=== PATIENT | male | born 1950 | race American Indian/Alaskan Native ===

== ENCOUNTER 2018-03-06 10:03 | Inpatient (IN) | payer MEDICARE, OTHER ==
[2018-03-06 10:05] VITALS: BMI 30.8
[2018-03-06] MEDS ORDERED: Morphine 4 mg/ml ISec IVP STA (11:11)
[2018-03-06] MEDS ORDERED: Sodium Chloride 0.9% 100 ML IV SCH (11:15)
--- NOTE | 2018-03-06 11:37 | ED PDOC ---
Arrival/HPI - General Historian: Patient, Spouse - History of Present Illness Narrative History of Present Illness (Text): 03/06/18 11:26 68 yo M with PMHx of HTN, HLD, cardiac arrest s/p attempted spinal surgery (10/23/14), COPD, and chronic back pain presenting to ED with epigastric abdominal pain. Per patient, the pain began acutely about 3 hours ago when he was at home sitting down. He described it as sharp, rates 10/10 severity, localized primarily to the epigastric region with radiation to the back. He also endorses lower abdominal pain, milder in nature. The pain is worse in nature when sitting upright or lying flat, improves with leaning forward or lying on his side. No associated nausea or vomiting, no headaches, dizziness, changes in vision, syncope, chest pain, palpitations, sob, or cough. ROS otherwise negative. PMHx: HTN, HLD, COPD, cardiac arrest s/p attempted spinal surgery (10/23/14) PSHx: nerve block 11/26/14 Allergies: NKDA Home Medications: as per chart Social Hx: cigar smoker, denies alcohol or drug use FHx: unknown PMD: Dr. Jean Rivas Time/Duration: 1-3 hours Symptom Onset: Sudden Symptom Course: Unchanged Quality: Stabbing Severity Level: 10 Activities at Onset: Light Context: Sitting <Nam Schmitz - Last Filed: 03/06/18 18:11> <Manny Vigil - Last Filed: 03/07/18 07:27> - General Chief Complaint: Abdominal Pain Time Seen by Provider: 03/06/18 10:32 Past Medical History - Provider Review Nursing Documentation Reviewed: Yes - Infectious Disease Hx of Infectious Diseases: None - Tetanus Immunization Tetanus Immunization: Unknown - Past Medical History Past Medical History: No Previous - Cardiac Hx Cardiac Disorders: Yes Hx Cardiac Arrhythmia: Yes Hx Congestive Heart Failure: No Hx Hypertension: Yes Hx Pacemaker: No Hx Peripheral Edema: Yes (+1 ble) Other/Comment: Dyslipidemia - Pulmonary Hx Chronic Obstructive Pulmonary Disease (COPD): Yes - Neurological HX 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) Hx Paralysis: No Hx Seizures: Yes (as a teenager) Other/Comment: pt c/o shakes post intubation on 10/27/2014 - HEENT Hx HEENT Disorder: Yes (reading glasses) - Renal Hx Renal Failure: No - Endocrine/Metabolic Hx Diabetes Mellitus Type 1: No Hx Diabetes Mellitus Type 2: No Hx Hypothyroidism: No - Hematological/Oncological Hx AIDS: No Hx Blood Transfusions: No Hx Blood Transfusion Reaction: No - Musculoskeletal/Rheumatological Hx Musculoskeletal Disorders: Yes (difficulty ambulating) Hx Arthritis: No Hx Back Pain: Yes Hx Falls: No Hx Herniated Disk: Yes (L4, L5, S1) Hx Rheumatoid Arthritis: No Hx Unsteady Gait: Yes (walker) - Gastrointestinal Hx Gastrointestinal Disorders: (obese) - Psychiatric Hx Emotional Abuse: No Hx Physical Abuse: No Hx Substance Use: No Other/Comment: quit smoking cigars 4/5 a day last week - Past Surgical History Past Surgical History: No Previous - Surgical History Other/Comment: lumbardiscectomy x 2, cyst removal - Anesthesia Hx Anesthesia: Yes Hx Anesthesia Reactions: No Hx Malignant Hyperthermia: No - Suicidal Assessment Feels Threatened In Home Enviroment: No <Nam Schmitz - Last Filed: 03/06/18 18:11> Family/Social History - Physician Review Nursing Documentation Reviewed: Yes Family/Social History: Unknown Family HX Smoking Status: Current Some Days Smoker Hx Alcohol Use: No Hx Substance Use: No <Nam Schmitz - Last Filed: 03/06/18 18:11> Allergies/Home Meds <Nam Schmitz - Last Filed: 03/06/18 18:11> <Manny Vigil - Last Filed: 03/07/18 07:27> Allergies/Adverse Reactions: Allergies No Known Allergies Allergy (Verified 10/30/14 23:56) Home Medications: Home Meds Medication Instructions Recorded Confirmed Acetaminophen/Oxycodone Hydr 1 tab PO QID PRN 01/12/15 03/06/18 [Percocet 10/325 mg Tab] Famotidine [Pepcid] 40 mg PO BID 07/15/15 03/06/18 Gabapentin [Neurontin] 600 mg PO BID 07/15/15 03/06/18 Lisinopril [Zestril] 5 mg PO QAM 07/15/15 03/06/18 Ezetimibe [Zetia] 10 mg PO DAILY 03/06/18 03/06/18 Hydrocodone Bitartrate [Hysingla 40 mg PO DAILY 03/06/18 03/06/18 ER] Linaclotide [Linzess] 290 mcg PO ACB 03/06/18 03/06/18 Methylnaltrexone [place] [Relistor] 450 mg PO AC 03/06/18 03/06/18 Metoprolol Tartrate [Lopressor] 50 mg PO HS 03/06/18 03/06/18 Primidone [Mysoline] 250 mg PO TID 03/06/18 03/06/18 Rosuvastatin Calcium [Crestor] 10 mg PO DAILY 03/06/18 03/06/18 Review of Systems - Review of Systems Constitutional: Normal Eyes: Normal ENT: Normal Respiratory: SOB. absent: Cough, Sputum, Wheezing Cardiovascular: absent: Chest Pain, Palpitations, Edema, Calf Pain, Syncope Gastrointestinal: Abdominal Pain (sharp epigastric pain radiating to back, milder lower abdominal pain). absent: Stool Changes, Constipation, Diarrhea, Nausea, Vomiting, Hematochezia, Hematemesis Genitourinary Male: Normal Musculoskeletal: Back Pain (chronic) Skin: Normal Neurological: Normal. absent: Headache, Dizziness Endocrine: Normal Hemo/Lymphatic: Normal Psychiatric: Normal <Nam Schmitz - Last Filed: 03/06/18 18:11> Physical Exam Vital Signs Reviewed: Yes Vital Signs Temp Pulse Resp BP Pulse Ox 03/06/18 10:16 97.1 F L 90 22 181/107 H 87 L Temperature: Afebrile Blood Pressure: Hypertensive Pulse: Regular Respiratory Rate: Normal Appearance: Positive for: Uncomfortable Pain Distress: Severe Mental Status: Positive for: Alert and Oriented X 3 - Systems Exam Head: Present: Atraumatic, Normocephalic Pupils: Present: PERRL Extroacular Muscles: Present: EOMI Conjunctiva: Present: Normal Mouth: Present: Moist Mucous Membranes Neck: Present: Normal Range of Motion Respiratory/Chest: Present: Clear to Auscultation, Good Air Exchange. No: Wheezes, Rales, Rhonchi Cardiovascular: Present: Regular Rate and Rhythm, Normal S1, S2 Abdomen: Present: Tenderness (TTP epigastric region, lower abdomen), Normal Bowel Sounds, Peritoneal Signs. No: Guarding, Mass/Organomegaly Back: Present: Normal Inspection. No: CVA Tenderness, Paraspinal Tenderness Upper Extremity: Present: Normal Inspection, Normal ROM, NORMAL PULSES, Capillar y Refill < 2s. No: Cyanosis, Edema, Tenderness, Swelling Lower Extremity: Present: Normal Inspection, NORMAL PULSES, Normal ROM, Capillary Refill < 2 s. No: Edema, CALF TENDERNESS, Cyanosis, Tenderness Neurological: Present: CN II-XII Intact, Speech Normal Skin: Present: Warm, Dry, Normal Color Psychiatric: Present: Alert, Oriented x 3, Normal Insight, Normal Concentration <Nam Schmitz - Last Filed: 03/06/18 18:11> Vital Signs Temp Pulse Resp BP Pulse Ox 03/06/18 17:42 101.7 F H 94 H 20 162/104 H 98 03/06/18 17:26 101.7 F H 94 H 20 162/104 H 98 03/06/18 16:48 99.3 F 95 H 17 144/98 H 97 03/06/18 14:26 98.0 F 87 17 155/92 H 95 03/06/18 13:54 92 H 186/113 H 03/06/18 13:02 97.8 F 90 18 174/106 H 98 03/06/18 10:16 97.1 F L 90 22 181/107 H 87 L <Manny Vgiil - Last Filed: 03/07/18 07:27> Medical Decision Making ED Course and Treatment: 03/06/18 11:47 68 yo M with PMHx of HTN, HLD, previous cardiac arrest, COPD presenting with acute onset epigastric abdominal pain radiating to the back, r/o AAA. Plan: --CBC, CMP --BNP --Trop --lipase --EKG --CXR --CT angiogram --IVF --Morphine 4 mg IVP x1 --UA --monitor and disposition - RAD Interpretation Narrative RAD Interpretations (Text): 03/06/18 16:43 CT angio: small amount of free air beneath the liver and R hemidiaphragm. Source of the free air appears to be the stomach. Stomach is abnormally thickened and edematous with inflammation of the surrounding fat planes. CXR: no acute findings Radiology Orders: 03/06/18 11:12 ANGIOGRAPHY DISECTION PROTOCOL [CT] Stat Coffee Supervisor: Radiologist - EKG Interpretation EKG Interpretation (Text): 03/06/18 11:44 NSR 90 bpm Possible LA enlargement Left axis deviation Nonspecific ST abnormality Interpreted by ED Physician: Yes Type: 12 lead EKG - Medication Orders Current Medication Orders: Sodium Chloride (Sodium Chloride 0.9%) 100 mls @ 100 mls/hr IV .Q1H KALEN Last Admin: 03/06/18 11:21 Dose: 100 mls/hr eMAR Start Stop Document 03/06/18 11:21 OCS (Rec: 03/06/18 11:21 OCS [id number]) Intravenous Solution Start Date 03/06/18 Start Time 11:21 End Date 03/06/18 End time 12:21 Total Infusion Time 60 Discontinued Medications Morphine Sulfate (Morphine) 4 mg IVP STAT STA Stop: 03/06/18 11:12 Last Admin: 03/06/18 11:21 Dose: 4 mg MAR Pain Assessment Document 03/06/18 11:21 OCS (Rec: 03/06/18 11:22 OCS [id number]) Pain Reassessment Is this a pain reassessment? Yes Sleep Is patient sleeping during reassessment? No Presence of Pain Presence of Pain Yes Pain Scale Used Protocol: PSCALES Pain Scale Used Numeric Location Upper or Lower Lower Pain Location Body Site Abdomen Description Description Constant Intensity of Pain at present 10 Aggravating Factors ADL's IVP Administration Document 03/06/18 11:21 OCS (Rec: 03/06/18 11:22 OCS [id number]) Charges for Administration # of IVP Administrations 1 <Nam Schmitz - Last Filed: 03/06/18 18:11> ED Course and Treatment: 03/06/18 Patient Seen with Resident: Although aortic dissection was initially thought as the most concerning diagnosis, the presence of free air in the abdomen constituted emergent surgical intervention. Surgery was consulted with patient consented by Dr. Torres([facility] surgery) for laparotomy. In agreement with resident note which contains more details about the patient. Patient seen and evaluated with resident. Came up with plan and treatment together. - Lab Interpretations Lab Results: 03/06/18 11:32 03/06/18 11:55 Lab Results 03/06/18 12:30: Urine Color Yellow, Urine Appearance Clear, Urine pH 7.5, Ur Spe cific [place] 1.020, Urine Protein Negative, Urine Glucose (UA) Negative, Urine Ketones Negative, Urine Blood Negative, Urine Nitrate Negative, Urine Bilirubin Negative, Urine Urobilinogen 0.2, Ur Leukocyte Esterase Negative 03/06/18 11:55: Sodium 140, Potassium 3.6, Chloride 111 H, Carbon Dioxide 24, Anion Gap 9 L, BUN 9, Creatinine 0.5 L, Est GFR ( Amer) > 60, Est GFR (Non-Af Amer) > 60, Random Glucose 106, Calcium 8.6, Phosphorus 2.9, Magnesium 1.8, Total Bilirubin 0.5, AST 16 L, ALT 20, Alkaline Phosphatase 118, Troponin I 0.01 D, NT-Pro-B Natriuret Pep 603 H, Total Protein 7.7, Albumin 3.7, Globulin 4.1, Albumin/Globulin Ratio 0.9 L, Lipase 145 03/06/18 11:32: WBC 8.4, RBC 6.28 H, Hgb 14.4, Hct 43.4, MCV 69.1 L, MCH 22.9 L, MCHC 33.2, RDW 21.5 H, Plt Count 311, Gran % 82.7 H, Lymph % (Auto) 12.0 L, [place] % (Auto) 5.1, Eos % (Auto) 0.1 L, Baso % (Auto) 0.1, Gran # 6.97 H, Lymph # (Auto) 1.0 L, [place] # (Auto) 0.4, Eos # (Auto) 0.0, Baso # (Auto) 0.01 - RAD Interpretation Radiology Orders: 03/06/18 11:12 ANGIOGRAPHY DISECTION PROTOCOL [CT] Stat 03/06/18 11:45 CXR [CHEST PORTABLE] [RAD] Stat - Medication Orders Current Medication Orders: Albuterol/Ipratropium (Duoneb 3 Mg/0.5 Mg (3 Ml) Ud) 3 ml IH [id number] PRN PRN Reason: Wheezing Hydromorphone HCl (Dilaudid) 0.5 mg IVP Q4H PRN PRN Reason: Pain, moderate (4-7) Hydromorphone HCl (Dilaudid) 1 mg IVP Q4H PRN PRN Reason: Pain, severe (8-10) Lactated Ringer's (Lactated Ringer's) 1,000 mls @ 125 mls/hr IV .Q8H KALEN Last Admin: 03/06/18 16:41 Dose: 125 mls/hr eMAR Start Stop Document 03/06/18 16:41 OCS (Rec: 03/06/18 16:41 OCS [id number]) Intravenous Solution Start Date 03/06/18 Start Time 16:41 Pantoprazole Sodium (Protonix Inj) 40 mg IVP DAILY KALEN Last Admin: 03/06/18 16:39 Dose: 40 mg IVP Administration Document 03/06/18 16:39 OCS (Rec: 03/06/18 16:39 OCS [id number]) Charges for Administration # of IVP Administrations 1 Discontinued Medications Sodium Chloride (Sodium Chloride 0.9%) 100 mls @ 100 mls/hr IV .Q1H KALEN Last Admin: 03/06/18 11:21 Dose: 100 mls/hr eMAR Start Stop Document 03/06/18 11:21 OCS (Rec: 03/06/18 11:21 OCS [id number]) Intravenous Solution Start Date 03/06/18 Start Time 11:21 End Date 03/06/18 End time 12:21 Total Infusion Time 60 Metronidazole (Flagyl) 500 mg in 100 mls @ 100 mls/hr IVPB STAT STA; Protocol Stop: 03/06/18 16:58 Ceftriaxone Sodium (Rocephin 1 Gram Ivpb) 1 gm in 100 mls @ 100 mls/hr IVPB DAILY STA; Protocol Stop: 03/06/18 16:58 Last Admin: 03/06/18 16:39 Dose: 100 mls/hr eMAR Start Stop Document 03/06/18 16:39 OCS (Rec: 03/06/18 16:39 OCS [id number]) Intravenous Solution Start Date 03/06/18 Start Time 16:39 End Date 03/06/18 End time 17:39 Total Infusion Time 60 Labetalol HCl (Trandate) 20 mg IV STAT STA Stop: 03/06/18 13:27 Last Admin: 03/06/18 13:54 Dose: 20 mg eMAR Start Stop Document 03/06/18 13:54 OCS (Rec: 03/06/18 13:56 OCS [id number]) Intravenous Solution Start Date 03/06/18 Start Time 13:56 End Date 03/06/18 End time 13:58 Total Infusion Time 2 MAR Pulse and Blood Pressure Document 03/06/18 13:54 OCS (Rec: 03/06/18 13:56 OCS [id number]) Pulse Pulse Rate (60-90) 92 Blood Pressure Blood Pressure (100/60-150/90) 186/113 Morphine Sulfate (Morphine) 4 mg IVP STAT STA Stop: 03/06/18 11:12 Last Admin: 03/06/18 11:21 Dose: 4 mg MAR Pain Assessment Document 03/06/18 11:21 OCS (Rec: 03/06/18 11:22 OCS [id number]) Pain Reassessment Is this a pain reassessment? Yes Sleep Is patient sleeping during reassessment? No Presence of Pain Presence of Pain Yes Pain Scale Used Protocol: PSCALES Pain Scale Used Numeric Location Upper or Lower Lower Pain Location Body Site Abdomen Description Description Constant Intensity of Pain at present 10 Aggravating Factors ADL's IVP Administration Document 03/06/18 11:21 OCS (Rec: 03/06/18 11:22 OCS [id number]) Charges for Administration # of IVP Administrations 1 <Manny Vigil - Last Filed: 03/07/18 07:27> - PA / BLOOD BANK ASSISTANT / Resident Statement MD/ has reviewed & agrees with the documentation as recorded. MD/DO has examined the patient and agrees with the treatment plan. - Scribe Statement The provider has reviewed the documentation as recorded by the Manoloibsol Calhoun Provider Scribe Attestation: All medical record entries made by the Scribe were at my direction and personally dictated by me. I have reviewed the chart and agree that the record accurately reflects my personal performance of the history, physical exam, medical decision making, and the department course for this patient. I have also personally directed, reviewed, and agree with the discharge instructions and disposition. <Manny Vigil - Last Filed: 03/07/18 07:27> Disposition/Present on Arrival - Present on Arrival Any Indicators Present on Arrival: No History of DVT/PE: No History of Uncontrolled Diabetes: No Urinary Catheter: No History of Decub. Ulcer: No History Surgical Site Infection Following: None - Disposition Have Diagnosis and Disposition been Completed?: Yes Disposition Time: 16:41 <Nam Schmitz - Last Filed: 03/06/18 18:11> <Manny Vigil - Last Filed: 03/07/18 07:27> - Disposition Diagnosis: Pneumoperitoneum, Hypertension Disposition: HOSPITALIZED Patient Problems: Current Active Problems Problem Status Onset Hypertension Acute Pneumoperitoneum Acute Condition: UNKNOWN
[2018-03-06 11:45] LABS: BASO # 0.01 K/mm3 (0.0-2.0); BASO % 0.1 % (0.0-3.0); EOS % 0.1 % (1.5-5.0); GRAN # 6.97 (1.4-6.5); GRAN % 82.7 % (50.0-68.0); HEMOGLOBIN 14.4 g/dL (14.0-18.0); MEAN CELL VOLUME 69.1 fl (80.0-105.0); MEAN CORPUSCULAR HEMOGLOBIN 22.9 pg (25.0-35.0); MEAN CORPUSCULAR HGB CONC 33.2 g/dl (31.0-37.0); MONO # 0.4 (0.1-0.6); MONO % 5.1 % (1.0-6.0); PLATELET COUNT 311 10^3/uL (120.0-450.0); RBC 6.28 10^6/uL (3.5-6.1); RED CELL DISTRIBUTION WIDTH 21.5 % (11.5-14.5); WHITE BLOOD COUNT 8.4 10^3/ul (4.5-11.0)
[2018-03-06 12:48] LABS: PH,URINE 7.5 (4.7-8.0); URINE BILIRUBIN NEGATIVE (NEGATIVE); URINE BLOOD NEGATIVE (NEGATIVE); URINE GLUCOSE (UA) NEGATIVE (NEGATIVE); URINE LEUKOCYTE ESTERASE NEGATIVE Leu/uL (NEGATIVE); URINE PROTEIN NEGATIVE mg/dL (<30 mg/dL); URINE UROBILINOGEN 0.2 E.U./dL (<1 E.U./dL)
[2018-03-06 12:50] LABS: URINE APPEARANCE CLEAR (CLEAR); URINE COLOR YELLOW (YELLOW)
[2018-03-06 13:15] LABS: ALB/GLOB RATIO 0.9 (1.1-1.8); ALBUMIN 3.7 g/dL (3.0-4.8); ALT/SGPT 20 U/L (7-56); AST/SGOT 16 U/L (17-59); BLOOD UREA NITROGEN 9 mg/dL (7-21); CALCIUM 8.6 mg/dL (8.4-10.5); GFR NON-AFRICAN AMERICAN > 60; LIPASE 145 U/L (23-300)
[2018-03-06] MEDS ORDERED: Labetalol 5 mg/ml Inj 20ML IV STA ×2 (13:26→19:24)
--- NOTE | 2018-03-06 14:07 | RAD ---
Date of service: 03/06/2018 HISTORY: chest pain COMPARISON: 01/12/2015. FINDINGS: LUNGS: No active pulmonary disease. PLEURA: No significant pleural effusion identified, no pneumothorax apparent. CARDIOVASCULAR: Cardiomegaly. No evidence of acute, significant cardiovascular disease. OSSEOUS STRUCTURES: No significant abnormalities. VISUALIZED UPPER ABDOMEN: Normal. OTHER FINDINGS: None. IMPRESSION: No active disease. No significant interval change compared to the prior examination(s).
--- NOTE | 2018-03-06 14:41 | CT ---
PROCEDURE: CT Angiography Chest, Abdomen and Pelvis with and without intravenous contrast HISTORY: hx chest, abdominal pain COMPARISON: None. TECHNIQUE: Contiguous axial images of the chest, abdomen and pelvis were obtained in the phase of aortic enhancement. A noncontrast enhanced CT of the chest was also obtained to evaluate for possible intramural thrombus. Coronal and sagittal reformats were generated. IV dose administered: 150 cc of Omni 350 Radiation dose: Total exam DLP = 1526 mGy-cm. This CT exam was performed using one or more of the following dose reduction techniques: Automated exposure control, adjustment of the mA and/or kV according to patient size, and/or use of iterative reconstruction technique. FINDINGS: CT ANGIOGRAPHY OF THE CHEST WITH & WITHOUT CONTRAST: AORTA (CHEST AND ABDOMEN): The thoracic and abdominal aorta are unremarkable, without aneurysm, dissection or rupture. No intramural thrombus identified in the thoracic aorta on the non-contrast ct of the chest. The celiac axis, superior mesenteric artery, inferior mesenteric artery and the renal arteries are widely patent. The pelvic arteries are unremarkable. LUNGS: There is elevation of the right hemidiaphragm. There is an infiltrate at the right lung base. Part of this may be due to compressive atelectasis. MEDIASTINUM: Unremarkable. Normal caliber aorta and pulmonary arterial trunk. No aortic dissection. Normal size heart. LYMPH NODES: Unremarkable. PLEURA: Unremarkable. No pneumothorax. No pleural fluid. BONES: Unremarkable. OTHER FINDINGS: None. CT ANGIOGRAPHY OF THE ABDOMEN AND PELVIS WITH CONTRAST: LIVER: Unremarkable. No gross lesion or ductal dilatation. GALLBLADDER AND BILE DUCTS: Unremarkable. PANCREAS: Unremarkable. No gross lesion or ductal dilatation. SPLEEN: Unremarkable. ADRENALS: Unremarkable. No mass. KIDNEYS AND URETERS: Unremarkable. No hydronephrosis. No solid mass. VASCULATURE: Unremarkable. No aortic aneurysm. STOMACH AND BOWEL: There is a small amount of free air beneath the liver and right hemidiaphragm. The source of the free air appears to be in the stomach. The stomach is abnormally thickened and edematous and there is inflammation of the surrounding fat planes. Findings were discussed with Dr. Schmitz at 2:30 p.m. APPENDIX: Normal appendix. PERITONEUM: There is a small amount of ascites. LYMPH NODES: Unremarkable. No enlarged lymph nodes. BLADDER: Unremarkable. REPRODUCTIVE: Unremarkable. BONES: No acute fracture. OTHER FINDINGS: None. IMPRESSION: There is a small amount of free air beneath the liver and right hemidiaphragm. The source of the free air appears to be in the stomach. The stomach is abnormally thickened and edematous and there is inflammation of the surrounding fat planes.
[2018-03-06 14:45] LABS: B-TYPE NATRIURETIC PEPTIDE 603 pg/mL (0-450)
[2018-03-06 14:46] LABS: TROPONIN I 0.01 ng/mL
[2018-03-06] MEDS ORDERED: metroNIDAZOLE IV 500 mg/100 ml 500 MG/100 ML BAG IVPB STA (15:59)
[2018-03-06] MEDS ORDERED: cefTRIAXone 1 gm 1 GM/100 ML BAG IVPB STA (15:59)
--- NOTE | 2018-03-06 16:11 | CP.PCM.CON ---
History of Present Illness - History of Present Illness History of Present Illness: General Surgery consult note for Dr. Torres Patient is a 68 year old male with PMHx of HTN, HLD, cardiac arrest s/p attempted spinal surgery (10/23/14), COPD, and chronic back pain presenting to ED with epigastric abdominal pain. Patient states that the pain started about 3 hours ago when he was at home sitting down. He described it as sharp, rates 10/10 severity, localized primarily to the epigastric region, The pain is worse when sitting upright or lying flat on his back, improves with leaning forward or lying on his side. No associated nausea or vomiting, no headaches, dizziness, changes in vision, syncope, chest pain, palpitations, sob, or cough. ROS otherwise negative. PMHx: HTN, HLD, COPD, cardiac arrest s/p attempted spinal surgery (10/23/14) PSHx: nerve block 11/26/14 Allergies: NKDA Home Medications: as per chart Social Hx: cigar smoker, denies alcohol or drug use FHx: unknown PMD: Dr. 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) Hx Paralysis: No Hx Seizures: Yes (as a teenager) Other/Comment: pt c/o shakes post intubation on 10/27/2014 - HEENT Hx HEENT Problems: Yes (reading glasses) - RENAL Hx Renal Failure: No - ENDOCRINE/METABOLIC Hx Diabetes Mellitus Type 1: No Hx Diabetes Mellitus Type 2: No Hx Hypothyroidism: No - HEMATOLOGICAL/ONCOLOGICAL Hx AIDS: No Hx Blood Transfusions: No Hx Blood Transfusion Reaction: No - MUSCULOSKELETAL/RHEUMATOLOGICAL Hx Musculoskeletal Disorders: Yes (difficulty ambulating) Hx Arthritis: No Hx Back Pain: Yes Hx Falls: No Hx Herniated Disk: Yes (L4, L5, S1) Hx Rheumatoid Arthritis: No Hx Unsteady Gait: Yes (walker) - GASTROINTESTINAL Hx Gastrointestinal Disorders: (obese) - PSYCHIATRIC Hx Emotional Abuse: No Hx Physical Abuse: No Hx Substance Use: No Other/Comment: quit smoking cigars 4/5 a day last week - SURGICAL HISTORY Other/Comment: lumbardiscectomy x 2, cyst removal - ANESTHESIA Hx Anesthesia: Yes Hx Anesthesia Reactions: No Hx Malignant Hyperthermia: No Meds Allergies/Adverse Reactions: Allergies Allergy/AdvReac Type Severity Reaction Status Date / Time No Known Allergies Allergy Verified 10/30/14 23:56 - Medications Medications: Current Medications Sodium Chloride (Sodium Chloride 0.9%) 100 mls @ 100 mls/hr IV .Q1H KALEN Last Admin: 03/06/18 11:21 Dose: 100 mls/hr Metronidazole (Flagyl) 500 mg in 100 mls @ 100 mls/hr IVPB STAT STA; Protocol Stop: 03/06/18 16:58 Ceftriaxone Sodium (Rocephin 1 Gram Ivpb) 1 gm in 100 mls @ 100 mls/hr IVPB DAILY STA; Protocol Stop: 03/06/18 16:58 Physical Exam - GI/Abdominal Exam GI & Abdominal Exam: Distended, Firm, Tenderness. absent: Soft Additional comments: Peritoneal signs present, tender to palpation in the epigastric region. Results - Vital Signs Recent Vital Signs: Last Vital Signs Temp 98.0 F 03/06/18 14:26 Pulse 87 03/06/18 14:26 Resp 17 03/06/18 14:26 BP 155/92 H 03/06/18 14:26 Pulse Ox 95 03/06/18 14:26 - Labs Result Diagrams: 03/06/18 11:32 03/06/18 11:55 Labs: Laboratory Results - last 24 hr 03/06/18 03/06/18 03/06/18 11:32 11:55 12:30 WBC 8.4 RBC 6.28 H Hgb 14.4 Hct 43.4 MCV 69.1 L MCH 22.9 L MCHC 33.2 RDW 21.5 H Plt Count 311 Gran % 82.7 H Lymph % (Auto) 12.0 L [place] % (Auto) 5.1 Eos % (Auto) 0.1 L Baso % (Auto) 0.1 Gran # 6.97 H Lymph # (Auto) 1.0 L [place] # (Auto) 0.4 Eos # (Auto) 0.0 Baso # (Auto) 0.01 Sodium 140 Potassium 3.6 Chloride 111 H Carbon Dioxide 24 Anion Gap 9 L BUN 9 Creatinine 0.5 L Est GFR ( Amer) > 60 Est GFR (Non-Af Amer) > 60 Random Glucose 106 Calcium 8.6 Phosphorus 2.9 Magnesium 1.8 Total Bilirubin 0.5 AST 16 L ALT 20 Alkaline Phosphatase 118 Troponin I 0.01 D NT-Pro-B Natriuret Pep 603 H Total Protein 7.7 Albumin 3.7 Globulin 4.1 Albumin/Globulin Ratio 0.9 L Lipase 145 Urine Color Yellow Urine Appearance Clear Urine pH 7.5 Ur Specific [place] 1.020 Urine Protein Negative Urine Glucose (UA) Negative Urine Ketones Negative Urine Blood Negative Urine Nitrate Negative Urine Bilirubin Negative Urine Urobilinogen 0.2 Ur Leukocyte Esterase Negative Assessment & Plan - Assessment and Plan (Free Text) Assessment: Patient is a 68 year old male with PMHx of HTN, HLD, cardiac arrest s/p attempted spinal surgery (10/23/14), COPD, and chronic back pain presenting with epigastric abdominal pain. CT scan showed free air below the liver and right hemidiaphragm. Plan: - Plan for emergent surgery today - Start IVF: LR @ 125mL/hr - Start antibiotics - Pain management Discussed case with Dr. Brian Nath DO PGY-1
[2018-03-06] MEDS ORDERED: HYDROmorphone 0.5 mg/0.5 ml ISec IVP PRN (16:12)
[2018-03-06] MEDS ORDERED: Lactated Ringer's 1,000 ML IV SCH ×3 (16:15→23:46)
--- NOTE | 2018-03-06 16:36 | CARD ---
APPROVED REPORT Date of service: 03/06/2018 EKG Measurement Heart [id number] <Conclusion> Normal sinus rhythm Possible Left atrial enlargement Left axis deviation Nonspecific ST abnormality Abnormal ECG
[2018-03-06] MEDS ORDERED: Propofol 10 mg/ml Inj (20 ML) ONE (17:32)
[2018-03-06] MEDS ORDERED: Rocuronium 10 mg/ml (5 ml) ONE (17:32)
[2018-03-06] MEDS ORDERED: Succinylcholine 200 mg/10 ml Inj IV ONE (17:32)
[2018-03-06] MEDS ORDERED: Midazolam 2 MG/2 ML VIAL ONE (17:32)
[2018-03-06] MEDS ORDERED: Albuterol-Ipratrop 3 mg / 0.5 (3 ml) UD IH PRN (17:33)
[2018-03-06] MEDS ORDERED: Etomidate 20 mg/10ml Inj IV ONE (17:33)
[2018-03-06] MEDS ORDERED: metroNIDAZOLE IV 500 mg/100 ml 500 MG/100 ML BAG ONE (17:40)
[2018-03-06] MEDS ORDERED: Bupivacaine 0.5% 50 ML IJ ONE (17:40)
[2018-03-06] MEDS ORDERED: Lidocaine 1% 5ml Abboject ONE (17:41)
--- NOTE | 2018-03-06 17:51 | CP.PCM.HP ---
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 Pain is sharp, 10/10 with radiation to the back. Pain worsens by sitting upright or being supine, improves with leaning forward or lying on the right side. Patient denied chest pain, palpitations, SOB, nausea, vomiting, visual changes, headaches, dizziness, syncope. As per prev[facility]ius records 01/2015: abnormal stress test which was followed by a c ardiac cath which showed normal coronaries ROS limited due to patient emergent surgery PMHx: HTN, HLD, CVA with left residual weakness, COPD, cardiac arrest s/p attempted spinal surgery (10/23/14), herniated disk (L4- S1) PSHx: lumbardiscectomy x 2, cyst removal All: NKDA Meds: crestor, primidone, lisinopril, ezetimibe, pepcid, gabapentin, lopressor, percocet, linzess, SocHx: active smoker, denies alcohol or drug use FHx: unknown PMD: Dr. Jean Rivas Present on Admission - Present on Admission Any Indicators Present on Admission: No Past Patient History - Infectious Disease Hx of Infectious Diseases: None - Tetanus Immunizations Tetanus Immunization: Unknown - Past Medical History & Family History Past Medical History?: No - Past Social History Smoking Status: Current Some Days Smoker - CARDIAC Hx Cardiac Disorders: Yes Hx Cardia Arrhythmia: Yes Hx Congestive Heart Failure: No Hx Hypertension: Yes Hx Pacemaker: No Hx Peripheral Edema: Yes (+1 ble) Other/Comment: Dyslipidemia - PULMONARY Hx Chronic Obstructive Pulmonary Disease (COPD): Yes - NEUROLOGICAL HX 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) Hx Paralysis: No Hx Seizures: Yes (as a teenager) Other/Comment: pt c/o shakes post intubation on 10/27/2014 - HEENT Hx HEENT Problems: Yes (reading glasses) - RENAL Hx Renal Failure: No - ENDOCRINE/METABOLIC Hx Diabetes Mellitus Type 1: No Hx Diabetes Mellitus Type 2: No Hx Hypothyroidism: No - HEMATOLOGICAL/ONCOLOGICAL Hx AIDS: No Hx Blood Transfusions: No Hx Blood Transfusion Reaction: No - MUSCULOSKELETAL/RHEUMATOLOGICAL Hx Musculoskeletal Disorders: Yes (difficulty ambulating) Hx Arthritis: No Hx Back Pain: Yes Hx Falls: No Hx Herniated Disk: Yes (L4, L5, S1) Hx Rheumatoid Arthritis: No Hx Unsteady Gait: Yes (walker) - GASTROINTESTINAL Hx Gastrointestinal Disorders: (obese) - PSYCHIATRIC Hx Emotional Abuse: No Hx Physical Abuse: No Hx Substance Use: No Other/Comment: quit smoking cigars 4/5 a day last week - SURGICAL HISTORY Hx Surgeries: Yes - ANESTHESIA Hx Anesthesia Reactions: Yes (CARDIAC ARREST) Hx Malignant Hyperthermia: No Meds Allergies/Adverse Reactions: Allergies Allergy/AdvReac Type Severity Reaction Status Date / Time No Known Allergies Allergy Verified 10/30/14 23:56 Physical Exam - Constitutional Appears: Well, No Acute Distress - Head Exam Head Exam: ATRAUMATIC, NORMOCEPHALIC - Eye Exam Eye Exam: Normal appearance, PERRL Pupil Exam: NORMAL ACCOMODATION - ENT Exam ENT Exam: Mucous Membranes Moist, Normal Oropharynx - Neck Exam Neck exam: Positive for: Full Rom, Normal Inspection - Respiratory Exam Respiratory Exam: Clear to Auscultation Bilateral, NORMAL BREATHING PATTERN - Cardiovascular Exam Cardiovascular Exam: REGULAR RHYTHM, +S1, +S2 - GI/Abdominal Exam GI & Abdominal Exam: Distended, Firm, Tenderness (epigastric region) Additional comments: Peritoneal signs - Extremities Exam Extremities exam: Positive for: pedal edema Additional comments: skin changes b/l LL b/l LL edema - Back Exam Back exam: NORMAL INSPECTION - Neurological Exam Neurological exam: Alert, Oriented x3 - Psychiatric Exam Psychiatric exam: Normal Affect, Normal Mood - Skin Skin Exam: Dry, Intact, Warm Additional comments: b/l LL skin changes Results - Vital Signs Recent Vital Signs: Last Vital Signs Temp 101.7 F H 03/06/18 17:26 Pulse 94 H 03/06/18 17:26 Resp 20 03/06/18 17:26 BP 162/104 H 03/06/18 17:26 Pulse Ox 98 03/06/18 17:26 - Labs Result Diagrams: 03/06/18 11:32 03/06/18 11:55 Labs: Laboratory Results - last 24 hr 03/06/18 03/06/18 03/06/18 11:32 11:55 12:30 WBC 8.4 RBC 6.28 H Hgb 14.4 Hct 43.4 MCV 69.1 L MCH 22.9 L MCHC 33.2 RDW 21.5 H Plt Count 311 Gran % 82.7 H Lymph % (Auto) 12.0 L [place] % (Auto) 5.1 Eos % (Auto) 0.1 L Baso % (Auto) 0.1 Gran # 6.97 H Lymph # (Auto) 1.0 L [place] # (Auto) 0.4 Eos # (Auto) 0.0 Baso # (Auto) 0.01 Sodium 140 Potassium 3.6 Chloride 111 H Carbon Dioxide 24 Anion Gap 9 L BUN 9 Creatinine 0.5 L Est GFR ( Amer) > 60 Est GFR (Non-Af Amer) > 60 Random Glucose 106 Calcium 8.6 Phosphorus 2.9 Magnesium 1.8 Total Bilirubin 0.5 AST 16 L ALT 20 Alkaline Phosphatase 118 Troponin I 0.01 D NT-Pro-B Natriuret Pep 603 H Total Protein 7.7 Albumin 3.7 Globulin 4.1 Albumin/Globulin Ratio 0.9 L Lipase 145 Urine Color Yellow Urine Appearance Clear Urine pH 7.5 Ur Specific [place] 1.020 Urine Protein Negative Urine Glucose (UA) Negative Urine Ketones Negative Urine Blood Negative Urine Nitrate Negative Urine Bilirubin Negative Urine Urobilinogen 0.2 Ur Leukocyte Esterase Negative Assessment & Plan - Assessment and Plan (Free Text) Assessment: 68 year old male with PMHx of HTN, HLD, COPD, cardiac arrest s/p attempted spinal surgery (10/23/14), CVA, chronic back pain presented to ED with 3 hours of epigastric abdominal pain with no radiation. CT A/P showed free air below the liver and right hemidiaphragm. Patient is hemodynamically stable Plan: Abdominal pain Patient has peritoneal signs. perforated viscus is suspected CT ANGIO C/A/P: free air below the liver and right hemidiaphragm. abnormally thickened and edemateous stomach IVF: LR @ 125mL/hr abx started Flagyl, Rocephin emergent laparotomy. patient signed consent NPO dilaudid q4h prn for pain UA: negative BNP 603 blood cultures ordered CXR: no active disease EKG: nsr COPD records reviewed: admitted in 01/16 for hypercapneic respiratory failure duoneb q6h prn supplement O2 prn HTN hold home meds for now As per [facility] records 01/2015: abnormal stress test which was followed by a cardiac cath which showed normal coronaries HLD lipitor lipid panel Prophylaxis GI ppx: pantoprazole DVT ppx: SCD Case reviewed and plan discussed with Dr Hayes <Joselito Hayes - Last Filed: 03/08/18 18:25> Results - Vital Signs Recent Vital Signs: Last Vital Signs Temp 100.2 F H 03/07/18 20:00 Pulse 107 H 03/08/18 16:12 Resp 35 H 03/07/18 18:22 BP 176/112 H 03/08/18 16:12 Pulse Ox 99 03/07/18 18:00 - Labs Result Diagrams: 03/08/18 05:30 03/08/18 05:30 Labs: Laboratory Results - last 24 hr 03/07/18 03/08/18 03/08/18 21:50 05:30 05:30 WBC 12.2 H RBC 5.48 Hgb 12.1 L Hct 36.7 L MCV 67.0 L MCH 22.1 L MCHC 33.0 RDW 20.9 H Plt Count 239 Gran % 83.4 H Lymph % (Auto) 8.6 L [place] % (Auto) 7.9 H Eos % (Auto) 0.1 L Baso % (Auto) 0.0 Gran # 10.19 H Lymph # (Auto) 1.1 L [place] # (Auto) 1.0 H Eos # (Auto) 0.0 Baso # (Auto) 0.00 Sodium 136 Potassium 3.0 L Chloride 106 Carbon Dioxide 22 Anion Gap 11 BUN 10 Creatinine 0.5 L Est GFR ( Amer) > 60 Est GFR (Non-Af Amer) > 60 POC Glucose (mg/dL) 139 H Random Glucose 128 H Calcium 8.2 L Phosphorus 2.1 L Magnesium 1.9 Total Bilirubin 0.7 AST 26 ALT 27 Alkaline Phosphatase 82 Total Protein 7.0 Albumin 3.2 Globulin 3.7 Albumin/Globulin Ratio 0.9 L Attending/Attestation - Attestation I have personally seen and examined this patient.: Yes I have fully participated in the care of the patient.: Yes I have reviewed all pertinent clinical information: Yes Notes (Text): 03/08/18 18:22 attending note; Patient seen and examined with resident. patient is alert and awake. Patient's by the bedside. Complaining of abdominal pain. In mild distress. Patient is a 68 year old male with PMHx of HTN, HLD, COPD, cardiac arrest s/p attempted spinal surgery (10/23/14), CVA, chronic back pain,opiate use presented to ED with 3 hours history of epigastric abdominal pain while sitting at home. found to have free air under the diaphragm. Surgical residents by bed side. Patient is going for emergency laparotomy for perforated viscus. patient will admitted to medical service after the surgery. We will monitor patient closely in ICU. The diagnosis and treatment options explained to the patient and patient's in detail.
[2018-03-06] MEDS ORDERED: MetroNIDAZOLE 500 mg/100 ml IVPB ONE (18:16)
[2018-03-06] MEDS ORDERED: Neostigmine Methylsulfate 3mg/3ml Syringe IV ONE (18:36)
[2018-03-06] MEDS ORDERED: Labetalol 5 mg/ml Inj 20ML ONE (18:56)
[2018-03-06] MEDS ORDERED: HYDROmorphone 1 mg/ml ISec IVP PRN (19:08)
--- NOTE | 2018-03-06 19:13 | PCM.SURG1 ---
Surgeon's Initial Post Op Note - Surgeon's Notes Surgeon: Dr. Torres Clamshell Operator: Dr. Corona PGY4, Dr. Trejo PGY3 Type of Anesthesia: General Endo, Local Pre-Operative Diagnosis: acute abdomen, perforated viscus Operative Findings: perforated duodenal ulcer, inflammed omentum Post-Operative Diagnosis: perforated duodenal ulcer Operation Performed: exploratory laparotomy w/ Issa patch Specimen/Specimens Removed: none Estimated Blood Loss: EBL {In ML}: 15 Blood Products Given: N/A Drains Used: Shad Post-Op Condition: Good Date of Surgery/Procedure: 03/06/18 Time of Surgery/Procedure: 19:13
[2018-03-06] MEDS ORDERED: HYDROmorphone 1 mg/ml ISec IVP ONE ×2 (19:14→19:24)
[2018-03-06] MEDS ORDERED: HYDROmorphone 1 mg/ml ISec ONE (19:14)
[2018-03-06] MEDS ORDERED: HYDROmorphone 0.5 mg/0.5 ml ISec ONE (19:24)
[2018-03-06] MEDS ORDERED: Labetalol 5 mg/ml Inj 20ML IV ONE (19:25)
[2018-03-06 22:04] LABS: INR 1.26; PARTIAL THROMBOPLASTIN TIME 29.2 Seconds (25.1-36.5); PROTHROMBIN TIME 14.4 SECONDS (9.4-12.5)
[2018-03-06] MEDS: HYDROmorphone 1 mg/ml ISec IVP PRN (22:33)
[2018-03-07] MEDS ORDERED: AMPicillin/Sulbactam 1.5gm 1 GM/100 ML BAG IVPB ONE (00:35)
[2018-03-07] MEDS ORDERED: Lactated Ringer's 500 ML IV SCH (00:45)
[2018-03-07] MEDS: HYDROmorphone 1 mg/ml ISec IVP PRN ×5 (03:10→21:40)
--- NOTE | 2018-03-07 03:14 | CP.PCM.CON ---
<Jonh Shea - Last Filed: 03/07/18 08:57> History of Present Illness - History of Present Illness History of Present Illness: ICU CONSULT NOTE Jonh Shea D.O. PGY-1 68 year old male with PMHx of HTN, HLD, COPD, cardiac arrest s/p attempted spinal surgery (10/23/14), CVA, chronic back pain presented to ED with 3 hours history of epigastric abdominal pain while sitting at home. Pain is sharp, 10/10 with radiation to the back. Pain worsens by sitting upright or being supine, improves with leaning forward or lying on the right side. Pt found to have perforated duodenal ulcer and is s/p exploratory laparatomy with jeanette patch. Pt is resting in bed, with restraints in place as pt was trying to remove abdominal packing and eagle tube. Patient denied chest pain, palpitations, SOB, nausea, vomiting, visual changes, headaches, dizziness, syncope. As per prevoius records 01/2015: abnormal stress test which was followed by a cardiac cath which showed normal coronaries ROS limited due to patient emergent surgery PMHx: HTN, HLD, CVA with left residual weakness, COPD, cardiac arrest s/p attempted spinal surgery (10/23/14), herniated disk (L4- S1) PSHx: lumbardiscectomy x 2, cyst removal All: NKDA Meds: crestor, primidone, lisinopril, ezetimibe, pepcid, gabapentin, lopressor, percocet, linzess, SocHx: active smoker, denies alcohol or drug use FHx: unknown PMD: Dr. Jean Rivas Review of Systems - Review of Systems Review of Systems: as per HPI, limited Past Patient History - Infectious Disease Hx of Infectious Diseases: None - Tetanus Immunizations Tetanus Immunization: Unknown - Past Medical History & Family History Past Medical History?: No - Past Social History Smoking Status: Heavy Smoker > 10 Cigarettes Daily - CARDIAC Hx Cardiac Disorders: Yes Hx Peripheral Edema: Yes - PULMONARY Hx Respiratory Disorders: Yes Hx Chronic Obstructive Pulmonary Disease (COPD): Yes - NEUROLOGICAL HX Cerebrovascular Accident: Yes - HEENT Hx HEENT Problems: Yes (reading glasses) - RENAL Hx Renal Failure: No - ENDOCRINE/METABOLIC Hx Diabetes Mellitus Type 1: No Hx Diabetes Mellitus Type 2: No Hx Hypothyroidism: No - HEMATOLOGICAL/ONCOLOGICAL Hx AIDS: No Hx Blood Transfusions: No Hx Blood Transfusion Reaction: No - MUSCULOSKELETAL/RHEUMATOLOGICAL Hx Back Pain: Yes Hx Falls: No - GASTROINTESTINAL Hx Gastrointestinal Disorders: (obese) - PSYCHIATRIC Hx Substance Use: No - SURGICAL HISTORY Hx Surgeries: Yes (Attempted spinal surgery) - ANESTHESIA Hx Anesthesia Reactions: Yes (CARDIAC ARREST) Hx Malignant Hyperthermia: No Meds Allergies/Adverse Reactions: Allergies Allergy/AdvReac Type Severity Reaction Status Date / Time No Known Allergies Allergy Verified 10/30/14 23:56 - Medications Medications: Current Medications Albuterol/Ipratropium (Duoneb 3 Mg/0.5 Mg (3 Ml) Ud) 3 ml IH [id number] PRN PRN Reason: Wheezing Hydromorphone HCl (Dilaudid) 0.5 mg IVP Q4H PRN PRN Reason: Pain, moderate (4-7) Hydromorphone HCl (Dilaudid) 1 mg IVP Q4H PRN PRN Reason: Pain, severe (8-10) Last Admin: 03/07/18 03:10 Dose: 1 mg Hydromorphone HCl (Dilaudid) 0.5 mg IVP Q5MIN PRN PRN Reason: Pain, moderate (4-7) Lactated Ringer's (Lactated Ringer's) 1,000 mls @ 150 mls/hr IV .Q6H40M [facility] Last Admin: 03/07/18 01:13 Dose: 150 mls/hr Fluconazole 100 mg/ (Miscellaneous) 50 mls @ 100 mls/hr IVPB DAILY [facility]; Protocol Lactated Ringer's (Lactated Ringer's) 500 mls @ 999 mls/hr IV .Q31M [facility] Last Admin: 03/07/18 01:11 Dose: 999 mls/hr Ondansetron HCl (Zofran Inj) 4 mg IVP Q6 PRN PRN Reason: Nausea/Vomiting Pantoprazole Sodium (Protonix Inj) 40 mg IVP DAILY [facility] Last Admin: 03/06/18 16:39 Dose: 40 mg Results - Vital Signs Recent Vital Signs: Last Vital Signs Temp 98.2 F 03/07/18 00:00 Pulse 74 03/06/18 22:00 Resp 16 03/06/18 20:43 BP 166/101 H 03/06/18 19:33 Pulse Ox 94 L 10/03/18 19:33 - Labs Result Diagrams: 03/07/18 06:00 03/07/18 06:00 Labs: Laboratory Results - last 24 hr 03/06/18 03/06/18 03/06/18 11:32 11:55 12:30 WBC 8.4 RBC 6.28 H Hgb 14.4 Hct 43.4 MCV 69.1 L MCH 22.9 L MCHC 33.2 RDW 21.5 H Plt Count 311 Gran % 82.7 H Lymph % (Auto) 12.0 L [place] % (Auto) 5.1 Eos % (Auto) 0.1 L Baso % (Auto) 0.1 Gran # 6.97 H Lymph # (Auto) 1.0 L [place] # (Auto) 0.4 Eos # (Auto) 0.0 Baso # (Auto) 0.01 PT INR APTT Sodium 140 Potassium 3.6 Chloride 111 H Carbon Dioxide 24 Anion Gap 9 L BUN 9 Creatinine 0.5 L Est GFR ( Amer) > 60 Est GFR (Non-Af Amer) > 60 Random Glucose 106 Calcium 8.6 Phosphorus 2.9 Magnesium 1.8 Total Bilirubin 0.5 AST 16 L ALT 20 Alkaline Phosphatase 118 Troponin I 0.01 D NT-Pro-B Natriuret Pep 603 H Total Protein 7.7 Albumin 3.7 Globulin 4.1 Albumin/Globulin Ratio 0.9 L Lipase 145 Urine Color Yellow Urine Appearance Clear Urine pH 7.5 Ur Specific [place] 1.020 Urine Protein Negative Urine Glucose (UA) Negative Urine Ketones Negative Urine Blood Negative Urine Nitrate Negative Urine Bilirubin Negative Urine Urobilinogen 0.2 Ur Leukocyte Esterase Negative 03/06/18 21:51 WBC RBC Hgb Hct MCV MCH MCHC RDW Plt Count Gran % Lymph % (Auto) [place] % (Auto) Eos % (Auto) Baso % (Auto) Gran # Lymph # (Auto) [place] # (Auto) Eos # (Auto) Baso # (Auto) PT 14.4 H INR 1.26 APTT 29.2 Sodium Potassium Chloride Carbon Dioxide Anion Gap BUN Creatinine Est GFR ( Amer) Est GFR (Non-Af Amer) Random Glucose Calcium Phosphorus Magnesium Total Bilirubin AST ALT Alkaline Phosphatase Troponin I NT-Pro-B Natriuret Pep Total Protein Albumin Globulin Albumin/Globulin Ratio Lipase Urine Color Urine Appearance Urine pH Ur Specific [place] Urine Protein Urine Glucose (UA) Urine Ketones Urine Blood Urine Nitrate Urine Bilirubin Urine Urobilinogen Ur Leukocyte Esterase Assessment & Plan - Assessment and Plan (Free Text) Assessment: 68 year old male with PMHx of HTN, HLD, COPD, cardiac arrest s/p attempted spinal surgery (10/23/14), CVA, chronic back pain presented to ED with 3 hours of epigastric abdominal pain with no radiation. CT A/P showed free air below the liver and right hemidiaphragm. Patient is hemodynamically stable Plan: Patient has peritoneal signs. perforated viscus is suspected CT ANGIO C/A/P: free air below the liver and right hemidiaphragm. abnormally thickened and edemateous stomach IVF: LR @ 125mL/hr abx started Flagyl, Rocephin emergent laparotomy. patient signed consent NPO dilaudid q4h prn for pain UA: negative BNP 603 blood cultures ordered CXR: no active disease EKG: nsr COPD records reviewed: admitted in 01/16 for hypercapneic respiratory failure duoneb q6h prn supplement O2 prn HTN hold home meds for now As per [facility] records 01/2015: abnormal stress test which was followed by a cardiac cath which showed normal coronaries HLD lipitor lipid panel Prophylaxis GI ppx: pantoprazole DVT ppx: SCD <Hilton Martinez - Last Filed: 03/07/18 19:15> Meds - Medications Medications: Current Medications Albuterol/Ipratropium (Duoneb 3 Mg/0.5 Mg (3 Ml) Ud) 3 ml IH [id number] PRN PRN Reason: Wheezing Hydralazine HCl (Apresoline) 5 mg IVP Q6 PRN PRN Reason: Systolic Blood Pressure Last Admin: 03/07/18 04:41 Dose: 5 mg Hydromorphone HCl (Dilaudid) 0.5 mg IVP Q4H PRN PRN Reason: Pain, moderate (4-7) Hydromorphone HCl (Dilaudid) 1 mg IVP Q4H PRN PRN Reason: Pain, severe (8-10) Last Admin: 03/07/18 18:19 Dose: 1 mg Lactated Ringer's (Lactated Ringer's) 1,000 mls @ 125 mls/hr IV .Q8H [facility] Last Admin: 03/07/18 14:57 Dose: 125 mls/hr Metronidazole (Flagyl) 500 mg in 100 mls @ 100 mls/hr IVPB Q8 [facility]; Protocol Last Admin: 03/07/18 13:16 Dose: 100 mls/hr Ceftriaxone Sodium (Rocephin 2 Gm Ivpb) 2 gm in 100 mls @ 100 mls/hr IVPB DAILY [facility]; Protocol Last Admin: 03/07/18 09:07 Dose: 100 mls/hr Dexmedetomidine HCl (Precedex 400mcg/100ml) 400 mcg in 100 mls @ 4.257 mls/hr IV .[id number] PRN; Protocol PRN Reason: Agitation Last Admin: 03/07/18 18:50 Dose: 1.5 mcg/kg/hr, 31.927 mls/hr Lorazepam (Ativan) 1 mg IVP Q4 PRN; Protocol PRN Reason: Anxiety Last Admin: 03/07/18 13:03 Dose: 1 mg Nicotine (Nicoderm Cq) 1 patch TD DAILY [facility] Last Admin: 03/07/18 10:25 Dose: 1 patch Ondansetron HCl (Zofran Inj) 4 mg IVP Q6 PRN PRN Reason: Nausea/Vomiting Pantoprazole Sodium (Protonix Inj) 40 mg IVP DAILY [facility] Last Admin: 03/07/18 09:04 Dose: 40 mg Results - Vital Signs Recent Vital Signs: Last Vital Signs Temp 98 F 03/07/18 16:00 Pulse 102 H 03/07/18 18:22 Resp 35 H 03/07/18 18:22 BP 188/119 H 03/07/18 18:23 Pulse Ox 99 03/07/18 18:00 - Labs Result Diagrams: 03/07/18 06:00 03/07/18 06:00 Labs: Laboratory Results - last 24 hr 03/06/18 03/07/18 03/07/18 21:51 00:26 06:00 WBC 12.4 H D RBC 5.83 Hgb 13.0 L Hct 40.0 L MCV 68.6 L MCH 22.3 L MCHC 32.5 RDW 21.5 H Plt Count 281 Gran % 83.9 H Lymph % (Auto) 9.6 L [place] % (Auto) 6.4 H Eos % (Auto) 0.1 L Baso % (Auto) 0.0 Gran # 10.43 H Lymph # (Auto) 1.2 [place] # (Auto) 0.8 H Eos # (Auto) 0.0 Baso # (Auto) 0.00 PT 14.4 H INR 1.26 APTT 29.2 Sodium Potassium Chloride Carbon Dioxide Anion Gap BUN Creatinine Est GFR ( Amer) Est GFR (Non-Af Amer) POC Glucose (mg/dL) 134 H Random Glucose Calcium Phosphorus Magnesium Total Bilirubin AST ALT Alkaline Phosphatase Total Protein Albumin Globulin Albumin/Globulin Ratio Procalcitonin Urine Opiates Screen Urine Methadone Screen Ur Barbiturates Screen Ur Phencyclidine Scrn Ur Amphetamines Screen U Benzodiazepines Scrn U Oth Cocaine Metabols U Cannabinoids Screen 03/07/18 03/07/18 03/07/18 06:00 07:20 10:46 WBC RBC Hgb Hct MCV MCH MCHC RDW Plt Count Gran % Lymph % (Auto) [place] % (Auto) Eos % (Auto) Baso % (Auto) Gran # Lymph # (Auto) [place] # (Auto) Eos # (Auto) Baso # (Auto) PT INR APTT Sodium 137 Potassium 3.6 Chloride 108 H Carbon Dioxide 24 Anion Gap 9 L BUN 9 Creatinine 0.5 L Est GFR ( Amer) > 60 Est GFR (Non-Af Amer) > 60 POC Glucose (mg/dL) 133 H 172 H Random Glucose 129 H Calcium 8.1 L Phosphorus 2.5 Magnesium 1.5 L Total Bilirubin 0.7 AST 33 ALT 25 Alkaline Phosphatase 90 Total Protein 7.0 Albumin 3.3 Globulin 3.7 Albumin/Globulin Ratio 0.9 L Procalcitonin Urine Opiates Screen Urine Methadone Screen Ur Barbiturates Screen Ur Phencyclidine Scrn Ur Amphetamines Screen U Benzodiazepines Scrn U Oth Cocaine Metabols U Cannabinoids Screen 03/07/18 03/07/18 03/07/18 11:00 12:50 15:47 WBC RBC Hgb Hct MCV MCH MCHC RDW Plt Count Gran % Lymph % (Auto) [place] % (Auto) Eos % (Auto) Baso % (Auto) Gran # Lymph # (Auto) [place] # (Auto) Eos # (Auto) Baso # (Auto) PT INR APTT Sodium Potassium Chloride Carbon Dioxide Anion Gap BUN Creatinine Est GFR ( Amer) Est GFR (Non-Af Amer) POC Glucose (mg/dL) 154 H Random Glucose Calcium Phosphorus Magnesium Total Bilirubin AST ALT Alkaline Phosphatase Total Protein Albumin Globulin Albumin/Globulin Ratio Procalcitonin 3.79 H Urine Opiates Screen Positive H Urine Methadone Screen Negative Ur Barbiturates Screen Positive H Ur Phencyclidine Scrn Negative Ur Amphetamines Screen Negative U Benzodiazepines Scrn Negative U Oth Cocaine Metabols Negative U Cannabinoids Screen Positive H Attending/Attestation - Attestation I have personally seen and examined this patient.: Yes I have fully participated in the care of the patient.: Yes I have reviewed all pertinent clinical information: Yes
[2018-03-07] MEDS: Lactated Ringer's 1,000 ML IV SCH ×3 (06:25→23:21)
[2018-03-07] MEDS ORDERED: diltiaZEM IVPB 100mg in NS 100 ML IV PRN (07:08)
[2018-03-07 07:13] LABS: EOS % 0.1 % (1.5-5.0); GRAN # 10.43 (1.4-6.5); GRAN % 83.9 % (50.0-68.0); LYMPH # 1.2 (1.2-3.4); LYMPH % 9.6 % (22.0-35.0); MEAN CELL VOLUME 68.6 fl (80.0-105.0); MEAN CORPUSCULAR HEMOGLOBIN 22.3 pg (25.0-35.0); MEAN CORPUSCULAR HGB CONC 32.5 g/dl (31.0-37.0); MONO # 0.8 (0.1-0.6); MONO % 6.4 % (1.0-6.0); PLATELET COUNT 281 10^3/uL (120.0-450.0); RBC 5.83 10^6/uL (3.5-6.1); RED CELL DISTRIBUTION WIDTH 21.5 % (11.5-14.5); WHITE BLOOD COUNT 12.4 10^3/ul (4.5-11.0)
[2018-03-07] MEDS ORDERED: Nicardipine 20 MG/200 ML 20 MG/200 ML BAG IV PRN (07:14)
[2018-03-07 07:39] LABS: ALB/GLOB RATIO 0.9 (1.1-1.8); ALBUMIN 3.3 g/dL (3.0-4.8); ALT/SGPT 25 U/L (7-56); AST/SGOT 33 U/L (17-59); BLOOD UREA NITROGEN 9 mg/dL (7-21); CALCIUM 8.1 mg/dL (8.4-10.5); GFR NON-AFRICAN AMERICAN > 60
--- NOTE | 2018-03-07 08:42 | RAD ---
Date of service: 03/06/2018 HISTORY: post op, NGT placement COMPARISON: 03/06/2018 at 12:15 FINDINGS: LUNGS: The visualized lungs are clear. There is linear atelectasis in the right lower lobe. PLEURA: No significant pleural effusion identified, no pneumothorax apparent. CARDIOVASCULAR: Normal. OSSEOUS STRUCTURES: No significant abnormalities. VISUALIZED UPPER ABDOMEN: Normal. OTHER FINDINGS: Nasogastric tube terminates in the stomach IMPRESSION: Nasogastric tube terminates in the stomach. No acute findings.
--- NOTE | 2018-03-07 08:44 | CP.PCM.PN ---
Subjective - Date & Time of Evaluation Date of Evaluation: 03/07/18 Time of Evaluation: 08:39 - Subjective Subjective: General Surgery Progress note for Dr. Torres This 68M was seen and examined this Am at bedside no acute events reported overnight, however patient was delierious and was pulling at his NGT. This Am he reports improved pain, and cognition. Denies Flatus, BM chest pain or SOB. Objective - Vital Signs/Intake and Output Vital Signs (last 24 hours): Temp Pulse Resp BP Pulse Ox 98.2 F 79 22 161/89 H 100 03/07/18 06:00 03/07/18 05:10 03/07/18 05:10 03/07/18 05:00 03/07/18 05:10 Intake and Output: 03/07/18 03/07/18 06:59 18:59 Intake Total 1850 60 Output Total 2050 Balance -200 60 - Medications Medications: Current Medications Albuterol/Ipratropium (Duoneb 3 Mg/0.5 Mg (3 Ml) Ud) 3 ml IH [id number] PRN PRN Reason: Wheezing Hydralazine HCl (Apresoline) 5 mg IVP Q6 PRN PRN Reason: Systolic Blood Pressure Last Admin: 03/07/18 04:41 Dose: 5 mg Hydromorphone HCl (Dilaudid) 0.5 mg IVP Q4H PRN PRN Reason: Pain, moderate (4-7) Hydromorphone HCl (Dilaudid) 1 mg IVP Q4H PRN PRN Reason: Pain, severe (8-10) Last Admin: 03/07/18 07:15 Dose: 1 mg Hydromorphone HCl (Dilaudid) 0.5 mg IVP Q5MIN PRN PRN Reason: Pain, moderate (4-7) Lactated Ringer's (Lactated Ringer's) 1,000 mls @ 125 mls/hr IV .Q8H KALEN Last Admin: 03/07/18 06:25 Dose: 125 mls/hr Nicardipine HCl (Cardene Iv Premix) 20 mg in 200 mls @ 50 mls/hr IV .Q4H PRN; Protocol PRN Reason: TITRATE PER MD ORDER Last Titration: 03/07/18 08:33 Dose: 15 mg/hr, 150 mls/hr Metronidazole (Flagyl) 500 mg in 100 mls @ 100 mls/hr IVPB Q8 KALEN; Protocol Ceftriaxone Sodium (Rocephin 2 Gm Ivpb) 2 gm in 100 mls @ 100 mls/hr IVPB DAILY KALEN; Protocol Ondansetron HCl (Zofran Inj) 4 mg IVP Q6 PRN PRN Reason: Nausea/Vomiting Pantoprazole Sodium (Protonix Inj) 40 mg IVP DAILY [facility] Last Admin: 03/06/18 16:39 Dose: 40 mg - Labs Labs: 03/07/18 06:00 03/07/18 06:00 PT 14.4 SECONDS (9.4-12.5) H 03/06/18 21:51 INR 1.26 03/06/18 21:51 APTT 29.2 Seconds (25.1-36.5) 03/06/18 21:51 - Constitutional Appears: Non-toxic, No Acute Distress - Head Exam Head Exam: ATRAUMATIC, NORMOCEPHALIC - Eye Exam Eye Exam: EOMI - ENT Exam ENT Exam: Mucous Membranes Moist Additional comments: NGT in right nare - Respiratory Exam Respiratory Exam: NORMAL BREATHING PATTERN - Cardiovascular Exam Cardiovascular Exam: REGULAR RHYTHM, +S1, +S2 - GI/Abdominal Exam GI & Abdominal Exam: Soft. absent: Guarding, Rigid, Tenderness Additional comments: Drsssing wth sanguinous strike through, rafael drain with 280cc output since OR, Sanginopurulent - Neurological Exam Neurological Exam: Alert, Awake - Psychiatric Exam Psychiatric exam: Normal Affect, Normal Mood - Skin Skin Exam: Dry, Intact Assessment and Plan - Assessment and Plan (Free Text) Assessment: 68M with perforated duodenal ulcer POD#1 s/p exlap with gram patch and washout NPO NGT to suction IVF Pain control Monitor output Serial abdominal exams IV abx DVT prophylaxis D/W Dr. Brian Trejo [id number]
[2018-03-07] MEDS ORDERED: Magnesium Sulfate 2 gm/50 ml 2 GM/50 ML BAG IVPB ONE (08:56)
[2018-03-07] MEDS: cefTRIAXone 2 GM IN NS 2 GM/100 ML BAG IVPB SCH (09:07)
--- NOTE | 2018-03-07 09:46 | CP.CCUPN ---
<Carlos Silva - Last Filed: 03/07/18 12:27> CCU Subjective - Physician Review Subjective (Free Text): Carlos Silva, PGY-1, CCU Progress Note for Dr. Jolley Patient seen and evaluated at bedside. Patient is currently AAOx2. Patient is oriented to person and place but not to time. Patient denies headache, dizziness, chest pain, shortness of breath, fever, nausea, vomiting, constipation, diarrhea, dysuria, hematuria, diaphoresis. Though patient denied diaphoresis, patient was actively sweating and tachypneic. Critical Care Time Spent (in minutes): 60 CCU Objective - Vital Signs / Intake & Output Vital Signs (Last 4 hours): Vital Signs Temp 03/07/18 06:00 98.2 F Intake and Output (Last 8hrs): Intake & Output 03/06/18 03/07/18 03/07/18 22:59 06:59 14:59 Intake Total 0 1850 60 Output Total 2050 Balance 0 -200 60 Weight 187 lb 11.2 oz Intake: IV 0 1850 60 Left Hand 1850 Oral 0 Output: Drainage 400 Bilateral Abdomen 400 Urine 1650 2-way Urethral 1650 Stool 0 Emesis 0 Other: Voiding Method Indwelling Catheter - Physical Exam Head: Positive for: Atraumatic, Normocephalic Pupils: Positive for: PERRL Extroacular Muscles: Positive for: EOMI Conjunctiva: Positive for: Normal Mouth: Positive for: Moist Mucous Membranes Neck: Positive for: Normal Range of Motion Respiratory/Chest: Positive for: Clear to Auscultation, Good Air Exchange. Negative for: Wheezes, Rales, Rhonchi Cardiovascular: Positive for: Regular Rate and Rhythm, Normal S1, S2 Abdomen: Positive for: Other (Patient has incision on the right lower abdomen. ). Negative for: Tenderness, Distention, Normal Bowel Sounds, Guarding, Mass/Organomegaly Back: Positive for: Normal Inspection. Negative for: CVA Tenderness, Paraspinal Tenderness Upper Extremity: Positive for: Normal Inspection, NORMAL PULSES, Capillary Refill < 2s. Negative for: Cyanosis, Edema, Tenderness, Swelling Lower Extremity: Positive for: Normal Inspection, NORMAL PULSES, Capillary Refill < 2 s. Negative for: Edema, CALF TENDERNESS, Cyanosis, Tenderness Neurological: Positive for: GCS=15, CN II-XII Intact, Motor Func Grossly Intact, Other (confused) Skin: Positive for: Warm, Dry, Normal Color, Diaphoretic Psychiatric: Positive for: Alert, Normal Insight, Normal Concentration - Medications Active Medications: Active Medications Generic Name Dose Route Start Last Admin Trade Name Freq PRN Reason Stop Dose Admin Albuterol/Ipratropium 3 ml 03/06/18 17:33 Duoneb 3 Mg/0.5 Mg (3 Ml) Ud IH [id number] PRN Wheezing Hydralazine HCl 5 mg 03/07/18 04:19 03/07/18 04:41 Apresoline IVP 5 mg Q6 PRN Administration Systolic Blood Pressure Hydromorphone HCl 0.5 mg 03/06/18 16:12 Dilaudid IVP Q4H PRN Pain, moderate (4-7) Hydromorphone HCl 1 mg 03/06/18 16:12 03/07/18 07:15 Dilaudid IVP 1 mg Q4H PRN Administration Pain, severe (8-10) Lactated Ringer's 1,000 mls @ 125 mls/hr 03/07/18 06:04 03/07/18 06:25 Lactated Ringer's IV 125 mls/hr .Q8H KALEN Administration Metronidazole 500 mg in 100 mls @ 100 mls/hr 03/07/18 14:00 Flagyl IVPB Q8 KALEN Protocol Ceftriaxone Sodium 2 gm in 100 mls @ 100 mls/hr 03/07/18 10:00 03/07/18 09:07 Rocephin 2 Gm Ivpb IVPB 100 mls/hr DAILY KALEN Administration Protocol Dexmedetomidine HCl 400 mcg in 100 mls @ 4.257 mls/hr 03/07/18 09:36 Precedex 400mcg/100ml IV .[id number] PRN Agitation Protocol 0.2 MCG/KG/HR Lorazepam 1 mg 03/07/18 09:31 Ativan IVP Q4 PRN Anxiety Protocol Nicotine 1 patch 03/07/18 10:00 Nicoderm Cq TD DAILY KALEN Ondansetron HCl 4 mg 03/06/18 19:02 Zofran Inj IVP Q6 PRN Nausea/Vomiting Pantoprazole Sodium 40 mg 03/06/18 16:15 03/07/18 09:04 Protonix Inj IVP 40 mg DAILY KALEN Administration - Patient Studies Lab Studies: Lab Studies 03/07/18 03/07/18 03/06/18 Range/Units 06:00 06:00 21:51 WBC 12.4 H D (4.5-11.0) 10^3/ul RBC 5.83 (3.5-6.1) 10^6/uL Hgb 13.0 L (14.0-18.0) g/dL Hct 40.0 L (42.0-52.0) % MCV 68.6 L (80.0-105.0) fl MCH 22.3 L (25.0-35.0) pg MCHC 32.5 (31.0-37.0) g/dl RDW 21.5 H (11.5-14.5) % Plt Count 281 (120.0-450.0) 10^3/uL Gran % 83.9 H (50.0-68.0) % Lymph % (Auto) 9.6 L (22.0-35.0) % [place] % (Auto) 6.4 H (1.0-6.0) % Eos % (Auto) 0.1 L (1.5-5.0) % Baso % (Auto) 0.0 (0.0-3.0) % Gran # 10.43 H (1.4-6.5) Lymph # (Auto) 1.2 (1.2-3.4) [place] # (Auto) 0.8 H (0.1-0.6) Eos # (Auto) 0.0 (0.0-0.7) Baso # (Auto) 0.00 (0.0-2.0) K/mm3 PT 14.4 H (9.4-12.5) SECONDS INR 1.26 APTT 29.2 (25.1-36.5) Seconds Sodium 137 (132-148) mmol/L Potassium 3.6 (3.6-5.0) mmol/L Chloride 108 H (98-107) mmol/L Carbon Dioxide 24 (21-33) mmol/L Anion Gap 9 L (10-20) BUN 9 (7-21) mg/dL Creatinine 0.5 L (0.8-1.5) mg/dl Est GFR ( Amer) > 60 Est GFR (Non-Af Amer) > 60 Random Glucose 129 H (70-110) mg/dL Calcium 8.1 L (8.4-10.5) mg/dL Phosphorus 2.5 (2.5-4.5) mg/dL Magnesium 1.5 L (1.7-2.2) mg/dL Total Bilirubin 0.7 (0.2-1.3) mg/dL AST 33 (17-59) U/L ALT 25 (7-56) U/L Alkaline Phosphatase 90 (38-126) U/L Troponin I ng/mL NT-Pro-B Natriuret Pep (0-450) pg/mL Total Protein 7.0 (5.8-8.3) g/dL Albumin 3.3 (3.0-4.8) g/dL Globulin 3.7 gm/dL Albumin/Globulin Ratio 0.9 L (1.1-1.8) Lipase (23-300) U/L Urine Color (YELLOW) Urine Appearance (CLEAR) Urine pH (4.7-8.0) Ur Specific [place] (1.005-1.035) Urine Protein (<30 mg/dL) mg/dL Urine Glucose (UA) (NEGATIVE) mg/dL Urine Ketones (NEGATIVE) mg/dL Urine Blood (NEGATIVE) Urine Nitrate (NEGATIVE) Urine Bilirubin (NEGATIVE) Urine Urobilinogen (<1 E.U./dL) E.U./dL Ur Leukocyte Esterase (NEGATIVE) Gertrude/uL 03/06/18 03/06/18 03/06/18 Range/Units 12:30 11:55 11:32 WBC 8.4 (4.5-11.0) 10^3/ul RBC 6.28 H (3.5-6.1) 10^6/uL Hgb 14.4 (14.0-18.0) g/dL Hct 43.4 (42.0-52.0) % MCV 69.1 L (80.0-105.0) fl MCH 22.9 L (25.0-35.0) pg MCHC 33.2 (31.0-37.0) g/dl RDW 21.5 H (11.5-14.5) % Plt Count 311 (120.0-450.0) 10^3/uL Gran % 82.7 H (50.0-68.0) % Lymph % (Auto) 12.0 L (22.0-35.0) % [place] % (Auto) 5.1 (1.0-6.0) % Eos % (Auto) 0.1 L (1.5-5.0) % Baso % (Auto) 0.1 (0.0-3.0) % Gran # 6.97 H (1.4-6.5) Lymph # (Auto) 1.0 L (1.2-3.4) [place] # (Auto) 0.4 (0.1-0.6) Eos # (Auto) 0.0 (0.0-0.7) Baso # (Auto) 0.01 (0.0-2.0) K/mm3 PT (9.4-12.5) SECONDS INR APTT (25.1-36.5) Seconds Sodium 140 (132-148) mmol/L Potassium 3.6 (3.6-5.0) mmol/L Chloride 111 H (98-107) mmol/L Carbon Dioxide 24 (21-33) mmol/L Anion Gap 9 L (10-20) BUN 9 (7-21) mg/dL Creatinine 0.5 L (0.8-1.5) mg/dl Est GFR ( Amer) > 60 Est GFR (Non-Af Amer) > 60 Random Glucose 106 (70-110) mg/dL Calcium 8.6 (8.4-10.5) mg/dL Phosphorus 2.9 (2.5-4.5) mg/dL Magnesium 1.8 (1.7-2.2) mg/dL Total Bilirubin 0.5 (0.2-1.3) mg/dL AST 16 L (17-59) U/L ALT 20 (7-56) U/L Alkaline Phosphatase 118 (38-126) U/L Troponin I 0.01 D ng/mL NT-Pro-B Natriuret Pep 603 H (0-450) pg/mL Total Protein 7.7 (5.8-8.3) g/dL Albumin 3.7 (3.0-4.8) g/dL Globulin 4.1 gm/dL Albumin/Globulin Ratio 0.9 L (1.1-1.8) Lipase 145 (23-300) U/L Urine Color Yellow (YELLOW) Urine Appearance Clear (CLEAR) Urine pH 7.5 (4.7-8.0) Ur Specific [place] 1.020 (1.005-1.035) Urine Protein Negative (<30 mg/dL) mg/dL Urine Glucose (UA) Negative (NEGATIVE) mg/dL Urine Ketones Negative (NEGATIVE) mg/dL Urine Blood Negative (NEGATIVE) Urine Nitrate Negative (NEGATIVE) Urine Bilirubin Negative (NEGATIVE) Urine Urobilinogen 0.2 (<1 E.U./dL) E.U./dL Ur Leukocyte Esterase Negative (NEGATIVE) Gertrude/uL Laboratory Results - last 24 hr 03/06/18 03/06/18 03/06/18 11:32 11:55 12:30 WBC 8.4 RBC 6.28 H Hgb 14.4 Hct 43.4 MCV 69.1 L MCH 22.9 L MCHC 33.2 RDW 21.5 H Plt Count 311 Gran % 82.7 H Lymph % (Auto) 12.0 L [place] % (Auto) 5.1 Eos % (Auto) 0.1 L Baso % (Auto) 0.1 Gran # 6.97 H Lymph # (Auto) 1.0 L [place] # (Auto) 0.4 Eos # (Auto) 0.0 Baso # (Auto) 0.01 PT INR APTT Sodium 140 Potassium 3.6 Chloride 111 H Carbon Dioxide 24 Anion Gap 9 L BUN 9 Creatinine 0.5 L Est GFR ( Amer) > 60 Est GFR (Non-Af Amer) > 60 Random Glucose 106 Calcium 8.6 Phosphorus 2.9 Magnesium 1.8 Total Bilirubin 0.5 AST 16 L ALT 20 Alkaline Phosphatase 118 Troponin I 0.01 D NT-Pro-B Natriuret Pep 603 H Total Protein 7.7 Albumin 3.7 Globulin 4.1 Albumin/Globulin Ratio 0.9 L Lipase 145 Urine Color Yellow Urine Appearance Clear Urine pH 7.5 Ur Specific [place] 1.020 Urine Protein Negative Urine Glucose (UA) Negative Urine Ketones Negative Urine Blood Negative Urine Nitrate Negative Urine Bilirubin Negative Urine Urobilinogen 0.2 Ur Leukocyte Esterase Negative 03/06/18 03/07/18 03/07/18 21:51 06:00 06:00 WBC 12.4 H D RBC 5.83 Hgb 13.0 L Hct 40.0 L MCV 68.6 L MCH 22.3 L MCHC 32.5 RDW 21.5 H Plt Count 281 Gran % 83.9 H Lymph % (Auto) 9.6 L [place] % (Auto) 6.4 H Eos % (Auto) 0.1 L Baso % (Auto) 0.0 Gran # 10.43 H Lymph # (Auto) 1.2 [place] # (Auto) 0.8 H Eos # (Auto) 0.0 Baso # (Auto) 0.00 PT 14.4 H INR 1.26 APTT 29.2 Sodium 137 Potassium 3.6 Chloride 108 H Carbon Dioxide 24 Anion Gap 9 L BUN 9 Creatinine 0.5 L Est GFR ( Amer) > 60 Est GFR (Non-Af Amer) > 60 Random Glucose 129 H Calcium 8.1 L Phosphorus 2.5 Magnesium 1.5 L Total Bilirubin 0.7 AST 33 ALT 25 Alkaline Phosphatase 90 Troponin I NT-Pro-B Natriuret Pep Total Protein 7.0 Albumin 3.3 Globulin 3.7 Albumin/Globulin Ratio 0.9 L Lipase Urine Color Urine Appearance Urine pH Ur Specific [place] Urine Protein Urine Glucose (UA) Urine Ketones Urine Blood Urine Nitrate Urine Bilirubin Urine Urobilinogen Ur Leukocyte Esterase EKG/Cardiology Studies: Cardiology / EKG Studies 03/06/18 10:15 EKG [ELECTROCARDIOGRAM] Stat Comment: Reason For Exam: abd pain Review of Systems - Review of Systems Systems not reviewed;Unavailable: Acuity of Condition Critical Care Progress Note - Ventilator Checklist Head of Bed 30 Degrees: Yes PUD Prophalyxis: Yes DVT Prophylaxis: Yes - Extremities/Vascular Does the Patient have a Central Venous Catheter?: No Does the Patient need a Central Venous Catheter?: No Does the Patient have a Tomlinson Catheter?: No - Nutrition Nutrition: Nutrition Category Date Time Status NPO Diet [DIET] Diets 03/06/18 Dinner Ordered Assessment/Plan - Assessment and Plan (Free Text) Assessment: 68 year old with past medical history of hypertension, hyperlipidemia, COPD, cardiac arrest 2/p spinal surgery in 2014, CVA presents with 3 hours of epigastric pabdominal pain while sitting at home. Patient was found to have perforated duodenal ulcer on imaging and was taken to the OR who performed an exploratory lapartomy with jeanette patch placement. Plan: Neuro: -AAOx2, not oriented to time, no FND, moving extremities past midline. -Patient agitated and given precedex. -Monitor neuro status. -Reorient patient as necessary. Cardio: -RRR, hypertensive, no signs of HD compromise -Patient's systolic blood pressure has ranged from 180-200 overnight. Patient was diaphoretic this morning and started on prasudex for agitation. Apresoline also ordered Q6PRN. -Patient receiving pain medication dilaudid PRN. -Maintain MAP>65. -Monitor for S/S, HD compromise. Pulm: -No signs of respiratory distress. CTA B/L -Patient is stating well on 3L NC -Maintain O2 saturation>95%. -Elevate bed to 30 degrees GI: -NG tube present. 400 cc of drainage present. -NPO -Protonix 40 mg daily /Nephro: -BUN/Cr stable -UA was unremarkable with negative blood, negative leukocyte esterase, and negative nitrates -Good urine output: 1650 today -Continue monitoring. -Replete electrolytes as needed. -Maintain euvolemia. Endocrinology: -Random glucose: 129 -Maintain euglycemia. Heme/Onc: -H/H stable. -Mild leukocytosis at 12.4. -No signs of HD compromise. -Continue monitoring H/H ID: -Afebrile, mild leukocytosis -Follow up BCx, UCx, Procalcitonin -CXR ordered. UA was unremarkable with negative blood, negative leukocyte esterase, and negative nitrates -Monitor for signs and symptoms of infection. DVT prophylaxis: SCD GI prophylaxis: protonix 40 mg daily Disposition: Patient likely to be transferred tomorrow pending clinical and hemodynamic stability. Patient seen and examined with Dr. Jolley. - Date & Time Date: 03/07/18 Time: 09:55 <Gilmar Jolley - Last Filed: 03/07/18 15:09> CCU Objective - Vital Signs / Intake & Output Vital Signs (Last 4 hours): Vital Signs Pulse BP 03/07/18 13:17 103 H 177/138 H Intake and Output (Last 8hrs): Intake & Output 03/07/18 03/07/18 03/07/18 06:59 14:59 22:59 Intake Total 1850 108 Output Total 0 Balance -200 108 Weight 85.139 kg Intake: IV 1850 108 Left Hand 1850 Oral 0 Output: Drainage 400 Bilateral Abdomen 400 Urine 1650 2-way Urethral 1650 Stool 0 Emesis 0 - Medications Active Medications: Active Medications Generic Name Dose Route Start Last Admin Trade Name Freq PRN Reason Stop Dose Admin Albuterol/Ipratropium 3 ml 03/06/18 17:33 Duoneb 3 Mg/0.5 Mg (3 Ml) Ud IH [id number] PRN Wheezing Hydralazine HCl 5 mg 03/07/18 04:19 03/07/18 13:17 Apresoline IVP 5 mg Q6 PRN Administration Systolic Blood Pressure Hydromorphone HCl 0.5 mg 03/06/18 16:12 Dilaudid IVP Q4H PRN Pain, moderate (4-7) Hydromorphone HCl 1 mg 03/06/18 16:12 03/07/18 12:26 Dilaudid IVP 1 mg Q4H PRN Administration Pain, severe (8-10) Lactated Ringer's 1,000 mls @ 125 mls/hr 03/07/18 06:04 03/07/18 14:57 Lactated Ringer's IV 125 mls/hr .Q8H KALEN Administration Metronidazole 500 mg in 100 mls @ 100 mls/hr 03/07/18 14:00 03/07/18 13:16 Flagyl IVPB 100 mls/hr Q8 KALEN Administration Protocol Ceftriaxone Sodium 2 gm in 100 mls @ 100 mls/hr 03/07/18 10:00 03/07/18 09:07 Rocephin 2 Gm Ivpb IVPB 100 mls/hr DAILY KALEN Administration Protocol Dexmedetomidine HCl 400 mcg in 100 mls @ 4.257 mls/hr 03/07/18 09:36 03/07/18 13:32 Precedex 400mcg/100ml IV 1.5 mcg/kg/hr .[id number] PRN 31.927 mls/hr Agitation Titration Protocol 0.2 MCG/KG/HR Lorazepam 1 mg 03/07/18 09:31 03/07/18 13:03 Ativan IVP 1 mg Q4 PRN Administration Anxiety Protocol Nicotine 1 patch 03/07/18 10:00 03/07/18 10:25 Nicoderm Cq TD 1 patch DAILY KALEN Administration Ondansetron HCl 4 mg 03/06/18 19:02 Zofran Inj IVP Q6 PRN Nausea/Vomiting Pantoprazole Sodium 40 mg 03/06/18 16:15 03/07/18 09:04 Protonix Inj IVP 40 mg DAILY KALEN Administration - Patient Studies Lab Studies: Lab Studies 03/07/18 03/07/18 03/07/18 Range/Units 11:00 10:46 07:20 WBC (4.5-11.0) 10^3/ul RBC (3.5-6.1) 10^6/uL Hgb (14.0-18.0) g/dL Hct (42.0-52.0) % MCV (80.0-105.0) fl MCH (25.0-35.0) pg MCHC (31.0-37.0) g/dl RDW (11.5-14.5) % Plt Count (120.0-450.0) 10^3/uL Gran % (50.0-68.0) % Lymph % (Auto) (22.0-35.0) % [place] % (Auto) (1.0-6.0) % Eos % (Auto) (1.5-5.0) % Baso % (Auto) (0.0-3.0) % Gran # (1.4-6.5) Lymph # (Auto) (1.2-3.4) [place] # (Auto) (0.1-0.6) Eos # (Auto) (0.0-0.7) Baso # (Auto) (0.0-2.0) K/mm3 PT (9.4-12.5) SECONDS INR APTT (25.1-36.5) Seconds Sodium (132-148) mmol/L Potassium (3.6-5.0) mmol/L Chloride (98-107) mmol/L Carbon Dioxide (21-33) mmol/L Anion Gap (10-20) BUN (7-21) mg/dL Creatinine (0.8-1.5) mg/dl Est GFR ( Amer) Est GFR (Non-Af Amer) POC Glucose (mg/dL) 172 H 133 H (65-110) mg/dL Random Glucose (70-110) mg/dL Calcium (8.4-10.5) mg/dL Phosphorus (2.5-4.5) mg/dL Magnesium (1.7-2.2) mg/dL Total Bilirubin (0.2-1.3) mg/dL AST (17-59) U/L ALT (7-56) U/L Alkaline Phosphatase (38-126) U/L Total Protein (5.8-8.3) g/dL Albumin (3.0-4.8) g/dL Globulin gm/dL Albumin/Globulin Ratio (1.1-1.8) Urine Opiates Screen Positive H (NEGATIVE) Urine Methadone Screen Negative (NEGATIVE) Ur Barbiturates Screen Positive H (NEGATIVE) Ur Phencyclidine Scrn Negative (NEGATIVE) Ur Amphetamines Screen Negative (NEGATIVE) U Benzodiazepines Scrn Negative (NEGATIVE) U Oth Cocaine Metabols Negative (NEGATIVE) U Cannabinoids Screen Positive H (NEGATIVE) 03/07/18 03/07/18 03/07/18 Range/Units 06:00 06:00 00:26 WBC 12.4 H D (4.5-11.0) 10^3/ul RBC 5.83 (3.5-6.1) 10^6/uL Hgb 13.0 L (14.0-18.0) g/dL Hct 40.0 L (42.0-52.0) % MCV 68.6 L (80.0-105.0) fl MCH 22.3 L (25.0-35.0) pg MCHC 32.5 (31.0-37.0) g/dl RDW 21.5 H (11.5-14.5) % Plt Count 281 (120.0-450.0) 10^3/uL Gran % 83.9 H (50.0-68.0) % Lymph % (Auto) 9.6 L (22.0-35.0) % [place] % (Auto) 6.4 H (1.0-6.0) % Eos % (Auto) 0.1 L (1.5-5.0) % Baso % (Auto) 0.0 (0.0-3.0) % Gran # 10.43 H (1.4-6.5) Lymph # (Auto) 1.2 (1.2-3.4) [place] # (Auto) 0.8 H (0.1-0.6) Eos # (Auto) 0.0 (0.0-0.7) Baso # (Auto) 0.00 (0.0-2.0) K/mm3 PT (9.4-12.5) SECONDS INR APTT (25.1-36.5) Seconds Sodium 137 (132-148) mmol/L Potassium 3.6 (3.6-5.0) mmol/L Chloride 108 H (98-107) mmol/L Carbon Dioxide 24 (21-33) mmol/L Anion Gap 9 L (10-20) BUN 9 (7-21) mg/dL Creatinine 0.5 L (0.8-1.5) mg/dl Est GFR ( Amer) > 60 Est GFR (Non-Af Amer) > 60 POC Glucose (mg/dL) 134 H (65-110) mg/dL Random Glucose 129 H (70-110) mg/dL Calcium 8.1 L (8.4-10.5) mg/dL Phosphorus 2.5 (2.5-4.5) mg/dL Magnesium 1.5 L (1.7-2.2) mg/dL Total Bilirubin 0.7 (0.2-1.3) mg/dL AST 33 (17-59) U/L ALT 25 (7-56) U/L Alkaline Phosphatase 90 (38-126) U/L Total Protein 7.0 (5.8-8.3) g/dL Albumin 3.3 (3.0-4.8) g/dL Globulin 3.7 gm/dL Albumin/Globulin Ratio 0.9 L (1.1-1.8) Urine Opiates Screen (NEGATIVE) Urine Methadone Screen (NEGATIVE) Ur Barbiturates Screen (NEGATIVE) Ur Phencyclidine Scrn (NEGATIVE) Ur Amphetamines Screen (NEGATIVE) U Benzodiazepines Scrn (NEGATIVE) U Oth Cocaine Metabols (NEGATIVE) U Cannabinoids Screen (NEGATIVE) 03/06/18 Range/Units 21:51 WBC (4.5-11.0) 10^3/ul RBC (3.5-6.1) 10^6/uL Hgb (14.0-18.0) g/dL Hct (42.0-52.0) % MCV (80.0-105.0) fl MCH (25.0-35.0) pg MCHC (31.0-37.0) g/dl RDW (11.5-14.5) % Plt Count (120.0-450.0) 10^3/uL Gran % (50.0-68.0) % Lymph % (Auto) (22.0-35.0) % [place] % (Auto) (1.0-6.0) % Eos % (Auto) (1.5-5.0) % Baso % (Auto) (0.0-3.0) % Gran # (1.4-6.5) Lymph # (Auto) (1.2-3.4) [place] # (Auto) (0.1-0.6) Eos # (Auto) (0.0-0.7) Baso # (Auto) (0.0-2.0) K/mm3 PT 14.4 H (9.4-12.5) SECONDS INR 1.26 APTT 29.2 (25.1-36.5) Seconds Sodium (132-148) mmol/L Potassium (3.6-5.0) mmol/L Chloride (98-107) mmol/L Carbon Dioxide (21-33) mmol/L Anion Gap (10-20) BUN (7-21) mg/dL Creatinine (0.8-1.5) mg/dl Est GFR ( Amer) Est GFR (Non-Af Amer) POC Glucose (mg/dL) (65-110) mg/dL Random Glucose (70-110) mg/dL Calcium (8.4-10.5) mg/dL Phosphorus (2.5-4.5) mg/dL Magnesium (1.7-2.2) mg/dL Total Bilirubin (0.2-1.3) mg/dL AST (17-59) U/L ALT (7-56) U/L Alkaline Phosphatase (38-126) U/L Total Protein (5.8-8.3) g/dL Albumin (3.0-4.8) g/dL Globulin gm/dL Albumin/Globulin Ratio (1.1-1.8) Urine Opiates Screen (NEGATIVE) Urine Methadone Screen (NEGATIVE) Ur Barbiturates Screen (NEGATIVE) Ur Phencyclidine Scrn (NEGATIVE) Ur Amphetamines Screen (NEGATIVE) U Benzodiazepines Scrn (NEGATIVE) U Oth Cocaine Metabols (NEGATIVE) U Cannabinoids Screen (NEGATIVE) Laboratory Results - last 24 hr 10/03/18 10/04/18 10/04/18 21:51 00:26 06:00 WBC 12.4 H D RBC 5.83 Hgb 13.0 L Hct 40.0 L MCV 68.6 L MCH 22.3 L MCHC 32.5 RDW 21.5 H Plt Count 281 Gran % 83.9 H Lymph % (Auto) 9.6 L [place] % (Auto) 6.4 H Eos % (Auto) 0.1 L Baso % (Auto) 0.0 Gran # 10.43 H Lymph # (Auto) 1.2 [place] # (Auto) 0.8 H Eos # (Auto) 0.0 Baso # (Auto) 0.00 PT 14.4 H INR 1.26 APTT 29.2 Sodium Potassium Chloride Carbon Dioxide Anion Gap BUN Creatinine Est GFR ( Amer) Est GFR (Non-Af Amer) POC Glucose (mg/dL) 134 H Random Glucose Calcium Phosphorus Magnesium Total Bilirubin AST ALT Alkaline Phosphatase Total Protein Albumin Globulin Albumin/Globulin Ratio Urine Opiates Screen Urine Methadone Screen Ur Barbiturates Screen Ur Phencyclidine Scrn Ur Amphetamines Screen U Benzodiazepines Scrn U Oth Cocaine Metabols U Cannabinoids Screen 03/07/18 03/07/18 03/07/18 06:00 07:20 10:46 WBC RBC Hgb Hct MCV MCH MCHC RDW Plt Count Gran % Lymph % (Auto) [place] % (Auto) Eos % (Auto) Baso % (Auto) Gran # Lymph # (Auto) [place] # (Auto) Eos # (Auto) Baso # (Auto) PT INR APTT Sodium 137 Potassium 3.6 Chloride 108 H Carbon Dioxide 24 Anion Gap 9 L BUN 9 Creatinine 0.5 L Est GFR ( Amer) > 60 Est GFR (Non-Af Amer) > 60 POC Glucose (mg/dL) 133 H 172 H Random Glucose 129 H Calcium 8.1 L Phosphorus 2.5 Magnesium 1.5 L Total Bilirubin 0.7 AST 33 ALT 25 Alkaline Phosphatase 90 Total Protein 7.0 Albumin 3.3 Globulin 3.7 Albumin/Globulin Ratio 0.9 L Urine Opiates Screen Urine Methadone Screen Ur Barbiturates Screen Ur Phencyclidine Scrn Ur Amphetamines Screen U Benzodiazepines Scrn U Oth Cocaine Metabols U Cannabinoids Screen 03/07/18 11:00 WBC RBC Hgb Hct MCV MCH MCHC RDW Plt Count Gran % Lymph % (Auto) [place] % (Auto) Eos % (Auto) Baso % (Auto) Gran # Lymph # (Auto) [place] # (Auto) Eos # (Auto) Baso # (Auto) PT INR APTT Sodium Potassium Chloride Carbon Dioxide Anion Gap BUN Creatinine Est GFR ( Amer) Est GFR (Non-Af Amer) POC Glucose (mg/dL) Random Glucose Calcium Phosphorus Magnesium Total Bilirubin AST ALT Alkaline Phosphatase Total Protein Albumin Globulin Albumin/Globulin Ratio Urine Opiates Screen Positive H Urine Methadone Screen Negative Ur Barbiturates Screen Positive H Ur Phencyclidine Scrn Negative Ur Amphetamines Screen Negative U Benzodiazepines Scrn Negative U Oth Cocaine Metabols Negative U Cannabinoids Screen Positive H Critical Care Progress Note - Nutrition Nutrition: Nutrition Category Date Time Status NPO Diet [DIET] Diets 03/06/18 Dinner Ordered Addendum Addendum: 03/07/18 15:08 ICU Attending Addendum: Patient seen and examined. Case reviewed on round with housestaff. Agree with resident note above with the following additions/exceptions: 68 Mhx of hypertension, COPD, cardiac arrest hx, spinal surgery in 2014, CVA admitted with abd pain. Free air seen on CXR. Found to have perforated duodenal ulcer s/p exlap jeanette patch placement (03/06). Post-surgical / wound care as per surg He is very agitated, hx of chronic opiod use, unclear etoh hx start precedex geodon if needed ativan if needed Bp elevated - component of agitation as well follow bp PRN hydral IV since he is NPO empiric abx ceftx/flagyl keeping in ICU due to level of agitation requiring high dose sedatives at risk for resp failure from sedatives will try to avoid intubation unless necessary rest of care above Gilmar Jolley MD [employer] Critical Care Time 35 mins
[2018-03-07] MEDS ORDERED: Fluconazole IV 200mg/100 ml NS 100 MG in Premixed IV 1 EA IVPB SCH (10:00)
[2018-03-07] MEDS: Dexmedetomidine 400mcg/100mL 400 MCG/100 ML BOTTLE IV PRN ×4 (10:26→23:25)
[2018-03-07 12:13] LABS: BARBITURATES, UR POSITIVE (NEGATIVE); BENZODIAZEPINES, UR NEGATIVE (NEGATIVE); OPIATES, UR POSITIVE (NEGATIVE); PHENCYCLIDINE, UR NEGATIVE (NEGATIVE)
--- NOTE | 2018-03-07 12:47 | CP.PCM.PN ---
<Steven Villalobos - Last Filed: 03/07/18 23:22> Subjective - Date & Time of Evaluation Date of Evaluation: 03/07/18 Time of Evaluation: 07:45 - Subjective Subjective: Steven Villalobos DO PGY-1, Internal Medicine Resident. Hospitalist Progress Note Patient seen and examined at bedside in ICU. Patient is agitated in bed, awake and altered. He is restrained as he was trying to pull out his lines. [place] re moved and able to make urine. No fever overnight. Abdominal pain has improved. Patient denied palpitations, CP, N/V/D Objective - Vital Signs/Intake and Output Vital Signs (last 24 hours): Temp Pulse Resp BP Pulse Ox 98.2 F 79 22 161/89 H 100 03/07/18 06:00 03/07/18 05:10 03/07/18 05:10 03/07/18 05:00 03/07/18 05:10 Intake and Output: 03/07/18 03/07/18 06:59 18:59 Intake Total 1850 84 Output Total 2050 Balance -200 84 - Medications Medications: Current Medications Albuterol/Ipratropium (Duoneb 3 Mg/0.5 Mg (3 Ml) Ud) 3 ml IH [id number] PRN PRN Reason: Wheezing Hydralazine HCl (Apresoline) 5 mg IVP Q6 PRN PRN Reason: Systolic Blood Pressure Last Admin: 03/07/18 04:41 Dose: 5 mg Hydromorphone HCl (Dilaudid) 0.5 mg IVP Q4H PRN PRN Reason: Pain, moderate (4-7) Hydromorphone HCl (Dilaudid) 1 mg IVP Q4H PRN PRN Reason: Pain, severe (8-10) Last Admin: 03/07/18 12:26 Dose: 1 mg Lactated Ringer's (Lactated Ringer's) 1,000 mls @ 125 mls/hr IV .Q8H [facility] Last Admin: 03/07/18 06:25 Dose: 125 mls/hr Metronidazole (Flagyl) 500 mg in 100 mls @ 100 mls/hr IVPB Q8 [facility]; Protocol Ceftriaxone Sodium (Rocephin 2 Gm Ivpb) 2 gm in 100 mls @ 100 mls/hr IVPB DAILY [facility]; Protocol Last Admin: 03/07/18 09:07 Dose: 100 mls/hr Dexmedetomidine HCl (Precedex 400mcg/100ml) 400 mcg in 100 mls @ 4.257 mls/hr IV .[id number] PRN; Protocol PRN Reason: Agitation Last Titration: 03/07/18 12:28 Dose: 1 mcg/kg/hr, 21.285 mls/hr Lorazepam (Ativan) 1 mg IVP Q4 PRN; Protocol PRN Reason: Anxiety Nicotine (Nicoderm Cq) 1 patch TD DAILY [facility] Last Admin: 03/07/18 10:25 Dose: 1 patch Ondansetron HCl (Zofran Inj) 4 mg IVP Q6 PRN PRN Reason: Nausea/Vomiting Pantoprazole Sodium (Protonix Inj) 40 mg IVP DAILY [facility] Last Admin: 03/07/18 09:04 Dose: 40 mg - Labs Labs: 03/07/18 06:00 03/07/18 06:00 PT 14.4 SECONDS (9.4-12.5) H 03/06/18 21:51 INR 1.26 03/06/18 21:51 APTT 29.2 Seconds (25.1-36.5) 03/06/18 21:51 - Constitutional Appears: No Acute Distress, Agitated - Head Exam Head Exam: ATRAUMATIC, NORMOCEPHALIC - Eye Exam Eye Exam: EOMI, Normal appearance, PERRL Pupil Exam: NORMAL ACCOMODATION, PERRL - ENT Exam ENT Exam: Mucous Membranes Moist, Normal Exam - Neck Exam Neck Exam: Full ROM, Normal Inspection. absent: Lymphadenopathy - Respiratory Exam Respiratory Exam: Clear to Ausculation Bilateral, NORMAL BREATHING PATTERN - Cardiovascular Exam Cardiovascular Exam: Tachycardia, REGULAR RHYTHM, +S1, +S2 - GI/Abdominal Exam GI & Abdominal Exam: Hypoactive Bowel Sounds Additional comments: laparotomy scar. dressing applied. no hemorrhage - Extremities Exam Extremities Exam: Full ROM, Normal Capillary Refill, Normal Inspection. absent: Joint Swelling, Pedal Edema - Back Exam Back Exam: NORMAL INSPECTION - Neurological Exam Neurological Exam: Altered Additional comments: moving all extremities. - Psychiatric Exam Psychiatric exam: Anxious Additional comments: agitated. trying to get out of bed - Skin Skin Exam: Dry, Intact, Normal Color, Warm Assessment and Plan - Assessment and Plan (Free Text) Assessment: 68 year old male with PMHx of HTN, HLD, COPD, cardiac arrest s/p attempted spinal surgery (10/23/14), CVA, chronic back pain presented to ED with 3 hours of epigastric abdominal pain with no radiation. CT A/P showed free air below the liver and right hemidiaphragm. Patient s/p surgical laparotomy for duodenal ulcer perforation. Managed in ICU Plan: S/P surgical emergent laparotomy Patient very agitated, tachycardic, diaphoretic. chronic opiod use, smoker, unknown ETOH history patient restrained. 1:1 sitter geodon prn ativan prn called and notified about current situation. we asked about alcohol, drug use. Patient may be experiencing withdrawal symptoms. admitted only to smoking. continue ICU management. high risk of respiratory failure continue IV abx ceftriaxone/flagyl Abdominal pain-resolved Patient has peritoneal signs. perforated viscus is suspected CT ANGIO C/A/P: free air below the liver and right hemidiaphragm. abnormally thickened and edemateous stomach S/P emergent laparotomy. Duodenal perforated ulcer found IVF: LR @ 125mL/hr abx started Flagyl, Rocephin NPO dilaudid q4h prn for pain UA: negative BNP 603 blood cultures ordered CXR: no active disease EKG: NSR COPD records reviewed: admitted in 01/16 for hypercapneic respiratory failure duoneb q6h prn supplement O2 prn HTN hold home meds for now As per previous records 01/2015: abnormal stress test which was followed by a cardiac cath which showed normal coronaries HLD lipitor lipid panel Prophylaxis GI ppx: pantoprazole DVT ppx: SCD Case reviewed and plan discussed with Dr Hayes <Joselito Hayes - Last Filed: 03/08/18 18:33> Objective - Vital Signs/Intake and Output Vital Signs (last 24 hours): Temp Pulse Resp BP Pulse Ox 100.2 F H 107 H 35 H 176/112 H 99 03/07/18 20:00 03/08/18 16:12 03/07/18 18:22 03/08/18 16:12 03/07/18 18:00 Intake and Output: 03/08/18 03/08/18 06:59 18:59 Intake Total 2272 Output Total 190 Balance 2 - Medications Medications: Current Medications Albuterol/Ipratropium (Duoneb 3 Mg/0.5 Mg (3 Ml) Ud) 3 ml IH [id number] PRN PRN Reason: Wheezing Clonidine HCl (Catapres Tts1 0.1 Mg/24 Hr) 1 patch TD Q7D [facility] Enoxaparin Sodium (Lovenox) 40 mg SC DAILY [facility]; Protocol Last Admin: 03/08/18 14:30 Dose: 40 mg Hydralazine HCl (Apresoline) 10 mg IVP Q4H PRN PRN Reason: Systolic Blood Pressure Last Admin: 03/08/18 16:12 Dose: 10 mg Hydromorphone HCl (Dilaudid) 1 mg IVP Q4H PRN PRN Reason: Pain, severe (8-10) Last Admin: 03/08/18 17:20 Dose: 1 mg Hydromorphone HCl (Dilaudid) 0.5 mg IVP Q4H PRN PRN Reason: Pain, moderate (4-7) Stop: 03/09/18 16:13 Last Admin: 03/08/18 02:03 Dose: 0.5 mg Lactated Ringer's (Lactated Ringer's) 1,000 mls @ 125 mls/hr IV .Q8H [facility] Last Admin: 03/08/18 12:43 Dose: 125 mls/hr Metronidazole (Flagyl) 500 mg in 100 mls @ 100 mls/hr IVPB Q8 [facility]; Protocol Last Admin: 03/08/18 13:13 Dose: 100 mls/hr Ceftriaxone Sodium (Rocephin 2 Gm Ivpb) 2 gm in 100 mls @ 100 mls/hr IVPB DAILY [facility]; Protocol Last Admin: 03/08/18 10:55 Dose: 100 mls/hr Lisinopril (Zestril) 5 mg NG QAM [facility] Metoprolol Tartrate (Lopressor) 50 mg NG HS [facility] Nicotine (Nicoderm Cq) 1 patch TD DAILY [facility] Last Admin: 03/08/18 10:57 Dose: 1 patch Ondansetron HCl (Zofran Inj) 4 mg IVP Q6 PRN PRN Reason: Nausea/Vomiting Pantoprazole Sodium (Protonix Inj) 40 mg IVP DAILY [facility] Last Admin: 03/08/18 10:57 Dose: 40 mg Ziprasidone (Geodon Inj) 20 mg IM Q4 PRN; Protocol PRN Reason: Agitation - Labs Labs: 03/08/18 05:30 03/08/18 05:30 PT 14.4 SECONDS (9.4-12.5) H 03/06/18 21:51 INR 1.26 03/06/18 21:51 APTT 29.2 Seconds (25.1-36.5) 03/06/18 21:51 Attending/Attestation - Attestation I have personally seen and examined this patient.: Yes I have fully participated in the care of the patient.: Yes I have reviewed all pertinent clinical information, including history, physical exam and plan: Yes Notes (Text): 03/08/18 18:26 attending note; Patient seen and examined with resident in ICU. Post laparotomy. Patient has NG tube draining dark green secretions. laparotomy scar is clean. No bleeding noted. RADHA drain in place. Patient is confused. Agitated and restless. Blood pressure is elevated. Patient pulled out NG tube last night. placed on restraints. informed. Patient is a 68 year old male with PMHx of HTN, HLD, COPD, cardiac arrest s/p attempted spinal surgery (10/23/14), CVA, chronic back pain,opiate use presented to ED with 3 hours history of epigastric abdominal pain. found to have perforated viscous. status post ex-laparotomy and Issa patchfor perforated duodenal ulcer. stopped a #1. Continue NG tube. Monitor RADHA drain. Follow-up with surgery closely. Continue IV Rocephin and Flagyl. Agitation and restlessness; continue IV Ativan. started on Precedex drip. patient's denies history of alcohol abuse. History of smoking; started on NicoDerm patch. Monitor closely. The diagnosis and treatment options explained to patient's in detail. 03/08/18 18:32
--- NOTE | 2018-03-07 12:49 | RAD ---
Date of service: 03/07/2018 HISTORY: tachypnea COMPARISON: 03/06/2018 FINDINGS: LUNGS: No active pulmonary disease. PLEURA: No significant pleural effusion identified, no pneumothorax apparent. CARDIOVASCULAR: Mild cardiomegaly OSSEOUS STRUCTURES: No significant abnormalities. VISUALIZED UPPER ABDOMEN: Nasogastric tube in satisfactory position just beyond the GE junction. OTHER FINDINGS: None. IMPRESSION: No active disease.
[2018-03-07] MEDS: metroNIDAZOLE IV 500 mg/100 ml 500 MG/100 ML BAG IVPB SCH ×2 (13:16→23:21)
[2018-03-08] MEDS: HYDROmorphone 1 mg/ml ISec IVP PRN ×7 (00:05→23:24)
[2018-03-08] MEDS: Dexmedetomidine 400mcg/100mL 400 MCG/100 ML BOTTLE IV PRN (01:25)
--- NOTE | 2018-03-08 05:29 | CP.PCM.PN ---
<Steven Villaolbos - Last Filed: 03/08/18 18:20> Subjective - Date & Time of Evaluation Date of Evaluation: 03/08/18 Time of Evaluation: 06:11 - Subjective Subjective: Steven Villalobos DO PGY-1, Internal Medicine Resident. Hospitalist Progress Note Patient seen and examined at bedside in ICU. Patient is still agitated in bed, awake and altered. He is restrained as he was trying to pull out his lines. Fo theresa removed and able to make urine. NGT in place. Patient was given ativan overnight to control his agitation. No fever overnight. Abdominal pain has improved. Patient denied palpitations, CP, N/V/D Objective - Vital Signs/Intake and Output Vital Signs (last 24 hours): Temp Pulse Resp BP Pulse Ox 98 F 102 H 35 H 188/119 H 99 03/07/18 16:00 03/07/18 18:22 03/07/18 18:22 03/07/18 18:23 03/07/18 18:00 Intake and Output: 03/07/18 03/08/18 18:59 06:59 Intake Total 253 200 Output Total 1165 Balance -912 200 - Medications Medications: Current Medications Albuterol/Ipratropium (Duoneb 3 Mg/0.5 Mg (3 Ml) Ud) 3 ml IH [id number] PRN PRN Reason: Wheezing Hydralazine HCl (Apresoline) 5 mg IVP Q6 PRN PRN Reason: Systolic Blood Pressure Last Admin: 03/07/18 09:10 Dose: 5 mg Hydromorphone HCl (Dilaudid) 1 mg IVP Q4H PRN PRN Reason: Pain, severe (8-10) Last Admin: 03/08/18 00:05 Dose: 1 mg Hydromorphone HCl (Dilaudid) 0.5 mg IVP Q4H PRN PRN Reason: Pain, moderate (4-7) Stop: 03/09/18 16:13 Last Admin: 03/08/18 02:03 Dose: 0.5 mg Lactated Ringer's (Lactated Ringer's) 1,000 mls @ 125 mls/hr IV .Q8H [facility] Last Admin: 03/07/18 23:21 Dose: 125 mls/hr Metronidazole (Flagyl) 500 mg in 100 mls @ 100 mls/hr IVPB Q8 [facility]; Protocol Last Admin: 03/07/18 23:21 Dose: 100 mls/hr Ceftriaxone Sodium (Rocephin 2 Gm Ivpb) 2 gm in 100 mls @ 100 mls/hr IVPB DAILY [facility]; Protocol Last Admin: 03/07/18 09:07 Dose: 100 mls/hr Dexmedetomidine HCl (Precedex 400mcg/100ml) 400 mcg in 100 mls @ 4.257 mls/hr IV .[id number] PRN; Protocol PRN Reason: Agitation Last Admin: 03/08/18 01:25 Dose: 1.5 mcg/kg/hr, 31.927 mls/hr Lorazepam (Ativan) 1 mg IVP Q4 PRN; Protocol PRN Reason: Anxiety Last Admin: 03/08/18 01:16 Dose: 1 mg Nicotine (Nicoderm Cq) 1 patch TD DAILY [facility] Last Admin: 03/07/18 10:25 Dose: 1 patch Ondansetron HCl (Zofran Inj) 4 mg IVP Q6 PRN PRN Reason: Nausea/Vomiting Pantoprazole Sodium (Protonix Inj) 40 mg IVP DAILY [facility] Last Admin: 03/07/18 09:04 Dose: 40 mg - Labs Labs: 03/07/18 06:00 03/07/18 06:00 PT 14.4 SECONDS (9.4-12.5) H 03/06/18 21:51 INR 1.26 03/06/18 21:51 APTT 29.2 Seconds (25.1-36.5) 03/06/18 21:51 - Constitutional Appears: Agitated, Confused - Head Exam Head Exam: ATRAUMATIC, NORMOCEPHALIC - Eye Exam Eye Exam: EOMI, Normal appearance, PERRL Pupil Exam: NORMAL ACCOMODATION, PERRL - ENT Exam ENT Exam: Mucous Membranes Moist, Normal Exam - Neck Exam Neck Exam: Full ROM, Normal Inspection. absent: Lymphadenopathy - Respiratory Exam Respiratory Exam: Clear to Ausculation Bilateral, NORMAL BREATHING PATTERN - Cardiovascular Exam Cardiovascular Exam: REGULAR RHYTHM, +S1, +S2. absent: Murmur - GI/Abdominal Exam GI & Abdominal Exam: Soft, Normal Bowel Sounds. absent: Tenderness Additional comments: abdominal dressing applied on a midline wound. no erythema, no drainage, no signs of infection - Extremities Exam Extremities Exam: Full ROM, Normal Capillary Refill, Normal Inspection. absent: Joint Swelling, Pedal Edema - Back Exam Back Exam: NORMAL INSPECTION - Neurological Exam Neurological Exam: Altered, Awake - Psychiatric Exam Psychiatric exam: Agitated, Anxious - Skin Skin Exam: Dry, Intact, Normal Color, Warm Assessment and Plan - Assessment and Plan (Free Text) Assessment: 68 year old male with PMHx of HTN, HLD, COPD, cardiac arrest s/p attempted spinal surgery (10/23/14), CVA, chronic back pain presented to ED with 3 hours of epigastric abdominal pain with no radiation. CT A/P showed free air below the liver and right hemidiaphragm. Patient s/p surgical laparotomy for duodenal ulcer perforation. Managed in ICU Plan: S/P surgical emergent laparotomy Patient very agitated, tachycardic, diaphoretic. chronic opiod use, smoker, unknown ETOH history patient restrained. 1:1 sitter NGT 220cc bilious output over 24 hours Shad drain with serosanguinous output 260cc over 24 hours geodon prn ativan prn called and notified about current situation. we asked about alcohol, drug use. Patient may be experiencing withdrawal symptoms. admitted only to smoking. continue ICU management. high risk of respiratory failure continue IV abx ceftriaxone/flagyl NPO Serial abdominal exams urine output not measured, patient had some incontinence eagle removed Abdominal pain-resolved Patient has peritoneal signs. perforated viscus is suspected CT ANGIO C/A/P: free air below the liver and right hemidiaphragm. abnormally thickened and edemateous stomach S/P emergent laparotomy. Duodenal perforated ulcer found IVF: LR @ 125mL/hr abx started Flagyl, Rocephin NPO dilaudid q4h prn for pain UA: negative BNP 603 blood cultures ordered CXR: no active disease EKG: NSR COPD records reviewed: admitted in 01/16 for hypercapneic respiratory failure duoneb q6h prn supplement O2 prn HTN hold home meds for now As per previous records 01/2015: abnormal stress test which was followed by a cardiac cath which showed normal coronaries HLD lipitor lipid panel Prophylaxis GI ppx: pantoprazole DVT ppx: SCD Case reviewed and plan discussed with Dr Hayes <Joselito Hayes - Last Filed: 03/08/18 18:37> Objective - Vital Signs/Intake and Output Vital Signs (last 24 hours): Temp Pulse Resp BP Pulse Ox 100.2 F H 107 H 35 H 176/112 H 99 03/07/18 20:00 03/08/18 16:12 03/07/18 18:22 03/08/18 16:12 03/07/18 18:00 Intake and Output: 03/08/18 03/08/18 06:59 18:59 Intake Total 2272 Output Total 190 Balance 2082 - Medications Medications: Current Medications Albuterol/Ipratropium (Duoneb 3 Mg/0.5 Mg (3 Ml) Ud) 3 ml IH [id number] PRN PRN Reason: Wheezing Clonidine HCl (Catapres Tts1 0.1 Mg/24 Hr) 1 patch TD Q7D [facility] Enoxaparin Sodium (Lovenox) 40 mg SC DAILY [facility]; Protocol Last Admin: 03/08/18 14:30 Dose: 40 mg Hydralazine HCl (Apresoline) 10 mg IVP Q4H PRN PRN Reason: Systolic Blood Pressure Last Admin: 03/08/18 16:12 Dose: 10 mg Hydromorphone HCl (Dilaudid) 1 mg IVP Q4H PRN PRN Reason: Pain, severe (8-10) Last Admin: 03/08/18 17:20 Dose: 1 mg Hydromorphone HCl (Dilaudid) 0.5 mg IVP Q4H PRN PRN Reason: Pain, moderate (4-7) Stop: 03/09/18 16:13 Last Admin: 03/08/18 02:03 Dose: 0.5 mg Lactated Ringer's (Lactated Ringer's) 1,000 mls @ 125 mls/hr IV .Q8H [facility] Last Admin: 03/08/18 12:43 Dose: 125 mls/hr Metronidazole (Flagyl) 500 mg in 100 mls @ 100 mls/hr IVPB Q8 [facility]; Protocol Last Admin: 03/08/18 13:13 Dose: 100 mls/hr Ceftriaxone Sodium (Rocephin 2 Gm Ivpb) 2 gm in 100 mls @ 100 mls/hr IVPB DAILY [facility]; Protocol Last Admin: 03/08/18 10:55 Dose: 100 mls/hr Lisinopril (Zestril) 5 mg NG QAM [facility] Metoprolol Tartrate (Lopressor) 50 mg NG HS [facility] Nicotine (Nicoderm Cq) 1 patch TD DAILY [facility] Last Admin: 03/08/18 10:57 Dose: 1 patch Ondansetron HCl (Zofran Inj) 4 mg IVP Q6 PRN PRN Reason: Nausea/Vomiting Pantoprazole Sodium (Protonix Inj) 40 mg IVP DAILY [facility] Last Admin: 03/08/18 10:57 Dose: 40 mg Ziprasidone (Geodon Inj) 20 mg IM Q4 PRN; Protocol PRN Reason: Agitation - Labs Labs: 03/08/18 05:30 03/08/18 05:30 PT 14.4 SECONDS (9.4-12.5) H 03/06/18 21:51 INR 1.26 03/06/18 21:51 APTT 29.2 Seconds (25.1-36.5) 03/06/18 21:51 Attending/Attestation - Attestation I have personally seen and examined this patient.: Yes I have fully participated in the care of the patient.: Yes I have reviewed all pertinent clinical information, including history, physical exam and plan: Yes Notes (Text): 03/08/18 18:34 attending note; Patient seen and examined with resident in ICU. Post laparotomy. Patient has NG tube draining dark green secretions. laparotomy scar is clean. No bleeding noted. RADHA drain in place. Patient is confused. Agitated and restless. Blood pressure is elevated. Patient pulled out NG tube last night. placed on restraints. informed. Patient is a 68 year old male with PMHx of HTN, HLD, COPD, cardiac arrest s/p attempted spinal surgery (10/23/14), CVA, chronic back pain,opiate use presented to ED with 3 hours history of epigastric abdominal pain. found to have perforated viscous. status post ex-laparotomy and Issa patch with wash out for perforated duodenal ulcer. stopped a #2. Continue NG tube. Monitor RADHA drain. Follow-up with surgery closely. Continue IV Rocephin and Flagyl. hypertension; continue clonidine patch and IV hydralazine. Agitation and restlessness; continue IV Ativan. on Precedex drip. continue one-to-one observation. History of smoking; started on NicoDerm patch. Monitor closely in ICU.
[2018-03-08] MEDS: metroNIDAZOLE IV 500 mg/100 ml 500 MG/100 ML BAG IVPB SCH ×3 (05:38→21:39)
--- NOTE | 2018-03-08 05:59 | CON ---
DATE: 03/07/2018 LOCATION: The patient is seen earlier today in the ICU. CHIEF COMPLAINT: Abdominal sepsis and surgery x1 day duration. HISTORY OF PRESENT ILLNESS: A 68-year-old male who was admitted with abdominal pain, history of hypertension, hyperlipidemia. The patient had a cardiac arrest in 2014 prior to a spinal surgery. The patient also with chronic obstructive lung disease and chronic back pain and history of cerebrovascular accident who was admitted with abdominal pain, found to have perforated abdomen and was taken to the OR and had a fever and Infection Disease consultation requested for antibiotic choice. REVIEW OF SYSTEMS: A 12-point review systems is performed. The patient at this point is confused. Information is obtained from the patient's and there has been low grade fevers. Initially on admission, he did have fevers, abdominal pain. No diarrhea, no chest pain. No headaches, no blurred vision. No cough. There is mild shortness of breath. No dysuria or frequency. PAST MEDICAL HISTORY: Significant for hypertension, hyperlipidemia, cardiac arrest on 10/23/2014 prior to attempted spinal surgery, chronic obstructive lung disease, cerebrovascular accident, chronic back pain, history of seizures also. PAST SURGICAL HISTORY: Noncontributory. ALLERGIES: THE PATIENT HAS NO KNOWN ALLERGIES. MEDICATIONS AT HOME: Include the patient to be on gabapentin, Zetia, Crestor, Lopressor. PHYSICAL EXAMINATION: GENERAL: The patient is in bed, confused. VITAL SIGNS: With temperature 98, T-max 101.7, heart rate of 114, respiratory rate 22, blood pressure is 160/80. HEENT: Unremarkable. NECK: Supple. LUNGS: Have decreased breath sounds. HEART: Normal S1, S2. ABDOMEN: Primary dressing. No rebound or guarding. LABORATORY EXAMINATION: Reveals a white count of 12,000 and chemistries reveals a BUN of 9, creatinine of 0.5, procalcitonin is 3.79. Urinalysis is negative. Toxicology is noted to have positive opiates and positive cannabinoids. Microbiology is pending. The patient also had a CT angio, results are reviewed and chest x-ray this morning. ASSESSMENT AND PLAN: A 68-year-old male with sepsis and intra-abdominal source, is status post exploratory laparotomy for a perforated duodenal ulcer, laparotomy with a Issa patch. We will treat the patient with ceftriaxone and Flagyl. The patient is currently on ceftriaxone and Flagyl and the last admission in the hospital was in 2014 with pending panculture results, blood and urine. We will follow closely with you. Harinder Arceo MD
[2018-03-08 06:34] LABS: EOS % 0.1 % (1.5-5.0); GRAN # 10.19 (1.4-6.5); GRAN % 83.4 % (50.0-68.0); HEMOGLOBIN 12.1 g/dL (14.0-18.0); LYMPH # 1.1 (1.2-3.4); LYMPH % 8.6 % (22.0-35.0); MEAN CORPUSCULAR HEMOGLOBIN 22.1 pg (25.0-35.0); MONO % 7.9 % (1.0-6.0); PLATELET COUNT 239 10^3/uL (120.0-450.0); RBC 5.48 10^6/uL (3.5-6.1); RED CELL DISTRIBUTION WIDTH 20.9 % (11.5-14.5); WHITE BLOOD COUNT 12.2 10^3/ul (4.5-11.0)
[2018-03-08] MEDS ORDERED: Dexmedetomidine 400mcg/100mL 400 MCG/100 ML BOTTLE IV PRN (07:25)
--- NOTE | 2018-03-08 07:47 | CP.PCM.PN ---
Subjective - Date & Time of Evaluation Date of Evaluation: 03/08/18 Time of Evaluation: 07:40 - Subjective Subjective: General Surgery Progress Note for Dr. Ricardo This 68M was seen and examined this AM at bedside. No acute events reported overnight. Patient currently on a precedex drip, unable to provide useful subjective insight. Shad drain with serosanguinous output 260cc over 24 hours, NGT 220cc bilious output over 24 hours. Dressing changed this AM during rounds. Objective - Vital Signs/Intake and Output Vital Signs (last 24 hours): Temp Pulse Resp BP Pulse Ox 100.2 F H 102 H 35 H 188/119 H 99 03/07/18 20:00 03/08/18 06:00 03/07/18 18:22 03/07/18 18:23 03/07/18 18:00 Intake and Output: 03/08/18 03/08/18 06:59 18:59 Intake Total 2272 Output Total 190 Balance 2082 - Medications Medications: Current Medications Albuterol/Ipratropium (Duoneb 3 Mg/0.5 Mg (3 Ml) Ud) 3 ml IH [id number] PRN PRN Reason: Wheezing Hydralazine HCl (Apresoline) 5 mg IVP Q6 PRN PRN Reason: Systolic Blood Pressure Last Admin: 03/07/18 09:10 Dose: 5 mg Hydromorphone HCl (Dilaudid) 1 mg IVP Q4H PRN PRN Reason: Pain, severe (8-10) Last Admin: 03/08/18 05:19 Dose: 1 mg Hydromorphone HCl (Dilaudid) 0.5 mg IVP Q4H PRN PRN Reason: Pain, moderate (4-7) Stop: 03/09/18 16:13 Last Admin: 03/08/18 02:03 Dose: 0.5 mg Lactated Ringer's (Lactated Ringer's) 1,000 mls @ 125 mls/hr IV .Q8H [facility] Last Admin: 03/07/18 23:21 Dose: 125 mls/hr Metronidazole (Flagyl) 500 mg in 100 mls @ 100 mls/hr IVPB Q8 [facility]; Protocol Last Admin: 03/08/18 05:38 Dose: 100 mls/hr Ceftriaxone Sodium (Rocephin 2 Gm Ivpb) 2 gm in 100 mls @ 100 mls/hr IVPB DAILY [facility]; Protocol Last Admin: 03/07/18 09:07 Dose: 100 mls/hr Dexmedetomidine HCl (Precedex 400mcg/100ml) 400 mcg in 100 mls @ 2.128 mls/hr IV .Q24H PRN; Protocol PRN Reason: Agitation Lorazepam (Ativan) 1 mg IVP Q4 PRN; Protocol PRN Reason: Anxiety Last Admin: 03/08/18 01:16 Dose: 1 mg Nicotine (Nicoderm Cq) 1 patch TD DAILY [facility] Last Admin: 03/07/18 10:25 Dose: 1 patch Ondansetron HCl (Zofran Inj) 4 mg IVP Q6 PRN PRN Reason: Nausea/Vomiting Pantoprazole Sodium (Protonix Inj) 40 mg IVP DAILY [facility] Last Admin: 03/07/18 09:04 Dose: 40 mg - Labs Labs: 03/08/18 05:30 03/07/18 06:00 PT 14.4 SECONDS (9.4-12.5) H 03/06/18 21:51 INR 1.26 03/06/18 21:51 APTT 29.2 Seconds (25.1-36.5) 03/06/18 21:51 - Constitutional Appears: Confused - Head Exam Head Exam: ATRAUMATIC, NORMOCEPHALIC - Eye Exam Eye Exam: EOMI - ENT Exam Additional comments: NGT in place - Respiratory Exam Respiratory Exam: NORMAL BREATHING PATTERN - Cardiovascular Exam Cardiovascular Exam: +S1, +S2 - GI/Abdominal Exam GI & Abdominal Exam: Soft. absent: Distended, Firm, Guarding, Rigid, Tenderness - Neurological Exam Neurological Exam: Alert, Awake - Psychiatric Exam Psychiatric exam: Normal Affect, Normal Mood - Skin Skin Exam: Dry, Intact Assessment and Plan - Assessment and Plan (Free Text) Assessment: 68M with perforated duodenal ulcer POD#2 s/p exlap with gram patch and washout NPO NGT to suction IVF Pain control Monitor output Serial abdominal exams IV abx DVT prophylaxis D/W Dr. Brian Trejo PGY3
[2018-03-08 08:02] LABS: ALB/GLOB RATIO 0.9 (1.1-1.8); ALBUMIN 3.2 g/dL (3.0-4.8); ALT/SGPT 27 U/L (7-56); AST/SGOT 26 U/L (17-59); BLOOD UREA NITROGEN 10 mg/dL (7-21); CALCIUM 8.2 mg/dL (8.4-10.5); GFR NON-AFRICAN AMERICAN > 60
[2018-03-08] MEDS ORDERED: Potassium Chloride 40 mEq/30 ml LIQ UD PO ONE (09:40)
[2018-03-08] MEDS: cefTRIAXone 2 GM IN NS 2 GM/100 ML BAG IVPB SCH (10:55)
--- NOTE | 2018-03-08 10:58 | CP.CCUPN ---
<Carlos Silva - Last Filed: 03/08/18 11:59> CCU Subjective - Physician Review Subjective (Free Text): Carlos Silva, PGY-1, CCU Progress Note for Dr. Manzano Patient seen and evaluated at bedside. Patient is currently AAOx1. Patient is not oriented to place and time but is oriented to person. Patient is drowsy. Overnight, patient was awake and disruptive. 12-point ROS was unattainable due to patient's mental status. 03/08/18 11:11 CCU Objective - Vital Signs / Intake & Output Intake and Output (Last 8hrs): Intake & Output 03/07/18 03/08/18 03/08/18 22:59 06:59 14:59 Intake Total 245 2172 Output Total 1165 190 Balance -920 1982 Intake: IV 245 2172 right wrist 2072 Oral 0 0 Output: Gastric Amount 100 120 Left Nares 100 120 Drainage 190 70 Bilateral Abdomen 190 70 Urine 875 Condom 550 Urine, Voided 325 Stool 0 0 Emesis 0 0 - Physical Exam Head: Positive for: Atraumatic, Normocephalic Pupils: Positive for: PERRL Extroacular Muscles: Positive for: EOMI Conjunctiva: Positive for: Normal Mouth: Positive for: Moist Mucous Membranes Neck: Positive for: Normal Range of Motion Respiratory/Chest: Positive for: Clear to Auscultation, Good Air Exchange. Negative for: Wheezes, Rales, Rhonchi Cardiovascular: Positive for: Regular Rate and Rhythm, Normal S1, S2 Abdomen: Positive for: Other (Patient has incision on the right lower abdomen and drain placed as well.). Negative for: Tenderness, Distention, Normal Bowel Sounds, Guarding, Mass/Organomegaly Back: Positive for: Normal Inspection. Negative for: CVA Tenderness, Paraspinal Tenderness Upper Extremity: Positive for: Normal Inspection, NORMAL PULSES, Capillary Refill < 2s. Negative for: Cyanosis, Edema, Tenderness, Swelling Lower Extremity: Positive for: Normal Inspection, NORMAL PULSES, Capillary Refill < 2 s. Negative for: Edema, CALF TENDERNESS, Cyanosis, Tenderness Neurological: Positive for: CN II-XII Intact, Motor Func Grossly Intact, Other (confused). Negative for: GCS=15 (13) Skin: Positive for: Warm, Dry, Normal Color, Diaphoretic Psychiatric: Negative for: Alert, Oriented x 3 - Medications Active Medications: Active Medications Generic Name Dose Route Start Last Admin Trade Name Freq PRN Reason Stop Dose Admin Albuterol/Ipratropium 3 ml 03/06/18 17:33 Duoneb 3 Mg/0.5 Mg (3 Ml) Ud IH [id number] PRN Wheezing Hydralazine HCl 5 mg 03/07/18 04:19 03/07/18 09:10 Apresoline IVP 5 mg Q6 PRN Administration Systolic Blood Pressure Hydromorphone HCl 1 mg 03/06/18 16:12 03/08/18 05:19 Dilaudid IVP 1 mg Q4H PRN Administration Pain, severe (8-10) Hydromorphone HCl 0.5 mg 03/08/18 01:14 03/08/18 02:03 Dilaudid IVP 03/09/18 16:13 0.5 mg Q4H PRN Administration Pain, moderate (4-7) Lactated Ringer's 1,000 mls @ 125 mls/hr 03/07/18 06:04 03/07/18 23:21 Lactated Ringer's IV 125 mls/hr .Q8H KALEN Administration Metronidazole 500 mg in 100 mls @ 100 mls/hr 03/07/18 14:00 03/08/18 05:38 Flagyl IVPB 100 mls/hr Q8 KALEN Administration Protocol Ceftriaxone Sodium 2 gm in 100 mls @ 100 mls/hr 03/07/18 10:00 03/07/18 09:07 Rocephin 2 Gm Ivpb IVPB 100 mls/hr DAILY KALEN Administration Protocol Dexmedetomidine HCl 400 mcg in 100 mls @ 2.128 mls/hr 03/08/18 07:25 Precedex 400mcg/100ml IV .Q24H PRN Agitation Protocol 0.1 MCG/KG/HR Potassium Chloride 10 meq in 100 mls @ 50 mls/hr 03/08/18 09:45 Potassium Chloride 10 Meq/100 Ml IVPB 03/08/18 17:44 Q2H KALEN Lisinopril 5 mg 03/09/18 10:00 Zestril PO QAM KALEN Metoprolol Tartrate 50 mg 03/08/18 22:00 Lopressor NG HS KALEN Nicotine 1 patch 03/07/18 10:00 03/07/18 10:25 Nicoderm Cq TD 1 patch DAILY KALEN Administration Ondansetron HCl 4 mg 03/06/18 19:02 Zofran Inj IVP Q6 PRN Nausea/Vomiting Pantoprazole Sodium 40 mg 03/06/18 16:15 03/07/18 09:04 Protonix Inj IVP 40 mg DAILY KALEN Administration Ziprasidone 20 mg 03/08/18 07:57 Geodon Inj IM Q4 PRN Agitation Protocol - Patient Studies Lab Studies: Lab Studies 03/08/18 03/08/18 03/07/18 Range/Units 05:30 05:30 21:50 WBC 12.2 H (4.5-11.0) 10^3/ul RBC 5.48 (3.5-6.1) 10^6/uL Hgb 12.1 L (14.0-18.0) g/dL Hct 36.7 L (42.0-52.0) % MCV 67.0 L (80.0-105.0) fl MCH 22.1 L (25.0-35.0) pg MCHC 33.0 (31.0-37.0) g/dl RDW 20.9 H (11.5-14.5) % Plt Count 239 (120.0-450.0) 10^3/uL Gran % 83.4 H (50.0-68.0) % Lymph % (Auto) 8.6 L (22.0-35.0) % [place] % (Auto) 7.9 H (1.0-6.0) % Eos % (Auto) 0.1 L (1.5-5.0) % Baso % (Auto) 0.0 (0.0-3.0) % Gran # 10.19 H (1.4-6.5) Lymph # (Auto) 1.1 L (1.2-3.4) [place] # (Auto) 1.0 H (0.1-0.6) Eos # (Auto) 0.0 (0.0-0.7) Baso # (Auto) 0.00 (0.0-2.0) K/mm3 Sodium 136 (132-148) mmol/L Potassium 3.0 L (3.6-5.0) mmol/L Chloride 106 (98-107) mmol/L Carbon Dioxide 22 (21-33) mmol/L Anion Gap 11 (10-20) BUN 10 (7-21) mg/dL Creatinine 0.5 L (0.8-1.5) mg/dl Est GFR ( Amer) > 60 Est GFR (Non-Af Amer) > 60 POC Glucose (mg/dL) 139 H (65-110) mg/dL Random Glucose 128 H (70-110) mg/dL Calcium 8.2 L (8.4-10.5) mg/dL Phosphorus 2.1 L (2.5-4.5) mg/dL Magnesium 1.9 (1.7-2.2) mg/dL Total Bilirubin 0.7 (0.2-1.3) mg/dL AST 26 (17-59) U/L ALT 27 (7-56) U/L Alkaline Phosphatase 82 (38-126) U/L Total Protein 7.0 (5.8-8.3) g/dL Albumin 3.2 (3.0-4.8) g/dL Globulin 3.7 gm/dL Albumin/Globulin Ratio 0.9 L (1.1-1.8) Procalcitonin (0.19-0.49) NG/ML Urine Opiates Screen (NEGATIVE) Urine Methadone Screen (NEGATIVE) Ur Barbiturates Screen (NEGATIVE) Ur Phencyclidine Scrn (NEGATIVE) Ur Amphetamines Screen (NEGATIVE) U Benzodiazepines Scrn (NEGATIVE) U Oth Cocaine Metabols (NEGATIVE) U Cannabinoids Screen (NEGATIVE) 03/07/18 03/07/18 03/07/18 Range/Units 15:47 12:50 11:00 WBC (4.5-11.0) 10^3/ul RBC (3.5-6.1) 10^6/uL Hgb (14.0-18.0) g/dL Hct (42.0-52.0) % MCV (80.0-105.0) fl MCH (25.0-35.0) pg MCHC (31.0-37.0) g/dl RDW (11.5-14.5) % Plt Count (120.0-450.0) 10^3/uL Gran % (50.0-68.0) % Lymph % (Auto) (22.0-35.0) % [place] % (Auto) (1.0-6.0) % Eos % (Auto) (1.5-5.0) % Baso % (Auto) (0.0-3.0) % Gran # (1.4-6.5) Lymph # (Auto) (1.2-3.4) [place] # (Auto) (0.1-0.6) Eos # (Auto) (0.0-0.7) Baso # (Auto) (0.0-2.0) K/mm3 Sodium (132-148) mmol/L Potassium (3.6-5.0) mmol/L Chloride (98-107) mmol/L Carbon Dioxide (21-33) mmol/L Anion Gap (10-20) BUN (7-21) mg/dL Creatinine (0.8-1.5) mg/dl Est GFR ( Amer) Est GFR (Non-Af Amer) POC Glucose (mg/dL) 154 H (65-110) mg/dL Random Glucose (70-110) mg/dL Calcium (8.4-10.5) mg/dL Phosphorus (2.5-4.5) mg/dL Magnesium (1.7-2.2) mg/dL Total Bilirubin (0.2-1.3) mg/dL AST (17-59) U/L ALT (7-56) U/L Alkaline Phosphatase (38-126) U/L Total Protein (5.8-8.3) g/dL Albumin (3.0-4.8) g/dL Globulin gm/dL Albumin/Globulin Ratio (1.1-1.8) Procalcitonin 3.79 H (0.19-0.49) NG/ML Urine Opiates Screen Positive H (NEGATIVE) Urine Methadone Screen Negative (NEGATIVE) Ur Barbiturates Screen Positive H (NEGATIVE) Ur Phencyclidine Scrn Negative (NEGATIVE) Ur Amphetamines Screen Negative (NEGATIVE) U Benzodiazepines Scrn Negative (NEGATIVE) U Oth Cocaine Metabols Negative (NEGATIVE) U Cannabinoids Screen Positive H (NEGATIVE) 03/07/18 03/07/18 03/07/18 Range/Units 10:46 07:20 00:26 WBC (4.5-11.0) 10^3/ul RBC (3.5-6.1) 10^6/uL Hgb (14.0-18.0) g/dL Hct (42.0-52.0) % MCV (80.0-105.0) fl MCH (25.0-35.0) pg MCHC (31.0-37.0) g/dl RDW (11.5-14.5) % Plt Count (120.0-450.0) 10^3/uL Gran % (50.0-68.0) % Lymph % (Auto) (22.0-35.0) % [place] % (Auto) (1.0-6.0) % Eos % (Auto) (1.5-5.0) % Baso % (Auto) (0.0-3.0) % Gran # (1.4-6.5) Lymph # (Auto) (1.2-3.4) [place] # (Auto) (0.1-0.6) Eos # (Auto) (0.0-0.7) Baso # (Auto) (0.0-2.0) K/mm3 Sodium (132-148) mmol/L Potassium (3.6-5.0) mmol/L Chloride (98-107) mmol/L Carbon Dioxide (21-33) mmol/L Anion Gap (10-20) BUN (7-21) mg/dL Creatinine (0.8-1.5) mg/dl Est GFR ( Amer) Est GFR (Non-Af Amer) POC Glucose (mg/dL) 172 H 133 H 134 H (65-110) mg/dL Random Glucose (70-110) mg/dL Calcium (8.4-10.5) mg/dL Phosphorus (2.5-4.5) mg/dL Magnesium (1.7-2.2) mg/dL Total Bilirubin (0.2-1.3) mg/dL AST (17-59) U/L ALT (7-56) U/L Alkaline Phosphatase (38-126) U/L Total Protein (5.8-8.3) g/dL Albumin (3.0-4.8) g/dL Globulin gm/dL Albumin/Globulin Ratio (1.1-1.8) Procalcitonin (0.19-0.49) NG/ML Urine Opiates Screen (NEGATIVE) Urine Methadone Screen (NEGATIVE) Ur Barbiturates Screen (NEGATIVE) Ur Phencyclidine Scrn (NEGATIVE) Ur Amphetamines Screen (NEGATIVE) U Benzodiazepines Scrn (NEGATIVE) U Oth Cocaine Metabols (NEGATIVE) U Cannabinoids Screen (NEGATIVE) Laboratory Results - last 24 hr 03/07/18 03/07/18 03/07/18 00:26 07:20 10:46 WBC RBC Hgb Hct MCV MCH MCHC RDW Plt Count Gran % Lymph % (Auto) [place] % (Auto) Eos % (Auto) Baso % (Auto) Gran # Lymph # (Auto) [place] # (Auto) Eos # (Auto) Baso # (Auto) Sodium Potassium Chloride Carbon Dioxide Anion Gap BUN Creatinine Est GFR ( Amer) Est GFR (Non-Af Amer) POC Glucose (mg/dL) 134 H 133 H 172 H Random Glucose Calcium Phosphorus Magnesium Total Bilirubin AST ALT Alkaline Phosphatase Total Protein Albumin Globulin Albumin/Globulin Ratio Procalcitonin Urine Opiates Screen Urine Methadone Screen Ur Barbiturates Screen Ur Phencyclidine Scrn Ur Amphetamines Screen U Benzodiazepines Scrn U Oth Cocaine Metabols U Cannabinoids Screen 03/07/18 03/07/18 03/07/18 11:00 12:50 15:47 WBC RBC Hgb Hct MCV MCH MCHC RDW Plt Count Gran % Lymph % (Auto) [place] % (Auto) Eos % (Auto) Baso % (Auto) Gran # Lymph # (Auto) [place] # (Auto) Eos # (Auto) Baso # (Auto) Sodium Potassium Chloride Carbon Dioxide Anion Gap BUN Creatinine Est GFR ( Amer) Est GFR (Non-Af Amer) POC Glucose (mg/dL) 154 H Random Glucose Calcium Phosphorus Magnesium Total Bilirubin AST ALT Alkaline Phosphatase Total Protein Albumin Globulin Albumin/Globulin Ratio Procalcitonin 3.79 H Urine Opiates Screen Positive H Urine Methadone Screen Negative Ur Barbiturates Screen Positive H Ur Phencyclidine Scrn Negative Ur Amphetamines Screen Negative U Benzodiazepines Scrn Negative U Oth Cocaine Metabols Negative U Cannabinoids Screen Positive H 03/07/18 03/08/18 03/08/18 21:50 05:30 05:30 WBC 12.2 H RBC 5.48 Hgb 12.1 L Hct 36.7 L MCV 67.0 L MCH 22.1 L MCHC 33.0 RDW 20.9 H Plt Count 239 Gran % 83.4 H Lymph % (Auto) 8.6 L [place] % (Auto) 7.9 H Eos % (Auto) 0.1 L Baso % (Auto) 0.0 Gran # 10.19 H Lymph # (Auto) 1.1 L [place] # (Auto) 1.0 H Eos # (Auto) 0.0 Baso # (Auto) 0.00 Sodium 136 Potassium 3.0 L Chloride 106 Carbon Dioxide 22 Anion Gap 11 BUN 10 Creatinine 0.5 L Est GFR ( Amer) > 60 Est GFR (Non-Af Amer) > 60 POC Glucose (mg/dL) 139 H Random Glucose 128 H Calcium 8.2 L Phosphorus 2.1 L Magnesium 1.9 Total Bilirubin 0.7 AST 26 ALT 27 Alkaline Phosphatase 82 Total Protein 7.0 Albumin 3.2 Globulin 3.7 Albumin/Globulin Ratio 0.9 L Procalcitonin Urine Opiates Screen Urine Methadone Screen Ur Barbiturates Screen Ur Phencyclidine Scrn Ur Amphetamines Screen U Benzodiazepines Scrn U Oth Cocaine Metabols U Cannabinoids Screen Fingerstick Blood Sugar Results: 154 Review of Systems - Review of Systems Systems not reviewed;Unavailable: Altered Mental Status Critical Care Progress Note - Ventilator Checklist Head of Bed 30 Degrees: Yes PUD Prophalyxis: Yes DVT Prophylaxis: Yes - Extremities/Vascular Does the Patient have a Central Venous Catheter?: No Does the Patient need a Central Venous Catheter?: No Does the Patient have a Tomlinson Catheter?: No - Nutrition Nutrition: Nutrition Category Date Time Status NPO Diet [DIET] Diets 03/06/18 Dinner Ordered Assessment/Plan - Assessment and Plan (Free Text) Assessment: 68 year old with past medical history of hypertension, hyperlipidemia, COPD, cardiac arrest 2/p spinal surgery in 2014, CVA presents with 3 hours of epigastric pabdominal pain while sitting at home. Patient was found to have perforated duodenal ulcer on imaging and was taken to the OR who performed an exploratory lapartomy with jeanette patch placement. Plan: Neuro: -AAOx1, not oriented to time, no FND, moving extremities past midline. -Patient agitated and given precedex. Precedex is being titrated down presently and will be titrated off. Patient will be started on geodon as needed for agitation. -Patient is opiod dependent on both percocet and hydrocodone at home. -Monitor neuro status. -Reorient patient as necessary. Cardio: -RRR, hypertensive, no signs of HD compromise -Patient's systolic blood pressure has ranged from 180-200 overnight. Patient was diaphoretic this morning and started on precedex for agitation. Precedex is being titrated down presently and will be titrated off. Patient will be started on geodon as needed for agitation. Apresoline also ordered Q6PRN. Patient currently NPO. As per surgery, medications are not to be given through NG tube. -Patient receiving pain medication dilaudid PRN. -Maintain MAP>65. -Monitor for S/S, HD compromise. Pulm: -No signs of respiratory distress. CTA B/L -Patient is stating well on 3L NC -Maintain O2 saturation>95%. -Elevate bed to 30 degrees GI: -NG tube present. 500 cc of drainage present. -NPO -Protonix 40 mg daily /Nephro: -BUN/Cr stable -UA was unremarkable with negative blood, negative leukocyte esterase, and negative nitrates -Potassium decreased at 3. Will replete with 4 10 mEq KCl riders -Patient had episode of incontinence. Good urine output: 875 today -Continue monitoring. -Replete electrolytes as needed. -Maintain euvolemia. Endocrinology: -Random glucose: 139 -Maintain euglycemia. Heme/Onc: -H/H stable. -Mild leukocytosis at 12.2. -No signs of HD compromise. -Continue monitoring H/H ID: -Afebrile, mild leukocytosis -Follow up BCx, UCx -Procalcitonin: 3.79 -CXR shows NG tube in right position and no free air. No consolidations seen. UA was unremarkable with negative blood, negative leukocyte esterase, and negative nitrates -Continue with emperic antibiotic therapy of ceftriaxone and metronidazole. -Monitor for signs and symptoms of infection. DVT prophylaxis: SCD GI prophylaxis: protonix 40 mg daily Disposition: Patient is being weaned off of precedex and will be monitored for clinical and hemodynamic stability. Surgery has deemed the patient stable and ready for transfer to telemetry later today Patient seen and examined with Dr. Manzano. - Date & Time Date: 03/08/18 Time: 11:01 <Carson Manzano - Last Filed: 03/08/18 12:49> CCU Objective - Vital Signs / Intake & Output Vital Signs (Last 4 hours): Vital Signs Pulse BP 03/08/18 10:54 84 163/107 H Intake and Output (Last 8hrs): Intake & Output 03/07/18 03/08/18 03/08/18 22:59 06:59 14:59 Intake Total 245 2172 Output Total 1165 190 Balance -920 1982 Intake: IV 245 2172 right wrist 2072 Oral 0 0 Output: Gastric Amount 100 120 Left Nares 100 120 Drainage 190 70 Bilateral Abdomen 190 70 Urine 875 Condom 550 Urine, Voided 325 Stool 0 0 Emesis 0 0 - Medications Active Medications: Active Medications Generic Name Dose Route Start Last Admin Trade Name Freq PRN Reason Stop Dose Admin Albuterol/Ipratropium 3 ml 03/06/18 17:33 Duoneb 3 Mg/0.5 Mg (3 Ml) Ud IH [id number] PRN Wheezing Hydralazine HCl 5 mg 03/07/18 04:19 03/08/18 10:54 Apresoline IVP 5 mg Q6 PRN Administration Systolic Blood Pressure Hydromorphone HCl 1 mg 03/06/18 16:12 03/08/18 05:19 Dilaudid IVP 1 mg Q4H PRN Administration Pain, severe (8-10) Hydromorphone HCl 0.5 mg 03/08/18 01:14 03/08/18 02:03 Dilaudid IVP 03/09/18 16:13 0.5 mg Q4H PRN Administration Pain, moderate (4-7) Lactated Ringer's 1,000 mls @ 125 mls/hr 03/07/18 06:04 03/07/18 23:21 Lactated Ringer's IV 125 mls/hr .Q8H KALEN Administration Metronidazole 500 mg in 100 mls @ 100 mls/hr 03/07/18 14:00 03/08/18 05:38 Flagyl IVPB 100 mls/hr Q8 KALEN Administration Protocol Ceftriaxone Sodium 2 gm in 100 mls @ 100 mls/hr 03/07/18 10:00 03/08/18 10:55 Rocephin 2 Gm Ivpb IVPB 100 mls/hr DAILY KALEN Administration Protocol Dexmedetomidine HCl 400 mcg in 100 mls @ 2.128 mls/hr 03/08/18 07:25 Precedex 400mcg/100ml IV .Q24H PRN Agitation Protocol 0.1 MCG/KG/HR Potassium Chloride 10 meq in 100 mls @ 50 mls/hr 03/08/18 09:45 03/08/18 10:00 Potassium Chloride 10 Meq/100 Ml IVPB 03/08/18 17:44 50 mls/hr Q2H KALEN Administration Lisinopril 5 mg 03/09/18 10:00 Zestril PO QAM KALEN Metoprolol Tartrate 50 mg 03/08/18 22:00 Lopressor NG HS KALEN Nicotine 1 patch 03/07/18 10:00 03/08/18 10:57 Nicoderm Cq TD 1 patch DAILY KALEN Administration Ondansetron HCl 4 mg 03/06/18 19:02 Zofran Inj IVP Q6 PRN Nausea/Vomiting Pantoprazole Sodium 40 mg 03/06/18 16:15 03/08/18 10:57 Protonix Inj IVP 40 mg DAILY KALEN Administration Ziprasidone 20 mg 03/08/18 07:57 Geodon Inj IM Q4 PRN Agitation Protocol - Patient Studies Lab Studies: Lab Studies 03/08/18 03/08/18 03/07/18 Range/Units 05:30 05:30 21:50 WBC 12.2 H (4.5-11.0) 10^3/ul RBC 5.48 (3.5-6.1) 10^6/uL Hgb 12.1 L (14.0-18.0) g/dL Hct 36.7 L (42.0-52.0) % MCV 67.0 L (80.0-105.0) fl MCH 22.1 L (25.0-35.0) pg MCHC 33.0 (31.0-37.0) g/dl RDW 20.9 H (11.5-14.5) % Plt Count 239 (120.0-450.0) 10^3/uL Gran % 83.4 H (50.0-68.0) % Lymph % (Auto) 8.6 L (22.0-35.0) % [place] % (Auto) 7.9 H (1.0-6.0) % Eos % (Auto) 0.1 L (1.5-5.0) % Baso % (Auto) 0.0 (0.0-3.0) % Gran # 10.19 H (1.4-6.5) Lymph # (Auto) 1.1 L (1.2-3.4) [place] # (Auto) 1.0 H (0.1-0.6) Eos # (Auto) 0.0 (0.0-0.7) Baso # (Auto) 0.00 (0.0-2.0) K/mm3 Sodium 136 (132-148) mmol/L Potassium 3.0 L (3.6-5.0) mmol/L Chloride 106 (98-107) mmol/L Carbon Dioxide 22 (21-33) mmol/L Anion Gap 11 (10-20) BUN 10 (7-21) mg/dL Creatinine 0.5 L (0.8-1.5) mg/dl Est GFR ( Amer) > 60 Est GFR (Non-Af Amer) > 60 POC Glucose (mg/dL) 139 H (65-110) mg/dL Random Glucose 128 H (70-110) mg/dL Calcium 8.2 L (8.4-10.5) mg/dL Phosphorus 2.1 L (2.5-4.5) mg/dL Magnesium 1.9 (1.7-2.2) mg/dL Total Bilirubin 0.7 (0.2-1.3) mg/dL AST 26 (17-59) U/L ALT 27 (7-56) U/L Alkaline Phosphatase 82 (38-126) U/L Total Protein 7.0 (5.8-8.3) g/dL Albumin 3.2 (3.0-4.8) g/dL Globulin 3.7 gm/dL Albumin/Globulin Ratio 0.9 L (1.1-1.8) Procalcitonin (0.19-0.49) NG/ML 03/07/18 03/07/18 Range/Units 15:47 12:50 WBC (4.5-11.0) 10^3/ul RBC (3.5-6.1) 10^6/uL Hgb (14.0-18.0) g/dL Hct (42.0-52.0) % MCV (80.0-105.0) fl MCH (25.0-35.0) pg MCHC (31.0-37.0) g/dl RDW (11.5-14.5) % Plt Count (120.0-450.0) 10^3/uL Gran % (50.0-68.0) % Lymph % (Auto) (22.0-35.0) % [place] % (Auto) (1.0-6.0) % Eos % (Auto) (1.5-5.0) % Baso % (Auto) (0.0-3.0) % Gran # (1.4-6.5) Lymph # (Auto) (1.2-3.4) [place] # (Auto) (0.1-0.6) Eos # (Auto) (0.0-0.7) Baso # (Auto) (0.0-2.0) K/mm3 Sodium (132-148) mmol/L Potassium (3.6-5.0) mmol/L Chloride (98-107) mmol/L Carbon Dioxide (21-33) mmol/L Anion Gap (10-20) BUN (7-21) mg/dL Creatinine (0.8-1.5) mg/dl Est GFR ( Amer) Est GFR (Non-Af Amer) POC Glucose (mg/dL) 154 H (65-110) mg/dL Random Glucose (70-110) mg/dL Calcium (8.4-10.5) mg/dL Phosphorus (2.5-4.5) mg/dL Magnesium (1.7-2.2) mg/dL Total Bilirubin (0.2-1.3) mg/dL AST (17-59) U/L ALT (7-56) U/L Alkaline Phosphatase (38-126) U/L Total Protein (5.8-8.3) g/dL Albumin (3.0-4.8) g/dL Globulin gm/dL Albumin/Globulin Ratio (1.1-1.8) Procalcitonin 3.79 H (0.19-0.49) NG/ML Laboratory Results - last 24 hr 03/07/18 03/07/18 03/07/18 12:50 15:47 21:50 WBC RBC Hgb Hct MCV MCH MCHC RDW Plt Count Gran % Lymph % (Auto) [place] % (Auto) Eos % (Auto) Baso % (Auto) Gran # Lymph # (Auto) [place] # (Auto) Eos # (Auto) Baso # (Auto) Sodium Potassium Chloride Carbon Dioxide Anion Gap BUN Creatinine Est GFR ( Amer) Est GFR (Non-Af Amer) POC Glucose (mg/dL) 154 H 139 H Random Glucose Calcium Phosphorus Magnesium Total Bilirubin AST ALT Alkaline Phosphatase Total Protein Albumin Globulin Albumin/Globulin Ratio Procalcitonin 3.79 H 03/08/18 03/08/18 05:30 05:30 WBC 12.2 H RBC 5.48 Hgb 12.1 L Hct 36.7 L MCV 67.0 L MCH 22.1 L MCHC 33.0 RDW 20.9 H Plt Count 239 Gran % 83.4 H Lymph % (Auto) 8.6 L [place] % (Auto) 7.9 H Eos % (Auto) 0.1 L Baso % (Auto) 0.0 Gran # 10.19 H Lymph # (Auto) 1.1 L [place] # (Auto) 1.0 H Eos # (Auto) 0.0 Baso # (Auto) 0.00 Sodium 136 Potassium 3.0 L Chloride 106 Carbon Dioxide 22 Anion Gap 11 BUN 10 Creatinine 0.5 L Est GFR ( Amer) > 60 Est GFR (Non-Af Amer) > 60 POC Glucose (mg/dL) Random Glucose 128 H Calcium 8.2 L Phosphorus 2.1 L Magnesium 1.9 Total Bilirubin 0.7 AST 26 ALT 27 Alkaline Phosphatase 82 Total Protein 7.0 Albumin 3.2 Globulin 3.7 Albumin/Globulin Ratio 0.9 L Procalcitonin Critical Care Progress Note - Nutrition Nutrition: Nutrition Category Date Time Status NPO Diet [DIET] Diets 03/06/18 Dinner Ordered Assessment/Plan - Assessment and Plan (Free Text) Plan: Patient seen and examined on rounds with resident, agree with note with following additions/exceptions; Patient is 68yo male wPMHx HTN, hyperlipidemia, COPD, cardiac arrest 2/p spinal surgery in 2014, CVA presents with 3 hours of epigastric pabdominal pain ,found to have perforated duodenal ulcer on imaging and was taken to the OR who performed an exploratory lapartomy with jeanette patch placement. Patient was monitored in MICU afterwards, became delirious, agitated, started on Geodon, and Precedex drip; likely result of opiod withdrawal Currently OFF Precedex drip, awake, alert, calm , following commands, in NAD BP elevated will place on clonidine patch; as per surgery no meds via NGT for now Labs, imaging, chart reviewed HTN Agitation, resolved Duodenal ulcer perforation s/p OR, POD #3 Leukocytosis Recommend: - supp o2 as needed, duonebs PRN, IS - follow up cultures, UCx, BCx, check Procal - Abx as per ID - BP control, Clonidine patch 0.1mg; nothing via NGT as per surgery - Labetolol PRN IV - IVF - Titrate off PRecedex drip - Pain control - GI ppx - DVT ppx - Transfer to telemetry if BP better control, and continues to show no signs of agitation
[2018-03-08] MEDS: Lactated Ringer's 1,000 ML IV SCH ×3 (12:00→21:27)
[2018-03-08] MEDS ORDERED: Enoxaparin 40 mg Syringe SC SCH (13:30)
[2018-03-08] MEDS ORDERED: Labetalol 5 mg/ml Inj 20ML IV ONE (17:45)
--- NOTE | 2018-03-08 20:29 | CP.PCM.PN ---
Subjective - Date & Time of Evaluation Date of Evaluation: 03/08/18 Time of Evaluation: 07:55 - Subjective Subjective: Comfortable, abdominal pain is improving, no nausea, no fevers. Objective - Vital Signs/Intake and Output Vital Signs (last 24 hours): Temp Pulse Resp BP Pulse Ox 98.4 F 95 H 25 H 181/100 H 100 03/08/18 16:00 03/08/18 19:57 03/08/18 18:30 03/08/18 19:57 03/08/18 16:59 Intake and Output: 03/08/18 03/09/18 18:59 06:59 Intake Total 1900 Output Total 530 Balance 1370 - Medications Medications: Current Medications Albuterol/Ipratropium (Duoneb 3 Mg/0.5 Mg (3 Ml) Ud) 3 ml IH [id number] PRN PRN Reason: Wheezing Clonidine HCl (Catapres Tts1 0.1 Mg/24 Hr) 1 patch TD Q7D [facility] Last Admin: 03/08/18 18:51 Dose: 1 patch Enoxaparin Sodium (Lovenox) 40 mg SC DAILY [facility]; Protocol Last Admin: 03/08/18 14:30 Dose: 40 mg Hydralazine HCl (Apresoline) 10 mg IVP Q4H PRN PRN Reason: Systolic Blood Pressure Last Admin: 03/08/18 19:57 Dose: 10 mg Hydromorphone HCl (Dilaudid) 1 mg IVP Q4H PRN PRN Reason: Pain, severe (8-10) Last Admin: 03/08/18 17:20 Dose: 1 mg Hydromorphone HCl (Dilaudid) 0.5 mg IVP Q4H PRN PRN Reason: Pain, moderate (4-7) Stop: 03/09/18 16:13 Last Admin: 03/08/18 02:03 Dose: 0.5 mg Lactated Ringer's (Lactated Ringer's) 1,000 mls @ 125 mls/hr IV .Q8H [facility] Last Admin: 03/08/18 12:43 Dose: 125 mls/hr Metronidazole (Flagyl) 500 mg in 100 mls @ 100 mls/hr IVPB Q8 [facility]; Protocol Last Admin: 03/08/18 13:13 Dose: 100 mls/hr Ceftriaxone Sodium (Rocephin 2 Gm Ivpb) 2 gm in 100 mls @ 100 mls/hr IVPB DAILY [facility]; Protocol Last Admin: 03/08/18 10:55 Dose: 100 mls/hr Lisinopril (Zestril) 5 mg NG QAM [facility] Metoprolol Tartrate (Lopressor) 50 mg NG HS [facility] Nicotine (Nicoderm Cq) 1 patch TD DAILY [facility] Last Admin: 03/08/18 10:57 Dose: 1 patch Ondansetron HCl (Zofran Inj) 4 mg IVP Q6 PRN PRN Reason: Nausea/Vomiting Pantoprazole Sodium (Protonix Inj) 40 mg IVP DAILY [facility] Last Admin: 03/08/18 10:57 Dose: 40 mg Ziprasidone (Geodon Inj) 20 mg IM Q4 PRN; Protocol PRN Reason: Agitation Last Admin: 03/08/18 18:30 Dose: 20 mg - Labs Labs: 03/08/18 05:30 03/08/18 05:30 PT 14.4 SECONDS (9.4-12.5) H 03/06/18 21:51 INR 1.26 03/06/18 21:51 APTT 29.2 Seconds (25.1-36.5) 03/06/18 21:51 - Constitutional Appears: Chronically Ill - Head Exam Head Exam: NORMAL INSPECTION - Neck Exam Neck Exam: absent: Meningismus - Respiratory Exam Respiratory Exam: Decreased Breath Sounds - Cardiovascular Exam Cardiovascular Exam: +S1, +S2 - GI/Abdominal Exam GI & Abdominal Exam: Soft. absent: Tenderness Additional comments: dry dressings in place Assessment and Plan - Assessment and Plan (Free Text) Plan: Assessment perforated duodenal ulcer S/P ex-lap and repair history of SIRS after cardiac arrest after aborted discectomy HTN Chronic back pain dyslipidemia COPD history of seizures history of CVA Plan continue Rocephin and Flagyl day 2 and will continue to monitor clinically
[2018-03-08] MEDS ORDERED: Metoprolol 1 mg/ml Inj IVP SCH (23:00)
[2018-03-09] MEDS ORDERED: Labetalol 5 mg/ml Inj 20ML IV ONE ×2 (01:20→05:01)
[2018-03-09] MEDS: HYDROmorphone 1 mg/ml ISec IVP PRN ×7 (01:29→22:55)
[2018-03-09] MEDS: metroNIDAZOLE IV 500 mg/100 ml 500 MG/100 ML BAG IVPB SCH ×2 (05:09→13:24)
[2018-03-09 05:58] LABS: EOS # 0.1 (0.0-0.7); EOS % 0.5 % (1.5-5.0); GRAN # 12.64 (1.4-6.5); GRAN % 86.4 % (50.0-68.0); HEMOGLOBIN 12.7 g/dL (14.0-18.0); LYMPH # 0.8 (1.2-3.4); LYMPH % 5.7 % (22.0-35.0); MEAN CELL VOLUME 67.8 fl (80.0-105.0); MEAN CORPUSCULAR HEMOGLOBIN 22.1 pg (25.0-35.0); MEAN CORPUSCULAR HGB CONC 32.6 g/dl (31.0-37.0); MONO # 1.1 (0.1-0.6); MONO % 7.4 % (1.0-6.0); PLATELET COUNT 209 10^3/uL (120.0-450.0); RBC 5.74 10^6/uL (3.5-6.1); RED CELL DISTRIBUTION WIDTH 20.7 % (11.5-14.5); WHITE BLOOD COUNT 14.6 10^3/ul (4.5-11.0)
[2018-03-09] MEDS ORDERED: Metoprolol 1 mg/ml Inj ONE (06:29)
[2018-03-09] MEDS: Metoprolol 1 mg/ml Inj IVP SCH ×4 (06:38→22:03)
[2018-03-09] MEDS: Lactated Ringer's 1,000 ML IV SCH ×3 (06:39→22:04)
[2018-03-09 06:47] LABS: ALB/GLOB RATIO 0.8 (1.1-1.8); ALBUMIN 3.5 g/dL (3.0-4.8); ALT/SGPT 33 U/L (7-56); AST/SGOT 29 U/L (17-59); BLOOD UREA NITROGEN 14 mg/dL (7-21); CALCIUM 8.6 mg/dL (8.4-10.5); GFR NON-AFRICAN AMERICAN > 60
--- NOTE | 2018-03-09 07:01 | CP.PCM.PN ---
<Francisca Sepulveda - Last Filed: 03/09/18 14:47> Subjective - Date & Time of Evaluation Date of Evaluation: 03/09/18 Time of Evaluation: 07:01 - Subjective Subjective: Pgy3 Progress note for Dr. Hayes Patient seen and examined at bedside. Overnight patient was agitated. This AM patient confused and ao x 0. No fevers overnight as per nursing. Shad drain with serosanguinous output 20cc over 24 hours, NGT 500cc gastrosanguinous output over 24 hours. Complete ROS unobtainable secondary to patient condition. Objective - Vital Signs/Intake and Output Vital Signs (last 24 hours): Temp Pulse Resp BP Pulse Ox 98.5 F 92 H 22 183/112 H 95 03/09/18 04:00 03/09/18 06:38 03/09/18 06:35 03/09/18 06:38 03/09/18 06:35 Intake and Output: 03/09/18 03/09/18 06:59 18:59 Output Total 370 Balance -370 - Medications Medications: Current Medications Albuterol/Ipratropium (Duoneb 3 Mg/0.5 Mg (3 Ml) Ud) 3 ml IH [id number] PRN PRN Reason: Wheezing Clonidine HCl (Catapres Tts1 0.1 Mg/24 Hr) 1 patch TD Q7D [facility] Last Admin: 03/08/18 18:51 Dose: 1 patch Enoxaparin Sodium (Lovenox) 40 mg SC DAILY [facility]; Protocol Last Admin: 03/08/18 14:30 Dose: 40 mg Hydralazine HCl (Apresoline) 10 mg IVP Q4H PRN PRN Reason: Systolic Blood Pressure Last Admin: 03/09/18 04:07 Dose: 10 mg Hydromorphone HCl (Dilaudid) 1 mg IVP Q4H PRN PRN Reason: Pain, severe (8-10) Last Admin: 03/09/18 05:45 Dose: 1 mg Hydromorphone HCl (Dilaudid) 0.5 mg IVP Q4H PRN PRN Reason: Pain, moderate (4-7) Stop: 03/09/18 16:13 Last Admin: 03/09/18 04:08 Dose: 0.5 mg Lactated Ringer's (Lactated Ringer's) 1,000 mls @ 125 mls/hr IV .Q8H [facility] Last Admin: 03/09/18 06:39 Dose: 125 mls/hr Metronidazole (Flagyl) 500 mg in 100 mls @ 100 mls/hr IVPB Q8 [facility]; Protocol Last Admin: 03/09/18 05:09 Dose: 100 mls/hr Ceftriaxone Sodium (Rocephin 2 Gm Ivpb) 2 gm in 100 mls @ 100 mls/hr IVPB DAILY [facility]; Protocol Last Admin: 03/08/18 10:55 Dose: 100 mls/hr Metoprolol Tartrate (Lopressor) 5 mg IVP BID [facility] Last Admin: 03/09/18 06:38 Dose: 5 mg Nicotine (Nicoderm Cq) 1 patch TD DAILY [facility] Last Admin: 03/08/18 10:57 Dose: 1 patch Ondansetron HCl (Zofran Inj) 4 mg IVP Q6 PRN PRN Reason: Nausea/Vomiting Pantoprazole Sodium (Protonix Inj) 40 mg IVP DAILY [facility] Last Admin: 03/08/18 10:57 Dose: 40 mg Ziprasidone (Geodon Inj) 20 mg IM Q4 PRN; Protocol PRN Reason: Agitation Last Admin: 03/09/18 06:46 Dose: 20 mg - Labs Labs: 03/09/18 05:00 03/09/18 05:00 PT 14.4 SECONDS (9.4-12.5) H 03/06/18 21:51 INR 1.26 03/06/18 21:51 APTT 29.2 Seconds (25.1-36.5) 03/06/18 21:51 - Constitutional Appears: Agitated, Confused - Head Exam Head Exam: ATRAUMATIC, NORMAL INSPECTION, NORMOCEPHALIC - Eye Exam Eye Exam: EOMI, Normal appearance, PERRL. absent: Conjunctival injection, Scleral icterus Pupil Exam: NORMAL ACCOMODATION - ENT Exam ENT Exam: Mucous Membranes Dry Additional comments: NGT in place to suction - Respiratory Exam Respiratory Exam: NORMAL BREATHING PATTERN. absent: Accessory Muscle Use, Rales, Rhonchi, Wheezes, Respiratory Distress - Cardiovascular Exam Cardiovascular Exam: Tachycardia, +S1, +S2 - GI/Abdominal Exam GI & Abdominal Exam: Soft. absent: Distended, Firm, Guarding, Rigid Additional comments: Holland in place - Rectal Exam Rectal Exam: Deferred - Extremities Exam Extremities Exam: Normal Inspection. absent: Pedal Edema - Neurological Exam Neurological Exam: Altered, Awake - Psychiatric Exam Psychiatric exam: Anxious - Skin Skin Exam: Dry, Intact Assessment and Plan - Assessment and Plan (Free Text) Assessment: 68yo male HTN, hyperlipidemia, COPD, cardiac arrest 2/p spinal surgery in 2014, CVA presented with 3 hours of epigastric pabdominal pain found to have perfora leyda duodenal ulcer. Patient is POD#3 s/p exlap with gram patch and washout. Patient was being monitored in MICU and was delirious likely secondary to opioid withdrawal and started on Geodon and Precedex gtt. Patient currently off precedex gtt and transferred to TELE. Patient remains confused and agitated. NGT has significant output and BP uncontrolled. Plan: This AM patient continues to be confused, agitated, and altered. AO x 0. Patient had stat head CT which was unremarkable for acute findings. Psych consulted for postop delirium. Patient off precedex gtt and has geodon and ativan prn for agitation with 1:1 sitter at bedside and medical restrains due to disruption. Patient is POD#3 exlap with gram patch and washout for perforated duodenal ulcer. NGT in place on low intermittent suction and patient NPO as per surgical team. Continue serial abdominal exams and IV Zosyn as per ID and IVF LR @ 125cc. Will follow up cultures, UCx, BCx. Elevated Procal 3.79. Pain regimen and anti- emetics in place. Surgery and ID reccs appreciated. Patient continues to have elevated BP systolic 170-180s. Catapres 0.2 and Lopressor 5q6h and Hydralazine 10q4 prn. As per surgery no meds via NGT at this time. Monitor BP on current regimen and adjust as needed. Hypokalemia this AM repleted - 2.6 --> 3.3. Continue to monitor and replete as needed. Supp o2 as needed and maintain O2 saturation>95%. Monitor UO and maintain euvolemia. Random glucose 133. Maintain euglycemia. HoB elevation 30 degrees. GI ppx Protonix 40mg and DVT ppx SCDs. Duonebs PRN. Discussed with Dr. Freddy Sepulveda PGY3 <Joselito Hayes - Last Filed: 03/10/18 17:32> Objective - Vital Signs/Intake and Output Vital Signs (last 24 hours): Temp Pulse Resp BP Pulse Ox 98.8 F 66 21 159/106 H 97 03/10/18 12:00 03/10/18 16:54 03/10/18 16:00 03/10/18 16:54 03/10/18 16:00 Intake and Output: 03/10/18 03/10/18 06:59 18:59 Intake Total 4700 Output Total 600 Balance 4100 - Medications Medications: Current Medications Albuterol/Ipratropium (Duoneb 3 Mg/0.5 Mg (3 Ml) Ud) 3 ml IH [id number] PRN PRN Reason: Wheezing Clonidine HCl (Catapres-Tts3 0.3 Mg/24 Hr) 1 patch TD Q7D@1000 [facility] Last Admin: 03/10/18 09:08 Dose: 1 patch Hydralazine HCl (Apresoline) 10 mg IVP Q4H PRN PRN Reason: Systolic Blood Pressure Last Admin: 03/10/18 05:43 Dose: 10 mg Hydromorphone HCl (Dilaudid) 1 mg IVP Q3H PRN PRN Reason: Pain, severe (8-10) Last Admin: 03/10/18 16:54 Dose: 1 mg Piperacillin Sod/Tazobactam Sod (Zosyn 3.375 In Ns 100ml) 100 mls @ 200 mls/hr IVPB Q6 [facility]; Protocol Stop: 03/16/18 14:31 Last Admin: 03/10/18 17:00 Dose: 200 mls/hr Potassium Chloride/Dextrose/Sod Cl (Potassium Chl 40 Meq In D5-1/2ns) 1,000 mls @ 110 mls/hr IV .Q9H6M [facility] Last Admin: 03/10/18 17:01 Dose: 110 mls/hr Potassium Chloride (Potassium Chloride 10 Meq/100 Ml) 10 meq in 100 mls @ 10 mls/hr IVPB Q2H [facility] Stop: 03/10/18 18:29 Last Admin: 03/10/18 16:55 Dose: 10 mls/hr Labetalol HCl 500 mg/ Sodium (Chloride) 500 mls @ 30 mls/hr IV .[id number] PRN; Protocol PRN Reason: TITRATE PER MD ORDER Last Admin: 03/10/18 13:00 Dose: 0.5 mg/min, 30 mls/hr Lisinopril (Zestril) 10 mg PO DAILY [facility] Last Admin: 03/10/18 14:37 Dose: 10 mg Metoprolol Tartrate (Lopressor) 5 mg IVP Q6H [facility] Last Admin: 03/10/18 16:54 Dose: 5 mg Metoprolol Tartrate (Lopressor) 50 mg PO Q12 [facility] Nicotine (Nicoderm Cq) 1 patch TD DAILY [facility] Last Admin: 03/10/18 09:07 Dose: 1 patch Nitroglycerin (Nitro-Bid 2% Oint) 1 ea TOP Q8 PRN PRN Reason: Other Last Admin: 03/10/18 14:02 Dose: 1 ea Olanzapine (Zyprexa Zydis) 5 mg PO HS [facility]; Protocol Ondansetron HCl (Zofran Inj) 4 mg IVP Q6 PRN PRN Reason: Nausea/Vomiting Pantoprazole Sodium (Protonix Inj) 40 mg IVP DAILY [facility] Last Admin: 03/10/18 09:09 Dose: 40 mg Ziprasidone (Geodon Inj) 20 mg IM Q6H PRN; Protocol PRN Reason: Agitation - Labs Labs: 03/10/18 05:00 03/10/18 05:00 PT 14.4 SECONDS (9.4-12.5) H 03/06/18 21:51 INR 1.26 03/06/18 21:51 APTT 29.2 Seconds (25.1-36.5) 03/06/18 21:51 Attending/Attestation - Attestation I have personally seen and examined this patient.: Yes I have fully participated in the care of the patient.: Yes I have reviewed all pertinent clinical information, including history, physical exam and plan: Yes Notes (Text): 03/10/18 17:30 attending note; Patient seen and examined with resident in ICU. Post laparotomy. Patient has NG tube draining dark green secretions. laparotomy scar is clean. No bleeding noted. RADHA drain in place. Patient is confused. Agitated and restless. Blood pressure is elevated. placed on restraints. Adjust in blood pressure medication. Continue clonidine patch and IV metoprolol. Not oriented to place and time. Patient is a 68 year old male with PMHx of HTN, HLD, COPD, cardiac arrest s/p attempted spinal surgery (10/23/14), CVA, chronic back pain,opiate use presented to ED with 3 hours history of epigastric abdominal pain. found to have perforated viscous. status post ex-laparotomy and Issa patch with wash out for perforated duodenal ulcer. POD #3. Continue NG tube. Monitor RADHA drain. Follow-up with surgery closely. Continue IV zosyn. hypertension; continue clonidine patch and IV hydralazine. Monitor closely. Agitation and restlessness; continue IV Ativan. Geodon ordered. Psychiatric evaluation requested. continue one-to-one observation. History of smoking; started on NicoDerm patch. Monitor closely in ICU. 03/10/18 17:32
[2018-03-09] MEDS ORDERED: Metoprolol 1 mg/ml Inj IVP ONE (08:16)
--- NOTE | 2018-03-09 09:09 | CP.PCM.PN ---
Subjective - Date & Time of Evaluation Date of Evaluation: 03/09/18 Time of Evaluation: 09:07 - Subjective Subjective: General Surgery Progress Note for Dr. Torres This 68M was seen and examined this AM at bedside. No acute events reported overnight. Patient no longer on precedex drip, however now on geodon and unable to provide useful subjective insight. Shad drain with serosanguinous output 20cc over 24 hours, NGT 500cc gastrosanguinous output over 24 hours. Dressing and packing changed this AM during rounds. Objective - Vital Signs/Intake and Output Vital Signs (last 24 hours): Temp Pulse Resp BP Pulse Ox 98.5 F 84 18 173/105 H 60 L 03/09/18 04:00 03/09/18 08:27 03/09/18 07:01 03/09/18 08:27 03/09/18 07:01 Intake and Output: 03/09/18 03/09/18 06:59 18:59 Output Total 370 Balance -370 - Medications Medications: Current Medications Albuterol/Ipratropium (Duoneb 3 Mg/0.5 Mg (3 Ml) Ud) 3 ml IH [id number] PRN PRN Reason: Wheezing Clonidine HCl (Catapres-Tts2 0.2 Mg/24 Hr) 1 patch TD Q7D [facility] Last Admin: 03/09/18 07:13 Dose: 1 patch Hydralazine HCl (Apresoline) 10 mg IVP Q4H PRN PRN Reason: Systolic Blood Pressure Last Admin: 03/09/18 04:07 Dose: 10 mg Hydromorphone HCl (Dilaudid) 1 mg IVP Q4H PRN PRN Reason: Pain, severe (8-10) Last Admin: 03/09/18 05:45 Dose: 1 mg Hydromorphone HCl (Dilaudid) 0.5 mg IVP Q4H PRN PRN Reason: Pain, moderate (4-7) Stop: 03/09/18 16:13 Last Admin: 03/09/18 04:08 Dose: 0.5 mg Lactated Ringer's (Lactated Ringer's) 1,000 mls @ 125 mls/hr IV .Q8H [facility] Last Admin: 03/09/18 06:39 Dose: 125 mls/hr Metronidazole (Flagyl) 500 mg in 100 mls @ 100 mls/hr IVPB Q8 [facility]; Protocol Last Admin: 03/09/18 05:09 Dose: 100 mls/hr Ceftriaxone Sodium (Rocephin 2 Gm Ivpb) 2 gm in 100 mls @ 100 mls/hr IVPB DAILY [facility]; Protocol Last Admin: 03/08/18 10:55 Dose: 100 mls/hr Potassium Chloride (Potassium Chloride 20 Meq/100 Ml) 20 meq in 100 mls @ 50 mls/hr IVPB Q2H [facility] Stop: 03/09/18 11:14 Last Admin: 03/09/18 07:14 Dose: 50 mls/hr Metoprolol Tartrate (Lopressor) 5 mg IVP BID [facility] Last Admin: 03/09/18 06:38 Dose: 5 mg Nicotine (Nicoderm Cq) 1 patch TD DAILY [facility] Last Admin: 03/08/18 10:57 Dose: 1 patch Ondansetron HCl (Zofran Inj) 4 mg IVP Q6 PRN PRN Reason: Nausea/Vomiting Pantoprazole Sodium (Protonix Inj) 40 mg IVP DAILY [facility] Last Admin: 03/08/18 10:57 Dose: 40 mg Ziprasidone (Geodon Inj) 20 mg IM Q4 PRN; Protocol PRN Reason: Agitation Last Admin: 03/09/18 06:46 Dose: 20 mg - Labs Labs: 03/09/18 05:00 03/09/18 05:00 PT 14.4 SECONDS (9.4-12.5) H 03/06/18 21:51 INR 1.26 03/06/18 21:51 APTT 29.2 Seconds (25.1-36.5) 03/06/18 21:51 - Constitutional Appears: Confused - Head Exam Head Exam: ATRAUMATIC, NORMOCEPHALIC - Eye Exam Eye Exam: EOMI - ENT Exam Additional comments: NGT in place - Respiratory Exam Respiratory Exam: NORMAL BREATHING PATTERN - Cardiovascular Exam Cardiovascular Exam: +S1, +S2 - GI/Abdominal Exam GI & Abdominal Exam: Soft. absent: Distended, Firm, Guarding, Rigid, Tenderness [place] in place , wound packed with iodoform, no purulent drainage - Neurological Exam Neurological Exam: Alert, Awake - Psychiatric Exam Psychiatric exam: Normal Affect, Normal Mood - Skin Skin Exam: Dry, Intact Assessment and Plan - Assessment and Plan (Free Text) Assessment: 68M with perforated duodenal ulcer POD#3 s/p exlap with gram patch and washout NPO NGT to low intermittent suction IVF Pain control Monitor output Serial abdominal exams IV abx DVT prophylaxis D/W Dr. Brian Trejo PGY3
[2018-03-09] MEDS ORDERED: Potassium Phosphate 15 MMOLE in Dextrose 5% In Water 250 ML IVPB ONE (09:18)
[2018-03-09] MEDS: cefTRIAXone 2 GM IN NS 2 GM/100 ML BAG IVPB SCH (09:41)
--- NOTE | 2018-03-09 10:54 | CT ---
Date of service: 03/09/2018 PROCEDURE: CT HEAD WITHOUT CONTRAST. HISTORY: delerium, AMS COMPARISON: None available. TECHNIQUE: Axial computed tomography images were obtained through the head/brain without intravenous contrast. Radiation dose: Total exam DLP = 1026 mGy-cm. This CT exam was performed using one or more of the following dose reduction techniques: Automated exposure control, adjustment of the mA and/or kV according to patient size, and/or use of iterative reconstruction technique. FINDINGS: HEMORRHAGE: No intracranial hemorrhage. BRAIN: No mass effect or edema. No atrophy or chronic microvascular ischemic changes. VENTRICLES: Unremarkable. No hydrocephalus. CALVARIUM: Unremarkable. PARANASAL SINUSES: Unremarkable as visualized. No significant inflammatory changes. MASTOID AIR CELLS: There is opacification of mastoid air cells and middle ear cavities bilaterally consistent with otomastoiditis OTHER FINDINGS: None. IMPRESSION: No acute intracranial findings. Bilateral otomastoiditis
--- NOTE | 2018-03-09 14:29 | CP.PCM.PN ---
Subjective - Date & Time of Evaluation Date of Evaluation: 03/09/18 Time of Evaluation: 10:20 - Subjective Subjective: Comfortable in bed, no fevers, still with NGT and still has significant drainage from the NGT. Objective - Vital Signs/Intake and Output Vital Signs (last 24 hours): Temp Pulse Resp BP Pulse Ox 98.5 F 84 18 173/105 H 60 L 03/09/18 04:00 03/09/18 08:27 03/09/18 07:01 03/09/18 08:27 03/09/18 07:01 Intake and Output: 03/09/18 03/09/18 06:59 18:59 Output Total 370 Balance -370 - Medications Medications: Current Medications Albuterol/Ipratropium (Duoneb 3 Mg/0.5 Mg (3 Ml) Ud) 3 ml IH [id number] PRN PRN Reason: Wheezing Clonidine HCl (Catapres-Tts2 0.2 Mg/24 Hr) 1 patch TD Q7D [facility] Last Admin: 03/09/18 07:13 Dose: 1 patch Hydralazine HCl (Apresoline) 10 mg IVP Q4H PRN PRN Reason: Systolic Blood Pressure Last Admin: 03/09/18 04:07 Dose: 10 mg Hydromorphone HCl (Dilaudid) 1 mg IVP Q4H PRN PRN Reason: Pain, severe (8-10) Last Admin: 03/09/18 05:45 Dose: 1 mg Hydromorphone HCl (Dilaudid) 0.5 mg IVP Q4H PRN PRN Reason: Pain, moderate (4-7) Stop: 03/09/18 16:13 Last Admin: 03/09/18 04:08 Dose: 0.5 mg Lactated Ringer's (Lactated Ringer's) 1,000 mls @ 125 mls/hr IV .Q8H [facility] Last Admin: 03/09/18 06:39 Dose: 125 mls/hr Metronidazole (Flagyl) 500 mg in 100 mls @ 100 mls/hr IVPB Q8 [facility]; Protocol Last Admin: 03/09/18 05:09 Dose: 100 mls/hr Ceftriaxone Sodium (Rocephin 2 Gm Ivpb) 2 gm in 100 mls @ 100 mls/hr IVPB DAILY [facility]; Protocol Last Admin: 03/08/18 10:55 Dose: 100 mls/hr Potassium Chloride (Potassium Chloride 20 Meq/100 Ml) 20 meq in 100 mls @ 50 mls/hr IVPB Q2H [facility] Stop: 03/09/18 11:14 Last Admin: 03/09/18 07:14 Dose: 50 mls/hr Metoprolol Tartrate (Lopressor) 5 mg IVP BID [facility] Last Admin: 03/09/18 06:38 Dose: 5 mg Nicotine (Nicoderm Cq) 1 patch TD DAILY [facility] Last Admin: 03/08/18 10:57 Dose: 1 patch Ondansetron HCl (Zofran Inj) 4 mg IVP Q6 PRN PRN Reason: Nausea/Vomiting Pantoprazole Sodium (Protonix Inj) 40 mg IVP DAILY [facility] Last Admin: 03/08/18 10:57 Dose: 40 mg Ziprasidone (Geodon Inj) 20 mg IM Q4 PRN; Protocol PRN Reason: Agitation Last Admin: 03/09/18 06:46 Dose: 20 mg - Labs Labs: 03/09/18 05:00 03/09/18 05:00 PT 14.4 SECONDS (9.4-12.5) H 03/06/18 21:51 INR 1.26 03/06/18 21:51 APTT 29.2 Seconds (25.1-36.5) 03/06/18 21:51 - Constitutional Appears: No Acute Distress, Chronically Ill - Head Exam Head Exam: NORMAL INSPECTION - ENT Exam Additional comments: NGT in place - Neck Exam Neck Exam: absent: Meningismus - Respiratory Exam Respiratory Exam: Decreased Breath Sounds - Cardiovascular Exam Cardiovascular Exam: +S1, +S2 - GI/Abdominal Exam GI & Abdominal Exam: Soft, Tenderness (left side). absent: Guarding, Rigid, Rebound Additional comments: dry dressings in place Assessment and Plan - Assessment and Plan (Free Text) Plan: Assessment perforated duodenal ulcer S/P ex-lap and repair, still NPO and still with some abdominal tenderness history of SIRS after cardiac arrest after aborted discectomy HTN Chronic back pain dyslipidemia COPD history of seizures history of CVA Plan on Rocephin and Flagyl day 3 - still NPO and still with abdominal tenderness - will switch to Zosyn and will continue to monitor clinically follow up further recommendations of surgery
[2018-03-09 14:54] LABS: BLOOD UREA NITROGEN 17 mg/dL (7-21); CALCIUM 8.5 mg/dL (8.4-10.5); GFR NON-AFRICAN AMERICAN > 60
[2018-03-09] MEDS: Piperacillin/Tazobact 3.375 gm 100 ML IVPB SCH ×3 (15:00→23:32)
[2018-03-09] MEDS ORDERED: OLANZapine 5 mg Disintegrating Tab PO PRN (16:31)
[2018-03-09] MEDS: Nitroglycerin 2% Ointment Foilpak UD TOP PRN (22:04)
[2018-03-10] MEDS: HYDROmorphone 1 mg/ml ISec IVP PRN ×5 (02:21→16:54)
[2018-03-10] MEDS: Metoprolol 1 mg/ml Inj IVP SCH ×5 (02:21→16:54)
[2018-03-10] MEDS: Piperacillin/Tazobact 3.375 gm 100 ML IVPB SCH ×3 (05:44→17:00)
[2018-03-10 06:13] LABS: BASO # 0.01 K/mm3 (0.0-2.0); BASO % 0.1 % (0.0-3.0); EOS # 0.1 (0.0-0.7); EOS % 0.4 % (1.5-5.0); GRAN % 80.4 % (50.0-68.0); LYMPH # 0.9 (1.2-3.4); LYMPH % 6.7 % (22.0-35.0); MEAN CELL VOLUME 67.5 fl (80.0-105.0); MEAN CORPUSCULAR HEMOGLOBIN 22.2 pg (25.0-35.0); MEAN CORPUSCULAR HGB CONC 32.9 g/dl (31.0-37.0); MONO # 1.6 (0.1-0.6); MONO % 12.4 % (1.0-6.0); PLATELET COUNT 228 10^3/uL (120.0-450.0); RBC 5.85 10^6/uL (3.5-6.1); RED CELL DISTRIBUTION WIDTH 20.6 % (11.5-14.5); WHITE BLOOD COUNT 12.7 10^3/ul (4.5-11.0)
[2018-03-10] MEDS ORDERED: Dextrose 5%/0.45% NS 1,000 ML IV SCH (06:45)
[2018-03-10] MEDS ORDERED: Labetalol 500 MG in Sodium Chloride 0.9% 400 ML IV PRN (07:58)
--- NOTE | 2018-03-10 08:44 | CP.PCM.PN ---
Subjective - Date & Time of Evaluation Date of Evaluation: 03/10/18 Time of Evaluation: 08:41 - Subjective Subjective: Surgery: Dr. Torres Patient still confused this am. No active complaints. Per nursing no acute issues overnight other than occasional agitation. Patient underwent CTH yesterday for AMS which showed no acute findings. Objective - Vital Signs/Intake and Output Vital Signs (last 24 hours): Temp Pulse Resp BP Pulse Ox 98.6 F 100 H 37 H 185/107 H 66 L 03/10/18 04:00 03/10/18 06:00 03/10/18 05:30 03/10/18 05:00 03/10/18 05:30 Intake and Output: 03/10/18 03/10/18 06:59 18:59 Intake Total 4700 Output Total 600 Balance 4100 - Medications Medications: Current Medications Albuterol/Ipratropium (Duoneb 3 Mg/0.5 Mg (3 Ml) Ud) 3 ml IH [id number] PRN PRN Reason: Wheezing Clonidine HCl (Catapres-Tts3 0.3 Mg/24 Hr) 1 patch TD Q7D@1000 [facility] Hydralazine HCl (Apresoline) 10 mg IVP Q4H PRN PRN Reason: Systolic Blood Pressure Last Admin: 03/10/18 05:43 Dose: 10 mg Hydromorphone HCl (Dilaudid) 1 mg IVP Q3H PRN PRN Reason: Pain, severe (8-10) Last Admin: 03/10/18 05:44 Dose: 1 mg Piperacillin Sod/Tazobactam Sod (Zosyn 3.375 In Ns 100ml) 100 mls @ 200 mls/hr IVPB Q6 [facility]; Protocol Stop: 03/16/18 14:31 Last Admin: 03/10/18 05:44 Dose: 200 mls/hr Labetalol HCl 500 mg/ Sodium (Chloride) 500 mls @ 60 mls/hr IV .Q8H20M PRN; Protocol PRN Reason: TITRATE PER MD ORDER Potassium Chloride/Dextrose/Sod Cl (Potassium Chl 40 Meq In D5-1/2ns) 1,000 mls @ 110 mls/hr IV .Q9H6M [facility] Metoprolol Tartrate (Lopressor) 5 mg IVP Q6H [facility] Last Admin: 03/10/18 02:21 Dose: 5 mg Nicotine (Nicoderm Cq) 1 patch TD DAILY [facility] Last Admin: 03/09/18 09:37 Dose: 1 patch Nitroglycerin (Nitro-Bid 2% Oint) 1 ea TOP Q8 PRN PRN Reason: Other Last Admin: 03/09/18 22:04 Dose: 1 ea Olanzapine (Zyprexa Zydis) 5 mg PO HS PRN; Protocol PRN Reason: Agitation Ondansetron HCl (Zofran Inj) 4 mg IVP Q6 PRN PRN Reason: Nausea/Vomiting Pantoprazole Sodium (Protonix Inj) 40 mg IVP DAILY [facility] Last Admin: 03/09/18 09:42 Dose: 40 mg Ziprasidone (Geodon Inj) 20 mg IM Q4 PRN; Protocol PRN Reason: Agitation Last Admin: 03/10/18 05:41 Dose: 20 mg - Labs Labs: 03/10/18 05:00 03/09/18 14:05 PT 14.4 SECONDS (9.4-12.5) H 03/06/18 21:51 INR 1.26 03/06/18 21:51 APTT 29.2 Seconds (25.1-36.5) 03/06/18 21:51 - Constitutional Appears: Non-toxic, Confused - Head Exam Head Exam: ATRAUMATIC, NORMOCEPHALIC - Eye Exam Eye Exam: EOMI - ENT Exam ENT Exam: Mucous Membranes Dry - Respiratory Exam Respiratory Exam: NORMAL BREATHING PATTERN. absent: Respiratory Distress - Cardiovascular Exam Cardiovascular Exam: Tachycardia, REGULAR RHYTHM - GI/Abdominal Exam GI & Abdominal Exam: Soft, Tenderness (marly-incisional, appropriate. ). absent: Guarding, Rebound Additional comments: incision with packing between christine, minimal purulent exudate on packing, wound base clean. FORTINO: 25cc/SA fluid in 24hrs NGT: 150cc sang-gastric fluid output/24hrs - Extremities Exam Extremities Exam: Normal Inspection. absent: Calf Tenderness - Neurological Exam Neurological Exam: Alert, Awake. absent: Oriented x3 - Skin Skin Exam: Dry, Warm Assessment and Plan - Assessment and Plan (Free Text) Assessment: 68 y/o male w/ perforated duodenal ulcer s/p Issa patch on 03/06 Plan: -d/c NGT -CLD diet -monitor fortino output, if increases significantly after initiation of diet will make NPO again -restart home meds -OOB to chair -pain control, can switch to PO, try to avoid opiods at this point due to AMS -d/w Dr. Brian Dyer PGY4
[2018-03-10 09:06] LABS: FREE T4 0.98 ng/dL (0.78-2.19)
[2018-03-10 09:47] LABS: BLOOD UREA NITROGEN 14 mg/dL (7-21); CALCIUM 8.6 mg/dL (8.4-10.5); GFR NON-AFRICAN AMERICAN > 60
[2018-03-10 09:48] LABS: ALB/GLOB RATIO 0.9 (1.1-1.8); ALBUMIN 3.5 g/dL (3.0-4.8); ALT/SGPT 29 U/L (7-56); AST/SGOT 35 U/L (17-59)
[2018-03-10] MEDS: Potassium Chl 40 mEq in D5-1/2 1,000 ML IV SCH ×2 (10:37→17:01)
--- NOTE | 2018-03-10 10:48 | CP.PCM.PN ---
Subjective - Date & Time of Evaluation Date of Evaluation: 03/10/18 Time of Evaluation: 08:25 - Subjective Subjective: Patient seen and examined, remains confused, CT head done, no acute findings. BP elevated. Objective - Vital Signs/Intake and Output Vital Signs (last 24 hours): Temp Pulse Resp BP Pulse Ox 98.7 F 113 H 37 H 181/112 H 66 L 03/10/18 08:00 03/10/18 09:10 03/10/18 05:30 03/10/18 09:10 03/10/18 05:30 Intake and Output: 03/10/18 03/10/18 06:59 18:59 Intake Total 4700 Output Total 600 Balance 4100 - Medications Medications: Current Medications Albuterol/Ipratropium (Duoneb 3 Mg/0.5 Mg (3 Ml) Ud) 3 ml IH [id number] PRN PRN Reason: Wheezing Clonidine HCl (Catapres-Tts3 0.3 Mg/24 Hr) 1 patch TD Q7D@1000 [facility] Last Admin: 03/10/18 09:08 Dose: 1 patch Hydralazine HCl (Apresoline) 10 mg IVP Q4H PRN PRN Reason: Systolic Blood Pressure Last Admin: 03/10/18 05:43 Dose: 10 mg Hydromorphone HCl (Dilaudid) 1 mg IVP Q3H PRN PRN Reason: Pain, severe (8-10) Last Admin: 03/10/18 09:08 Dose: 1 mg Piperacillin Sod/Tazobactam Sod (Zosyn 3.375 In Ns 100ml) 100 mls @ 200 mls/hr IVPB Q6 [facility]; Protocol Stop: 03/16/18 14:31 Last Admin: 03/10/18 05:44 Dose: 200 mls/hr Labetalol HCl 500 mg/ Sodium (Chloride) 500 mls @ 60 mls/hr IV .Q8H20M PRN; Protocol PRN Reason: TITRATE PER MD ORDER Last Admin: 03/10/18 09:07 Dose: 1 mg/min, 60 mls/hr Potassium Chloride/Dextrose/Sod Cl (Potassium Chl 40 Meq In D5-1/2ns) 1,000 mls @ 110 mls/hr IV .Q9H6M [facility] Last Admin: 10/07/18 10:37 Dose: 110 mls/hr Potassium Chloride (Potassium Chloride 10 Meq/100 Ml) 10 meq in 100 mls @ 10 mls/hr IVPB Q2H [facility] Stop: 03/10/18 14:29 Last Admin: 03/10/18 10:38 Dose: 10 mls/hr Nicotine (Nicoderm Cq) 1 patch TD DAILY [facility] Last Admin: 03/10/18 09:07 Dose: 1 patch Nitroglycerin (Nitro-Bid 2% Oint) 1 ea TOP Q8 PRN PRN Reason: Other Last Admin: 03/09/18 22:04 Dose: 1 ea Olanzapine (Zyprexa Zydis) 5 mg PO HS PRN; Protocol PRN Reason: Agitation Ondansetron HCl (Zofran Inj) 4 mg IVP Q6 PRN PRN Reason: Nausea/Vomiting Pantoprazole Sodium (Protonix Inj) 40 mg IVP DAILY [facility] Last Admin: 03/10/18 09:09 Dose: 40 mg Ziprasidone (Geodon Inj) 20 mg IM Q4 PRN; Protocol PRN Reason: Agitation Last Admin: 03/10/18 05:41 Dose: 20 mg - Labs Labs: 03/10/18 05:00 03/10/18 05:00 PT 14.4 SECONDS (9.4-12.5) H 03/06/18 21:51 INR 1.26 03/06/18 21:51 APTT 29.2 Seconds (25.1-36.5) 03/06/18 21:51 - Constitutional Appears: Non-toxic, No Acute Distress, Confused - Head Exam Head Exam: NORMAL INSPECTION - Eye Exam Eye Exam: Normal appearance - ENT Exam ENT Exam: Mucous Membranes Moist - Neck Exam Neck Exam: Full ROM - Respiratory Exam Respiratory Exam: Clear to Ausculation Bilateral, NORMAL BREATHING PATTERN - Cardiovascular Exam Cardiovascular Exam: REGULAR RHYTHM, +S1, +S2 - GI/Abdominal Exam GI & Abdominal Exam: Soft, Normal Bowel Sounds - Extremities Exam Extremities Exam: Normal Inspection - Neurological Exam Neurological Exam: Altered Assessment and Plan - Assessment and Plan (Free Text) Assessment: Patient is 68yo male wPMHx HTN, hyperlipidemia, COPD, cardiac arrest 2/p spinal surgery in 2014, CVA presents with 3 hours of epigastric pabdominal pain ,found to have perforated duodenal ulcer on imaging and was taken to the OR who performed an exploratory lapartomy with jeanette patch placement. Patient was monitored in MICU afterwards, became delirious, agitated, started on Geodon, and Precedex drip; likely result of opiod withdrawal Currently OFF Precedex drip, awake, calm, but confused BP elevated on clonidine patch; as per surgery no meds via NGT for now; started on Labetolol drip Labs, imaging, chart reviewed HTN Agitation, resolved Duodenal ulcer perforation s/p OR ex lap Leukocytosis Recommend: - supp o2 as needed, duonebs PRN, IS - follow up cultures, UCx, BCx, check Procal - Abx as per ID - BP control, Clonidine patch 0.1mg; nothing via NGT as per surgery, - Labetolol drip - DC IVF - Pain control - GI ppx - DVT ppx - Monitor in MICU
--- NOTE | 2018-03-10 11:16 | CP.PCM.PN ---
<Alisha Freeman - Last Filed: 03/10/18 13:02> Subjective - Date & Time of Evaluation Date of Evaluation: 03/10/18 Time of Evaluation: 07:30 - Subjective Subjective: PGY-1 Alisha Freeman D.O. Medicine progress note for Dr. Hayes's service: Patient was seen and examined this morning. Shad drain with serosanguinous ou tput 50cc over 24 hours, NGT 450cc gastrosanguinous output over 24 hours. He appears agitated and confused. He is oriented to person only. He keeps repeating "ma'am" and "please help me." ROS unable to be obtained. Objective - Vital Signs/Intake and Output Vital Signs (last 24 hours): Temp Pulse Resp BP Pulse Ox 98.7 F 113 H 37 H 181/112 H 66 L 03/10/18 08:00 03/10/18 09:10 03/10/18 05:30 03/10/18 09:10 03/10/18 05:30 Intake and Output: 03/10/18 03/10/18 06:59 18:59 Intake Total 4700 Output Total 600 Balance 4100 - Medications Medications: Current Medications Albuterol/Ipratropium (Duoneb 3 Mg/0.5 Mg (3 Ml) Ud) 3 ml IH [id number] PRN PRN Reason: Wheezing Clonidine HCl (Catapres-Tts3 0.3 Mg/24 Hr) 1 patch TD Q7D@1000 [facility] Last Admin: 03/10/18 09:08 Dose: 1 patch Hydralazine HCl (Apresoline) 10 mg IVP Q4H PRN PRN Reason: Systolic Blood Pressure Last Admin: 03/10/18 05:43 Dose: 10 mg Hydromorphone HCl (Dilaudid) 1 mg IVP Q3H PRN PRN Reason: Pain, severe (8-10) Last Admin: 03/10/18 09:08 Dose: 1 mg Piperacillin Sod/Tazobactam Sod (Zosyn 3.375 In Ns 100ml) 100 mls @ 200 mls/hr IVPB Q6 [facility]; Protocol Stop: 03/16/18 14:31 Last Admin: 03/10/18 05:44 Dose: 200 mls/hr Labetalol HCl 500 mg/ Sodium (Chloride) 500 mls @ 60 mls/hr IV .Q8H20M PRN; Protocol PRN Reason: TITRATE PER MD ORDER Last Admin: 03/10/18 09:07 Dose: 1 mg/min, 60 mls/hr Potassium Chloride/Dextrose/Sod Cl (Potassium Chl 40 Meq In D5-1/2ns) 1,000 mls @ 110 mls/hr IV .Q9H6M [facility] Last Admin: 03/10/18 10:37 Dose: 110 mls/hr Potassium Chloride (Potassium Chloride 10 Meq/100 Ml) 10 meq in 100 mls @ 10 mls/hr IVPB Q2H [facility] Stop: 03/10/18 18:29 Last Admin: 03/10/18 10:38 Dose: 10 mls/hr Metoprolol Tartrate (Lopressor) 5 mg IVP Q6H [facility] Nicotine (Nicoderm Cq) 1 patch TD DAILY [facility] Last Admin: 03/10/18 09:07 Dose: 1 patch Nitroglycerin (Nitro-Bid 2% Oint) 1 ea TOP Q8 PRN PRN Reason: Other Last Admin: 03/09/18 22:04 Dose: 1 ea Olanzapine (Zyprexa Zydis) 5 mg PO HS PRN; Protocol PRN Reason: Agitation Ondansetron HCl (Zofran Inj) 4 mg IVP Q6 PRN PRN Reason: Nausea/Vomiting Pantoprazole Sodium (Protonix Inj) 40 mg IVP DAILY [facility] Last Admin: 03/10/18 09:09 Dose: 40 mg Ziprasidone (Geodon Inj) 20 mg IM Q4 PRN; Protocol PRN Reason: Agitation Last Admin: 03/10/18 05:41 Dose: 20 mg - Labs Labs: 03/10/18 05:00 03/10/18 05:00 PT 14.4 SECONDS (9.4-12.5) H 03/06/18 21:51 INR 1.26 03/06/18 21:51 APTT 29.2 Seconds (25.1-36.5) 03/06/18 21:51 - Constitutional Appears: Agitated, Confused - Head Exam Head Exam: ATRAUMATIC, NORMAL INSPECTION - Eye Exam Eye Exam: EOMI, Normal appearance, PERRL - ENT Exam ENT Exam: Mucous Membranes Dry Additional comments: NGT in place - Respiratory Exam Respiratory Exam: NORMAL BREATHING PATTERN - Cardiovascular Exam Cardiovascular Exam: Tachycardia, REGULAR RHYTHM - GI/Abdominal Exam GI & Abdominal Exam: Soft Additional comments: midline surgical incision with packing strips in place - Rectal Exam Rectal Exam: Deferred - Extremities Exam Extremities Exam: Normal Inspection - Neurological Exam Neurological Exam: Alert, Awake, CN II-XII Intact. absent: Oriented x3 - Psychiatric Exam Psychiatric exam: Anxious - Skin Skin Exam: Dry, Intact, Normal Color, Warm Assessment and Plan - Assessment and Plan (Free Text) Assessment: Patient is a 68 yo male with PMH of HTN, hyperlipidemia, COPD, cardiac arrest s/p spinal surgery in 2014, and CVA who presented with 3 hours of epigastric abdominal pain found to have perforated duodenal ulcer. Patient is POD#4 s/p ex- lap with gram patch and washout. Patient was being monitored in MICU and was delirious suspected secondary to opioid withdrawal and/or alcohol withdrawal. Patient was started on Geodon and Precedex gtt. Patient currently off precedex gtt and transferred to [facility]. Patient remains confused and agitated. NGT has significant output and BP uncontrolled. Will attempted PO intake and remove NGT. Plan: Post-op delirium - 1:1 - Stat head CT: no acute findings - Restraints PRN - Psychiatry consulted Geodon and Ativan prn, will add sublingual Zyprexa at night PRN Uncontrolled HTN - Catapres 0.3 patch - Lopressor 5 mg IV Q6H - Hydralazine 10 mg IV Q4H PRN - Nitroglycerin 2% ointment Q8H PRN - Labetaol drip started - Cardiology consulted (Tong) Ex-lap duodenal ulcer perforation- POD4, gram patch and washout - Serial abdominal exams - WBC 12.7 - Procal 3.79 - Most recent fever on 03/06 101.7 - Blood Cx no gorwth >3 days - Dilaudid 1 mg IV Q3H PRN - Duoneb Q6H PRN - Zofran 4 mg IV Q6H PRN - Zosyn 3.375 mg IV Q6H (started 03/09) - Surgery consulted (Brian)- may remove NGT if patient able to tolerate PO - ID consulted (Adis) Hypokalemia - Repleted - Repeat BMP pending 8PM - f/u in AM IVF: 40 mEq in D5-NS @ 110 Diet: clear liquids- swallow eval pending GI ppx: Protonix 40 mg IV daily VTE ppx: SCDs Code status: full code Case was discussed with attending, Dr. Hayes. <Joselito Hayes - Last Filed: 03/10/18 17:35> Objective - Vital Signs/Intake and Output Vital Signs (last 24 hours): Temp Pulse Resp BP Pulse Ox 98.8 F 66 21 159/106 H 97 03/10/18 12:00 03/10/18 16:54 03/10/18 16:00 03/10/18 16:54 03/10/18 16:00 Intake and Output: 03/10/18 03/10/18 06:59 18:59 Intake Total 4700 Output Total 600 Balance 4100 - Medications Medications: Current Medications Albuterol/Ipratropium (Duoneb 3 Mg/0.5 Mg (3 Ml) Ud) 3 ml IH [id number] PRN PRN Reason: Wheezing Clonidine HCl (Catapres-Tts3 0.3 Mg/24 Hr) 1 patch TD Q7D@1000 [facility] Last Admin: 03/10/18 09:08 Dose: 1 patch Hydralazine HCl (Apresoline) 10 mg IVP Q4H PRN PRN Reason: Systolic Blood Pressure Last Admin: 03/10/18 05:43 Dose: 10 mg Hydromorphone HCl (Dilaudid) 1 mg IVP Q3H PRN PRN Reason: Pain, severe (8-10) Last Admin: 03/10/18 16:54 Dose: 1 mg Piperacillin Sod/Tazobactam Sod (Zosyn 3.375 In Ns 100ml) 100 mls @ 200 mls/hr IVPB Q6 [facility]; Protocol Stop: 03/16/18 14:31 Last Admin: 03/10/18 17:00 Dose: 200 mls/hr Potassium Chloride/Dextrose/Sod Cl (Potassium Chl 40 Meq In D5-1/2ns) 1,000 mls @ 110 mls/hr IV .Q9H6M [facility] Last Admin: 03/10/18 17:01 Dose: 110 mls/hr Potassium Chloride (Potassium Chloride 10 Meq/100 Ml) 10 meq in 100 mls @ 10 mls/hr IVPB Q2H [facility] Stop: 03/10/18 18:29 Last Admin: 03/10/18 16:55 Dose: 10 mls/hr Labetalol HCl 500 mg/ Sodium (Chloride) 500 mls @ 30 mls/hr IV .[id number] PRN; Protocol PRN Reason: TITRATE PER MD ORDER Last Admin: 03/10/18 13:00 Dose: 0.5 mg/min, 30 mls/hr Lisinopril (Zestril) 10 mg PO DAILY [facility] Last Admin: 03/10/18 14:37 Dose: 10 mg Metoprolol Tartrate (Lopressor) 5 mg IVP Q6H [facility] Last Admin: 03/10/18 16:54 Dose: 5 mg Metoprolol Tartrate (Lopressor) 50 mg PO Q12 [facility] Nicotine (Nicoderm Cq) 1 patch TD DAILY [facility] Last Admin: 03/10/18 09:07 Dose: 1 patch Nitroglycerin (Nitro-Bid 2% Oint) 1 ea TOP Q8 PRN PRN Reason: Other Last Admin: 03/10/18 14:02 Dose: 1 ea Olanzapine (Zyprexa Zydis) 5 mg PO HS [facility]; Protocol Ondansetron HCl (Zofran Inj) 4 mg IVP Q6 PRN PRN Reason: Nausea/Vomiting Pantoprazole Sodium (Protonix Inj) 40 mg IVP DAILY [facility] Last Admin: 03/10/18 09:09 Dose: 40 mg Ziprasidone (Geodon Inj) 20 mg IM Q6H PRN; Protocol PRN Reason: Agitation - Labs Labs: 03/10/18 05:00 03/10/18 05:00 PT 14.4 SECONDS (9.4-12.5) H 03/06/18 21:51 INR 1.26 03/06/18 21:51 APTT 29.2 Seconds (25.1-36.5) 03/06/18 21:51 Attending/Attestation - Attestation I have personally seen and examined this patient.: Yes I have fully participated in the care of the patient.: Yes I have reviewed all pertinent clinical information, including history, physical exam and plan: Yes Notes (Text): 03/10/18 17:33 attending note; Patient seen and examined with resident in ICU. Post laparotomy. Patient has NG tube draining dark green secretions. laparotomy scar is clean. No bleeding noted. RADHA drain in place. Dressing change done by surgery today. Patient is confused. Agitated and restless. Blood pressure is elevated. placed on restraints. Patient is a 68 year old male with PMHx of HTN, HLD, COPD, cardiac arrest s/p attempted spinal surgery (10/23/14), CVA, chronic back pain,opiate use presented to ED with 3 hours history of epigastric abdominal pain. found to have perforated viscous. status post ex-laparotomy and Issa patch with wash out for perforated duodenal ulcer. POD #4. Continue NG tube. Monitor RADHA drain. Follow-up with surgery closely. Continue IV zosyn. Postop delirium; CT head is negative. hypertension; continue clonidine patch and IV hydralazine. Monitor closely. Started on IV labetalol drip. Cardiology evaluation requested. Agitation and restlessness; continue IV Ativan. Geodon ordered. Psychiatric evaluation appreciated. Started on Zyprexa. continue one-to-one observation. History of smoking; started on NicoDerm patch. Monitor closely in ICU.
--- NOTE | 2018-03-10 12:27 | CP.PCM.PN ---
Subjective - Date & Time of Evaluation Date of Evaluation: 03/10/18 Time of Evaluation: 09:10 - Subjective Subjective: Still with NGT and still with significant amount of output (dark fluid). No fevers overnight, does not complain of abdominal pain. Objective - Vital Signs/Intake and Output Vital Signs (last 24 hours): Temp Pulse Resp BP Pulse Ox 98.6 F 100 H 37 H 185/107 H 66 L 03/10/18 04:00 03/10/18 06:00 03/10/18 05:30 03/10/18 05:00 03/10/18 05:30 Intake and Output: 03/10/18 03/10/18 06:59 18:59 Intake Total 4700 Output Total 600 Balance 4100 - Medications Medications: Current Medications Albuterol/Ipratropium (Duoneb 3 Mg/0.5 Mg (3 Ml) Ud) 3 ml IH [id number] PRN PRN Reason: Wheezing Clonidine HCl (Catapres-Tts3 0.3 Mg/24 Hr) 1 patch TD Q7D@1000 [facility] Hydralazine HCl (Apresoline) 10 mg IVP Q4H PRN PRN Reason: Systolic Blood Pressure Last Admin: 03/10/18 05:43 Dose: 10 mg Hydromorphone HCl (Dilaudid) 1 mg IVP Q3H PRN PRN Reason: Pain, severe (8-10) Last Admin: 03/10/18 05:44 Dose: 1 mg Piperacillin Sod/Tazobactam Sod (Zosyn 3.375 In Ns 100ml) 100 mls @ 200 mls/hr IVPB Q6 [facility]; Protocol Stop: 03/16/18 14:31 Last Admin: 03/10/18 05:44 Dose: 200 mls/hr Dextrose/Sodium Chloride (Dextrose 5%/0.45% Ns 1000 Ml) 1,000 mls @ 125 mls/hr IV .Q8H [facility] Labetalol HCl 500 mg/ Sodium (Chloride) 500 mls @ 60 mls/hr IV .Q8H20M PRN; Protocol PRN Reason: TITRATE PER MD ORDER Metoprolol Tartrate (Lopressor) 5 mg IVP Q6H [facility] Last Admin: 03/10/18 02:21 Dose: 5 mg Nicotine (Nicoderm Cq) 1 patch TD DAILY [facility] Last Admin: 03/09/18 09:37 Dose: 1 patch Nitroglycerin (Nitro-Bid 2% Oint) 1 ea TOP Q8 PRN PRN Reason: Other Last Admin: 03/09/18 22:04 Dose: 1 ea Olanzapine (Zyprexa Zydis) 5 mg PO HS PRN; Protocol PRN Reason: Agitation Ondansetron HCl (Zofran Inj) 4 mg IVP Q6 PRN PRN Reason: Nausea/Vomiting Pantoprazole Sodium (Protonix Inj) 40 mg IVP DAILY [facility] Last Admin: 03/09/18 09:42 Dose: 40 mg Ziprasidone (Geodon Inj) 20 mg IM Q4 PRN; Protocol PRN Reason: Agitation Last Admin: 03/10/18 05:41 Dose: 20 mg - Labs Labs: 03/10/18 05:00 03/09/18 14:05 PT 14.4 SECONDS (9.4-12.5) H 03/06/18 21:51 INR 1.26 03/06/18 21:51 APTT 29.2 Seconds (25.1-36.5) 03/06/18 21:51 - Constitutional Appears: No Acute Distress, Chronically Ill - Head Exam Head Exam: NORMAL INSPECTION - ENT Exam Additional comments: NGT in place - Respiratory Exam Respiratory Exam: Decreased Breath Sounds - Cardiovascular Exam Cardiovascular Exam: +S1, +S2 - GI/Abdominal Exam GI & Abdominal Exam: Soft. absent: Tenderness Additional comments: dry dressings in place Assessment and Plan - Assessment and Plan (Free Text) Plan: Assessment perforated duodenal ulcer S/P ex-lap and repair, still NPO and still with NGT history of SIRS after cardiac arrest after aborted discectomy HTN Chronic back pain dyslipidemia COPD history of seizures history of CVA Plan still NPO, abdominal tenderness is decreased - will continue Zosyn and will continue to monitor clinically follow up further recommendations of surgery
[2018-03-10] MEDS: Labetalol 500 MG in Sodium Chloride 0.9% 400 ML IV PRN (13:00)
[2018-03-10] MEDS: Nitroglycerin 2% Ointment Foilpak UD TOP PRN (14:02)
[2018-03-10] MEDS: OLANZapine 5 mg Disintegrating Tab PO SCH (21:03)
[2018-03-11] MEDS: Piperacillin/Tazobact 3.375 gm 100 ML IVPB SCH ×4 (00:18→19:15)
--- NOTE | 2018-03-11 00:19 | CON ---
DATE: 03/10/2018 HISTORY OF PRESENT ILLNESS: In short, the patient is a 68-year-old -[place] male. The patient was admitted in the ICU for perforated duodenal ulcer, status post exploratory laparotomy and repair. The patient is on n.p.o. with NG tube. Psych consult was called for evaluation of possible postoperative psychosis and delirium. This property underwriter attempted to speak to the patient. The patient it is not able to participate in interview, distracted. The patient was watching TV, then blinking his eye towards this property underwriter, then smiled and started to watch TV again. There is no agitation. No aggression. Discussed with the medical team as well as resident. The patient does not have history of mental illness, but has chronic history of back pain, possible addiction to opioids. Besides that, the patient had episodes of agitated behavior, which seems to be related to postoperative delirium. Vital signs seems to be stable. Temperature is 98.7; pulse is 17, which is better to compare with yesterday; blood pressure 163/100; respirations 25; oxygen saturation is 99. Medications are reviewed. The patient is on DuoNeb, Catapres, hydralazine, Dilaudid, Lopressor, Nicoderm, Zyprexa Zydis 5 mg at the nighttime will be started because the patient was not able to swallow. The patient is on Protonix, Zosyn, potassium chloride, Geodon 20 mg IM every 6 hours will be changed. Labs reviewed. WBC cells trending down, 12.7 today. Chemistry also reviewed. Potassium level is low, 2.7 today. Urinalysis negative. Toxicology positive for cannabis, barbiturates as well as opioids. Microbiology: No blood growth for past 3 days. MENTAL STATUS EXAMINATION: As this property underwriter described above, the patient was not able to participate in interview, staring at this property underwriter, distracted. The patient has tendency of blinking his eye towards this property underwriter, smiling and watching TV again. The patient was not talking. Insight and judgment seems to be impaired. Impulses are unpredictable. IMPRESSION: The patient obviously in delirium stage, multifactorial. PLAN: Continue current management. Continue current medication. Zyprexa should be continued as scheduled. After stabilization, Zyprexa needs to be switched to p.r.n. Geodon was decreased in frequency. This property underwriter was not able to assess the patient because the patient was not participating in interview. There are no acute psychiatric issues. This property underwriter will sign off. Should you have any questions, give me a call back or reconsult as needed. Thank you very much for letting me participate in the care of your patient. Misti Rodriguez MD
[2018-03-11] MEDS ORDERED: EnalaprilAT 1.25 mg/ml Inj IVP ONE (04:44)
[2018-03-11] MEDS: Nitroglycerin 2% Ointment Foilpak UD TOP PRN (05:14)
[2018-03-11] MEDS: Metoprolol 1 mg/ml Inj IVP SCH ×2 (05:14→11:13)
--- NOTE | 2018-03-11 06:52 | CON ---
DATE: 03/10/2018 SERVICE: CARDIOLOGY REASON FOR DICTATION: Covering Dr. Greg Fortune. REASON FOR CONSULTATION: Uncontrolled hypertension, GI bleed, altered mental status. BRIEF CLINICAL HISTORY: This is a 68-year-old male with past medical history of hypertension; hyperlipidemia; COPD; cardiac arrest in the past, 10/23/2014; history of CVA; history of chronic back pain, presented to ED with epigastric abdominal pain. The patient yesterday underwent endoscopy and after that the patient found to be altered mental status and uncontrolled hypertension. So Cardiology consult was called for how to manage the blood pressure. PAST MEDICAL HISTORY: Significant for CVA, hypertension, hyperlipidemia, history of cardiac arrest when the patient underwent attempted spinal surgery on 10/23/2014 for herniated disc. The patient has a history of cardiopulmonary cervical surgery procedure requiring prolonged intubation. Later on, the patient was offered cardiac catheterization, the patient recovered, but the patient signed out AMA. Later on, the patient was admitted for elective neurosurgical procedure and found to have abnormal stress test, the patient underwent cardiac catheterization that revealed normal coronaries, preserved LV function, ejection fraction of 65%, EDP in the range of 15 dated 11/30/2014. The patient has also echocardiography on 11/13/2014 that shows ejection fraction 55% to 60%, concentric LVH done at [facility]. The most recent echo on 11/02/2014 at [place] was a normal echo, ejection fraction 55% to 60%. Cardiac catheterization done by me on 11/30/2014. SOCIAL HISTORY: Active smoker. Denies any history of alcohol abuse. Though currently the patient has altered mental status, unable to give history, information obtained from the chart. CURRENT MEDICATIONS: Prior to admission, the patient was taking at home lisinopril 5 mg, Zetia, metoprolol, methylprednisolone, acetaminophen. REVIEW OF SYSTEMS: As per HPI. PHYSICAL EXAMINATION: VITAL SIGNS: Height of the patient 5 feet 9 inches, weight of the patient 177 pounds, body mass index 26.1 kg/sq m. Rest of the examination: Temperature afebrile, heart rate 113, blood pressure 181/112. HEENT: PERRLA. Extraocular muscles intact. NECK: Supple. No carotid bruits or thyromegaly. CHEST: Clear to auscultation. HEART: S1 and S2, regular. ABDOMEN: Soft. EXTREMITIES: Clubbing and cyanosis negative. LABORATORY DATA: Blood workup as follows: WBC 12.7, hemoglobin 13, hematocrit 39.5, platelet count 228. Chemistry shows sodium 140, potassium 2.7, chloride 106, carbon dioxide 25, anion gap of 14, BUN 14, creatinine 0.5. Troponin remains 0.01, negative. EKG shows normal sinus rhythm. No acute ST-T changes noted. IMPRESSION: A 68-year-old male with past medical history significant for hypertension, hyperlipidemia, status post neurosurgical intervention on 11/2014, after this, the patient had cardiac arrest. Later on, the patient preop clearance, the patient had a stress test that was abnormal. The patient had a cardiac catheterization on 11/30/2014 that showed normal coronaries, preserved left ventricular function, ejection fraction of 65%, EDP was in the range of 15. Echo also showed essentially normal echo. Admitted with gastrointestinal bleed; after this, the patient had altered mental status and uncontrolled hypertension. So, far, no evidence of acute myocardial infarction. RECOMMENDATIONS: Aggressively control the blood pressure with Lopressor 5 mg p.o. b.i.d., aggressively supplement potassium. The patient currently cannot take p.o. medication; we will put transdermal patch of clonidine and also put p.r.n. hydralazine. Once the patient's mentation improves, switch over to p.o. meds. We will follow with you and transfer care tomorrow to Dr. Greg Fortune. Thank you Dr. Hayes for providing us the opportunity in taking care of the patient, Abhi Chung. Lanny Fallon MD
[2018-03-11 07:34] LABS: BASO # 0.01 K/mm3 (0.0-2.0); BASO % 0.1 % (0.0-3.0); EOS # 0.2 (0.0-0.7); EOS % 2.4 % (1.5-5.0); GRAN # 6.85 (1.4-6.5); GRAN % 71.7 % (50.0-68.0); HEMOGLOBIN 12.4 g/dL (14.0-18.0); LYMPH # 1.1 (1.2-3.4); LYMPH % 11.2 % (22.0-35.0); MEAN CELL VOLUME 67.1 fl (80.0-105.0); MEAN CORPUSCULAR HEMOGLOBIN 22.1 pg (25.0-35.0); MONO # 1.4 (0.1-0.6); MONO % 14.6 % (1.0-6.0); RBC 5.6 10^6/uL (3.5-6.1); RED CELL DISTRIBUTION WIDTH 20.6 % (11.5-14.5); WHITE BLOOD COUNT 9.6 10^3/ul (4.5-11.0)
[2018-03-11 07:54] LABS: ALB/GLOB RATIO 0.9 (1.1-1.8); ALBUMIN 3.1 g/dL (3.0-4.8); ALT/SGPT 26 U/L (7-56); AST/SGOT 29 U/L (17-59); BLOOD UREA NITROGEN 13 mg/dL (7-21); CALCIUM 8.2 mg/dL (8.4-10.5); GFR NON-AFRICAN AMERICAN > 60
[2018-03-11] MEDS ORDERED: Potassium Phosphate 3 mmol/ml Inj IV SCH (08:30)
[2018-03-11] MEDS ORDERED: Potassium Phosphate 15 MMOLE in Sodium Chloride 0.9% 250 ML IVPB ONE (08:45)
[2018-03-11] MEDS ORDERED: EnalaprilAT 1.25 mg/ml Inj IVP SCH (09:00)
[2018-03-11] MEDS ORDERED: Potassium Chloride 20 mEq ER Tab PO STA (09:17)
--- NOTE | 2018-03-11 09:42 | PN ---
DATE: 03/11/2018 CARDIOLOGY FOLLOWUP SUBJECTIVE: The patient remains lethargic. No shortness of breath. PHYSICAL EXAMINATION: VITAL SIGNS: Blood pressure is 185 systolic, heart rate is in the 80s. NECK: Negative JVD. LUNGS: Without rales. HEART: Reveals S1, S2. EXTREMITIES: Without edema. LABORATORY DATA: Laboratories were reviewed and noted. IMPRESSION: 1. Accelerated hypertension. 2. Confusion. 3. Altered mental status. 4. History of abdominal pain. PLAN: Given these findings, we will continue with the IV Vasotec until the patient can take p.o. medications. Echocardiogram is pending. Greg Fortune MD
[2018-03-11] MEDS: Nicardipine 20 MG/200 ML 20 MG/200 ML BAG IV PRN ×2 (11:30→21:38)
[2018-03-11] MEDS: Labetalol 500 MG in Sodium Chloride 0.9% 400 ML IV PRN (11:33)
--- NOTE | 2018-03-11 11:50 | CP.CCUPN ---
<Carlos Silva - Last Filed: 03/11/18 16:00> CCU Subjective - Physician Review Subjective (Free Text): Carlos Silva, PGY-1, CCU Progress Note for Dr. Jara Patient seen and evaluated at bedside. Patient is currently AAOx1. Patient is not oriented to place and time but is oriented to person. Patient is drowsy. Overnight, no significant events. 12-point ROS was unattainable due to patient's mental status. CCU Objective - Vital Signs / Intake & Output Intake and Output (Last 8hrs): Intake & Output 03/10/18 03/11/18 03/11/18 22:59 06:59 14:59 Intake Total 3850 1520 Output Total 50 30 Balance 3800 1490 Weight 177 lb 9.6 oz Intake: IV 3555 1520 Left Forearm 3555 1520 Oral 295 0 Output: Gastric Amount 20 Left Nares 20 Drainage 30 30 Bilateral Abdomen 30 30 Stool 0 Emesis 0 Other: # Voids Urine, Voided 3 # Bowel Movements 0 0 - Physical Exam Head: Positive for: Atraumatic, Normocephalic Pupils: Positive for: PERRL Extroacular Muscles: Positive for: EOMI Conjunctiva: Positive for: Normal Mouth: Positive for: Moist Mucous Membranes Neck: Positive for: Normal Range of Motion Respiratory/Chest: Positive for: Clear to Auscultation, Good Air Exchange. Negative for: Wheezes, Rales, Rhonchi Cardiovascular: Positive for: Regular Rate and Rhythm, Normal S1, S2 Abdomen: Positive for: Other (Patient has incision on the right lower abdomen and drain placed as well.). Negative for: Tenderness, Distention, Normal Bowel Sounds, Guarding, Mass/Organomegaly Back: Positive for: Normal Inspection. Negative for: CVA Tenderness, Paraspinal Tenderness Upper Extremity: Positive for: Normal Inspection, NORMAL PULSES, Capillary Refill < 2s. Negative for: Cyanosis, Edema, Tenderness, Swelling Lower Extremity: Positive for: Normal Inspection, NORMAL PULSES, Capillary Refill < 2 s. Negative for: Edema, CALF TENDERNESS, Cyanosis, Tenderness Neurological: Positive for: CN II-XII Intact, Motor Func Grossly Intact, Other (confused). Negative for: GCS=15 (13) Skin: Positive for: Warm, Dry, Normal Color, Diaphoretic Psychiatric: Negative for: Alert, Oriented x 3 - Medications Active Medications: Active Medications Generic Name Dose Route Start Last Admin Trade Name Freq PRN Reason Stop Dose Admin Albuterol/Ipratropium 3 ml 03/06/18 17:33 Duoneb 3 Mg/0.5 Mg (3 Ml) Ud IH [id number] PRN Wheezing Clonidine HCl 0.2 mg 03/11/18 14:00 Catapres PO TID KALEN Hydromorphone HCl 1 mg 03/09/18 22:14 03/10/18 16:54 Dilaudid IVP 1 mg Q3H PRN Administration Pain, severe (8-10) Piperacillin Sod/Tazobactam Sod 100 mls @ 200 mls/hr 03/09/18 14:30 03/11/18 05:22 Zosyn 3.375 In Ns 100ml IVPB 03/16/18 14:31 200 mls/hr Q6 KALEN Administration Protocol Potassium Chloride/Dextrose/Sod Cl 1,000 mls @ 110 mls/hr 03/10/18 08:45 03/10/18 17:01 Potassium Chl 40 Meq In D5-1/2ns IV 110 mls/hr .Q9H6M KALEN Administration Potassium Phosphate 15 mmole/ 255 mls @ 42.5 mls/hr 03/11/18 08:45 Sodium Chloride IVPB 03/11/18 14:44 ONCE ONE Nicardipine HCl 20 mg in 200 mls @ 50 mls/hr 03/11/18 11:03 Cardene Iv Premix IV .Q4H PRN TITRATE PER MD ORDER Protocol 5 MG/HR Lisinopril 10 mg 03/10/18 13:45 03/10/18 14:37 Zestril PO 10 mg DAILY KALEN Administration Metoprolol Tartrate 5 mg 03/10/18 11:15 03/11/18 05:14 Lopressor IVP 5 mg Q6H KALEN Administration Metoprolol Tartrate 50 mg 03/10/18 22:00 03/10/18 21:02 Lopressor PO 50 mg Q12 KALEN Administration Nicotine 1 patch 03/07/18 10:00 03/10/18 09:07 Nicoderm Cq TD 1 patch DAILY KALEN Administration Nitroglycerin 1 ea 03/09/18 20:35 03/11/18 05:14 Nitro-Bid 2% Oint TOP 1 ea Q8 PRN Administration Other Olanzapine 5 mg 03/10/18 22:00 03/10/18 21:03 Zyprexa Zydis PO 5 mg HS KALEN Administration Protocol Ondansetron HCl 4 mg 03/06/18 19:02 Zofran Inj IVP Q6 PRN Nausea/Vomiting Pantoprazole Sodium 40 mg 03/06/18 16:15 03/10/18 09:09 Protonix Inj IVP 40 mg DAILY KALEN Administration Ziprasidone 20 mg 03/10/18 13:46 03/10/18 18:25 Geodon Inj IM 20 mg Q6H PRN Administration Agitation Protocol - Patient Studies Lab Studies: Microbiology Studies 03/07/18 12:50 Blood Culture - Preliminary Blood NO GROWTH AFTER 3 DAYS Lab Studies 03/11/18 03/11/18 03/11/18 Range/Units 11:26 07:24 07:15 WBC (4.5-11.0) 10^3/ul RBC (3.5-6.1) 10^6/uL Hgb (14.0-18.0) g/dL Hct (42.0-52.0) % MCV (80.0-105.0) fl MCH (25.0-35.0) pg MCHC (31.0-37.0) g/dl RDW (11.5-14.5) % Plt Count (120.0-450.0) 10^3/uL MPV (7.0-11.0) fl Gran % (50.0-68.0) % Lymph % (Auto) (22.0-35.0) % Scurry % (Auto) (1.0-6.0) % Eos % (Auto) (1.5-5.0) % Baso % (Auto) (0.0-3.0) % Gran # (1.4-6.5) Lymph # (Auto) (1.2-3.4) Scurry # (Auto) (0.1-0.6) Eos # (Auto) (0.0-0.7) Baso # (Auto) (0.0-2.0) K/mm3 Sodium 142 (132-148) mmol/L Potassium 3.5 L (3.6-5.0) mmol/L Chloride 115 H (98-107) mmol/L Carbon Dioxide 22 (21-33) mmol/L Anion Gap 9 L (10-20) BUN 13 (7-21) mg/dL Creatinine 0.6 L (0.8-1.5) mg/dl Est GFR ( Amer) > 60 Est GFR (Non-Af Amer) > 60 POC Glucose (mg/dL) 143 H 133 H (65-110) mg/dL Random Glucose 134 H (70-110) mg/dL Calcium 8.2 L (8.4-10.5) mg/dL Phosphorus 1.7 L (2.5-4.5) mg/dL Magnesium 2.0 (1.7-2.2) mg/dL Total Bilirubin 0.8 (0.2-1.3) mg/dL AST 29 (17-59) U/L ALT 26 (7-56) U/L Alkaline Phosphatase 73 (38-126) U/L Total Protein 6.8 (5.8-8.3) g/dL Albumin 3.1 (3.0-4.8) g/dL Globulin 3.7 gm/dL Albumin/Globulin Ratio 0.9 L (1.1-1.8) 03/11/18 03/11/18 03/10/18 Range/Units 07:15 00:05 22:12 WBC 9.6 D (4.5-11.0) 10^3/ul RBC 5.60 (3.5-6.1) 10^6/uL Hgb 12.4 L (14.0-18.0) g/dL Hct 37.6 L (42.0-52.0) % MCV 67.1 L (80.0-105.0) fl MCH 22.1 L (25.0-35.0) pg MCHC 33.0 (31.0-37.0) g/dl RDW 20.6 H (11.5-14.5) % Plt Count 215 (120.0-450.0) 10^3/uL MPV (7.0-11.0) fl Gran % 71.7 H (50.0-68.0) % Lymph % (Auto) 11.2 L (22.0-35.0) % Scurry % (Auto) 14.6 H (1.0-6.0) % Eos % (Auto) 2.4 (1.5-5.0) % Baso % (Auto) 0.1 (0.0-3.0) % Gran # 6.85 H (1.4-6.5) Lymph # (Auto) 1.1 L (1.2-3.4) Scurry # (Auto) 1.4 H (0.1-0.6) Eos # (Auto) 0.2 (0.0-0.7) Baso # (Auto) 0.01 (0.0-2.0) K/mm3 Sodium (132-148) mmol/L Potassium 3.6 (3.6-5.0) mmol/L Chloride (98-107) mmol/L Carbon Dioxide (21-33) mmol/L Anion Gap (10-20) BUN (7-21) mg/dL Creatinine (0.8-1.5) mg/dl Est GFR ( Amer) Est GFR (Non-Af Amer) POC Glucose (mg/dL) 143 H (65-110) mg/dL Random Glucose (70-110) mg/dL Calcium (8.4-10.5) mg/dL Phosphorus (2.5-4.5) mg/dL Magnesium (1.7-2.2) mg/dL Total Bilirubin (0.2-1.3) mg/dL AST (17-59) U/L ALT (7-56) U/L Alkaline Phosphatase (38-126) U/L Total Protein (5.8-8.3) g/dL Albumin (3.0-4.8) g/dL Globulin gm/dL Albumin/Globulin Ratio (1.1-1.8) 03/10/18 03/10/18 Range/Units 17:45 12:21 WBC (4.5-11.0) 10^3/ul RBC (3.5-6.1) 10^6/uL Hgb (14.0-18.0) g/dL Hct (42.0-52.0) % MCV (80.0-105.0) fl MCH (25.0-35.0) pg MCHC (31.0-37.0) g/dl RDW (11.5-14.5) % Plt Count (120.0-450.0) 10^3/uL MPV (7.0-11.0) fl Gran % (50.0-68.0) % Lymph % (Auto) (22.0-35.0) % Scurry % (Auto) (1.0-6.0) % Eos % (Auto) (1.5-5.0) % Baso % (Auto) (0.0-3.0) % Gran # (1.4-6.5) Lymph # (Auto) (1.2-3.4) Scurry # (Auto) (0.1-0.6) Eos # (Auto) (0.0-0.7) Baso # (Auto) (0.0-2.0) K/mm3 Sodium (132-148) mmol/L Potassium (3.6-5.0) mmol/L Chloride (98-107) mmol/L Carbon Dioxide (21-33) mmol/L Anion Gap (10-20) BUN (7-21) mg/dL Creatinine (0.8-1.5) mg/dl Est GFR ( Amer) Est GFR (Non-Af Amer) POC Glucose (mg/dL) 154 H 160 H (65-110) mg/dL Random Glucose (70-110) mg/dL Calcium (8.4-10.5) mg/dL Phosphorus (2.5-4.5) mg/dL Magnesium (1.7-2.2) mg/dL Total Bilirubin (0.2-1.3) mg/dL AST (17-59) U/L ALT (7-56) U/L Alkaline Phosphatase (38-126) U/L Total Protein (5.8-8.3) g/dL Albumin (3.0-4.8) g/dL Globulin gm/dL Albumin/Globulin Ratio (1.1-1.8) Laboratory Results - last 24 hr 03/10/18 03/10/18 03/10/18 12:21 17:45 22:12 WBC RBC Hgb Hct MCV MCH MCHC RDW Plt Count MPV Gran % Lymph % (Auto) Scurry % (Auto) Eos % (Auto) Baso % (Auto) Gran # Lymph # (Auto) Scurry # (Auto) Eos # (Auto) Baso # (Auto) Sodium Potassium Chloride Carbon Dioxide Anion Gap BUN Creatinine Est GFR ( Amer) Est GFR (Non-Af Amer) POC Glucose (mg/dL) 160 H 154 H 143 H Random Glucose Calcium Phosphorus Magnesium Total Bilirubin AST ALT Alkaline Phosphatase Total Protein Albumin Globulin Albumin/Globulin Ratio 03/11/18 03/11/18 03/11/18 00:05 07:15 07:15 WBC 9.6 D RBC 5.60 Hgb 12.4 L Hct 37.6 L MCV 67.1 L MCH 22.1 L MCHC 33.0 RDW 20.6 H Plt Count 215 MPV Gran % 71.7 H Lymph % (Auto) 11.2 L Scurry % (Auto) 14.6 H Eos % (Auto) 2.4 Baso % (Auto) 0.1 Gran # 6.85 H Lymph # (Auto) 1.1 L Scurry # (Auto) 1.4 H Eos # (Auto) 0.2 Baso # (Auto) 0.01 Sodium 142 Potassium 3.6 3.5 L Chloride 115 H Carbon Dioxide 22 Anion Gap 9 L BUN 13 Creatinine 0.6 L Est GFR ( Amer) > 60 Est GFR (Non-Af Amer) > 60 POC Glucose (mg/dL) Random Glucose 134 H Calcium 8.2 L Phosphorus 1.7 L Magnesium 2.0 Total Bilirubin 0.8 AST 29 ALT 26 Alkaline Phosphatase 73 Total Protein 6.8 Albumin 3.1 Globulin 3.7 Albumin/Globulin Ratio 0.9 L 03/11/18 03/11/18 07:24 11:26 WBC RBC Hgb Hct MCV MCH MCHC RDW Plt Count MPV Gran % Lymph % (Auto) Scurry % (Auto) Eos % (Auto) Baso % (Auto) Gran # Lymph # (Auto) Scurry # (Auto) Eos # (Auto) Baso # (Auto) Sodium Potassium Chloride Carbon Dioxide Anion Gap BUN Creatinine Est GFR ( Amer) Est GFR (Non-Af Amer) POC Glucose (mg/dL) 133 H 143 H Random Glucose Calcium Phosphorus Magnesium Total Bilirubin AST ALT Alkaline Phosphatase Total Protein Albumin Globulin Albumin/Globulin Ratio Fingerstick Blood Sugar Results: 143 Review of Systems - Review of Systems Systems not reviewed;Unavailable: Altered Mental Status Critical Care Progress Note - Ventilator Checklist Head of Bed 30 Degrees: Yes PUD Prophalyxis: Yes DVT Prophylaxis: Yes - Extremities/Vascular Does the Patient have a Central Venous Catheter?: No Does the Patient need a Central Venous Catheter?: No Does the Patient have a Tomlinson Catheter?: No - Nutrition Nutrition: Nutrition Category Date Time Status Liquid Diet [DIET] Diets 03/10/18 Lunch Ordered Assessment/Plan - Assessment and Plan (Free Text) Assessment: 68 year old with past medical history of hypertension, hyperlipidemia, COPD, cardiac arrest 2/p spinal surgery in 2015, CVA presents with 3 hours of epigastric pabdominal pain while sitting at home. Patient was found to have perforated duodenal ulcer on imaging and was taken to the OR who performed an exploratory lapartomy with jeanette patch placement. Plan: Neuro: -AAOx1, not oriented to time, no FND, moving extremities past midline. -Head CT: bilateral otomastoiditis -Patient currently on dilaudid PRN. Patient's geodon continued for agitation. -Patient is opiod dependent on both percocet and hydrocodone at home. -Monitor neuro status. -Reorient patient as necessary. Cardio: -RRR, hypertensive, no signs of HD compromise -Patient's systolic blood pressure has ranged from 180-200. Patient's labetalol drip was stopped and cardene drip started. Patient also receiving clonidine patch Q7D because patient currently refusing PO medications. Patient had dose of lopressor 5 mg IVP Q6. Lopressor 50 mg PO Q12 and lisinopril 10 mg PO daily was supposed to be started but patient is refusing PO medications. -Patient receiving pain medication dilaudid PRN. -Maintain MAP>65. -Monitor for S/S, HD compromise. -Dr. Hinson, nephrology, was consulted to evaluate for causes of uncontrolled hypertension. Pulm: -No signs of respiratory distress. CTA B/L -CXR: no active disease -Patient is stating well on 2L NC -Maintain O2 saturation>95%. -Elevate bed to 30 degrees GI: -NG tube removed. -Clear liquid diet -Patient is status post day 5 for duodenal ulcer repair surgery. -Protonix 40 mg daily /Nephro: -BUN/Cr stable -UA was unremarkable with negative blood, negative leukocyte esterase, and negative nitrates -Potassium decreased at 3.5. Will replete with 4 10 mEq KCl riders -Good urine output -Continue monitoring. -Replete electrolytes as needed. -Maintain euvolemia. Endocrinology: -Random glucose: 133 -Maintain euglycemia. Heme/Onc: -H/H stable. -Leukocytosis resolved. -No signs of HD compromise. -Continue monitoring H/H ID: -Afebrile, leukocytosis resolved -BCx: no growth in 72 hours. MRSA negative. -Procalcitonin: 3.79 -Continue with zosyn as per ID, Dr. Gomez. -Monitor for signs and symptoms of infection. DVT prophylaxis: SCD GI prophylaxis: protonix 40 mg daily Disposition: Patient's need better controlled blood pressures before transferred to medicine floors. Patient seen and examined with Dr. Jara. - Date & Time Date: 03/11/18 Time: 11:51 <Boris Jara - Last Filed: 03/11/18 16:45> CCU Objective - Vital Signs / Intake & Output Vital Signs (Last 4 hours): Vital Signs Pulse BP 03/11/18 14:41 74 178/98 H Intake and Output (Last 8hrs): Intake & Output 03/11/18 03/11/18 03/11/18 06:59 14:59 22:59 Intake Total 2020 0 Output Total 30 Balance 1989 0 Weight 177 lb 9.6 oz Intake: IV 2020 0 Left Forearm 1520 Oral 0 Output: Drainage 30 Bilateral Abdomen 30 Stool 0 Emesis 0 Other: # Bowel Movements 0 - Medications Active Medications: Active Medications Generic Name Dose Route Start Last Admin Trade Name Freq PRN Reason Stop Dose Admin Albuterol/Ipratropium 3 ml 03/06/18 17:33 Duoneb 3 Mg/0.5 Mg (3 Ml) Ud IH [id number] PRN Wheezing Clonidine HCl 0.2 mg 03/11/18 14:00 03/11/18 14:41 Catapres PO Not Given TID KALEN Clonidine HCl 1 patch 03/18/18 10:00 Catapres-Tts2 0.2 Mg/24 Hr TD Q7D@1000 KALEN Hydromorphone HCl 1 mg 03/09/18 22:14 03/10/18 16:54 Dilaudid IVP 1 mg Q3H PRN Administration Pain, severe (8-10) Piperacillin Sod/Tazobactam Sod 100 mls @ 200 mls/hr 03/09/18 14:30 03/11/18 11:25 Zosyn 3.375 In Ns 100ml IVPB 03/16/18 14:31 200 mls/hr Q6 KALEN Administration Protocol Potassium Chloride/Dextrose/Sod Cl 1,000 mls @ 110 mls/hr 03/10/18 08:45 03/10/18 17:01 Potassium Chl 40 Meq In D5-1/2ns IV 110 mls/hr .Q9H6M KALEN Administration Nicardipine HCl 20 mg in 200 mls @ 50 mls/hr 03/11/18 11:03 03/11/18 12:00 Cardene Iv Premix IV 15 mg/hr .Q4H PRN 150 mls/hr TITRATE PER MD ORDER Titration Protocol 5 MG/HR Lisinopril 10 mg 03/10/18 13:45 03/11/18 11:21 Zestril PO 10 mg DAILY KALEN Administration Metoprolol Tartrate 5 mg 03/10/18 11:15 03/11/18 11:13 Lopressor IVP 5 mg Q6H KALEN Administration Metoprolol Tartrate 50 mg 03/10/18 22:00 03/11/18 11:14 Lopressor PO 50 mg Q12 KALEN Administration Nicotine 1 patch 03/07/18 10:00 03/11/18 11:15 Nicoderm Cq TD 1 patch DAILY KALEN Administration Nitroglycerin 1 ea 03/09/18 20:35 03/11/18 05:14 Nitro-Bid 2% Oint TOP 1 ea Q8 PRN Administration Other Olanzapine 5 mg 03/10/18 22:00 03/10/18 21:03 Zyprexa Zydis PO 5 mg HS KALEN Administration Protocol Ondansetron HCl 4 mg 03/06/18 19:02 Zofran Inj IVP Q6 PRN Nausea/Vomiting Pantoprazole Sodium 40 mg 03/06/18 16:15 03/11/18 11:17 Protonix Inj IVP 40 mg DAILY KALEN Administration Ziprasidone 20 mg 03/10/18 13:46 03/10/18 18:25 Geodon Inj IM 20 mg Q6H PRN Administration Agitation Protocol - Patient Studies Lab Studies: Microbiology Studies 03/07/18 12:50 Blood Culture - Preliminary Blood NO GROWTH AFTER 4 DAYS Lab Studies 03/11/18 03/11/18 03/11/18 Range/Units 11:26 07:24 07:15 WBC (4.5-11.0) 10^3/ul RBC (3.5-6.1) 10^6/uL Hgb (14.0-18.0) g/dL Hct (42.0-52.0) % MCV (80.0-105.0) fl MCH (25.0-35.0) pg MCHC (31.0-37.0) g/dl RDW (11.5-14.5) % Plt Count (120.0-450.0) 10^3/uL MPV (7.0-11.0) fl Gran % (50.0-68.0) % Lymph % (Auto) (22.0-35.0) % Scurry % (Auto) (1.0-6.0) % Eos % (Auto) (1.5-5.0) % Baso % (Auto) (0.0-3.0) % Gran # (1.4-6.5) Lymph # (Auto) (1.2-3.4) Scurry # (Auto) (0.1-0.6) Eos # (Auto) (0.0-0.7) Baso # (Auto) (0.0-2.0) K/mm3 Sodium 142 (132-148) mmol/L Potassium 3.5 L (3.6-5.0) mmol/L Chloride 115 H (98-107) mmol/L Carbon Dioxide 22 (21-33) mmol/L Anion Gap 9 L (10-20) BUN 13 (7-21) mg/dL Creatinine 0.6 L (0.8-1.5) mg/dl Est GFR ( Amer) > 60 Est GFR (Non-Af Amer) > 60 POC Glucose (mg/dL) 143 H 133 H (65-110) mg/dL Random Glucose 134 H (70-110) mg/dL Calcium 8.2 L (8.4-10.5) mg/dL Phosphorus 1.7 L (2.5-4.5) mg/dL Magnesium 2.0 (1.7-2.2) mg/dL Total Bilirubin 0.8 (0.2-1.3) mg/dL AST 29 (17-59) U/L ALT 26 (7-56) U/L Alkaline Phosphatase 73 (38-126) U/L Total Protein 6.8 (5.8-8.3) g/dL Albumin 3.1 (3.0-4.8) g/dL Globulin 3.7 gm/dL Albumin/Globulin Ratio 0.9 L (1.1-1.8) 03/11/18 03/11/18 03/10/18 Range/Units 07:15 00:05 22:12 WBC 9.6 D (4.5-11.0) 10^3/ul RBC 5.60 (3.5-6.1) 10^6/uL Hgb 12.4 L (14.0-18.0) g/dL Hct 37.6 L (42.0-52.0) % MCV 67.1 L (80.0-105.0) fl MCH 22.1 L (25.0-35.0) pg MCHC 33.0 (31.0-37.0) g/dl RDW 20.6 H (11.5-14.5) % Plt Count 215 (120.0-450.0) 10^3/uL MPV (7.0-11.0) fl Gran % 71.7 H (50.0-68.0) % Lymph % (Auto) 11.2 L (22.0-35.0) % Scurry % (Auto) 14.6 H (1.0-6.0) % Eos % (Auto) 2.4 (1.5-5.0) % Baso % (Auto) 0.1 (0.0-3.0) % Gran # 6.85 H (1.4-6.5) Lymph # (Auto) 1.1 L (1.2-3.4) Scurry # (Auto) 1.4 H (0.1-0.6) Eos # (Auto) 0.2 (0.0-0.7) Baso # (Auto) 0.01 (0.0-2.0) K/mm3 Sodium (132-148) mmol/L Potassium 3.6 (3.6-5.0) mmol/L Chloride (98-107) mmol/L Carbon Dioxide (21-33) mmol/L Anion Gap (10-20) BUN (7-21) mg/dL Creatinine (0.8-1.5) mg/dl Est GFR ( Amer) Est GFR (Non-Af Amer) POC Glucose (mg/dL) 143 H (65-110) mg/dL Random Glucose (70-110) mg/dL Calcium (8.4-10.5) mg/dL Phosphorus (2.5-4.5) mg/dL Magnesium (1.7-2.2) mg/dL Total Bilirubin (0.2-1.3) mg/dL AST (17-59) U/L ALT (7-56) U/L Alkaline Phosphatase (38-126) U/L Total Protein (5.8-8.3) g/dL Albumin (3.0-4.8) g/dL Globulin gm/dL Albumin/Globulin Ratio (1.1-1.8) 03/10/18 Range/Units 17:45 WBC (4.5-11.0) 10^3/ul RBC (3.5-6.1) 10^6/uL Hgb (14.0-18.0) g/dL Hct (42.0-52.0) % MCV (80.0-105.0) fl MCH (25.0-35.0) pg MCHC (31.0-37.0) g/dl RDW (11.5-14.5) % Plt Count (120.0-450.0) 10^3/uL MPV (7.0-11.0) fl Gran % (50.0-68.0) % Lymph % (Auto) (22.0-35.0) % Scurry % (Auto) (1.0-6.0) % Eos % (Auto) (1.5-5.0) % Baso % (Auto) (0.0-3.0) % Gran # (1.4-6.5) Lymph # (Auto) (1.2-3.4) Scurry # (Auto) (0.1-0.6) Eos # (Auto) (0.0-0.7) Baso # (Auto) (0.0-2.0) K/mm3 Sodium (132-148) mmol/L Potassium (3.6-5.0) mmol/L Chloride (98-107) mmol/L Carbon Dioxide (21-33) mmol/L Anion Gap (10-20) BUN (7-21) mg/dL Creatinine (0.8-1.5) mg/dl Est GFR ( Amer) Est GFR (Non-Af Amer) POC Glucose (mg/dL) 154 H (65-110) mg/dL Random Glucose (70-110) mg/dL Calcium (8.4-10.5) mg/dL Phosphorus (2.5-4.5) mg/dL Magnesium (1.7-2.2) mg/dL Total Bilirubin (0.2-1.3) mg/dL AST (17-59) U/L ALT (7-56) U/L Alkaline Phosphatase (38-126) U/L Total Protein (5.8-8.3) g/dL Albumin (3.0-4.8) g/dL Globulin gm/dL Albumin/Globulin Ratio (1.1-1.8) Laboratory Results - last 24 hr 03/10/18 03/10/18 03/11/18 17:45 22:12 00:05 WBC RBC Hgb Hct MCV MCH MCHC RDW Plt Count MPV Gran % Lymph % (Auto) Scurry % (Auto) Eos % (Auto) Baso % (Auto) Gran # Lymph # (Auto) Scurry # (Auto) Eos # (Auto) Baso # (Auto) Sodium Potassium 3.6 Chloride Carbon Dioxide Anion Gap BUN Creatinine Est GFR ( Amer) Est GFR (Non-Af Amer) POC Glucose (mg/dL) 154 H 143 H Random Glucose Calcium Phosphorus Magnesium Total Bilirubin AST ALT Alkaline Phosphatase Total Protein Albumin Globulin Albumin/Globulin Ratio 03/11/18 03/11/18 03/11/18 07:15 07:15 07:24 WBC 9.6 D RBC 5.60 Hgb 12.4 L Hct 37.6 L MCV 67.1 L MCH 22.1 L MCHC 33.0 RDW 20.6 H Plt Count 215 MPV Gran % 71.7 H Lymph % (Auto) 11.2 L Scurry % (Auto) 14.6 H Eos % (Auto) 2.4 Baso % (Auto) 0.1 Gran # 6.85 H Lymph # (Auto) 1.1 L Scurry # (Auto) 1.4 H Eos # (Auto) 0.2 Baso # (Auto) 0.01 Sodium 142 Potassium 3.5 L Chloride 115 H Carbon Dioxide 22 Anion Gap 9 L BUN 13 Creatinine 0.6 L Est GFR ( Amer) > 60 Est GFR (Non-Af Amer) > 60 POC Glucose (mg/dL) 133 H Random Glucose 134 H Calcium 8.2 L Phosphorus 1.7 L Magnesium 2.0 Total Bilirubin 0.8 AST 29 ALT 26 Alkaline Phosphatase 73 Total Protein 6.8 Albumin 3.1 Globulin 3.7 Albumin/Globulin Ratio 0.9 L 03/11/18 11:26 WBC RBC Hgb Hct MCV MCH MCHC RDW Plt Count MPV Gran % Lymph % (Auto) Scurry % (Auto) Eos % (Auto) Baso % (Auto) Gran # Lymph # (Auto) Scurry # (Auto) Eos # (Auto) Baso # (Auto) Sodium Potassium Chloride Carbon Dioxide Anion Gap BUN Creatinine Est GFR ( Amer) Est GFR (Non-Af Amer) POC Glucose (mg/dL) 143 H Random Glucose Calcium Phosphorus Magnesium Total Bilirubin AST ALT Alkaline Phosphatase Total Protein Albumin Globulin Albumin/Globulin Ratio Critical Care Progress Note - Nutrition Nutrition: Nutrition Category Date Time Status Liquid Diet [DIET] Diets 03/10/18 Lunch Ordered Attending/Attestation - Attestation I have personally seen and examined this patient.: Yes I have fully participated in the care of the patient.: Yes I have reviewed all pertinent clinical information: Yes Notes (Text): 03/11/18 16:[address] Jara note
--- NOTE | 2018-03-11 13:05 | CP.PCM.PN ---
Subjective - Date & Time of Evaluation Date of Evaluation: 03/11/18 Time of Evaluation: 08:50 - Subjective Subjective: No fevers, not in distress but still with abdominal discomfort. Objective - Vital Signs/Intake and Output Vital Signs (last 24 hours): Temp Pulse Resp BP Pulse Ox 97.6 F 73 23 205/104 H 92 L 03/11/18 04:00 03/11/18 11:14 03/11/18 05:30 03/11/18 11:18 03/11/18 02:30 Intake and Output: 03/11/18 03/11/18 06:59 18:59 Intake Total 2020 Output Total 60 Balance 1960 - Medications Medications: Current Medications Albuterol/Ipratropium (Duoneb 3 Mg/0.5 Mg (3 Ml) Ud) 3 ml IH S4PROSC PRN PRN Reason: Wheezing Clonidine HCl (Catapres) 0.2 mg PO TID KALEN Hydromorphone HCl (Dilaudid) 1 mg IVP Q3H PRN PRN Reason: Pain, severe (8-10) Last Admin: 03/10/18 16:54 Dose: 1 mg Piperacillin Sod/Tazobactam Sod (Zosyn 3.375 In Ns 100ml) 100 mls @ 200 mls/hr IVPB Q6 KALEN; Protocol Stop: 03/16/18 14:31 Last Admin: 03/11/18 11:25 Dose: 200 mls/hr Potassium Chloride/Dextrose/Sod Cl (Potassium Chl 40 Meq In D5-1/2ns) 1,000 mls @ 110 mls/hr IV .Q9H6M KALEN Last Admin: 03/10/18 17:01 Dose: 110 mls/hr Potassium Phosphate 15 mmole/ (Sodium Chloride) 255 mls @ 42.5 mls/hr IVPB ONCE ONE Stop: 03/11/18 14:44 Last Admin: 03/11/18 10:47 Dose: 42.5 mls/hr Nicardipine HCl (Cardene Iv Premix) 20 mg in 200 mls @ 50 mls/hr IV .Q4H PRN; Protocol PRN Reason: TITRATE PER MD ORDER Lisinopril (Zestril) 10 mg PO DAILY [facility] Last Admin: 03/11/18 11:21 Dose: 10 mg Metoprolol Tartrate (Lopressor) 5 mg IVP Q6H [facility] Last Admin: 03/11/18 11:13 Dose: 5 mg Metoprolol Tartrate (Lopressor) 50 mg PO Q12 [facility] Last Admin: 03/11/18 11:14 Dose: 50 mg Nicotine (Nicoderm Cq) 1 patch TD DAILY [facility] Last Admin: 03/11/18 11:15 Dose: 1 patch Nitroglycerin (Nitro-Bid 2% Oint) 1 ea TOP Q8 PRN PRN Reason: Other Last Admin: 03/11/18 05:14 Dose: 1 ea Olanzapine (Zyprexa Zydis) 5 mg PO HS KALEN; Protocol Last Admin: 03/10/18 21:03 Dose: 5 mg Ondansetron HCl (Zofran Inj) 4 mg IVP Q6 PRN PRN Reason: Nausea/Vomiting Pantoprazole Sodium (Protonix Inj) 40 mg IVP DAILY [facility] Last Admin: 03/11/18 11:17 Dose: 40 mg Ziprasidone (Geodon Inj) 20 mg IM Q6H PRN; Protocol PRN Reason: Agitation Last Admin: 03/10/18 18:25 Dose: 20 mg - Labs Labs: 03/11/18 07:15 03/11/18 07:15 PT 14.4 SECONDS (9.4-12.5) H 03/06/18 21:51 INR 1.26 03/06/18 21:51 APTT 29.2 Seconds (25.1-36.5) 03/06/18 21:51 - Constitutional Appears: No Acute Distress, Chronically Ill - Head Exam Head Exam: NORMAL INSPECTION - Neck Exam Neck Exam: absent: Meningismus - Respiratory Exam Respiratory Exam: Decreased Breath Sounds - Cardiovascular Exam Cardiovascular Exam: +S1, +S2 - GI/Abdominal Exam GI & Abdominal Exam: Soft, Tenderness (mild). absent: Distended, Guarding, Rigid, Rebound Additional comments: dry dressings in place Assessment and Plan - Assessment and Plan (Free Text) Plan: Assessment perforated duodenal ulcer S/P ex-lap and repair, still NPO history of SIRS after cardiac arrest after aborted discectomy HTN Chronic back pain dyslipidemia COPD history of seizures history of CVA Plan still NPO, abdominal tenderness is decreased - will continue Zosyn for now and w ill continue to see how his diet is progressed and how his abdominal pain is follow up further recommendations of surgery discussed this extensively with at bedside
--- NOTE | 2018-03-11 15:57 | PN ---
DATE: 03/11/2018 SUBJECTIVE: Patient seen and examined at bedside. He is following commands; however, poorly responds to questions. Night was uneventful; however, he still remains on labetalol drip. PHYSICAL EXAMINATION: VITAL SIGNS: Heart rate 83, blood pressure 204/105, respiratory rate 20, oxygen saturation is 92% on room air. ENT: Head and neck atraumatic. LUNGS: Clear to auscultation bilaterally. HEART: Regular rate and rhythm. S1, S2 normal. ABDOMEN: Soft, nontender, nondistended. MUSCULOSKELETAL: No C/C/E. NEUROLOGIC: Patient moves all extremities spontaneously. SKIN: Moist. PSYCHIATRY: The patient following commands, but not responding to questions. LABORATORY DATA: WBC 9.6, hemoglobin 12.4, platelet count 215. Sodium 142, potassium 3.5, chloride 115, carbon dioxide 22, BUN 13, creatinine 0.6, glucose 133, AST 29, ALT 26, total bilirubin 0.8. INR 1.26. MEDICATIONS: Clonidine 0.2 mg p.o. t.i.d., Vasotec 1.25 IV every 6 hours, Dilaudid p.r.n., lisinopril 10 mg p.o. daily, metoprolol 5 mg IV every 6 hours and p.o., Cardene drip, nicotine patch, nitroglycerin p.r.n., Protonix 40 mg IV daily, Zyprexa, Zofran p.r.n., potassium supplementation, Geodon p.r.n., Zosyn. ASSESSMENT AND PLAN: This is a 68-year-old gentleman who initially presented with peptic ulcer disease, complicated by gastric perforation requiring exploratory laparotomy and Issa patch. Postoperative course complicated by ICU delirium requiring multiple doses of antipsychotic medications. At present time, patient appears to be calm; however, his blood pressure is still elevated and he is on labetalol drip. We are going to switch from labetalol to Cardene drip. We are going to start clonidine 0.2 mg p.o. t.i.d. (spoke with surgery team and p.o. route was cleared). We will try to wean down all IV meds. I am somewhat concerned about rigidity and patient's impaired ability to answer questions. I want to rule out nonconvulsive seizures and EEG will be done. Will also get CPK and lactate. Once Cardene drip is weaned off, the patient will be considered for transfer to telemetry on [facility]-surg floor. We will continue to target euvolemia, euglycemia, normothermia, and oxygen saturation more than 90%. We will continue PO diet. Deep vein thrombosis and gastrointestinal prophylaxis. ccm time 40 min Boris Jara MD [email or web address]
--- NOTE | 2018-03-11 16:19 | CP.PCM.PN ---
<Amarilis Dean - Last Filed: 03/11/18 15:58> Subjective - Date & Time of Evaluation Date of Evaluation: 03/11/18 Time of Evaluation: 16:00 - Subjective Subjective: Amarilis Dean, PGY2, Neurology Consult Note for Dr Calderon: Reason for consult: AMS post op 68 year old male, referred by Dr Shanta Cordova, with PMHx of HTN, HLD, COPD, cardiac arrest s/p attempted spinal surgery (10/23/14), CVA, chronic back pain, initially presented to ED for 3 hours history of epigastric abdominal pain, found to have perforated duodenal ulcer, s/p exploratory laparotomy with jeanette patch placement. On admission, patient was alert, awake, oriented x4. UDS was positive for opiates, barbiturates, cannabinoids. Post op, patient became agitated, confused, requiring precedex drip, 1:1 sitter. Patient off precedex drip now, on geodon prn. Neurology consulted for altered mental status. At the time of my exam, patient awake, alert, oriented to self only, pulling lines, not following commands, agitated. ROS limited due to patient's mental status. PMHx: HTN, HLD, CVA with left residual weakness, COPD, cardiac arrest s/p attempted spinal surgery (10/23/14), herniated disk (L4- S1) PSHx: lumbardiscectomy x 2, cyst removal All: NKDA Meds: crestor, primidone, lisinopril, ezetimibe, pepcid, gabapentin, lopressor, percocet, linzess, SocHx: active smoker, denies alcohol or drug use FHx: unknown PMD: Dr. Jean Rivas Objective - Vital Signs/Intake and Output Vital Signs (last 24 hours): Temp Pulse Resp BP Pulse Ox 97.6 F 74 23 178/98 H 92 L 03/11/18 04:00 03/11/18 14:41 03/11/18 05:30 03/11/18 14:41 03/11/18 02:30 Intake and Output: 03/11/18 03/11/18 06:59 18:59 Intake Total 2020 0 Output Total 60 Balance 1960 0 - Medications Medications: Current Medications Albuterol/Ipratropium (Duoneb 3 Mg/0.5 Mg (3 Ml) Ud) 3 ml IH [id number] PRN PRN Reason: Wheezing Clonidine HCl (Catapres) 0.2 mg PO TID [facility] Last Admin: 03/11/18 14:41 Dose: Not Given Clonidine HCl (Catapres-Tts2 0.2 Mg/24 Hr) 1 patch TD Q7D@1000 [facility] Hydromorphone HCl (Dilaudid) 1 mg IVP Q3H PRN PRN Reason: Pain, severe (8-10) Last Admin: 03/10/18 16:54 Dose: 1 mg Piperacillin Sod/Tazobactam Sod (Zosyn 3.375 In Ns 100ml) 100 mls @ 200 mls/hr IVPB Q6 [facility]; Protocol Stop: 03/16/18 14:31 Last Admin: 03/11/18 11:25 Dose: 200 mls/hr Potassium Chloride/Dextrose/Sod Cl (Potassium Chl 40 Meq In D5-1/2ns) 1,000 mls @ 110 mls/hr IV .Q9H6M [facility] Last Admin: 03/10/18 17:01 Dose: 110 mls/hr Nicardipine HCl (Cardene Iv Premix) 20 mg in 200 mls @ 50 mls/hr IV .Q4H PRN; Protocol PRN Reason: TITRATE PER MD ORDER Last Titration: 03/11/18 12:00 Dose: 15 mg/hr, 150 mls/hr Lisinopril (Zestril) 10 mg PO DAILY [facility] Last Admin: 03/11/18 11:21 Dose: 10 mg Metoprolol Tartrate (Lopressor) 5 mg IVP Q6H [facility] Last Admin: 03/11/18 11:13 Dose: 5 mg Metoprolol Tartrate (Lopressor) 50 mg PO Q12 [facility] Last Admin: 03/11/18 11:14 Dose: 50 mg Nicotine (Nicoderm Cq) 1 patch TD DAILY [facility] Last Admin: 03/11/18 11:15 Dose: 1 patch Nitroglycerin (Nitro-Bid 2% Oint) 1 ea TOP Q8 PRN PRN Reason: Other Last Admin: 03/11/18 05:14 Dose: 1 ea Olanzapine (Zyprexa Zydis) 5 mg PO HS [facility]; Protocol Last Admin: 03/10/18 21:03 Dose: 5 mg Ondansetron HCl (Zofran Inj) 4 mg IVP Q6 PRN PRN Reason: Nausea/Vomiting Pantoprazole Sodium (Protonix Inj) 40 mg IVP DAILY [facility] Last Admin: 03/11/18 11:17 Dose: 40 mg Ziprasidone (Geodon Inj) 20 mg IM Q6H PRN; Protocol PRN Reason: Agitation Last Admin: 03/10/18 18:25 Dose: 20 mg - Labs Labs: 03/11/18 07:15 03/11/18 07:15 PT 14.4 SECONDS (9.4-12.5) H 03/06/18 21:51 INR 1.26 03/06/18 21:51 APTT 29.2 Seconds (25.1-36.5) 03/06/18 21:51 - Constitutional Appears: Non-toxic, Older Than Stated Age, Combative, Agitated, Chronically Ill - Head Exam Head Exam: ATRAUMATIC, NORMOCEPHALIC - Eye Exam Eye Exam: EOMI, PERRL. absent: Conjunctival injection, Periorbital swelling, Periorbital tenderness, Scleral icterus Pupil Exam: PERRL. absent: Fixed, Irregular, Miosis, Mydriatic - ENT Exam ENT Exam: Mucous Membranes Moist - Neck Exam Neck Exam: Full ROM - Respiratory Exam Respiratory Exam: Clear to Ausculation Bilateral, NORMAL BREATHING PATTERN. absent: Chest Wall Tenderness, Decreased Breath Sounds, Rales, Rhonchi, Respiratory Distress, Stridor - Cardiovascular Exam Cardiovascular Exam: RRR, +S1, +S2. absent: Murmur - GI/Abdominal Exam GI & Abdominal Exam: Soft, Normal Bowel Sounds. absent: Guarding, Rigid, Tenderness, Organomegaly - Extremities Exam Extremities Exam: Normal Inspection. absent: Calf Tenderness, Pedal Edema - Back Exam Back Exam: NORMAL INSPECTION - Neurological Exam Neurological Exam: Alert, Awake Additional comments: alert, awake, oriented to self only. moving all extremities. not following commands. Needs constant re-direction. pulling lines. - Psychiatric Exam Psychiatric exam: Agitated - Skin Skin Exam: Normal Color, Warm Assessment and Plan - Assessment and Plan (Free Text) Assessment: 68M with PMH of HTN, HLD, COPD, cardiac arrest s/p attempted spinal surgery (10/23/14), CVA, chronic back pain, s/p jeanette patch for perforated ulcer, developed AMS post-op: likely toxic metabolic encephalopathy vs ICU delirium, will rule out seizures, cva - head CT 03/09 negative - MRI brain, EEG ordered. f/u results - c/w ICU management of underlying etiology - Monitor Case seen and discussed with Dr Calderon. <Yoni Calderon - Last Filed: 03/13/18 17:46> Objective - Vital Signs/Intake and Output Vital Signs (last 24 hours): Temp Pulse Resp BP Pulse Ox 98.7 F 58 L 16 143/80 95 03/13/18 04:00 03/13/18 14:00 03/13/18 12:00 03/13/18 12:00 03/13/18 12:00 Intake and Output: 03/13/18 03/13/18 06:59 18:59 Intake Total 1560 Output Total 100 Balance 1460 - Medications Medications: Current Medications Albuterol/Ipratropium (Duoneb 3 Mg/0.5 Mg (3 Ml) Ud) 3 ml IH [id number] PRN PRN Reason: Wheezing Clonidine HCl (Catapres) 0.1 mg PO TID [facility] Hydromorphone HCl (Dilaudid) 1 mg IVP Q3 PRN PRN Reason: Pain, severe (8-10) Last Admin: 03/13/18 14:23 Dose: 1 mg Piperacillin Sod/Tazobactam Sod (Zosyn 3.375 In Ns 100ml) 100 mls @ 200 mls/hr IVPB Q6 [facility]; Protocol Stop: 03/16/18 14:31 Last Admin: 03/13/18 17:09 Dose: 200 mls/hr Potassium Chloride/Dextrose/Sod Cl (Potassium Chl 40 Meq In D5-1/2ns) 1,000 mls @ 110 mls/hr IV .Q9H6M [facility] Last Admin: 03/13/18 09:35 Dose: Not Given Lisinopril (Zestril) 20 mg PO DAILY [facility] Last Admin: 03/13/18 10:09 Dose: 20 mg Metoprolol Tartrate (Lopressor) 5 mg IVP Q6H [facility] Last Admin: 03/11/18 11:13 Dose: 5 mg Metoprolol Tartrate (Lopressor) 50 mg PO Q12 [facility] Last Admin: 03/13/18 10:08 Dose: 50 mg Nicotine (Nicoderm Cq) 1 patch TD DAILY [facility] Last Admin: 03/13/18 10:08 Dose: 1 patch Nitroglycerin (Nitro-Bid 2% Oint) 1 ea TOP Q8 PRN PRN Reason: Other Last Admin: 03/11/18 05:14 Dose: 1 ea Olanzapine (Zyprexa Zydis) 5 mg PO HS PRN; Protocol PRN Reason: Agitation Last Admin: 03/12/18 22:20 Dose: 5 mg Ondansetron HCl (Zofran Inj) 4 mg IVP Q6 PRN PRN Reason: Nausea/Vomiting Last Admin: 03/11/18 22:00 Dose: 4 mg Pantoprazole Sodium (Protonix Inj) 40 mg IVP DAILY [facility] Last Admin: 03/13/18 10:09 Dose: 40 mg Primidone (Mysoline) 250 mg PO TID [facility] Last Admin: 03/13/18 17:25 Dose: 250 mg - Labs Labs: 03/13/18 07:40 03/13/18 07:40 PT 14.4 SECONDS (9.4-12.5) H 03/06/18 21:51 INR 1.26 03/06/18 21:51 APTT 29.2 Seconds (25.1-36.5) 03/06/18 21:51 Attending/Attestation - Attestation I have personally seen and examined this patient.: Yes I have fully participated in the care of the patient.: Yes I have reviewed all pertinent clinical information, including history, physical exam and plan: Yes Notes (Text): 03/13/18 17:45 I agree with the assessment and plan. This is likely toxic-metabolic encephalopathy. We will continue to treat the underlying cause.
--- NOTE | 2018-03-11 18:27 | CP.PCM.PN ---
<Tulio Cordova - Last Filed: 03/11/18 18:37> Subjective - Date & Time of Evaluation Date of Evaluation: 03/11/18 Time of Evaluation: 07:00 - Subjective Subjective: Tulio Cordova DO PGY1 - Internal Medicine Interactive Web Developer - Hospital Progress Note Patient seen and examined this morning at bedside Overnight it was reported that patient was not as agitated as he was previously. No other acute events reported overnight. Patient refusing to further answer questions this morning however he did deny chest pain, sob, abd pain. Full 12 system ROS could not be assessed. Objective - Vital Signs/Intake and Output Vital Signs (last 24 hours): Temp Pulse Resp BP Pulse Ox 97.6 F 74 23 178/98 H 92 L 03/11/18 04:00 03/11/18 14:41 03/11/18 05:30 03/11/18 14:41 03/11/18 02:30 Intake and Output: 03/11/18 03/11/18 06:59 18:59 Intake Total 2020 0 Output Total 60 Balance 1960 0 - Medications Medications: Current Medications Albuterol/Ipratropium (Duoneb 3 Mg/0.5 Mg (3 Ml) Ud) 3 ml IH [id number] PRN PRN Reason: Wheezing Clonidine HCl (Catapres) 0.2 mg PO TID [facility] Last Admin: 03/11/18 14:41 Dose: Not Given Clonidine HCl (Catapres-Tts2 0.2 Mg/24 Hr) 1 patch TD Q7D@1000 [facility] Hydromorphone HCl (Dilaudid) 1 mg IVP Q3H PRN PRN Reason: Pain, severe (8-10) Last Admin: 03/10/18 16:54 Dose: 1 mg Piperacillin Sod/Tazobactam Sod (Zosyn 3.375 In Ns 100ml) 100 mls @ 200 mls/hr IVPB Q6 [facility]; Protocol Stop: 03/16/18 14:31 Last Admin: 03/11/18 11:25 Dose: 200 mls/hr Potassium Chloride/Dextrose/Sod Cl (Potassium Chl 40 Meq In D5-1/2ns) 1,000 mls @ 110 mls/hr IV .Q9H6M [facility] Last Admin: 03/10/18 17:01 Dose: 110 mls/hr Nicardipine HCl (Cardene Iv Premix) 20 mg in 200 mls @ 50 mls/hr IV .Q4H PRN; Protocol PRN Reason: TITRATE PER MD ORDER Last Titration: 03/11/18 12:00 Dose: 15 mg/hr, 150 mls/hr Lisinopril (Zestril) 10 mg PO DAILY [facility] Last Admin: 03/11/18 11:21 Dose: 10 mg Metoprolol Tartrate (Lopressor) 5 mg IVP Q6H [facility] Last Admin: 03/11/18 11:13 Dose: 5 mg Metoprolol Tartrate (Lopressor) 50 mg PO Q12 [facility] Last Admin: 03/11/18 11:14 Dose: 50 mg Nicotine (Nicoderm Cq) 1 patch TD DAILY [facility] Last Admin: 03/11/18 11:15 Dose: 1 patch Nitroglycerin (Nitro-Bid 2% Oint) 1 ea TOP Q8 PRN PRN Reason: Other Last Admin: 03/11/18 05:14 Dose: 1 ea Olanzapine (Zyprexa Zydis) 5 mg PO HS [facility]; Protocol Last Admin: 03/10/18 21:03 Dose: 5 mg Ondansetron HCl (Zofran Inj) 4 mg IVP Q6 PRN PRN Reason: Nausea/Vomiting Pantoprazole Sodium (Protonix Inj) 40 mg IVP DAILY [facility] Last Admin: 03/11/18 11:17 Dose: 40 mg - Labs Labs: 03/11/18 07:15 03/11/18 07:15 PT 14.4 SECONDS (9.4-12.5) H 03/06/18 21:51 INR 1.26 03/06/18 21:51 APTT 29.2 Seconds (25.1-36.5) 03/06/18 21:51 - Constitutional Appears: Confused, Other (In position sleeping; selectively answering questions; Physical exam limited due to patient not cooperating) - Head Exam Head Exam: ATRAUMATIC, NORMOCEPHALIC - Respiratory Exam Respiratory Exam: Clear to Ausculation Bilateral - Cardiovascular Exam Cardiovascular Exam: REGULAR RHYTHM, RRR, +S1, +S2 - GI/Abdominal Exam GI & Abdominal Exam: Soft, Tenderness (near surgical site ), Normal Bowel Sounds - Extremities Exam Additional comments: No edema, 1+ pulses BL - Skin Skin Exam: Dry, Intact, Normal Color, Warm Assessment and Plan - Assessment and Plan (Free Text) Assessment: 68M presented to [facility] on 03/06 w/ CC of abdominal pain; found to have perforated duodenal ulcer. POD#5 from Issa Patch repair of ulcer. Patient still presenting with altered mental status, and resistant hypertension Plan: AMS: ICU / Post op Delerium vs. Opiate withdrawal vs. Toxic metabolic encephalopathy Neuro consulted appreciate reccs CT Head wnl Neurology Consulted: R/O Seizure EEG + MRI Pending Psych following, appreciate reccs: Zyprexa, Geodon/ Ativan PRN Dilaudid 1 mg IV Q3H PRN Accelerated Hypertension: Echo pending DC Labetolol drip Started Cardene Drip + Clonidine 0.2mg PO TID Lopressor 50 Q12 Lisinopril 10 QD Cardiology Following, appreciate reccs Perforated Duodenal Ulcer - POD#5 s/p Issa patch repair of ulcer Serial Abodminal exams Pain management as above Surgery onboard following Patient tolerating CLD at this time Diet: Clear Liquid Diet GI ppx: Protonix 40 mg IV daily VTE ppx: SCDs Code status: full code Patient was seen, discussed, and examined w/ attending physician Dr. Shanta Cordova DO PGY1 - Internal Medicine Interactive Web Developer - Pager [phone] <Shanta Cordova R - Last Filed: 03/17/18 16:24> Objective - Vital Signs/Intake and Output Vital Signs (last 24 hours): Temp Pulse Resp BP Pulse Ox 97.8 F 58 L 20 127/85 98 03/17/18 14:00 03/17/18 14:00 03/17/18 14:00 03/17/18 14:00 03/17/18 14:00 Intake and Output: 03/17/18 03/17/18 06:59 18:59 Intake Total 180 720 Output Total 1 200 Balance 179 520 - Medications Medications: Current Medications Albuterol/Ipratropium (Duoneb 3 Mg/0.5 Mg (3 Ml) Ud) 3 ml IH [id number] PRN PRN Reason: Wheezing Carvedilol (Coreg) 12.5 mg PO BID [facility] Last Admin: 03/17/18 10:27 Dose: 12.5 mg Clonidine HCl (Catapres-Tts3 0.3 Mg/24 Hr) 1 patch TD Q7D@1000 [facility] Last Admin: 03/17/18 10:28 Dose: 1 patch Enoxaparin Sodium (Lovenox) 40 mg SC DAILY [facility]; Protocol Last Admin: 03/17/18 10:25 Dose: 40 mg Hydrochlorothiazide (Hydrodiuril) 25 mg PO DAILY [facility] Last Admin: 03/17/18 10:25 Dose: 25 mg Lisinopril (Zestril) 40 mg PO DAILY [facility] Last Admin: 03/17/18 10:28 Dose: 40 mg Metoprolol Tartrate (Lopressor) 5 mg IVP Q6H [facility] Last Admin: 03/11/18 11:13 Dose: 5 mg Nicotine (Nicoderm Cq) 1 patch TD DAILY [facility] Last Admin: 03/17/18 10:26 Dose: 1 patch Nitroglycerin (Nitro-Bid 2% Oint) 1 ea TOP Q8 PRN PRN Reason: Other Last Admin: 03/14/18 14:50 Dose: 1 ea Olanzapine (Zyprexa Zydis) 5 mg PO HS PRN; Protocol PRN Reason: Agitation Last Admin: 03/16/18 21:56 Dose: 5 mg Ondansetron HCl (Zofran Inj) 4 mg IVP Q6 PRN PRN Reason: Nausea/Vomiting Last Admin: 03/11/18 22:00 Dose: 4 mg Oxycodone/Acetaminophen (Percocet 5/325 Mg Tab) 1 tab PO Q4H PRN PRN Reason: Pain, severe (8-10) Stop: 03/19/18 16:33 Last Admin: 03/17/18 06:45 Dose: 1 tab Pantoprazole Sodium (Protonix Ec Tab) 40 mg PO ACB [facility] Last Admin: 03/17/18 08:14 Dose: 40 mg Primidone (Mysoline) 250 mg PO TID [facility] Last Admin: 03/17/18 10:25 Dose: 250 mg - Labs Labs: 03/17/18 09:00 03/17/18 09:00 PT 14.4 SECONDS (9.4-12.5) H 03/06/18 21:51 INR 1.26 03/06/18 21:51 APTT 29.2 Seconds (25.1-36.5) 03/06/18 21:51 Attending/Attestation - Attestation I have personally seen and examined this patient.: Yes I have fully participated in the care of the patient.: Yes I have reviewed all pertinent clinical information, including history, physical exam and plan: Yes Notes (Text): Patient seen and examined by me in dialysis at 9:50AM with resident 03/11/18. Case including HPI, physical exam, and assessment and plan discussed with resident. Agree with above with following additions/corrections. Patient is a 68-year-old male with past medical history significant for hypertension, hyperlipidemia, COPD, cardiac arrest, CVA, and chronic back pain that presented to the emergency room with epigastric abdominal pain. Patient is confused. Only answering questions by nodding his head. Patient is denying chest pain or shortness of breath. He is denying abdominal pain. No nausea or vomiting. Patient is on one to one. Patient less agitated overnight. Unable to obtain any other history from patient secondary to altered mental status. Physical exam: General: Sleepy but arousable, lying in bed in no acute distress HEENT: Normocephalic, atraumatic. Patient is not opening eyes or mouth when asked to, unable to examine. Neck is supple. Cardiovascular: Normal S1, S2. No murmurs, rubs, or gallops appreciated Pulmonary: Normal respiratory effort. No rhonchi, rales, or wheezing appreciated.Patient not taking in deep breaths when asked to. Gastrointestinal: Soft, nondistended. Nontender. Dressing clean, dry, and i ntact. Positive bowel sounds all 4 quadrants, no guarding. Musculoskeletal: Moves all extremities. Trace lower extremity edema. Central nervous system: Sleepy but arousable. Only answering questions by nodding head. Dermatologic: Skin warm and dry. Assessment and plan: Patient is a 68-year-old male with past medical history significant for hypertension, hyperlipidemia, COPD, cardiac arrest, CVA, and chronic back pain that presented to the emergency room with epigastric abdominal pain. 1. Altered mental status. Neurology consulted, follow up recommendations. Head CT per radiologist showed no acute intracranial findings. ?Secondary to opiate withdrawal. On dilaudid here. Patient on hydrocodone and Percocet at home chronically for pain. Psychiatry recommendations appreciated. Continue one to one. 2. Accelerated hypertension. Cardiology following, recommendations appreciated. Nephrology consulted, Follow up recommendations. Started on nicardipine Continue clonidine. 2D echo pending 3. Hypokalemia. Replace potassium. Follow up repeat labs in AM 4. Perforated duodenal ulcer. S/P exploratory laparotomy with repair with issa patch 03/06/18. CTA chest 03/06/18 per radiologist showed a small amount of free air beneath the liver and right hemidiphragm, source of free air appears to be in the stomach, stomach abnormally thickened and edematous and there is inflammation of the surrounding fat planes. Surgery following, recommendations appreciated. Continue with pain management and local wound care. Blood culture with not growth. ID following, recommendations appreciated. Continue with Zosyn. 5. Leukocytosis. Resolved. Continue to monitor. Continue Zosyn 6. Chronic back pain. Patient on dilaudid here. On chronic hydrocodone and Percocet at home. 7. History of COPD. Not in acute exacerbation. Continue nebulizer treatments as needed. 8. DVT prophylaxis. Lovenox
--- NOTE | 2018-03-11 19:25 | CP.PCM.PN ---
Subjective - Date & Time of Evaluation Date of Evaluation: 03/11/18 Time of Evaluation: 19:24 - Subjective Subjective: General Surgery Progress Note for Dr. Torres This 68M was seen and examined this AM at bedside. No acute events reported overnight. Patient continues to be altered. He tolerated clears. His drain output was 60 cc serosang. Dressing and packing changed this AM during rounds. Objective - Vital Signs/Intake and Output Vital Signs (last 24 hours): Temp Pulse Resp BP Pulse Ox 97.6 F 74 23 178/98 H 92 L 03/11/18 04:00 03/11/18 14:41 03/11/18 05:30 03/11/18 14:41 03/11/18 02:30 Intake and Output: 03/11/18 03/12/18 18:59 06:59 Intake Total 0 Balance 0 - Medications Medications: Current Medications Albuterol/Ipratropium (Duoneb 3 Mg/0.5 Mg (3 Ml) Ud) 3 ml IH [id number] PRN PRN Reason: Wheezing Clonidine HCl (Catapres) 0.2 mg PO TID [facility] Last Admin: 03/11/18 14:41 Dose: Not Given Clonidine HCl (Catapres-Tts2 0.2 Mg/24 Hr) 1 patch TD Q7D@1000 [facility] Hydromorphone HCl (Dilaudid) 1 mg IVP Q3H PRN PRN Reason: Pain, severe (8-10) Last Admin: 03/10/18 16:54 Dose: 1 mg Piperacillin Sod/Tazobactam Sod (Zosyn 3.375 In Ns 100ml) 100 mls @ 200 mls/hr IVPB Q6 [facility]; Protocol Stop: 03/16/18 14:31 Last Admin: 03/11/18 11:25 Dose: 200 mls/hr Potassium Chloride/Dextrose/Sod Cl (Potassium Chl 40 Meq In D5-1/2ns) 1,000 mls @ 110 mls/hr IV .Q9H6M [facility] Last Admin: 03/10/18 17:01 Dose: 110 mls/hr Nicardipine HCl (Cardene Iv Premix) 20 mg in 200 mls @ 50 mls/hr IV .Q4H PRN; Protocol PRN Reason: TITRATE PER MD ORDER Last Titration: 03/11/18 12:00 Dose: 15 mg/hr, 150 mls/hr Lisinopril (Zestril) 10 mg PO DAILY [facility] Last Admin: 03/11/18 11:21 Dose: 10 mg Metoprolol Tartrate (Lopressor) 5 mg IVP Q6H [facility] Last Admin: 03/11/18 11:13 Dose: 5 mg Metoprolol Tartrate (Lopressor) 50 mg PO Q12 [facility] Last Admin: 03/11/18 11:14 Dose: 50 mg Nicotine (Nicoderm Cq) 1 patch TD DAILY [facility] Last Admin: 03/11/18 11:15 Dose: 1 patch Nitroglycerin (Nitro-Bid 2% Oint) 1 ea TOP Q8 PRN PRN Reason: Other Last Admin: 03/11/18 05:14 Dose: 1 ea Olanzapine (Zyprexa Zydis) 5 mg PO HS [facility]; Protocol Last Admin: 03/10/18 21:03 Dose: 5 mg Ondansetron HCl (Zofran Inj) 4 mg IVP Q6 PRN PRN Reason: Nausea/Vomiting Pantoprazole Sodium (Protonix Inj) 40 mg IVP DAILY [facility] Last Admin: 03/11/18 11:17 Dose: 40 mg - Labs Labs: 03/11/18 07:15 03/11/18 07:15 PT 14.4 SECONDS (9.4-12.5) H 03/06/18 21:51 INR 1.26 03/06/18 21:51 APTT 29.2 Seconds (25.1-36.5) 03/06/18 21:51 - Constitutional Appears: Confused - Head Exam Head Exam: ATRAUMATIC, NORMOCEPHALIC - Eye Exam Eye Exam: EOMI - ENT Exam Additional comments: NGT in place - Respiratory Exam Respiratory Exam: NORMAL BREATHING PATTERN - Cardiovascular Exam Cardiovascular Exam: +S1, +S2 - GI/Abdominal Exam GI & Abdominal Exam: Soft. absent: Distended, Firm, Guarding, Rigid, Tenderness Daryl in place , wound packed with iodoform, no purulent drainage - Neurological Exam Neurological Exam: Alert, Awake - Psychiatric Exam Psychiatric exam: Normal Affect, Normal Mood - Skin Skin Exam: Dry, Intact Assessment and Plan - Assessment and Plan (Free Text) Assessment: 68M with perforated duodenal ulcer POD#5 s/p exlap with gram patch and washout CLD Pain control Monitor output Serial abdominal exams IV abx DVT prophylaxis D/W Dr. Brian Trejo PGY3
[2018-03-11 20:17] LABS: CK-MB 2.9 ng/mL (0.0-3.6)
[2018-03-11] MEDS: OLANZapine 5 mg Disintegrating Tab PO SCH (21:58)
[2018-03-11] MEDS: HYDROmorphone 1 mg/ml ISec IVP PRN (22:22)
--- NOTE | 2018-03-12 03:25 | CON ---
DATE: 03/11/2018 LOCATION: [facility]. NEPHROLOGY CONSULTATION HISTORY OF PRESENT ILLNESS: The patient is a 68-year-old male with past medical history of hypertension, hyperlipidemia, COPD, cardiac arrest, status post attempted spinal surgery (10/2014), CVA and chronic back pain, initially presented to ED with 3 hours of epigastric abdominal pain, found to have perforated duodenal ulcer. Nephrology now being consulted for uncontrolled hypertension. The patient underwent exploratory laparotomy with Issa patch placement on of 03/06/2018. Since then, the patient has been noted to have altered mental status, not being oriented completely; at times has been found trying to pull out his lines. NG tube was discontinued yesterday and the patient was placed on clear liquid diet. Per nursing staff, the patient has had very little p.o. intake, has been refusing p.o. meds, had to be placed on IV antihypertensive meds including metoprolol 5 mg every 6 hours, hydralazine 10 mg every 4 hours p.r.n. and labetalol drip. The patient also placed on clonidine patch. The patient is also on nicardipine drip. Labetalol drip has been discontinued and p.r.n. hydralazine also discontinued. PAST MEDICAL HISTORY: As above. SOCIAL HISTORY: The patient with UDS positive for benzos, opiates and cannabinoids. FAMILY HISTORY: Unknown. REVIEW OF SYSTEMS: Unable to obtain, as the patient is in altered mental status, not answering questions. PHYSICAL EXAMINATION: VITAL SIGNS: This evening, blood pressure 160/94, heart rate 74, respirations 25, temperature 97.6, O2 sat . GENERAL: The patient is agitated, not cooperative with exam. HEENT: No cervical lymphadenopathy. RESPIRATORY: Lungs clear to auscultation bilaterally. No rales, no rhonchi. No wheezes. CARDIOVASCULAR: Heart sounds: S1 and S2 normal. No murmurs, no gallops, no rubs. GI: Abdomen soft, nontender, nondistended. : Unable to assess. EXTREMITIES: No leg edema. NEURO: Oriented to name only. No obvious tremors. PSYCHIATRIC: Somewhat agitated, not combative. SKIN: Warm. No cyanosis. LABORATORY DATA: This morning; CBC; WBC 9.6, hemoglobin 12.4, hematocrit 37.6, platelets 215. Chemistry panel, sodium 142, potassium 3.5, chloride 115, bicarb 22, BUN 13, creatinine 0.6, glucose 134, calcium 8.2, phosphorus 1.7, albumin 3.1. Urine studies on presentation; negative for protein, negative for blood. ASSESSMENT AND PLAN: Uncontrolled hypertension. The patient with uncontrolled hypertension on presentation, unclear if he was taking any meds regularly at home with records only showing the patient to have been on low dose of lisinopril and metoprolol. Should consider benzodiazepine withdrawal even though it has been 5 days since the patient's presentation. We will obtain plasma aldosterone and renin levels as well as plasma free metanephrines, looking for secondary causes. Should obtain renal artery duplex looking for possible renal artery stenosis despite preserved renal function, and no overt asymmetry on CT. Agree with restarting p.o. meds with lisinopril 10 mg and metoprolol 50 mg; can increase lisinopril dose to 20 mg. Continue clonidine patch 0.2 mg. Agree with brain MRI to look for evidence of PRES syndrome. Aim to keep serum potassium around 4. Avoid nonsteroidal anti-inflammatory drug use for pain. Thank you for this referral. We will be following up closely. Pedro Hinson MD ELIANA
[2018-03-12 07:09] LABS: BASO # 0.01 K/mm3 (0.0-2.0); BASO % 0.1 % (0.0-3.0); EOS # 0.2 (0.0-0.7); EOS % 1.6 % (1.5-5.0); GRAN # 10.53 (1.4-6.5); GRAN % 74.1 % (50.0-68.0); HEMOGLOBIN 12.7 g/dL (14.0-18.0); LYMPH # 1.7 (1.2-3.4); LYMPH % 12.2 % (22.0-35.0); MEAN CELL VOLUME 67.9 fl (80.0-105.0); MEAN CORPUSCULAR HEMOGLOBIN 21.8 pg (25.0-35.0); MEAN CORPUSCULAR HGB CONC 32.2 g/dl (31.0-37.0); MONO # 1.7 (0.1-0.6); PLATELET COUNT 234 10^3/uL (120.0-450.0); RBC 5.82 10^6/uL (3.5-6.1); RED CELL DISTRIBUTION WIDTH 20.8 % (11.5-14.5); WHITE BLOOD COUNT 14.2 10^3/ul (4.5-11.0)
[2018-03-12 07:40] LABS: ALB/GLOB RATIO 0.9 (1.1-1.8); ALBUMIN 3.3 g/dL (3.0-4.8); ALT/SGPT 38 U/L (7-56); AST/SGOT 59 U/L (17-59); BLOOD UREA NITROGEN 12 mg/dL (7-21); CALCIUM 8.2 mg/dL (8.4-10.5); GFR NON-AFRICAN AMERICAN > 60
[2018-03-12] MEDS ORDERED: Potassium Chloride 20 mEq ER Tab PO STA (08:18)
[2018-03-12] MEDS: Piperacillin/Tazobact 3.375 gm 100 ML IVPB SCH ×4 (08:44→17:28)
[2018-03-12] MEDS: Potassium Chl 40 mEq in D5-1/2 1,000 ML IV SCH ×4 (08:44→19:06)
[2018-03-12] MEDS ORDERED: Potassium Phosphate 3 mmol/ml Inj IV ONE (09:32)
[2018-03-12] MEDS ORDERED: Potassium Phosphate 30 MMOLE in Sodium Chloride 0.9% 250 ML IVPB ONE (09:45)
--- NOTE | 2018-03-12 12:40 | CP.PCM.PN ---
Subjective - Date & Time of Evaluation Date of Evaluation: 03/12/18 Time of Evaluation: 12:22 - Subjective Subjective: General Surgery Progress Note for Dr. Torres This 68M was seen and examined this AM at bedside. No acute events reported overnight. Patient continues to be altered. Drain d/paul yesterday, patient currently refusing PO intake. Dressing and packing changed this AM during rounds. Objective - Vital Signs/Intake and Output Vital Signs (last 24 hours): Temp Pulse Resp BP Pulse Ox 98.3 F 92 H 22 135/92 H 80 L 03/12/18 00:00 03/12/18 10:30 03/12/18 10:30 03/12/18 10:01 03/12/18 07:30 Intake and Output: 03/12/18 03/12/18 06:59 18:59 Intake Total 318 Output Total 35 Balance 283 - Medications Medications: Current Medications Albuterol/Ipratropium (Duoneb 3 Mg/0.5 Mg (3 Ml) Ud) 3 ml IH [id number] PRN PRN Reason: Wheezing Clonidine HCl (Catapres) 0.2 mg PO TID [facility] Last Admin: 03/12/18 09:35 Dose: Not Given Clonidine HCl (Catapres-Tts2 0.2 Mg/24 Hr) 1 patch TD Q7D@1000 [facility] Piperacillin Sod/Tazobactam Sod (Zosyn 3.375 In Ns 100ml) 100 mls @ 200 mls/hr IVPB Q6 [facility]; Protocol Stop: 03/16/18 14:31 Last Admin: 03/12/18 08:45 Dose: Not Given Potassium Chloride/Dextrose/Sod Cl (Potassium Chl 40 Meq In D5-1/2ns) 1,000 mls @ 110 mls/hr IV .Q9H6M [facility] Last Admin: 03/12/18 09:42 Dose: 110 mls/hr Nicardipine HCl (Cardene Iv Premix) 20 mg in 200 mls @ 50 mls/hr IV .Q4H PRN; Protocol PRN Reason: TITRATE PER MD ORDER Last Admin: 03/11/18 21:38 Dose: 15 mg/hr, 150 mls/hr Potassium Phosphate 30 mmole/ (Sodium Chloride) 260 mls @ 42.5 mls/hr IVPB ONCE ONE Stop: 03/12/18 15:52 Last Admin: 03/12/18 10:53 Dose: 42.5 mls/hr Lisinopril (Zestril) 20 mg PO DAILY [facility] Last Admin: 03/12/18 09:38 Dose: Not Given Metoprolol Tartrate (Lopressor) 5 mg IVP Q6H [facility] Last Admin: 03/11/18 11:13 Dose: 5 mg Metoprolol Tartrate (Lopressor) 50 mg PO Q12 [facility] Last Admin: 03/12/18 09:36 Dose: Not Given Nicotine (Nicoderm Cq) 1 patch TD DAILY [facility] Last Admin: 03/12/18 09:47 Dose: 1 patch Nitroglycerin (Nitro-Bid 2% Oint) 1 ea TOP Q8 PRN PRN Reason: Other Last Admin: 03/11/18 05:14 Dose: 1 ea Olanzapine (Zyprexa Zydis) 5 mg PO HS [facility]; Protocol Last Admin: 03/11/18 21:58 Dose: 5 mg Ondansetron HCl (Zofran Inj) 4 mg IVP Q6 PRN PRN Reason: Nausea/Vomiting Last Admin: 03/11/18 22:00 Dose: 4 mg Pantoprazole Sodium (Protonix Inj) 40 mg IVP DAILY [facility] Last Admin: 03/12/18 09:45 Dose: 40 mg - Labs Labs: 03/12/18 06:50 03/12/18 06:50 PT 14.4 SECONDS (9.4-12.5) H 03/06/18 21:51 INR 1.26 03/06/18 21:51 APTT 29.2 Seconds (25.1-36.5) 03/06/18 21:51 - Constitutional Appears: No Acute Distress, Confused - Head Exam Head Exam: ATRAUMATIC, NORMOCEPHALIC - Eye Exam Eye Exam: EOMI - Respiratory Exam Respiratory Exam: NORMAL BREATHING PATTERN - Cardiovascular Exam Cardiovascular Exam: +S1, +S2 - GI/Abdominal Exam GI & Abdominal Exam: Soft. absent: Firm, Rigid, Tenderness, Hernia Additional comments: Packinjg changed this AM , no purulence - Neurological Exam Neurological Exam: Alert, Awake - Psychiatric Exam Psychiatric exam: Normal Affect, Normal Mood - Skin Skin Exam: Dry, Intact Assessment and Plan - Assessment and Plan (Free Text) Assessment: 68M with perforated duodenal ulcer POD#6 s/p exlap with gram patch and washout CLD Pain control Monitor output Serial abdominal exams IV abx DVT prophylaxis D/W Dr. Brian Trejo PGY3
--- NOTE | 2018-03-12 12:59 | CP.PCM.PN ---
Subjective - Date & Time of Evaluation Date of Evaluation: 03/12/18 Time of Evaluation: 09:55 - Subjective Subjective: Starting soft diet but appetite is still poor, no increased abdominal pain, no vomiting, no fevers. Objective - Vital Signs/Intake and Output Vital Signs (last 24 hours): Temp Pulse Resp BP Pulse Ox 98.3 F 83 25 H 149/83 85 L 03/12/18 00:00 03/12/18 02:00 03/11/18 20:59 03/11/18 21:00 03/11/18 20:30 - Medications Medications: Current Medications Albuterol/Ipratropium (Duoneb 3 Mg/0.5 Mg (3 Ml) Ud) 3 ml IH [id number] PRN PRN Reason: Wheezing Clonidine HCl (Catapres) 0.2 mg PO TID [facility] Last Admin: 03/11/18 19:01 Dose: Not Given Clonidine HCl (Catapres-Tts2 0.2 Mg/24 Hr) 1 patch TD Q7D@1000 [facility] Hydromorphone HCl (Dilaudid) 1 mg IVP Q3H PRN PRN Reason: Pain, severe (8-10) Last Admin: 03/11/18 22:22 Dose: 1 mg Piperacillin Sod/Tazobactam Sod (Zosyn 3.375 In Ns 100ml) 100 mls @ 200 mls/hr IVPB Q6 [facility]; Protocol Stop: 03/16/18 14:31 Last Admin: 03/11/18 19:15 Dose: 200 mls/hr Potassium Chloride/Dextrose/Sod Cl (Potassium Chl 40 Meq In D5-1/2ns) 1,000 mls @ 110 mls/hr IV .Q9H6M [facility] Last Admin: 03/10/18 17:01 Dose: 110 mls/hr Nicardipine HCl (Cardene Iv Premix) 20 mg in 200 mls @ 50 mls/hr IV .Q4H PRN; Protocol PRN Reason: TITRATE PER MD ORDER Last Admin: 03/11/18 21:38 Dose: 15 mg/hr, 150 mls/hr Lisinopril (Zestril) 20 mg PO DAILY [facility] Metoprolol Tartrate (Lopressor) 5 mg IVP Q6H [facility] Last Admin: 03/11/18 11:13 Dose: 5 mg Metoprolol Tartrate (Lopressor) 50 mg PO Q12 [facility] Last Admin: 03/11/18 21:45 Dose: 50 mg Nicotine (Nicoderm Cq) 1 patch TD DAILY [facility] Last Admin: 03/11/18 11:15 Dose: 1 patch Nitroglycerin (Nitro-Bid 2% Oint) 1 ea TOP Q8 PRN PRN Reason: Other Last Admin: 03/11/18 05:14 Dose: 1 ea Olanzapine (Zyprexa Zydis) 5 mg PO HS [facility]; Protocol Last Admin: 03/11/18 21:58 Dose: 5 mg Ondansetron HCl (Zofran Inj) 4 mg IVP Q6 PRN PRN Reason: Nausea/Vomiting Last Admin: 03/11/18 22:00 Dose: 4 mg Pantoprazole Sodium (Protonix Inj) 40 mg IVP DAILY [facility] Last Admin: 03/11/18 11:17 Dose: 40 mg - Labs Labs: 03/11/18 07:15 03/11/18 07:15 PT 14.4 SECONDS (9.4-12.5) H 03/06/18 21:51 INR 1.26 03/06/18 21:51 APTT 29.2 Seconds (25.1-36.5) 03/06/18 21:51 - Constitutional Appears: Chronically Ill - Head Exam Head Exam: NORMAL INSPECTION - Neck Exam Neck Exam: absent: Meningismus - Respiratory Exam Respiratory Exam: Decreased Breath Sounds - Cardiovascular Exam Cardiovascular Exam: +S1, +S2 - GI/Abdominal Exam GI & Abdominal Exam: Soft. absent: Tenderness Assessment and Plan - Assessment and Plan (Free Text) Plan: Assessment perforated duodenal ulcer S/P ex-lap and repair history of SIRS after cardiac arrest after aborted discectomy HTN Chronic back pain dyslipidemia COPD history of seizures history of CVA Plan abdominal tenderness is decreased but will continue Zosyn for now and will continue to see how his diet is progressed and how his abdominal pain is follow up further recommendations of surgery discussed this extensively with at bedside yesterday
--- NOTE | 2018-03-12 13:22 | PN ---
DATE: 03/12/2018 SUBJECTIVE: The patient is seen and examined at bedside. He appears to understand commands. However, refuses p.o. meds and refuses answering questions. Somewhat cooperative with changing dressings. PHYSICAL EXAMINATION: VITAL SIGNS: Temperature 98.3, heart rate 83, blood pressure 145/80, respiratory rate 25, oxygen saturation 97% on room air. ENT: Head and neck atraumatic. LUNGS: Clear to auscultation bilaterally. HEART: Regular rate and rhythm. S1 and S2 normal. ABDOMEN: Soft, nontender. Wound looks okay. Drain was removed by Surgical Service today. MUSCULOSKELETAL: No C/C/E. NEURO: The patient moves all extremities spontaneously. No muscle rigidity. SKIN: Moist. PSYCHIATRIC: The patient appears to be alert, awake; however, confused and minimally cooperative. LABORATORY DATA: Sodium 142, potassium 3 (supplemented), chloride 111, carbon dioxide 24, BUN 12, creatinine 0.6, glucose 137, lactic acid 1.8 and CPK 587 as of yesterday. WBC 14.2, hemoglobin 12.7, platelet count 234. U-tox screen was positive 5 days ago for opiates, barbiturates and cannabinoids. MEDICATIONS: DuoNeb p.r.n., clonidine 0.2 mg p.o. t.i.d. (the patient refused clonidine 0.2 mg over 24 hours patch), hydromorphone p.r.n., lisinopril 20 mg p.o. daily (refused), metoprolol 50 mg p.o. every 12 (refused), Cardene drip currently at 5 mg/hour, nicotine patch, Zofran p.r.n., Protonix daily, potassium supplementation, Zosyn. ASSESSMENT AND PLAN: This is a 68-year-old gentleman, who is recovering after exploratory laparotomy with Issa patch for gastric perforation. At present time, it appears that the patient is suffering from Intensive Care Unit delirium; however, no agitation. The patient is on Cardene drip for uncontrolled hypertension, which was successfully tapered down to 5 mg/hour from 15 mg/hour. It is unclear why the patient refuses p.o. medications and whether it is part of the delirium presentation. He does not have signs of rhabdomyolysis and his muscle rigidity is substantially improved. His lactic acid is 1.8. CPK slightly more than 500. If able to wean off Cardene drip completely, may consider transfer to Medical-Surgical floor. Surgical wound healing well. We will continue to target euvolemia, euglycemia, normothermia and oxygen saturation more than 90%. We will continue optimize his circadian and sleep patterns. One-to-one observation. Deep venous thrombosis, gastrointestinal prophylaxis. Addendum: Patient mental status much improved, asked to be sitted in the chair and got his PO meds-->cardene drip is weaned off. Ok to downgrade to medsurg ccm time 40 min Boris Jara MD MTDD
--- NOTE | 2018-03-12 13:39 | CP.PCM.PN ---
<Amarilis Dean - Last Filed: 03/12/18 15:42> Subjective - Date & Time of Evaluation Date of Evaluation: 03/12/18 Time of Evaluation: 13:36 - Subjective Subjective: Amarilis Dean, PGY2, Neurology Consult Note for Dr. Calderon: Patient seen and examined at bedside. No acute events overnight. Patient awake, but remains agitated. Patient not following commands. As per staff, patient is answering one word answers like "yesr" or "no." No fevers. Patient's at bedside, states that patient had been on opiates, CBD oil for past 3 years for back pain (given by pain management doctor). ROS limited due to patients mental status. Objective - Vital Signs/Intake and Output Vital Signs (last 24 hours): Temp Pulse Resp BP Pulse Ox 98.3 F 92 H 22 135/92 H 80 L 03/12/18 00:00 03/12/18 10:30 03/12/18 10:30 03/12/18 10:01 03/12/18 07:30 Intake and Output: 03/12/18 03/12/18 06:59 18:59 Intake Total 318 Output Total 35 Balance 283 - Medications Medications: Current Medications Albuterol/Ipratropium (Duoneb 3 Mg/0.5 Mg (3 Ml) Ud) 3 ml IH [id number] PRN PRN Reason: Wheezing Clonidine HCl (Catapres) 0.2 mg PO TID [facility] Last Admin: 03/12/18 13:13 Dose: Not Given Clonidine HCl (Catapres-Tts2 0.2 Mg/24 Hr) 1 patch TD Q7D@1000 [facility] Piperacillin Sod/Tazobactam Sod (Zosyn 3.375 In Ns 100ml) 100 mls @ 200 mls/hr IVPB Q6 [facility]; Protocol Stop: 03/16/18 14:31 Last Admin: 03/12/18 08:45 Dose: Not Given Potassium Chloride/Dextrose/Sod Cl (Potassium Chl 40 Meq In D5-1/2ns) 1,000 mls @ 110 mls/hr IV .Q9H6M [facility] Last Admin: 03/12/18 09:42 Dose: 110 mls/hr Nicardipine HCl (Cardene Iv Premix) 20 mg in 200 mls @ 50 mls/hr IV .Q4H PRN; Protocol PRN Reason: TITRATE PER MD ORDER Last Admin: 03/11/18 21:38 Dose: 15 mg/hr, 150 mls/hr Potassium Phosphate 30 mmole/ (Sodium Chloride) 260 mls @ 42.5 mls/hr IVPB ONCE ONE Stop: 03/12/18 15:52 Last Admin: 03/12/18 10:53 Dose: 42.5 mls/hr Lisinopril (Zestril) 20 mg PO DAILY [facility] Last Admin: 03/12/18 09:38 Dose: Not Given Metoprolol Tartrate (Lopressor) 5 mg IVP Q6H [facility] Last Admin: 03/11/18 11:13 Dose: 5 mg Metoprolol Tartrate (Lopressor) 50 mg PO Q12 [facility] Last Admin: 03/12/18 09:36 Dose: Not Given Nicotine (Nicoderm Cq) 1 patch TD DAILY [facility] Last Admin: 03/12/18 09:47 Dose: 1 patch Nitroglycerin (Nitro-Bid 2% Oint) 1 ea TOP Q8 PRN PRN Reason: Other Last Admin: 03/11/18 05:14 Dose: 1 ea Olanzapine (Zyprexa Zydis) 5 mg PO HS [facility]; Protocol Last Admin: 03/11/18 21:58 Dose: 5 mg Ondansetron HCl (Zofran Inj) 4 mg IVP Q6 PRN PRN Reason: Nausea/Vomiting Last Admin: 03/11/18 22:00 Dose: 4 mg Pantoprazole Sodium (Protonix Inj) 40 mg IVP DAILY [facility] Last Admin: 03/12/18 09:45 Dose: 40 mg - Labs Labs: 03/12/18 06:50 03/12/18 06:50 PT 14.4 SECONDS (9.4-12.5) H 03/06/18 21:51 INR 1.26 03/06/18 21:51 APTT 29.2 Seconds (25.1-36.5) 03/06/18 21:51 - Additional Findings Additional findings: - Constitutional Appears: Non-toxic, Older Than Stated Age, Combative, Agitated, Chronically Ill - Head Exam Head Exam: ATRAUMATIC, NORMOCEPHALIC - Eye Exam Eye Exam: EOMI, PERRL. absent: Conjunctival injection, Periorbital swelling, Periorbital tenderness, Scleral icterus Pupil Exam: PERRL. absent: Fixed, Irregular, Miosis, Mydriatic - ENT Exam ENT Exam: Mucous Membranes Moist - Neck Exam Neck Exam: Full ROM - Respiratory Exam Respiratory Exam: Clear to Ausculation Bilateral, NORMAL BREATHING PATTERN. absent: Chest Wall Tenderness, Decreased Breath Sounds, Rales, Rhonchi, Respiratory Distress, Stridor - Cardiovascular Exam Cardiovascular Exam: RRR, +S1, +S2. absent: Murmur - GI/Abdominal Exam GI & Abdominal Exam: Soft, Normal Bowel Sounds. absent: Guarding, Rigid, Tenderness, Organomegaly - Extremities Exam Extremities Exam: Normal Inspection. absent: Calf Tenderness, Pedal Edema - Back Exam Back Exam: NORMAL INSPECTION - Neurological Exam Neurological Exam: Alert, Awake Additional comments: alert, awake, oriented to self only. moving all extremities. not following commands. Needs constant re-direction. GCS 12 - Psychiatric Exam Psychiatric exam: Agitated - Skin Skin Exam: Normal Color, Warm Assessment and Plan - Assessment and Plan (Free Text) Assessment: 68M with PMH of HTN, HLD, COPD, cardiac arrest s/p attempted spinal surgery (10/23/14), CVA, chronic back pain, s/p jeanette patch for perforated ulcer, developed AMS post-op: likely drug withdrawal vs toxic metabolic encephalopathy vs ICU delirium, will rule out seizures, cva - head CT 03/09 negative - MRI brain ordered. EEG done. f/u results. - c/w ICU management of underlying etiology - Monitor Case seen and discussed with Dr Calderon. <Yoni aClderon - Last Filed: 03/13/18 17:51> Objective - Vital Signs/Intake and Output Vital Signs (last 24 hours): Temp Pulse Resp BP Pulse Ox 98.7 F 58 L 16 143/80 95 03/13/18 04:00 03/13/18 14:00 03/13/18 12:00 03/13/18 12:00 03/13/18 12:00 Intake and Output: 03/13/18 03/13/18 06:59 18:59 Intake Total 1560 Output Total 100 Balance 1460 - Medications Medications: Current Medications Albuterol/Ipratropium (Duoneb 3 Mg/0.5 Mg (3 Ml) Ud) 3 ml IH [id number] PRN PRN Reason: Wheezing Clonidine HCl (Catapres) 0.1 mg PO TID [facility] Hydromorphone HCl (Dilaudid) 1 mg IVP Q3 PRN PRN Reason: Pain, severe (8-10) Last Admin: 03/13/18 14:23 Dose: 1 mg Piperacillin Sod/Tazobactam Sod (Zosyn 3.375 In Ns 100ml) 100 mls @ 200 mls/hr IVPB Q6 [facility]; Protocol Stop: 03/16/18 14:31 Last Admin: 03/13/18 17:09 Dose: 200 mls/hr Potassium Chloride/Dextrose/Sod Cl (Potassium Chl 40 Meq In D5-1/2ns) 1,000 mls @ 110 mls/hr IV .Q9H6M [facility] Last Admin: 03/13/18 09:35 Dose: Not Given Lisinopril (Zestril) 20 mg PO DAILY [facility] Last Admin: 03/13/18 10:09 Dose: 20 mg Metoprolol Tartrate (Lopressor) 5 mg IVP Q6H [facility] Last Admin: 03/11/18 11:13 Dose: 5 mg Metoprolol Tartrate (Lopressor) 50 mg PO Q12 [facility] Last Admin: 03/13/18 10:08 Dose: 50 mg Nicotine (Nicoderm Cq) 1 patch TD DAILY [facility] Last Admin: 03/13/18 10:08 Dose: 1 patch Nitroglycerin (Nitro-Bid 2% Oint) 1 ea TOP Q8 PRN PRN Reason: Other Last Admin: 03/11/18 05:14 Dose: 1 ea Olanzapine (Zyprexa Zydis) 5 mg PO HS PRN; Protocol PRN Reason: Agitation Last Admin: 03/12/18 22:20 Dose: 5 mg Ondansetron HCl (Zofran Inj) 4 mg IVP Q6 PRN PRN Reason: Nausea/Vomiting Last Admin: 03/11/18 22:00 Dose: 4 mg Pantoprazole Sodium (Protonix Inj) 40 mg IVP DAILY [facility] Last Admin: 03/13/18 10:09 Dose: 40 mg Primidone (Mysoline) 250 mg PO TID [facility] Last Admin: 03/13/18 17:25 Dose: 250 mg - Labs Labs: 03/13/18 07:40 03/13/18 07:40 PT 14.4 SECONDS (9.4-12.5) H 03/06/18 21:51 INR 1.26 03/06/18 21:51 APTT 29.2 Seconds (25.1-36.5) 03/06/18 21:51 Attending/Attestation - Attestation I have personally seen and examined this patient.: Yes I have fully participated in the care of the patient.: Yes I have reviewed all pertinent clinical information, including history, physical exam and plan: Yes Notes (Text): 03/13/18 17:51 I agree with the assessment and plan. The patient appears to have toxic- metabolic encephalopathy. EEG does not show seizures, just diffuse dysfunction. Continue treating underlying cause.
--- NOTE | 2018-03-12 14:05 | PN ---
DATE: 03/12/2018 CARDIOLOGY FOLLOWUP SUBJECTIVE: The patient is in bed, in no distress. No dyspnea. PHYSICAL EXAMINATION: VITAL SIGNS: Blood pressure is 135/92, the heart rate is in the 90s, normal sinus rhythm. NECK: Negative JVD. LUNGS: Without rales. HEART: Reveals S1, S2. EXTREMITIES: Without edema. LABORATORY: Potassium is 3 and has been replaced, glucose is 137. Hemoglobin is 12.7. IMPRESSION: 1. Status post arrest. 2. Accelerated hypertension. 3. Altered mental status. 4. History of abdominal pain. PLAN: The blood pressure is much better controlled. However, we will continue his topical clonidine until he can take p.o. Greg Fortune MD
--- NOTE | 2018-03-12 16:35 | CP.CCUPN ---
<Carlos Silva - Last Filed: 03/12/18 17:25> CCU Subjective - Physician Review Subjective (Free Text): Carlos Silva, PGY-1, CCU Progress Note for Dr. Jara Patient seen and evaluated at bedside. Patient is currently AAOx2. Patient is not oriented to place and time but is oriented to person. Patient is drowsy. Overnight, no significant events. 12-point ROS was unattainable due to patient's mental status. CCU Objective - Vital Signs / Intake & Output Vital Signs (Last 4 hours): Vital Signs Pulse Resp BP Pulse Ox 03/12/18 16:03 18 03/12/18 15:54 95 03/12/18 15:30 80 24 03/12/18 15:00 92 H 17 03/12/18 14:30 101 H 20 03/12/18 14:00 164/87 H 03/12/18 13:59 95 H 22 03/12/18 13:30 98 H 28 H 03/12/18 13:00 155/74 H 03/12/18 12:59 89 Intake and Output (Last 8hrs): Intake & Output 03/12/18 03/12/18 03/12/18 06:59 14:59 22:59 Intake Total 318 100 Output Total 35 300 Balance 283 -200 Weight 177 lb Intake: Oral 118 100 Other 200 Output: Gastric Amount 20 Left Nares 20 Drainage 15 Bilateral Abdomen 15 Urine 300 Condom 300 Stool 0 Emesis 0 Other: # Bowel Movements 1 - Physical Exam Head: Positive for: Atraumatic, Normocephalic Pupils: Positive for: PERRL Extroacular Muscles: Positive for: EOMI Conjunctiva: Positive for: Normal Mouth: Positive for: Moist Mucous Membranes Neck: Positive for: Normal Range of Motion Respiratory/Chest: Positive for: Clear to Auscultation, Good Air Exchange. Negative for: Wheezes, Rales, Rhonchi Cardiovascular: Positive for: Regular Rate and Rhythm, Normal S1, S2 Abdomen: Positive for: Other (Patient has incision on the right lower abdomen and drain placed as well.). Negative for: Tenderness, Distention, Normal Bowel Sounds, Guarding, Mass/Organomegaly Back: Positive for: Normal Inspection. Negative for: CVA Tenderness, Paraspinal Tenderness Upper Extremity: Positive for: Normal Inspection, NORMAL PULSES, Capillary Refill < 2s. Negative for: Cyanosis, Edema, Tenderness, Swelling Lower Extremity: Positive for: Normal Inspection, NORMAL PULSES, Capillary Refill < 2 s. Negative for: Edema, CALF TENDERNESS, Cyanosis, Tenderness Neurological: Positive for: CN II-XII Intact, Motor Func Grossly Intact, Other (confused). Negative for: GCS=15 (13) Skin: Positive for: Warm, Dry, Normal Color, Diaphoretic Psychiatric: Negative for: Alert, Oriented x 3 - Medications Active Medications: Active Medications Generic Name Dose Route Start Last Admin Trade Name Freq PRN Reason Stop Dose Admin Albuterol/Ipratropium 3 ml 03/06/18 17:33 Duoneb 3 Mg/0.5 Mg (3 Ml) Ud IH [id number] PRN Wheezing Clonidine HCl 0.2 mg 03/11/18 14:00 03/12/18 14:30 Catapres PO 0.2 mg TID KALEN Administration Clonidine HCl 1 patch 03/18/18 10:00 Catapres-Tts2 0.2 Mg/24 Hr TD Q7D@1000 KALEN Piperacillin Sod/Tazobactam Sod 100 mls @ 200 mls/hr 03/09/18 14:30 03/12/18 14:03 Zosyn 3.375 In Ns 100ml IVPB 03/16/18 14:31 200 mls/hr Q6 KALEN Administration Protocol Potassium Chloride/Dextrose/Sod Cl 1,000 mls @ 110 mls/hr 03/10/18 08:45 03/12/18 15:49 Potassium Chl 40 Meq In D5-1/2ns IV 110 mls/hr .Q9H6M KALEN Administration Lisinopril 20 mg 03/11/18 21:26 03/12/18 14:30 Zestril PO 20 mg DAILY KALEN Administration Metoprolol Tartrate 5 mg 03/10/18 11:15 03/11/18 11:13 Lopressor IVP 5 mg Q6H KALEN Administration Metoprolol Tartrate 50 mg 03/10/18 22:00 03/12/18 14:30 Lopressor PO 50 mg Q12 KALEN Administration Nicotine 1 patch 03/07/18 10:00 03/12/18 09:47 Nicoderm Cq TD 1 patch DAILY KALEN Administration Nitroglycerin 1 ea 03/09/18 20:35 03/11/18 05:14 Nitro-Bid 2% Oint TOP 1 ea Q8 PRN Administration Other Olanzapine 5 mg 03/12/18 14:40 Zyprexa Zydis PO HS PRN Agitation Protocol Ondansetron HCl 4 mg 03/06/18 19:02 03/11/18 22:00 Zofran Inj IVP 4 mg Q6 PRN Administration Nausea/Vomiting Pantoprazole Sodium 40 mg 03/06/18 16:15 03/12/18 09:45 Protonix Inj IVP 40 mg DAILY KALEN Administration - Patient Studies Lab Studies: Microbiology Studies 03/07/18 12:50 Blood Culture - Final Blood NO GROWTH AFTER 5 DAYS Gram Stain - Final TEST NOT PERFORMED Lab Studies 03/12/18 03/12/18 03/12/18 Range/Units 16:22 06:50 06:50 WBC 14.2 H D (4.5-11.0) 10^3/ul RBC 5.82 (3.5-6.1) 10^6/uL Hgb 12.7 L (14.0-18.0) g/dL Hct 39.5 L (42.0-52.0) % MCV 67.9 L (80.0-105.0) fl MCH 21.8 L (25.0-35.0) pg MCHC 32.2 (31.0-37.0) g/dl RDW 20.8 H (11.5-14.5) % Plt Count 234 (120.0-450.0) 10^3/uL Gran % 74.1 H (50.0-68.0) % Lymph % (Auto) 12.2 L (22.0-35.0) % Frio % (Auto) 12.0 H (1.0-6.0) % Eos % (Auto) 1.6 (1.5-5.0) % Baso % (Auto) 0.1 (0.0-3.0) % Gran # 10.53 H (1.4-6.5) Lymph # (Auto) 1.7 (1.2-3.4) Frio # (Auto) 1.7 H (0.1-0.6) Eos # (Auto) 0.2 (0.0-0.7) Baso # (Auto) 0.01 (0.0-2.0) K/mm3 Sodium 142 (132-148) mmol/L Potassium 3.0 L (3.6-5.0) mmol/L Chloride 111 H (98-107) mmol/L Carbon Dioxide 24 (21-33) mmol/L Anion Gap 10 (10-20) BUN 12 (7-21) mg/dL Creatinine 0.6 L (0.8-1.5) mg/dl Est GFR ( Amer) > 60 Est GFR (Non-Af Amer) > 60 POC Glucose (mg/dL) 140 H (65-110) mg/dL Random Glucose 137 H (70-110) mg/dL Lactic Acid (0.7-2.1) mmol/L Calcium 8.2 L (8.4-10.5) mg/dL Phosphorus 2.4 L (2.5-4.5) mg/dL Magnesium 1.8 (1.7-2.2) mg/dL Total Bilirubin 0.6 (0.2-1.3) mg/dL AST 59 D (17-59) U/L ALT 38 (7-56) U/L Alkaline Phosphatase 81 (38-126) U/L Total Creatine Kinase (35-230) U/L CK-MB (CK-2) (0.0-3.6) ng/mL CK-MB (CK-2) % Total Protein 6.8 (5.8-8.3) g/dL Albumin 3.3 (3.0-4.8) g/dL Globulin 3.6 gm/dL Albumin/Globulin Ratio 0.9 L (1.1-1.8) 03/11/18 03/11/18 03/11/18 Range/Units 22:31 19:27 19:27 WBC (4.5-11.0) 10^3/ul RBC (3.5-6.1) 10^6/uL Hgb (14.0-18.0) g/dL Hct (42.0-52.0) % MCV (80.0-105.0) fl MCH (25.0-35.0) pg MCHC (31.0-37.0) g/dl RDW (11.5-14.5) % Plt Count (120.0-450.0) 10^3/uL Gran % (50.0-68.0) % Lymph % (Auto) (22.0-35.0) % Frio % (Auto) (1.0-6.0) % Eos % (Auto) (1.5-5.0) % Baso % (Auto) (0.0-3.0) % Gran # (1.4-6.5) Lymph # (Auto) (1.2-3.4) Frio # (Auto) (0.1-0.6) Eos # (Auto) (0.0-0.7) Baso # (Auto) (0.0-2.0) K/mm3 Sodium (132-148) mmol/L Potassium (3.6-5.0) mmol/L Chloride (98-107) mmol/L Carbon Dioxide (21-33) mmol/L Anion Gap (10-20) BUN (7-21) mg/dL Creatinine (0.8-1.5) mg/dl Est GFR ( Amer) Est GFR (Non-Af Amer) POC Glucose (mg/dL) 130 H (65-110) mg/dL Random Glucose (70-110) mg/dL Lactic Acid 1.8 (0.7-2.1) mmol/L Calcium (8.4-10.5) mg/dL Phosphorus (2.5-4.5) mg/dL Magnesium (1.7-2.2) mg/dL Total Bilirubin (0.2-1.3) mg/dL AST (17-59) U/L ALT (7-56) U/L Alkaline Phosphatase (38-126) U/L Total Creatine Kinase 587 H (35-230) U/L CK-MB (CK-2) 2.9 (0.0-3.6) ng/mL CK-MB (CK-2) % Cancelled Total Protein (5.8-8.3) g/dL Albumin (3.0-4.8) g/dL Globulin gm/dL Albumin/Globulin Ratio (1.1-1.8) Laboratory Results - last 24 hr 03/11/18 03/11/18 03/11/18 19:27 19:27 22:31 WBC RBC Hgb Hct MCV MCH MCHC RDW Plt Count Gran % Lymph % (Auto) Frio % (Auto) Eos % (Auto) Baso % (Auto) Gran # Lymph # (Auto) Frio # (Auto) Eos # (Auto) Baso # (Auto) Sodium Potassium Chloride Carbon Dioxide Anion Gap BUN Creatinine Est GFR ( Amer) Est GFR (Non-Af Amer) POC Glucose (mg/dL) 130 H Random Glucose Lactic Acid 1.8 Calcium Phosphorus Magnesium Total Bilirubin AST ALT Alkaline Phosphatase Total Creatine Kinase 587 H CK-MB (CK-2) 2.9 CK-MB (CK-2) % Cancelled Total Protein Albumin Globulin Albumin/Globulin Ratio 03/12/18 03/12/18 03/12/18 06:50 06:50 16:22 WBC 14.2 H D RBC 5.82 Hgb 12.7 L Hct 39.5 L MCV 67.9 L MCH 21.8 L MCHC 32.2 RDW 20.8 H Plt Count 234 Gran % 74.1 H Lymph % (Auto) 12.2 L Frio % (Auto) 12.0 H Eos % (Auto) 1.6 Baso % (Auto) 0.1 Gran # 10.53 H Lymph # (Auto) 1.7 Frio # (Auto) 1.7 H Eos # (Auto) 0.2 Baso # (Auto) 0.01 Sodium 142 Potassium 3.0 L Chloride 111 H Carbon Dioxide 24 Anion Gap 10 BUN 12 Creatinine 0.6 L Est GFR ( Amer) > 60 Est GFR (Non-Af Amer) > 60 POC Glucose (mg/dL) 140 H Random Glucose 137 H Lactic Acid Calcium 8.2 L Phosphorus 2.4 L Magnesium 1.8 Total Bilirubin 0.6 AST 59 D ALT 38 Alkaline Phosphatase 81 Total Creatine Kinase CK-MB (CK-2) CK-MB (CK-2) % Total Protein 6.8 Albumin 3.3 Globulin 3.6 Albumin/Globulin Ratio 0.9 L Fingerstick Blood Sugar Results: 137 Review of Systems - Review of Systems Systems not reviewed;Unavailable: Altered Mental Status Critical Care Progress Note - Ventilator Checklist Head of Bed 30 Degrees: Yes PUD Prophalyxis: Yes DVT Prophylaxis: Yes - Extremities/Vascular Does the Patient have a Central Venous Catheter?: Yes - Nutrition Nutrition: Nutrition Category Date Time Status Liquid Diet [DIET] Diets 03/12/18 Lunch Ordered Assessment/Plan - Assessment and Plan (Free Text) Assessment: 68 year old with past medical history of hypertension, hyperlipidemia, COPD, cardiac arrest 2/p spinal surgery in 2015, CVA presents with 3 hours of epigastric pabdominal pain while sitting at home. Patient was found to have perforated duodenal ulcer on imaging and was taken to the OR who performed an exploratory lapartomy with jeanette patch placement. Plan: Neuro: -AAOx2, not oriented to time, no FND, moving extremities past midline. -Head CT: bilateral otomastoiditis -Patient currently on dilaudid PRN. Patient's geodon continued for agitation. -Patient is opiod dependent on both percocet and hydrocodone at home. -Patient's mental status is improving. -Monitor neuro status. -Reorient patient as necessary. Cardio: -Normotensive, RRR, no signs of HD compromise -Patient now receiving lisinopril 20 mg daily, clonidine 0.2 TID, lopressor 50 mg BID -Maintain MAP>65. -Monitor for S/S, HD compromise. -Dr. Hinson, nephrology, was consulted to evaluate for causes of uncontrolled hypertension. Pulm: -No signs of respiratory distress. CTA B/L -CXR: no active disease -Patient is stating well on room air -Maintain O2 saturation>95%. -Elevate bed to 30 degrees GI: -NG tube removed. -Clear liquid diet -Patient is status post day 6 for duodenal ulcer repair surgery. -Protonix 40 mg daily /Nephro: -BUN/Cr stable -UA was unremarkable with negative blood, negative leukocyte esterase, and negative nitrates -Potassium 3 -Good urine output -Continue monitoring. -Replete electrolytes as needed. -Maintain euvolemia. Endocrinology: -Random glucose: 133 -Maintain euglycemia. Heme/Onc: -H/H stable. -Leukocytosis resolved. -No signs of HD compromise. -Continue monitoring H/H ID: -Afebrile, leukocytosis resolved -BCx: no growth in 72 hours. MRSA negative. -Procalcitonin: 3.79 -Continue with zosyn as per ID, Dr. Gomez. -Monitor for signs and symptoms of infection. DVT prophylaxis: SCD GI prophylaxis: protonix 40 mg daily Disposition: Patient's mental status has improved. Patient to be transferred to the medicine floors if the patient is stable. Patient seen and examined with Dr. Jara. - Date & Time Date: 03/12/18 Time: 16:40 <Boris Jara - Last Filed: 03/12/18 17:49> CCU Objective - Vital Signs / Intake & Output Vital Signs (Last 4 hours): Vital Signs Pulse Resp BP Pulse Ox 03/12/18 16:03 18 03/12/18 15:54 95 03/12/18 15:30 80 24 03/12/18 15:00 92 H 17 03/12/18 14:30 101 H 20 03/12/18 14:00 164/87 H 03/12/18 13:59 95 H 22 Intake and Output (Last 8hrs): Intake & Output 03/12/18 03/12/18 03/12/18 06:59 14:59 22:59 Intake Total 318 100 Output Total 35 300 Balance 283 -200 Weight 177 lb Intake: Oral 118 100 Other 200 Output: Gastric Amount 20 Left Nares 20 Drainage 15 Bilateral Abdomen 15 Urine 300 Condom 300 Stool 0 Emesis 0 Other: # Bowel Movements 1 - Medications Active Medications: Active Medications Generic Name Dose Route Start Last Admin Trade Name Freq PRN Reason Stop Dose Admin Albuterol/Ipratropium 3 ml 03/06/18 17:33 Duoneb 3 Mg/0.5 Mg (3 Ml) Ud IH [id number] PRN Wheezing Clonidine HCl 0.2 mg 03/11/18 14:00 03/12/18 14:30 Catapres PO 0.2 mg TID KALEN Administration Clonidine HCl 1 patch 03/18/18 10:00 Catapres-Tts2 0.2 Mg/24 Hr TD Q7D@1000 KALEN Piperacillin Sod/Tazobactam Sod 100 mls @ 200 mls/hr 03/09/18 14:30 03/12/18 17:28 Zosyn 3.375 In Ns 100ml IVPB 03/16/18 14:31 200 mls/hr Q6 KALEN Administration Protocol Potassium Chloride/Dextrose/Sod Cl 1,000 mls @ 110 mls/hr 03/10/18 08:45 03/12/18 15:49 Potassium Chl 40 Meq In D5-1/2ns IV 110 mls/hr .Q9H6M KALEN Administration Lisinopril 20 mg 03/11/18 21:26 10/09/18 14:30 Zestril PO 20 mg DAILY KALEN Administration Metoprolol Tartrate 5 mg 03/10/18 11:15 03/11/18 11:13 Lopressor IVP 5 mg Q6H KALEN Administration Metoprolol Tartrate 50 mg 03/10/18 22:00 03/12/18 14:30 Lopressor PO 50 mg Q12 KALEN Administration Nicotine 1 patch 03/07/18 10:00 03/12/18 09:47 Nicoderm Cq TD 1 patch DAILY KALEN Administration Nitroglycerin 1 ea 03/09/18 20:35 03/11/18 05:14 Nitro-Bid 2% Oint TOP 1 ea Q8 PRN Administration Other Olanzapine 5 mg 03/12/18 14:40 Zyprexa Zydis PO HS PRN Agitation Protocol Ondansetron HCl 4 mg 03/06/18 19:02 03/11/18 22:00 Zofran Inj IVP 4 mg Q6 PRN Administration Nausea/Vomiting Pantoprazole Sodium 40 mg 03/06/18 16:15 03/12/18 09:45 Protonix Inj IVP 40 mg DAILY KALEN Administration - Patient Studies Lab Studies: Microbiology Studies 03/07/18 12:50 Blood Culture - Final Blood NO GROWTH AFTER 5 DAYS Gram Stain - Final TEST NOT PERFORMED Lab Studies 03/12/18 03/12/18 03/12/18 Range/Units 16:22 06:50 06:50 WBC 14.2 H D (4.5-11.0) 10^3/ul RBC 5.82 (3.5-6.1) 10^6/uL Hgb 12.7 L (14.0-18.0) g/dL Hct 39.5 L (42.0-52.0) % MCV 67.9 L (80.0-105.0) fl MCH 21.8 L (25.0-35.0) pg MCHC 32.2 (31.0-37.0) g/dl RDW 20.8 H (11.5-14.5) % Plt Count 234 (120.0-450.0) 10^3/uL Gran % 74.1 H (50.0-68.0) % Lymph % (Auto) 12.2 L (22.0-35.0) % Frio % (Auto) 12.0 H (1.0-6.0) % Eos % (Auto) 1.6 (1.5-5.0) % Baso % (Auto) 0.1 (0.0-3.0) % Gran # 10.53 H (1.4-6.5) Lymph # (Auto) 1.7 (1.2-3.4) Frio # (Auto) 1.7 H (0.1-0.6) Eos # (Auto) 0.2 (0.0-0.7) Baso # (Auto) 0.01 (0.0-2.0) K/mm3 Sodium 142 (132-148) mmol/L Potassium 3.0 L (3.6-5.0) mmol/L Chloride 111 H (98-107) mmol/L Carbon Dioxide 24 (21-33) mmol/L Anion Gap 10 (10-20) BUN 12 (7-21) mg/dL Creatinine 0.6 L (0.8-1.5) mg/dl Est GFR ( Amer) > 60 Est GFR (Non-Af Amer) > 60 POC Glucose (mg/dL) 140 H (65-110) mg/dL Random Glucose 137 H (70-110) mg/dL Lactic Acid (0.7-2.1) mmol/L Calcium 8.2 L (8.4-10.5) mg/dL Phosphorus 2.4 L (2.5-4.5) mg/dL Magnesium 1.8 (1.7-2.2) mg/dL Total Bilirubin 0.6 (0.2-1.3) mg/dL AST 59 D (17-59) U/L ALT 38 (7-56) U/L Alkaline Phosphatase 81 (38-126) U/L Total Creatine Kinase (35-230) U/L CK-MB (CK-2) (0.0-3.6) ng/mL CK-MB (CK-2) % Total Protein 6.8 (5.8-8.3) g/dL Albumin 3.3 (3.0-4.8) g/dL Globulin 3.6 gm/dL Albumin/Globulin Ratio 0.9 L (1.1-1.8) 03/11/18 03/11/18 03/11/18 Range/Units 22:31 19:27 19:27 WBC (4.5-11.0) 10^3/ul RBC (3.5-6.1) 10^6/uL Hgb (14.0-18.0) g/dL Hct (42.0-52.0) % MCV (80.0-105.0) fl MCH (25.0-35.0) pg MCHC (31.0-37.0) g/dl RDW (11.5-14.5) % Plt Count (120.0-450.0) 10^3/uL Gran % (50.0-68.0) % Lymph % (Auto) (22.0-35.0) % Frio % (Auto) (1.0-6.0) % Eos % (Auto) (1.5-5.0) % Baso % (Auto) (0.0-3.0) % Gran # (1.4-6.5) Lymph # (Auto) (1.2-3.4) Frio # (Auto) (0.1-0.6) Eos # (Auto) (0.0-0.7) Baso # (Auto) (0.0-2.0) K/mm3 Sodium (132-148) mmol/L Potassium (3.6-5.0) mmol/L Chloride (98-107) mmol/L Carbon Dioxide (21-33) mmol/L Anion Gap (10-20) BUN (7-21) mg/dL Creatinine (0.8-1.5) mg/dl Est GFR ( Amer) Est GFR (Non-Af Amer) POC Glucose (mg/dL) 130 H (65-110) mg/dL Random Glucose (70-110) mg/dL Lactic Acid 1.8 (0.7-2.1) mmol/L Calcium (8.4-10.5) mg/dL Phosphorus (2.5-4.5) mg/dL Magnesium (1.7-2.2) mg/dL Total Bilirubin (0.2-1.3) mg/dL AST (17-59) U/L ALT (7-56) U/L Alkaline Phosphatase (38-126) U/L Total Creatine Kinase 587 H (35-230) U/L CK-MB (CK-2) 2.9 (0.0-3.6) ng/mL CK-MB (CK-2) % Cancelled Total Protein (5.8-8.3) g/dL Albumin (3.0-4.8) g/dL Globulin gm/dL Albumin/Globulin Ratio (1.1-1.8) Laboratory Results - last 24 hr 03/11/18 03/11/18 03/11/18 19:27 19:27 22:31 WBC RBC Hgb Hct MCV MCH MCHC RDW Plt Count Gran % Lymph % (Auto) Frio % (Auto) Eos % (Auto) Baso % (Auto) Gran # Lymph # (Auto) Frio # (Auto) Eos # (Auto) Baso # (Auto) Sodium Potassium Chloride Carbon Dioxide Anion Gap BUN Creatinine Est GFR ( Amer) Est GFR (Non-Af Amer) POC Glucose (mg/dL) 130 H Random Glucose Lactic Acid 1.8 Calcium Phosphorus Magnesium Total Bilirubin AST ALT Alkaline Phosphatase Total Creatine Kinase 587 H CK-MB (CK-2) 2.9 CK-MB (CK-2) % Cancelled Total Protein Albumin Globulin Albumin/Globulin Ratio 03/12/18 03/12/18 03/12/18 06:50 06:50 16:22 WBC 14.2 H D RBC 5.82 Hgb 12.7 L Hct 39.5 L MCV 67.9 L MCH 21.8 L MCHC 32.2 RDW 20.8 H Plt Count 234 Gran % 74.1 H Lymph % (Auto) 12.2 L Frio % (Auto) 12.0 H Eos % (Auto) 1.6 Baso % (Auto) 0.1 Gran # 10.53 H Lymph # (Auto) 1.7 Frio # (Auto) 1.7 H Eos # (Auto) 0.2 Baso # (Auto) 0.01 Sodium 142 Potassium 3.0 L Chloride 111 H Carbon Dioxide 24 Anion Gap 10 BUN 12 Creatinine 0.6 L Est GFR ( Amer) > 60 Est GFR (Non-Af Amer) > 60 POC Glucose (mg/dL) 140 H Random Glucose 137 H Lactic Acid Calcium 8.2 L Phosphorus 2.4 L Magnesium 1.8 Total Bilirubin 0.6 AST 59 D ALT 38 Alkaline Phosphatase 81 Total Creatine Kinase CK-MB (CK-2) CK-MB (CK-2) % Total Protein 6.8 Albumin 3.3 Globulin 3.6 Albumin/Globulin Ratio 0.9 L Critical Care Progress Note - Nutrition Nutrition: Nutrition Category Date Time Status Liquid Diet [DIET] Diets 03/12/18 Lunch Ordered Attending/Attestation - Attestation I have personally seen and examined this patient.: Yes I have fully participated in the care of the patient.: Yes I have reviewed all pertinent clinical information: Yes Notes (Text): 03/12/18 17:[address] Jara note
--- NOTE | 2018-03-12 17:16 | CP.PCM.PN ---
<Tulio Cordova - Last Filed: 03/12/18 17:12> Subjective - Date & Time of Evaluation Date of Evaluation: 03/12/18 Time of Evaluation: 07:00 - Subjective Subjective: Tulio Cordova DO PGY1 Internal Medicine [employer] - Hospital Progress Note Patient was seen and examined by bedside today. He is still altered and nonverbal. Per nursing staff, no acute overnight events. Patient refusing PO intake. Resistant hypertension improving s/p cardene drip and enalaprit 1.25mg IVP given yesterday. Patient answering yes/no questions by shaking his head; He denies abdominal pain, chest pain, shortness of breath. Remainder of 12 system ROS is limited. Objective - Vital Signs/Intake and Output Vital Signs (last 24 hours): Temp Pulse Resp BP Pulse Ox 98.3 F 80 18 164/87 H 95 03/12/18 00:00 03/12/18 15:30 03/12/18 16:03 03/12/18 14:00 03/12/18 15:54 Intake and Output: 03/12/18 03/12/18 06:59 18:59 Intake Total 418 Output Total 335 Balance 83 - Medications Medications: Current Medications Albuterol/Ipratropium (Duoneb 3 Mg/0.5 Mg (3 Ml) Ud) 3 ml IH [id number] PRN PRN Reason: Wheezing Clonidine HCl (Catapres) 0.2 mg PO TID [facility] Last Admin: 03/12/18 14:30 Dose: 0.2 mg Clonidine HCl (Catapres-Tts2 0.2 Mg/24 Hr) 1 patch TD Q7D@1000 [facility] Piperacillin Sod/Tazobactam Sod (Zosyn 3.375 In Ns 100ml) 100 mls @ 200 mls/hr IVPB Q6 [facility]; Protocol Stop: 03/16/18 14:31 Last Admin: 03/12/18 14:03 Dose: 200 mls/hr Potassium Chloride/Dextrose/Sod Cl (Potassium Chl 40 Meq In D5-1/2ns) 1,000 mls @ 110 mls/hr IV .Q9H6M [facility] Last Admin: 03/12/18 15:49 Dose: 110 mls/hr Lisinopril (Zestril) 20 mg PO DAILY [facility] Last Admin: 03/12/18 14:30 Dose: 20 mg Metoprolol Tartrate (Lopressor) 5 mg IVP Q6H [facility] Last Admin: 03/11/18 11:13 Dose: 5 mg Metoprolol Tartrate (Lopressor) 50 mg PO Q12 [facility] Last Admin: 03/12/18 14:30 Dose: 50 mg Nicotine (Nicoderm Cq) 1 patch TD DAILY [facility] Last Admin: 03/12/18 09:47 Dose: 1 patch Nitroglycerin (Nitro-Bid 2% Oint) 1 ea TOP Q8 PRN PRN Reason: Other Last Admin: 03/11/18 05:14 Dose: 1 ea Olanzapine (Zyprexa Zydis) 5 mg PO HS PRN; Protocol PRN Reason: Agitation Ondansetron HCl (Zofran Inj) 4 mg IVP Q6 PRN PRN Reason: Nausea/Vomiting Last Admin: 03/11/18 22:00 Dose: 4 mg Pantoprazole Sodium (Protonix Inj) 40 mg IVP DAILY [facility] Last Admin: 03/12/18 09:45 Dose: 40 mg - Labs Labs: 03/12/18 06:50 03/12/18 06:50 PT 14.4 SECONDS (9.4-12.5) H 03/06/18 21:51 INR 1.26 03/06/18 21:51 APTT 29.2 Seconds (25.1-36.5) 03/06/18 21:51 - Constitutional Appears: Confused, Other (Sleeping on side; Mildly more alert today; partially responding to comands ) - Head Exam Head Exam: ATRAUMATIC, NORMOCEPHALIC - ENT Exam ENT Exam: Mucous Membranes Moist - Respiratory Exam Respiratory Exam: Clear to Ausculation Bilateral, NORMAL BREATHING PATTERN - Cardiovascular Exam Cardiovascular Exam: REGULAR RHYTHM, RRR, +S1, +S2. absent: Murmur - GI/Abdominal Exam GI & Abdominal Exam: Soft, Normal Bowel Sounds. absent: Tenderness - Neurological Exam Additional comments: Patient is arousable to voice however he does not respond verbally. He does respond w/ shaking his head. He does follow limited comands. He is moving extremities past midline; 5/5 gross strength in flexion/extension of upper and lower extremities. Assessment and Plan - Assessment and Plan (Free Text) Assessment: 68 y/o M with PMHx HTN, HLD, CVA with left residual weakness, COPD, cardiac arrest s/p spinal surgery, chronic back pain presented to [facility] [place] 03/06 complaining of abdominal pain. Subsequently found to have perforated duodenal ulcer. POD#6 s/p Issa Patch repair of ulcer. Patient is still altered, he appears to be lethargic and nonverbal however he is slightly more alert/ responsive to commands today. Blood pressure improving. Plan: AMS: ICU / Post op Delerium vs. Opiate withdrawal vs. Toxic metabolic encephalopathy CT Head wnl Neurology following: R/O Seizure EEG + MRI Pending Psych reccs: Zyprexa HS, Can use Geodon/ Ativan PRN however we will try to avoid We will DC Dilaudid 1 mg IV Q3H PRN today and reassess patient completely off of opiates Accelerated Hypertension: Echo pending C/w Cardene Drip + Clonidine 0.2mg PO TID Lopressor 50 Q12 Lisinopril 10 QD Cardiology Following, appreciate reccs Perforated Duodenal Ulcer - s/p Issa patch repair of ulcer Serial Abodminal exams Pain management as above Surgery onboard following Patient tolerating CLD at this time Diet: Clear Liquid Diet GI ppx: Protonix 40 mg IV daily VTE ppx: SCDs Code status: full code Patient was seen, discussed, and examined w/ attending physician Dr. Shanta Cordova DO PGY1 - Internal Medicine [employer] - Pager [phone] <Shanta Cordova R - Last Filed: 03/17/18 16:37> Objective - Vital Signs/Intake and Output Vital Signs (last 24 hours): Temp Pulse Resp BP Pulse Ox 97.8 F 58 L 20 127/85 98 03/17/18 14:00 03/17/18 14:00 03/17/18 14:00 03/17/18 14:00 03/17/18 14:00 Intake and Output: 03/17/18 03/17/18 06:59 18:59 Intake Total 180 720 Output Total 1 200 Balance 179 520 - Medications Medications: Current Medications Albuterol/Ipratropium (Duoneb 3 Mg/0.5 Mg (3 Ml) Ud) 3 ml IH [id number] PRN PRN Reason: Wheezing Carvedilol (Coreg) 12.5 mg PO BID [facility] Last Admin: 03/17/18 10:27 Dose: 12.5 mg Clonidine HCl (Catapres-Tts3 0.3 Mg/24 Hr) 1 patch TD Q7D@1000 [facility] Last Admin: 03/17/18 10:28 Dose: 1 patch Enoxaparin Sodium (Lovenox) 40 mg SC DAILY [facility]; Protocol Last Admin: 03/17/18 10:25 Dose: 40 mg Hydrochlorothiazide (Hydrodiuril) 25 mg PO DAILY [facility] Last Admin: 03/17/18 10:25 Dose: 25 mg Lisinopril (Zestril) 40 mg PO DAILY [facility] Last Admin: 03/17/18 10:28 Dose: 40 mg Metoprolol Tartrate (Lopressor) 5 mg IVP Q6H [facility] Last Admin: 03/11/18 11:13 Dose: 5 mg Nicotine (Nicoderm Cq) 1 patch TD DAILY [facility] Last Admin: 03/17/18 10:26 Dose: 1 patch Nitroglycerin (Nitro-Bid 2% Oint) 1 ea TOP Q8 PRN PRN Reason: Other Last Admin: 03/14/18 14:50 Dose: 1 ea Olanzapine (Zyprexa Zydis) 5 mg PO HS PRN; Protocol PRN Reason: Agitation Last Admin: 03/16/18 21:56 Dose: 5 mg Ondansetron HCl (Zofran Inj) 4 mg IVP Q6 PRN PRN Reason: Nausea/Vomiting Last Admin: 03/11/18 22:00 Dose: 4 mg Oxycodone/Acetaminophen (Percocet 5/325 Mg Tab) 1 tab PO Q4H PRN PRN Reason: Pain, severe (8-10) Stop: 03/19/18 16:33 Last Admin: 03/17/18 06:45 Dose: 1 tab Pantoprazole Sodium (Protonix Ec Tab) 40 mg PO ACB [facility] Last Admin: 03/17/18 08:14 Dose: 40 mg Primidone (Mysoline) 250 mg PO TID [facility] Last Admin: 03/17/18 10:25 Dose: 250 mg - Labs Labs: 03/17/18 09:00 03/17/18 09:00 PT 14.4 SECONDS (9.4-12.5) H 03/06/18 21:51 INR 1.26 03/06/18 21:51 APTT 29.2 Seconds (25.1-36.5) 03/06/18 21:51 Attending/Attestation - Attestation I have personally seen and examined this patient.: Yes I have fully participated in the care of the patient.: Yes I have reviewed all pertinent clinical information, including history, physical exam and plan: Yes Notes (Text): Patient seen and examined by me in dialysis at 9:40AM with resident 03/12/18. C ase including HPI, physical exam, and assessment and plan discussed with resident. Agree with above with following additions/corrections. Patient is a 68-year-old male with past medical history significant for hypertension, hyperlipidemia, COPD, cardiac arrest, CVA, and chronic back pain that presented to the emergency room with epigastric abdominal pain. Patient is still altered. Only answering questions by nodding his head, not verbalizing any answers. Patient denies chest pain and shortness of breath. No abdominal pain. No nausea or vomiting. Patient is on one to one. Patient afebrile. No new issues overnight per nurse. Unable to obtain any other history from patient secondary to altered mental status. Physical exam: General: Sleepy but arousable, lying in bed in no acute distress HEENT: Normocephalic, atraumatic. Patient is not opening eyes or mouth when asked to, unable to examine. Neck is supple. Cardiovascular: Normal S1, S2. No murmurs, rubs, or gallops appreciated Pulmonary: Normal respiratory effort. No rhonchi, rales, or wheezing appreciated. Gastrointestinal: Soft, nondistended. Nontender. Dressing clean, dry, and intact. Positive bowel sounds all 4 quadrants, no guarding. Musculoskeletal: Moves all extremities. Trace lower extremity edema. Central nervous system: Sleepy but arousable. Only answering questions by nodding head. Dermatologic: Skin warm and dry. Assessment and plan: Patient is a 68-year-old male with past medical history significant for hypertension, hyperlipidemia, COPD, cardiac arrest, CVA, and chronic back pain that presented to the emergency room with epigastric abdominal pain. 1. Altered mental status. Neurology following, recommendations appreciated. Pending MRI brain and EEG. Head CT per radiologist showed no acute intracranial findings. ?Secondary to opiate withdrawal. On dilaudid here. Patient on hydrocodone and Percocet at home chronically for pain. Psychiatry recommendations appreciated. Continue one to one. 2. Accelerated hypertension. Cardiology following, recommendations appreciated. Nephrology following, recommendations appreciated. Continue nicardipine drip. Continue clonidine. Continue Lisinopril. 2D echo pending 3. Hypokalemia. Continue to replace potassium. Follow up repeat labs in AM 4. Hypophosphatemia. Improved. Continue to replace phosphorus. Follow up repeat labs in AM. 5. Perforated duodenal ulcer. S/P exploratory laparotomy with repair with issa patch 03/06/18. Continue with pain management and local wound care. Blood culture with not growth. ID following, recommendations appreciated. Continue with antibiotics. CTA chest 03/06/18 per radiologist showed a small amount of free air beneath the liver and right hemidiphragm, source of free air appears to be in the stomach, stomach abnormally thickened and edematous and there is in flammation of the surrounding fat planes. Surgery following, recommendations appreciated. 6. Leukocytosis. Resolved. Continue to monitor. Continue Zosyn 7. Chronic back pain. Patient on dilaudid here. On chronic hydrocodone and Percocet at home. 8. History of COPD. Not in acute exacerbation. Continue nebulizer treatments as needed. 9. DVT prophylaxis. Lovenox Case discussed in detail with patients at bedside regarding current diagnosis and treatment plan. All questions answered.
[2018-03-12] MEDS: HYDROmorphone 1 mg/ml ISec IVP PRN ×2 (19:51→23:57)
[2018-03-12] MEDS: OLANZapine 5 mg Disintegrating Tab PO PRN (22:20)
--- NOTE | 2018-03-12 22:32 | CP.PCM.PN ---
Subjective - Date & Time of Evaluation Date of Evaluation: 03/12/18 Time of Evaluation: 11:00 - Subjective Subjective: Patient more communicative today; no longer agitated; Objective - Vital Signs/Intake and Output Vital Signs (last 24 hours): Temp Pulse Resp BP Pulse Ox 98.3 F 71 9 L 113/75 96 03/12/18 00:00 03/12/18 21:30 03/12/18 21:30 03/12/18 21:00 03/12/18 21:00 Intake and Output: 03/12/18 03/13/18 18:59 06:59 Intake Total 2838 Output Total 335 Balance 2503 - Medications Medications: Current Medications Albuterol/Ipratropium (Duoneb 3 Mg/0.5 Mg (3 Ml) Ud) 3 ml IH [id number] PRN PRN Reason: Wheezing Clonidine HCl (Catapres) 0.2 mg PO TID [facility] Last Admin: 03/12/18 14:30 Dose: 0.2 mg Clonidine HCl (Catapres-Tts2 0.2 Mg/24 Hr) 1 patch TD Q7D@1000 [facility] Hydromorphone HCl (Dilaudid) 1 mg IVP Q3 PRN PRN Reason: Agitation Last Admin: 03/12/18 19:51 Dose: 1 mg Piperacillin Sod/Tazobactam Sod (Zosyn 3.375 In Ns 100ml) 100 mls @ 200 mls/hr IVPB Q6 [facility]; Protocol Stop: 03/16/18 14:31 Last Admin: 03/12/18 17:28 Dose: 200 mls/hr Potassium Chloride/Dextrose/Sod Cl (Potassium Chl 40 Meq In D5-1/2ns) 1,000 mls @ 110 mls/hr IV .Q9H6M [facility] Last Admin: 03/12/18 19:06 Dose: 110 mls/hr Lisinopril (Zestril) 20 mg PO DAILY [facility] Last Admin: 03/12/18 14:30 Dose: 20 mg Metoprolol Tartrate (Lopressor) 5 mg IVP Q6H [facility] Last Admin: 03/11/18 11:13 Dose: 5 mg Metoprolol Tartrate (Lopressor) 50 mg PO Q12 [facility] Last Admin: 03/12/18 22:20 Dose: 50 mg Nicotine (Nicoderm Cq) 1 patch TD DAILY [facility] Last Admin: 03/12/18 09:47 Dose: 1 patch Nitroglycerin (Nitro-Bid 2% Oint) 1 ea TOP Q8 PRN PRN Reason: Other Last Admin: 03/11/18 05:14 Dose: 1 ea Olanzapine (Zyprexa Zydis) 5 mg PO HS PRN; Protocol PRN Reason: Agitation Last Admin: 03/12/18 22:20 Dose: 5 mg Ondansetron HCl (Zofran Inj) 4 mg IVP Q6 PRN PRN Reason: Nausea/Vomiting Last Admin: 03/11/18 22:00 Dose: 4 mg Pantoprazole Sodium (Protonix Inj) 40 mg IVP DAILY [facility] Last Admin: 03/12/18 09:45 Dose: 40 mg - Labs Labs: 03/12/18 06:50 03/12/18 06:50 PT 14.4 SECONDS (9.4-12.5) H 03/06/18 21:51 INR 1.26 03/06/18 21:51 APTT 29.2 Seconds (25.1-36.5) 03/06/18 21:51 - Constitutional Appears: Non-toxic, No Acute Distress - Eye Exam Eye Exam: Normal appearance - Respiratory Exam Respiratory Exam: Clear to Ausculation Bilateral. absent: Respiratory Distress - Cardiovascular Exam Cardiovascular Exam: RRR, +S1, +S2 - GI/Abdominal Exam GI & Abdominal Exam: Soft. absent: Distended, Tenderness - Extremities Exam Additional comments: no leg edema; - Neurological Exam Neurological Exam: Alert, Awake Additional comments: oriented to place - Psychiatric Exam Psychiatric exam: Normal Mood. absent: Agitated - Skin Skin Exam: Warm. absent: Cyanosis Assessment and Plan (1) Hypertensive urgency Assessment & Plan: BP better controlled after starting PO meds; holding clonidine as patient has patch; can remove patch and then start clonidine 0.1 mg tid 8 hrs after removal; continue rest of meds; Status: Acute
[2018-03-13] MEDS: Piperacillin/Tazobact 3.375 gm 100 ML IVPB SCH ×5 (00:05→23:30)
[2018-03-13] MEDS: HYDROmorphone 1 mg/ml ISec IVP PRN ×4 (06:14→21:54)
[2018-03-13 07:49] LABS: BASO # 0.01 K/mm3 (0.0-2.0); BASO % 0.1 % (0.0-3.0); EOS # 0.4 (0.0-0.7); EOS % 3.7 % (1.5-5.0); GRAN # 6.34 (1.4-6.5); GRAN % 66.6 % (50.0-68.0); HEMOGLOBIN 11.6 g/dL (14.0-18.0); LYMPH # 1.5 (1.2-3.4); LYMPH % 15.8 % (22.0-35.0); MEAN CELL VOLUME 68.1 fl (80.0-105.0); MEAN CORPUSCULAR HEMOGLOBIN 21.9 pg (25.0-35.0); MEAN CORPUSCULAR HGB CONC 32.2 g/dl (31.0-37.0); MONO # 1.3 (0.1-0.6); MONO % 13.8 % (1.0-6.0); PLATELET COUNT 245 10^3/uL (120.0-450.0); RBC 5.29 10^6/uL (3.5-6.1); RED CELL DISTRIBUTION WIDTH 20.7 % (11.5-14.5); WHITE BLOOD COUNT 9.5 10^3/ul (4.5-11.0)
[2018-03-13 08:05] LABS: ALB/GLOB RATIO 0.8 (1.1-1.8); ALBUMIN 3.1 g/dL (3.0-4.8); ALT/SGPT 51 U/L (7-56); AST/SGOT 72 U/L (17-59); BLOOD UREA NITROGEN 13 mg/dL (7-21); CALCIUM 8.1 mg/dL (8.4-10.5); GFR NON-AFRICAN AMERICAN > 60
[2018-03-13] MEDS: Potassium Chl 40 mEq in D5-1/2 1,000 ML IV SCH (09:35)
--- NOTE | 2018-03-13 09:43 | CP.PCM.PN ---
<Sandeep Ramsey - Last Filed: 03/13/18 13:31> Subjective - Date & Time of Evaluation Date of Evaluation: 03/13/18 Time of Evaluation: 07:00 - Subjective Subjective: Sandeep Ramsey DO, PGY-2: Nephrology Progress Note for Dr. Hinson Patient seen and examined at bedside with significant other present. Patient is drowsy, responds to questions half the time. He denies chest pain, nausea, headache, or visual disturbances. Objective - Vital Signs/Intake and Output Vital Signs (last 24 hours): Temp Pulse Resp BP Pulse Ox 98.7 F 60 21 121/82 97 03/13/18 04:00 03/13/18 06:00 03/13/18 04:00 03/13/18 04:00 03/13/18 04:00 Intake and Output: 03/13/18 03/13/18 06:59 18:59 Intake Total 1560 Output Total 100 Balance 1460 - Medications Medications: Current Medications Albuterol/Ipratropium (Duoneb 3 Mg/0.5 Mg (3 Ml) Ud) 3 ml IH [id number] PRN PRN Reason: Wheezing Clonidine HCl (Catapres) 0.1 mg PO TID [facility] Hydromorphone HCl (Dilaudid) 1 mg IVP Q3 PRN PRN Reason: Agitation Last Admin: 03/13/18 06:14 Dose: 1 mg Piperacillin Sod/Tazobactam Sod (Zosyn 3.375 In Ns 100ml) 100 mls @ 200 mls/hr IVPB Q6 [facility]; Protocol Stop: 03/16/18 14:31 Last Admin: 03/13/18 06:15 Dose: 200 mls/hr Potassium Chloride/Dextrose/Sod Cl (Potassium Chl 40 Meq In D5-1/2ns) 1,000 mls @ 110 mls/hr IV .Q9H6M [facility] Last Admin: 03/12/18 19:06 Dose: 110 mls/hr Lisinopril (Zestril) 20 mg PO DAILY [facility] Last Admin: 03/12/18 14:30 Dose: 20 mg Metoprolol Tartrate (Lopressor) 5 mg IVP Q6H [facility] Last Admin: 03/11/18 11:13 Dose: 5 mg Metoprolol Tartrate (Lopressor) 50 mg PO Q12 [facility] Last Admin: 03/12/18 22:20 Dose: 50 mg Nicotine (Nicoderm Cq) 1 patch TD DAILY [facility] Last Admin: 03/12/18 09:47 Dose: 1 patch Nitroglycerin (Nitro-Bid 2% Oint) 1 ea TOP Q8 PRN PRN Reason: Other Last Admin: 03/11/18 05:14 Dose: 1 ea Olanzapine (Zyprexa Zydis) 5 mg PO HS PRN; Protocol PRN Reason: Agitation Last Admin: 03/12/18 22:20 Dose: 5 mg Ondansetron HCl (Zofran Inj) 4 mg IVP Q6 PRN PRN Reason: Nausea/Vomiting Last Admin: 03/11/18 22:00 Dose: 4 mg Pantoprazole Sodium (Protonix Inj) 40 mg IVP DAILY [facility] Last Admin: 03/12/18 09:45 Dose: 40 mg - Labs Labs: 03/13/18 07:40 03/13/18 07:40 PT 14.4 SECONDS (9.4-12.5) H 03/06/18 21:51 INR 1.26 03/06/18 21:51 APTT 29.2 Seconds (25.1-36.5) 03/06/18 21:51 - Constitutional Appears: Other (fatigued) - Head Exam Head Exam: ATRAUMATIC, NORMOCEPHALIC - Eye Exam Eye Exam: EOMI, Normal appearance - ENT Exam ENT Exam: Mucous Membranes Moist - Neck Exam Neck Exam: Normal Inspection - Respiratory Exam Respiratory Exam: Clear to Ausculation Bilateral, NORMAL BREATHING PATTERN. absent: Accessory Muscle Use - Cardiovascular Exam Cardiovascular Exam: RRR, +S1, +S2 - GI/Abdominal Exam GI & Abdominal Exam: Soft - Extremities Exam Extremities Exam: Normal Inspection. absent: Calf Tenderness - Neurological Exam Neurological Exam: Awake - Psychiatric Exam Psychiatric exam: Normal Affect, Normal Mood - Skin Skin Exam: Dry, Intact, Normal Color, Warm Assessment and Plan - Assessment and Plan (Free Text) Assessment: 68 year old male with a past medical history of hypertension, dyslipidemia, COPD, cardiac arrest s/p attempted spinal surgery (10/23/14), CVA, chronic back pain presented to ED with epigastric pain and found to have perforated duodenal ulcer requiring exploratory laparatomy with Issa patch placment on 03/06/2018. He has had altered mental status since surgery that has been improved starting yesterday, based on prior records and ICU team. Nephrology was consulted for uncontrolled hypertension. Patient should be on Clonidine 0.1 TID or Clonidine patch. Cound consider hydralazine 10 mg TID if plan to take patient off Clonidine as this medication causes significant rebound hypertension and results in labile blood pressure. We gale continue to follow with you Case was reviewed and discussed with attending physician, Dr. Hinson <Pedro Hinson - Last Filed: 03/14/18 08:27> Objective - Vital Signs/Intake and Output Vital Signs (last 24 hours): Temp Pulse Resp BP Pulse Ox 98.8 F 68 18 154/90 H 97 03/14/18 06:00 03/14/18 06:55 03/14/18 06:00 03/14/18 06:55 03/14/18 06:00 Intake and Output: 03/14/18 03/14/18 06:59 18:59 Output Total 400 Balance -400 - Medications Medications: Current Medications Albuterol/Ipratropium (Duoneb 3 Mg/0.5 Mg (3 Ml) Ud) 3 ml IH [id number] PRN PRN Reason: Wheezing Enoxaparin Sodium (Lovenox) 40 mg SC DAILY [facility]; Protocol Hydromorphone HCl (Dilaudid) 1 mg IVP Q3 PRN PRN Reason: Pain, severe (8-10) Last Admin: 03/14/18 05:28 Dose: 1 mg Piperacillin Sod/Tazobactam Sod (Zosyn 3.375 In Ns 100ml) 100 mls @ 200 mls/hr IVPB Q6 [facility]; Protocol Stop: 03/16/18 14:31 Last Admin: 03/14/18 05:37 Dose: 200 mls/hr Lisinopril (Zestril) 40 mg PO DAILY [facility] Metolazone (Zaroxolyn) 5 mg PO DAILY [facility] Metoprolol Tartrate (Lopressor) 5 mg IVP Q6H [facility] Last Admin: 03/11/18 11:13 Dose: 5 mg Metoprolol Tartrate (Lopressor) 50 mg PO Q12 [facility] Last Admin: 03/14/18 05:28 Dose: 50 mg Nicotine (Nicoderm Cq) 1 patch TD DAILY [facility] Last Admin: 03/13/18 10:08 Dose: 1 patch Nitroglycerin (Nitro-Bid 2% Oint) 1 ea TOP Q8 PRN PRN Reason: Other Last Admin: 03/11/18 05:14 Dose: 1 ea Olanzapine (Zyprexa Zydis) 5 mg PO HS PRN; Protocol PRN Reason: Agitation Last Admin: 03/12/18 22:20 Dose: 5 mg Ondansetron HCl (Zofran Inj) 4 mg IVP Q6 PRN PRN Reason: Nausea/Vomiting Last Admin: 03/11/18 22:00 Dose: 4 mg Pantoprazole Sodium (Protonix Inj) 40 mg IVP DAILY [facility] Last Admin: 03/13/18 10:09 Dose: 40 mg Primidone (Mysoline) 250 mg PO TID [facility] Last Admin: 03/13/18 17:25 Dose: 250 mg - Labs Labs: 03/14/18 06:20 03/14/18 06:20 PT 14.4 SECONDS (9.4-12.5) H 03/06/18 21:51 INR 1.26 03/06/18 21:51 APTT 29.2 Seconds (25.1-36.5) 03/06/18 21:51 Assessment and Plan (1) Hypertensive urgency Status: Acute Attending/Attestation - Attestation I have personally seen and examined this patient.: Yes I have fully participated in the care of the patient.: Yes I have reviewed all pertinent clinical information, including history, physical exam and plan: Yes Notes (Text): Patient seen and examined; I agree with the resident's note as above with the following additions/edits: Patient being followed for uncontrolled htn, improved after starting PO meds; has clonidine patch on (last order indicates 0.3 mg started on 03/10); started on lisinopril 20 mg and metoprolol 50 mg bid; If B-sammy needed, consider switching to coreg for better anti-htn effect; otherwise, continue the rest of meds, will monitor;
--- NOTE | 2018-03-13 11:39 | PCM.EEG ---
Electroencephalogram Report - Electroencephalogram Report Procedure Date: 03/12/18 Interpretation: Inidication; alter mental status. Technical Information: This was a 16-channel EEG, 1-channel EKG , performed using an [employer] machine., electrodes were applied according to the 10/20 international placement system, impedances were less than 5 K Ohm. EEG Detail: During resting wakefulness there was a symmetric posterior dominant rhythm at 7 Hz, 30-50 uV, which was reactive to eye opening and closing. Drowsiness was associated with fragmentation of the posterior dominant rhythm and with slow roving eye movements. Sleep was not seen. There was intermittent attenuated right hemispheric 3 to 4 Hz slowing seen. . Hyperventilation and Photic stimualtion were not performed. ECG was associated with a normal sinus rhythm. I Impression: . This is an abnormal EEG record that demonstrate the presence of a mild to moderate non specific diffuse disturbance of cortical activity, this is in keeping with a diffuse khalil matter dysfunction. These findings do not support a specific etiology. Findings are also in keeping with a focal cortical abnormality involving the right hemisphere. No seizures seen .
--- NOTE | 2018-03-13 12:29 | PN ---
DATE: 03/13/2018 SUBJECTIVE: The patient is seen and examined at bedside. He is comfortable, talks full sentences, not in respiratory or otherwise distress, alert, awake, a little bit confused, sitting in the chair. PHYSICAL EXAMINATION: VITAL SIGNS: Temperature 98.7, heart rate 60, blood pressure 121/82, respiratory rate 21, oxygen saturation 97%. ENT: Head and neck atraumatic. LUNGS: Clear to auscultation bilaterally. HEART: Regular rate and rhythm. S1, S2 normal. ABDOMEN: Soft, nontender and nondistended. Wound appears to be okay. MUSCULOSKELETAL: No C/C/E. NEURO: The patient moves all extremities spontaneously. SKIN: Moist. PSYCH: The patient is alert, awake. LABORATORY DATA: WBC 9.5, hemoglobin 11.6, platelet count 245. Sodium 141, potassium 3.6, chloride 114, carbon dioxide 22, BUN 13, creatinine 0.6, glucose 128, AST 72, ALT 51, total bilirubin 0.7. MEDICATIONS: DuoNeb every 6 hours p.r.n., Dilaudid p.r.n., lisinopril 20 mg p.o. daily, metoprolol 50 mg p.o. every 12, nicotine patch, nitroglycerin p.r.n., Zyprexa p.r.n., Zofran p.r.n., Protonix daily, potassium supplementation, primidone, Zosyn. ASSESSMENT AND PLAN: This is a 68-year-old gentleman with status post exploratory laparotomy with Issa patch, who developed postoperative delirium, which resolved by now. He is on p.o. antihypertensive medication. He is hemodynamically stable. He is protecting his airways. He is not in respiratory or otherwise distress. His wound is healing okay. His drainage was removed yesterday by surgical service. His abdominal exam is benign. We will continue target euvolemia, euglycemia, normothermia and oxygen saturation more than 90%. We will continue with deep venous thrombosis, gastrointestinal prophylaxis. ccm time 40 min Boris Jara MD [facility] # [id number] [place]
--- NOTE | 2018-03-13 12:34 | CP.PCM.PN ---
Subjective - Date & Time of Evaluation Date of Evaluation: 03/13/18 Time of Evaluation: 10:05 - Subjective Subjective: No fevers, not in distress but still has bouts of confusion. Objective - Vital Signs/Intake and Output Vital Signs (last 24 hours): Temp Pulse Resp BP Pulse Ox 98.7 F 64 21 121/82 97 03/13/18 04:00 03/13/18 04:00 03/13/18 04:00 03/13/18 04:00 03/13/18 04:00 Intake and Output: 03/12/18 03/13/18 18:59 06:59 Intake Total 2838 Output Total 335 Balance 2503 - Medications Medications: Current Medications Albuterol/Ipratropium (Duoneb 3 Mg/0.5 Mg (3 Ml) Ud) 3 ml IH [id number] PRN PRN Reason: Wheezing Clonidine HCl (Catapres) 0.2 mg PO TID [facility] Last Admin: 03/12/18 14:30 Dose: 0.2 mg Clonidine HCl (Catapres-Tts2 0.2 Mg/24 Hr) 1 patch TD Q7D@1000 [facility] Hydromorphone HCl (Dilaudid) 1 mg IVP Q3 PRN PRN Reason: Agitation Last Admin: 03/13/18 06:14 Dose: 1 mg Piperacillin Sod/Tazobactam Sod (Zosyn 3.375 In Ns 100ml) 100 mls @ 200 mls/hr IVPB Q6 KALEN; Protocol Stop: 03/16/18 14:31 Last Admin: 03/13/18 06:15 Dose: 200 mls/hr Potassium Chloride/Dextrose/Sod Cl (Potassium Chl 40 Meq In D5-1/2ns) 1,000 mls @ 110 mls/hr IV .Q9H6M [facility] Last Admin: 03/12/18 19:06 Dose: 110 mls/hr Lisinopril (Zestril) 20 mg PO DAILY [facility] Last Admin: 03/12/18 14:30 Dose: 20 mg Metoprolol Tartrate (Lopressor) 5 mg IVP Q6H [facility] Last Admin: 03/11/18 11:13 Dose: 5 mg Metoprolol Tartrate (Lopressor) 50 mg PO Q12 [facility] Last Admin: 03/12/18 22:20 Dose: 50 mg Nicotine (Nicoderm Cq) 1 patch TD DAILY [facility] Last Admin: 03/12/18 09:47 Dose: 1 patch Nitroglycerin (Nitro-Bid 2% Oint) 1 ea TOP Q8 PRN PRN Reason: Other Last Admin: 03/11/18 05:14 Dose: 1 ea Olanzapine (Zyprexa Zydis) 5 mg PO HS PRN; Protocol PRN Reason: Agitation Last Admin: 03/12/18 22:20 Dose: 5 mg Ondansetron HCl (Zofran Inj) 4 mg IVP Q6 PRN PRN Reason: Nausea/Vomiting Last Admin: 03/11/18 22:00 Dose: 4 mg Pantoprazole Sodium (Protonix Inj) 40 mg IVP DAILY [facility] Last Admin: 03/12/18 09:45 Dose: 40 mg - Labs Labs: 03/12/18 06:50 03/12/18 06:50 PT 14.4 SECONDS (9.4-12.5) H 03/06/18 21:51 INR 1.26 03/06/18 21:51 APTT 29.2 Seconds (25.1-36.5) 03/06/18 21:51 - Constitutional Appears: No Acute Distress, Chronically Ill - Head Exam Head Exam: NORMAL INSPECTION - Respiratory Exam Respiratory Exam: Decreased Breath Sounds - Cardiovascular Exam Cardiovascular Exam: +S1, +S2 - GI/Abdominal Exam GI & Abdominal Exam: Soft. absent: Tenderness Assessment and Plan - Assessment and Plan (Free Text) Plan: Assessment perforated duodenal ulcer S/P ex-lap and repair 03/06/2018 encephalopathy, R/O toxic-metabolic history of SIRS after cardiac arrest after aborted discectomy HTN Chronic back pain dyslipidemia COPD history of seizures history of CVA Plan abdominal tenderness is decreased but will continue Zosyn for now and will cont inue to see how his diet is progressed and how his abdominal pain is follow up further recommendations of surgery follow up recommendations of Neurology regarding confusion will continue to monitor clinically
--- NOTE | 2018-03-13 12:34 | CP.PCM.PN ---
Subjective - Date & Time of Evaluation Date of Evaluation: 03/13/18 Time of Evaluation: 12:30 - Subjective Subjective: General Surgery Progress Note for Dr. Torres This 68M was seen and examined this AM at bedside. No acute events reported overnight. Patient's cognition is improved he denies abdominal pain. Passing gas and moving bowels ant tolerating clears. Dressing and packing changed this AM during rounds. Objective - Vital Signs/Intake and Output Vital Signs (last 24 hours): Temp Pulse Resp BP Pulse Ox 98.7 F 64 16 143/80 95 03/13/18 04:00 03/13/18 12:00 03/13/18 12:00 03/13/18 12:00 03/13/18 12:00 Intake and Output: 03/13/18 03/13/18 06:59 18:59 Intake Total 1560 Output Total 100 Balance 1460 - Medications Medications: Current Medications Albuterol/Ipratropium (Duoneb 3 Mg/0.5 Mg (3 Ml) Ud) 3 ml IH [id number] PRN PRN Reason: Wheezing Clonidine HCl (Catapres) 0.1 mg PO TID [facility] Hydromorphone HCl (Dilaudid) 1 mg IVP Q3 PRN PRN Reason: Pain, severe (8-10) Piperacillin Sod/Tazobactam Sod (Zosyn 3.375 In Ns 100ml) 100 mls @ 200 mls/hr IVPB Q6 [facility]ALEN; Protocol Stop: 03/16/18 14:31 Last Admin: 03/13/18 06:15 Dose: 200 mls/hr Potassium Chloride/Dextrose/Sod Cl (Potassium Chl 40 Meq In D5-1/2ns) 1,000 mls @ 110 mls/hr IV .Q9H6M [facility] Last Admin: 03/13/18 09:35 Dose: Not Given Lisinopril (Zestril) 20 mg PO DAILY [facility] Last Admin: 03/13/18 10:09 Dose: 20 mg Metoprolol Tartrate (Lopressor) 5 mg IVP Q6H [facility] Last Admin: 03/11/18 11:13 Dose: 5 mg Metoprolol Tartrate (Lopressor) 50 mg PO Q12 [facility] Last Admin: 03/13/18 10:08 Dose: 50 mg Nicotine (Nicoderm Cq) 1 patch TD DAILY [facility] Last Admin: 03/13/18 10:08 Dose: 1 patch Nitroglycerin (Nitro-Bid 2% Oint) 1 ea TOP Q8 PRN PRN Reason: Other Last Admin: 03/11/18 05:14 Dose: 1 ea Olanzapine (Zyprexa Zydis) 5 mg PO HS PRN; Protocol PRN Reason: Agitation Last Admin: 03/12/18 22:20 Dose: 5 mg Ondansetron HCl (Zofran Inj) 4 mg IVP Q6 PRN PRN Reason: Nausea/Vomiting Last Admin: 03/11/18 22:00 Dose: 4 mg Pantoprazole Sodium (Protonix Inj) 40 mg IVP DAILY [facility] Last Admin: 03/13/18 10:09 Dose: 40 mg Primidone (Mysoline) 250 mg PO TID [facility] Last Admin: 03/13/18 10:17 Dose: 250 mg - Labs Labs: 03/13/18 07:40 03/13/18 07:40 PT 14.4 SECONDS (9.4-12.5) H 03/06/18 21:51 INR 1.26 03/06/18 21:51 APTT 29.2 Seconds (25.1-36.5) 03/06/18 21:51 - Constitutional Appears: No Acute Distress, Confused - Head Exam Head Exam: ATRAUMATIC, NORMOCEPHALIC - Eye Exam Eye Exam: EOMI - Respiratory Exam Respiratory Exam: NORMAL BREATHING PATTERN - Cardiovascular Exam Cardiovascular Exam: +S1, +S2 - GI/Abdominal Exam GI & Abdominal Exam: Soft. absent: Firm, Rigid, Tenderness, Hernia Additional comments: Packing changed this AM , no purulence - Neurological Exam Neurological Exam: Alert, Awake - Psychiatric Exam Psychiatric exam: Normal Affect, Normal Mood - Skin Skin Exam: Dry, Intact Assessment and Plan - Assessment and Plan (Free Text) Assessment: 68M with perforated duodenal ulcer POD#6 s/p exlap with gram patch and washout Advance diet to fulls Pain control Monitor output Serial abdominal exams DVT prophylaxis Recommend empiric treatment for h.pylori D/W Dr. Brian Trejo PGY3
--- NOTE | 2018-03-13 13:51 | CP.CCUPN ---
<Carlos Silva - Last Filed: 03/13/18 13:47> CCU Subjective - Physician Review Subjective (Free Text): Carlos Silva, PGY-1, CCU Progress Note for Dr. Jara Patient seen and evaluated at bedside. Patient is currently AAOx2. Patient is not oriented to time but is oriented to person and place. Patient is drowsy. Overnight, patient was agitated and needed 1 mg of ativan. Now, patient denies headache, dizziness, fever, chest pain, shortness of breath, nausea, vomiting, constipation, diarrhea, dysuria, hematuria, numbness/tingling. CCU Objective - Vital Signs / Intake & Output Vital Signs (Last 4 hours): Vital Signs Pulse Resp BP Pulse Ox 03/13/18 12:00 64 16 143/80 95 03/13/18 10:09 73 130/97 H 03/13/18 10:08 73 130/97 H 03/13/18 10:00 60 Intake and Output (Last 8hrs): Intake & Output 03/12/18 03/13/18 03/13/18 22:59 06:59 14:59 Intake Total 2520 1560 Output Total 300 100 Balance 2220 1460 Weight 177 lb 182 lb 1.6 oz Intake: IV 1670 1320 Left Forearm 1670 1320 Oral 850 240 Output: Urine 300 100 Condom 300 Urine, Voided 100 Stool 0 Other: # Bowel Movements 1 1 - Physical Exam Head: Positive for: Atraumatic, Normocephalic Pupils: Positive for: PERRL Extroacular Muscles: Positive for: EOMI Conjunctiva: Positive for: Normal Mouth: Positive for: Moist Mucous Membranes Neck: Positive for: Normal Range of Motion Respiratory/Chest: Positive for: Clear to Auscultation, Good Air Exchange. Negative for: Wheezes, Rales, Rhonchi Cardiovascular: Positive for: Regular Rate and Rhythm, Normal S1, S2 Abdomen: Positive for: Other (Patient has incision on the right lower abdomen and drain placed as well.). Negative for: Tenderness, Distention, Normal Bowel Sounds, Guarding, Mass/Organomegaly Back: Positive for: Normal Inspection. Negative for: CVA Tenderness, Paraspinal Tenderness Upper Extremity: Positive for: Normal Inspection, NORMAL PULSES, Capillary Refill < 2s. Negative for: Cyanosis, Edema, Tenderness, Swelling Lower Extremity: Positive for: Normal Inspection, NORMAL PULSES, Capillary Refill < 2 s. Negative for: Edema, CALF TENDERNESS, Cyanosis, Tenderness Neurological: Positive for: CN II-XII Intact, Motor Func Grossly Intact, Other (confused). Negative for: GCS=15 (13) Skin: Positive for: Warm, Dry, Normal Color, Diaphoretic Psychiatric: Positive for: Alert, Normal Mood. Negative for: Oriented x 3 - Medications Active Medications: Active Medications Generic Name Dose Route Start Last Admin Trade Name Freq PRN Reason Stop Dose Admin Albuterol/Ipratropium 3 ml 03/06/18 17:33 Duoneb 3 Mg/0.5 Mg (3 Ml) Ud IH [id number] PRN Wheezing Clonidine HCl 0.1 mg 03/13/18 09:12 Catapres PO TID KALEN Hydromorphone HCl 1 mg 03/13/18 09:49 Dilaudid IVP Q3 PRN Pain, severe (8-10) Piperacillin Sod/Tazobactam Sod 100 mls @ 200 mls/hr 03/09/18 14:30 03/13/18 12:55 Zosyn 3.375 In Ns 100ml IVPB 03/16/18 14:31 200 mls/hr Q6 KALEN Administration Protocol Potassium Chloride/Dextrose/Sod Cl 1,000 mls @ 110 mls/hr 03/10/18 08:45 03/13/18 09:35 Potassium Chl 40 Meq In D5-1/2ns IV Not Given .Q9H6M [facility] Lisinopril 20 mg 03/11/18 21:26 03/13/18 10:09 Zestril PO 20 mg DAILY [facility] Administration Metoprolol Tartrate 5 mg 03/10/18 11:15 03/11/18 11:13 Lopressor IVP 5 mg Q6H [facility] Administration Metoprolol Tartrate 50 mg 03/10/18 22:00 03/13/18 10:08 Lopressor PO 50 mg Q12 [facility] Administration Nicotine 1 patch 03/07/18 10:00 03/13/18 10:08 Nicoderm Cq TD 1 patch DAILY [facility] Administration Nitroglycerin 1 ea 03/09/18 20:35 03/11/18 05:14 Nitro-Bid 2% Oint TOP 1 ea Q8 PRN Administration Other Olanzapine 5 mg 03/12/18 14:40 03/12/18 22:20 Zyprexa Zydis PO 5 mg HS PRN Administration Agitation Protocol Ondansetron HCl 4 mg 03/06/18 19:02 03/11/18 22:00 Zofran Inj IVP 4 mg Q6 PRN Administration Nausea/Vomiting Pantoprazole Sodium 40 mg 03/06/18 16:15 03/13/18 10:09 Protonix Inj IVP 40 mg DAILY [facility] Administration Primidone 250 mg 03/13/18 10:00 03/13/18 10:17 Mysoline PO 250 mg TID KALEN Administration - Patient Studies Lab Studies: Microbiology Studies 03/07/18 12:50 Blood Culture - Final Blood NO GROWTH AFTER 5 DAYS Gram Stain - Final TEST NOT PERFORMED Lab Studies 03/13/18 03/13/18 03/13/18 Range/Units 11:34 07:43 07:40 WBC (4.5-11.0) 10^3/ul RBC (3.5-6.1) 10^6/uL Hgb (14.0-18.0) g/dL Hct (42.0-52.0) % MCV (80.0-105.0) fl MCH (25.0-35.0) pg MCHC (31.0-37.0) g/dl RDW (11.5-14.5) % Plt Count (120.0-450.0) 10^3/uL Gran % (50.0-68.0) % Lymph % (Auto) (22.0-35.0) % [place] % (Auto) (1.0-6.0) % Eos % (Auto) (1.5-5.0) % Baso % (Auto) (0.0-3.0) % Gran # (1.4-6.5) Lymph # (Auto) (1.2-3.4) [place] # (Auto) (0.1-0.6) Eos # (Auto) (0.0-0.7) Baso # (Auto) (0.0-2.0) K/mm3 Sodium 141 (132-148) mmol/L Potassium 3.6 (3.6-5.0) mmol/L Chloride 114 H (98-107) mmol/L Carbon Dioxide 22 (21-33) mmol/L Anion Gap 9 L (10-20) BUN 13 (7-21) mg/dL Creatinine 0.6 L (0.8-1.5) mg/dl Est GFR ( Amer) > 60 Est GFR (Non-Af Amer) > 60 POC Glucose (mg/dL) 149 H 135 H (65-110) mg/dL Random Glucose 128 H (70-110) mg/dL Calcium 8.1 L (8.4-10.5) mg/dL Phosphorus 2.9 (2.5-4.5) mg/dL Magnesium 1.8 (1.7-2.2) mg/dL Total Bilirubin 0.7 (0.2-1.3) mg/dL AST 72 H D (17-59) U/L ALT 51 (7-56) U/L Alkaline Phosphatase 73 (38-126) U/L Total Protein 6.6 (5.8-8.3) g/dL Albumin 3.1 (3.0-4.8) g/dL Globulin 3.6 gm/dL Albumin/Globulin Ratio 0.8 L (1.1-1.8) 03/13/18 03/12/18 03/12/18 Range/Units 07:40 21:55 16:22 WBC 9.5 D (4.5-11.0) 10^3/ul RBC 5.29 (3.5-6.1) 10^6/uL Hgb 11.6 L (14.0-18.0) g/dL Hct 36.0 L (42.0-52.0) % MCV 68.1 L (80.0-105.0) fl MCH 21.9 L (25.0-35.0) pg MCHC 32.2 (31.0-37.0) g/dl RDW 20.7 H (11.5-14.5) % Plt Count 245 (120.0-450.0) 10^3/uL Gran % 66.6 (50.0-68.0) % Lymph % (Auto) 15.8 L (22.0-35.0) % [place] % (Auto) 13.8 H (1.0-6.0) % Eos % (Auto) 3.7 (1.5-5.0) % Baso % (Auto) 0.1 (0.0-3.0) % Gran # 6.34 (1.4-6.5) Lymph # (Auto) 1.5 (1.2-3.4) [place] # (Auto) 1.3 H (0.1-0.6) Eos # (Auto) 0.4 (0.0-0.7) Baso # (Auto) 0.01 (0.0-2.0) K/mm3 Sodium (132-148) mmol/L Potassium (3.6-5.0) mmol/L Chloride (98-107) mmol/L Carbon Dioxide (21-33) mmol/L Anion Gap (10-20) BUN (7-21) mg/dL Creatinine (0.8-1.5) mg/dl Est GFR ( Amer) Est GFR (Non-Af Amer) POC Glucose (mg/dL) 148 H 140 H (65-110) mg/dL Random Glucose (70-110) mg/dL Calcium (8.4-10.5) mg/dL Phosphorus (2.5-4.5) mg/dL Magnesium (1.7-2.2) mg/dL Total Bilirubin (0.2-1.3) mg/dL AST (17-59) U/L ALT (7-56) U/L Alkaline Phosphatase (38-126) U/L Total Protein (5.8-8.3) g/dL Albumin (3.0-4.8) g/dL Globulin gm/dL Albumin/Globulin Ratio (1.1-1.8) Laboratory Results - last 24 hr 03/12/18 03/12/18 03/13/18 16:22 21:55 07:40 WBC 9.5 D RBC 5.29 Hgb 11.6 L Hct 36.0 L MCV 68.1 L MCH 21.9 L MCHC 32.2 RDW 20.7 H Plt Count 245 Gran % 66.6 Lymph % (Auto) 15.8 L [place] % (Auto) 13.8 H Eos % (Auto) 3.7 Baso % (Auto) 0.1 Gran # 6.34 Lymph # (Auto) 1.5 [place] # (Auto) 1.3 H Eos # (Auto) 0.4 Baso # (Auto) 0.01 Sodium Potassium Chloride Carbon Dioxide Anion Gap BUN Creatinine Est GFR ( Amer) Est GFR (Non-Af Amer) POC Glucose (mg/dL) 140 H 148 H Random Glucose Calcium Phosphorus Magnesium Total Bilirubin AST ALT Alkaline Phosphatase Total Protein Albumin Globulin Albumin/Globulin Ratio 03/13/18 03/13/18 03/13/18 07:40 07:43 11:34 WBC RBC Hgb Hct MCV MCH MCHC RDW Plt Count Gran % Lymph % (Auto) [place] % (Auto) Eos % (Auto) Baso % (Auto) Gran # Lymph # (Auto) [place] # (Auto) Eos # (Auto) Baso # (Auto) Sodium 141 Potassium 3.6 Chloride 114 H Carbon Dioxide 22 Anion Gap 9 L BUN 13 Creatinine 0.6 L Est GFR ( Amer) > 60 Est GFR (Non-Af Amer) > 60 POC Glucose (mg/dL) 135 H 149 H Random Glucose 128 H Calcium 8.1 L Phosphorus 2.9 Magnesium 1.8 Total Bilirubin 0.7 AST 72 H D ALT 51 Alkaline Phosphatase 73 Total Protein 6.6 Albumin 3.1 Globulin 3.6 Albumin/Globulin Ratio 0.8 L Fingerstick Blood Sugar Results: 149 Review of Systems - Constitutional Constitutional: absent: Fever, Chills, Sweats - EENT Eyes: absent: Blurred Vision Ears: absent: Decreased Hearing Nose/Mouth/Throat: absent: Dysphagia - Cardiovascular Cardiovascular: absent: Chest Pain, Dyspnea, Pain Radiating to Arm/Neck/Jaw - Respiratory Respiratory: absent: Cough, Dyspnea, Hemoptysis - Gastrointestinal Gastrointestinal: absent: Abdominal Pain, Constipation, Diarrhea, Nausea, Vomiting - Genitourinary Genitourinary: absent: Dysuria, Hematuria - Musculoskeletal Musculoskeletal: absent: Arthralgias, Back Pain - Integumentary Integumentary: absent: Acne, Change in Pigmentation, Dry Skin - Neurological Neurological: absent: Confusion, Numbness, Tingling, Tremor, Weakness Critical Care Progress Note - Ventilator Checklist Head of Bed 30 Degrees: Yes PUD Prophalyxis: Yes DVT Prophylaxis: Yes - Prophylaxis GI Prophylaxis GI: Pepsid - Nutrition Nutrition: Nutrition Category Date Time Status Regular Diet [DIET] Diets 03/13/18 Lunch Ordered Assessment/Plan - Assessment and Plan (Free Text) Assessment: 68 year old with past medical history of hypertension, hyperlipidemia, COPD, cardiac arrest 2/p spinal surgery in 2014, CVA presents with 3 hours of epigastric pabdominal pain while sitting at home. Patient was found to have perforated duodenal ulcer on imaging and was taken to the OR who performed an exploratory lapartomy with jeanette patch placement. Plan: Neuro: -AAOx2, not oriented to time, no FND, moving extremities past midline. -Head CT: bilateral otomastoiditis -Patient stopped dilaudid PRN. Patient started on methadone and zyprexa as per Dr. Rodriguez. -Patient is opiod dependent on both percocet and hydrocodone at home. -Patient's mental status is improving. -Monitor neuro status. -Reorient patient as necessary. Cardio: -Normotensive, RRR, no signs of HD compromise -Patient now receiving lisinopril 20 mg daily, clonidine patch, lopressor 50 mg BID -Maintain MAP>65. -Monitor for S/S, HD compromise. -Dr. Hinson, nephrology, was consulted to evaluate for causes of uncontrolled hypertension. Pulm: -No signs of respiratory distress. CTA B/L -CXR: no active disease -Patient is stating well on room air -Maintain O2 saturation>95%. -Elevate bed to 30 degrees GI: -NG tube removed. -Clear liquid diet -Patient is status post day 7 for duodenal ulcer repair surgery. -Protonix 40 mg daily /Nephro: -BUN/Cr stable -UA was unremarkable with negative blood, negative leukocyte esterase, and negative nitrates -Potassium 3.6 -Good urine output -Continue monitoring. -Replete electrolytes as needed. -Maintain euvolemia. Endocrinology: -Random glucose: 135 -Maintain euglycemia. Heme/Onc: -H/H stable. -Leukocytosis resolved. -No signs of HD compromise. -Continue monitoring H/H ID: -Afebrile, leukocytosis resolved -BCx: no growth in 5 days. MRSA negative. -Procalcitonin: 3.79 -Continue with zosyn as per ID, Dr. Gomez. -Monitor for signs and symptoms of infection. DVT prophylaxis: SCD GI prophylaxis: protonix 40 mg daily Disposition: Patient's mental status has improved and blood pressure better controlled. Patient to be transferred to the medicine floors today. Patient seen and examined with Dr. Jara. - Date & Time Date: 03/13/18 Time: 14:44 <Boris Jara B - Last Filed: 03/13/18 17:00> CCU Objective - Vital Signs / Intake & Output Vital Signs (Last 4 hours): Vital Signs Pulse 03/13/18 14:00 58 L Intake and Output (Last 8hrs): Intake & Output 03/13/18 03/13/18 03/13/18 06:59 14:59 22:59 Intake Total 1560 Output Total 100 Balance 1460 Weight 182 lb 1.6 oz Intake: IV 1320 Left Forearm 1320 Oral 240 Output: Urine 100 Urine, Voided 100 Other: # Bowel Movements 1 - Medications Active Medications: Active Medications Generic Name Dose Route Start Last Admin Trade Name Freq PRN Reason Stop Dose Admin Albuterol/Ipratropium 3 ml 03/06/18 17:33 Duoneb 3 Mg/0.5 Mg (3 Ml) Ud IH [id number] PRN Wheezing Clonidine HCl 0.1 mg 03/13/18 09:12 Catapres PO TID KALEN Hydromorphone HCl 1 mg 03/13/18 09:49 03/13/18 14:23 Dilaudid IVP 1 mg Q3 PRN Administration Pain, severe (8-10) Piperacillin Sod/Tazobactam Sod 100 mls @ 200 mls/hr 03/09/18 14:30 03/13/18 12:55 Zosyn 3.375 In Ns 100ml IVPB 03/16/18 14:31 200 mls/hr Q6 KALEN Administration Protocol Potassium Chloride/Dextrose/Sod Cl 1,000 mls @ 110 mls/hr 03/10/18 08:45 03/13/18 09:35 Potassium Chl 40 Meq In D5-1/2ns IV Not Given .Q9H6M [facility] Lisinopril 20 mg 03/11/18 21:26 03/13/18 10:09 Zestril PO 20 mg DAILY [facility] Administration Metoprolol Tartrate 5 mg 03/10/18 11:15 03/11/18 11:13 Lopressor IVP 5 mg Q6H [facility] Administration Metoprolol Tartrate 50 mg 03/10/18 22:00 03/13/18 10:08 Lopressor PO 50 mg Q12 [facility]EN Administration Nicotine 1 patch 03/07/18 10:00 10/10/18 10:08 Nicoderm Cq TD 1 patch DAILY [facility] Administration Nitroglycerin 1 ea 03/09/18 20:35 03/11/18 05:14 Nitro-Bid 2% Oint TOP 1 ea Q8 PRN Administration Other Olanzapine 5 mg 03/12/18 14:40 03/12/18 22:20 Zyprexa Zydis PO 5 mg HS PRN Administration Agitation Protocol Ondansetron HCl 4 mg 03/06/18 19:02 03/11/18 22:00 Zofran Inj IVP 4 mg Q6 PRN Administration Nausea/Vomiting Pantoprazole Sodium 40 mg 03/06/18 16:15 03/13/18 10:09 Protonix Inj IVP 40 mg DAILY [facility] Administration Primidone 250 mg 03/13/18 10:00 03/13/18 14:24 Mysoline PO 250 mg TID KALEN Administration - Patient Studies Lab Studies: Lab Studies 03/13/18 03/13/18 03/13/18 Range/Units 11:34 07:43 07:40 WBC (4.5-11.0) 10^3/ul RBC (3.5-6.1) 10^6/uL Hgb (14.0-18.0) g/dL Hct (42.0-52.0) % MCV (80.0-105.0) fl MCH (25.0-35.0) pg MCHC (31.0-37.0) g/dl RDW (11.5-14.5) % Plt Count (120.0-450.0) 10^3/uL Gran % (50.0-68.0) % Lymph % (Auto) (22.0-35.0) % [place] % (Auto) (1.0-6.0) % Eos % (Auto) (1.5-5.0) % Baso % (Auto) (0.0-3.0) % Gran # (1.4-6.5) Lymph # (Auto) (1.2-3.4) [place] # (Auto) (0.1-0.6) Eos # (Auto) (0.0-0.7) Baso # (Auto) (0.0-2.0) K/mm3 Sodium 141 (132-148) mmol/L Potassium 3.6 (3.6-5.0) mmol/L Chloride 114 H (98-107) mmol/L Carbon Dioxide 22 (21-33) mmol/L Anion Gap 9 L (10-20) BUN 13 (7-21) mg/dL Creatinine 0.6 L (0.8-1.5) mg/dl Est GFR ( Amer) > 60 Est GFR (Non-Af Amer) > 60 POC Glucose (mg/dL) 149 H 135 H (65-110) mg/dL Random Glucose 128 H (70-110) mg/dL Calcium 8.1 L (8.4-10.5) mg/dL Phosphorus 2.9 (2.5-4.5) mg/dL Magnesium 1.8 (1.7-2.2) mg/dL Total Bilirubin 0.7 (0.2-1.3) mg/dL AST 72 H D (17-59) U/L ALT 51 (7-56) U/L Alkaline Phosphatase 73 (38-126) U/L Total Protein 6.6 (5.8-8.3) g/dL Albumin 3.1 (3.0-4.8) g/dL Globulin 3.6 gm/dL Albumin/Globulin Ratio 0.8 L (1.1-1.8) 03/13/18 03/12/18 Range/Units 07:40 21:55 WBC 9.5 D (4.5-11.0) 10^3/ul RBC 5.29 (3.5-6.1) 10^6/uL Hgb 11.6 L (14.0-18.0) g/dL Hct 36.0 L (42.0-52.0) % MCV 68.1 L (80.0-105.0) fl MCH 21.9 L (25.0-35.0) pg MCHC 32.2 (31.0-37.0) g/dl RDW 20.7 H (11.5-14.5) % Plt Count 245 (120.0-450.0) 10^3/uL Gran % 66.6 (50.0-68.0) % Lymph % (Auto) 15.8 L (22.0-35.0) % [place] % (Auto) 13.8 H (1.0-6.0) % Eos % (Auto) 3.7 (1.5-5.0) % Baso % (Auto) 0.1 (0.0-3.0) % Gran # 6.34 (1.4-6.5) Lymph # (Auto) 1.5 (1.2-3.4) [place] # (Auto) 1.3 H (0.1-0.6) Eos # (Auto) 0.4 (0.0-0.7) Baso # (Auto) 0.01 (0.0-2.0) K/mm3 Sodium (132-148) mmol/L Potassium (3.6-5.0) mmol/L Chloride (98-107) mmol/L Carbon Dioxide (21-33) mmol/L Anion Gap (10-20) BUN (7-21) mg/dL Creatinine (0.8-1.5) mg/dl Est GFR ( Amer) Est GFR (Non-Af Amer) POC Glucose (mg/dL) 148 H (65-110) mg/dL Random Glucose (70-110) mg/dL Calcium (8.4-10.5) mg/dL Phosphorus (2.5-4.5) mg/dL Magnesium (1.7-2.2) mg/dL Total Bilirubin (0.2-1.3) mg/dL AST (17-59) U/L ALT (7-56) U/L Alkaline Phosphatase (38-126) U/L Total Protein (5.8-8.3) g/dL Albumin (3.0-4.8) g/dL Globulin gm/dL Albumin/Globulin Ratio (1.1-1.8) Laboratory Results - last 24 hr 03/12/18 03/13/18 03/13/18 21:55 07:40 07:40 WBC 9.5 D RBC 5.29 Hgb 11.6 L Hct 36.0 L MCV 68.1 L MCH 21.9 L MCHC 32.2 RDW 20.7 H Plt Count 245 Gran % 66.6 Lymph % (Auto) 15.8 L [place] % (Auto) 13.8 H Eos % (Auto) 3.7 Baso % (Auto) 0.1 Gran # 6.34 Lymph # (Auto) 1.5 [place] # (Auto) 1.3 H Eos # (Auto) 0.4 Baso # (Auto) 0.01 Sodium 141 Potassium 3.6 Chloride 114 H Carbon Dioxide 22 Anion Gap 9 L BUN 13 Creatinine 0.6 L Est GFR ( Amer) > 60 Est GFR (Non-Af Amer) > 60 POC Glucose (mg/dL) 148 H Random Glucose 128 H Calcium 8.1 L Phosphorus 2.9 Magnesium 1.8 Total Bilirubin 0.7 AST 72 H D ALT 51 Alkaline Phosphatase 73 Total Protein 6.6 Albumin 3.1 Globulin 3.6 Albumin/Globulin Ratio 0.8 L 03/13/18 03/13/18 07:43 11:34 WBC RBC Hgb Hct MCV MCH MCHC RDW Plt Count Gran % Lymph % (Auto) [place] % (Auto) Eos % (Auto) Baso % (Auto) Gran # Lymph # (Auto) [place] # (Auto) Eos # (Auto) Baso # (Auto) Sodium Potassium Chloride Carbon Dioxide Anion Gap BUN Creatinine Est GFR ( Amer) Est GFR (Non-Af Amer) POC Glucose (mg/dL) 135 H 149 H Random Glucose Calcium Phosphorus Magnesium Total Bilirubin AST ALT Alkaline Phosphatase Total Protein Albumin Globulin Albumin/Globulin Ratio Critical Care Progress Note - Nutrition Nutrition: Nutrition Category Date Time Status Regular Diet [DIET] Diets 03/13/18 Lunch Ordered Attending/Attestation - Attestation I have personally seen and examined this patient.: Yes I have fully participated in the care of the patient.: Yes I have reviewed all pertinent clinical information: Yes Notes (Text): 03/13/18 17:[address] Jara note
--- NOTE | 2018-03-13 15:05 | CP.PCM.PN ---
<Amarilis Dean - Last Filed: 03/13/18 15:01> Subjective - Date & Time of Evaluation Date of Evaluation: 03/13/18 Time of Evaluation: 15:01 - Subjective Subjective: Amarilis Dean, PGY2, Neurology Consult Note for Dr. Calderon: Patient seen and examined while patient is sitting up in chair today. No acute events overnight. Patient awake, alert, oriented to self, place, situation and person. Patient however has lucid intervals and remains confused, states if I can put his sock on while patient clearly has socks on his legs. Denies fevers, chills, shaking movements of his body, focal weakness, nausea, vomiting. Patient following some commands, becomes agitated during part of the exam. Patient refused MRI yesterday, discussed extensively with patient the benefit. However, patient declines it currently. Objective - Vital Signs/Intake and Output Vital Signs (last 24 hours): Temp Pulse Resp BP Pulse Ox 98.7 F 64 16 143/80 95 03/13/18 04:00 03/13/18 12:00 03/13/18 12:00 03/13/18 12:00 03/13/18 12:00 Intake and Output: 03/13/18 03/13/18 06:59 18:59 Intake Total 1560 Output Total 100 Balance 1460 - Medications Medications: Current Medications Albuterol/Ipratropium (Duoneb 3 Mg/0.5 Mg (3 Ml) Ud) 3 ml IH [id number] PRN PRN Reason: Wheezing Clonidine HCl (Catapres) 0.1 mg PO TID KALEN Hydromorphone HCl (Dilaudid) 1 mg IVP Q3 PRN PRN Reason: Pain, severe (8-10) Last Admin: 03/13/18 14:23 Dose: 1 mg Piperacillin Sod/Tazobactam Sod (Zosyn 3.375 In Ns 100ml) 100 mls @ 200 mls/hr IVPB Q6 KALEN; Protocol Stop: 03/16/18 14:31 Last Admin: 03/13/18 12:55 Dose: 200 mls/hr Potassium Chloride/Dextrose/Sod Cl (Potassium Chl 40 Meq In D5-1/2ns) 1,000 mls @ 110 mls/hr IV .Q9H6M KALEN Last Admin: 03/13/18 09:35 Dose: Not Given Lisinopril (Zestril) 20 mg PO DAILY [facility] Last Admin: 03/13/18 10:09 Dose: 20 mg Metoprolol Tartrate (Lopressor) 5 mg IVP Q6H [facility] Last Admin: 03/11/18 11:13 Dose: 5 mg Metoprolol Tartrate (Lopressor) 50 mg PO Q12 [facility] Last Admin: 03/13/18 10:08 Dose: 50 mg Nicotine (Nicoderm Cq) 1 patch TD DAILY [facility] Last Admin: 03/13/18 10:08 Dose: 1 patch Nitroglycerin (Nitro-Bid 2% Oint) 1 ea TOP Q8 PRN PRN Reason: Other Last Admin: 03/11/18 05:14 Dose: 1 ea Olanzapine (Zyprexa Zydis) 5 mg PO HS PRN; Protocol PRN Reason: Agitation Last Admin: 03/12/18 22:20 Dose: 5 mg Ondansetron HCl (Zofran Inj) 4 mg IVP Q6 PRN PRN Reason: Nausea/Vomiting Last Admin: 03/11/18 22:00 Dose: 4 mg Pantoprazole Sodium (Protonix Inj) 40 mg IVP DAILY [facility] Last Admin: 03/13/18 10:09 Dose: 40 mg Primidone (Mysoline) 250 mg PO TID [facility] Last Admin: 03/13/18 14:24 Dose: 250 mg - Labs Labs: 03/13/18 07:40 03/13/18 07:40 PT 14.4 SECONDS (9.4-12.5) H 03/06/18 21:51 INR 1.26 03/06/18 21:51 APTT 29.2 Seconds (25.1-36.5) 03/06/18 21:51 - Additional Findings Additional findings: - Constitutional Appears: Non-toxic, Older Than Stated Age, Combative, Agitated, Chronically Ill - Head Exam Head Exam: ATRAUMATIC, NORMOCEPHALIC - Eye Exam Eye Exam: EOMI, PERRL. absent: Conjunctival injection, Periorbital swelling, Periorbital tenderness, Scleral icterus Pupil Exam: PERRL. absent: Fixed, Irregular, Miosis, Mydriatic - ENT Exam ENT Exam: Mucous Membranes Moist - Neck Exam Neck Exam: Full ROM - Respiratory Exam Respiratory Exam: Clear to Ausculation Bilateral, NORMAL BREATHING PATTERN. absent: Chest Wall Tenderness, Decreased Breath Sounds, Rales, Rhonchi, Respiratory Distress, Stridor - Cardiovascular Exam Cardiovascular Exam: RRR, +S1, +S2. absent: Murmur - GI/Abdominal Exam GI & Abdominal Exam: Soft, Normal Bowel Sounds. absent: Guarding, Rigid, Tenderness, Organomegaly - Extremities Exam Extremities Exam: Normal Inspection. absent: Calf Tenderness, Pedal Edema - Back Exam Back Exam: NORMAL INSPECTION - Neurological Exam Neurological Exam: Alert, Awake Additional comments: alert, awake, oriented x4. has lucid intervals. moving all extremities. following some commands. - Psychiatric Exam Psychiatric exam: Agitated - Skin Skin Exam: Normal Color, Warm Assessment and Plan - Assessment and Plan (Free Text) Assessment: 68M with PMH of HTN, HLD, COPD, cardiac arrest s/p attempted spinal surgery ( 10/23/14), CVA, chronic back pain, s/p jeanette patch for perforated ulcer, developed AMS post-op: likely drug withdrawal vs toxic metabolic encephalopathy vs ICU delirium, will rule out seizures, cva - head CT 03/09 negative - MRI brain ordered. patient refused MRI. Discussed benefits of MRI extensively with patient, however patient is refusing to undergo it currently. - c/w management of underlying etiology - Monitor Case seen and discussed with Dr Calderon. <Yoni Calderon - Last Filed: 03/13/18 17:49> Objective - Vital Signs/Intake and Output Vital Signs (last 24 hours): Temp Pulse Resp BP Pulse Ox 98.7 F 58 L 16 143/80 95 03/13/18 04:00 03/13/18 14:00 03/13/18 12:00 03/13/18 12:00 03/13/18 12:00 Intake and Output: 03/13/18 03/13/18 06:59 18:59 Intake Total 1560 Output Total 100 Balance 1460 - Medications Medications: Current Medications Albuterol/Ipratropium (Duoneb 3 Mg/0.5 Mg (3 Ml) Ud) 3 ml IH [id number] PRN PRN Reason: Wheezing Clonidine HCl (Catapres) 0.1 mg PO TID KALEN Hydromorphone HCl (Dilaudid) 1 mg IVP Q3 PRN PRN Reason: Pain, severe (8-10) Last Admin: 03/13/18 14:23 Dose: 1 mg Piperacillin Sod/Tazobactam Sod (Zosyn 3.375 In Ns 100ml) 100 mls @ 200 mls/hr IVPB Q6 KALEN; Protocol Stop: 03/16/18 14:31 Last Admin: 03/13/18 17:09 Dose: 200 mls/hr Potassium Chloride/Dextrose/Sod Cl (Potassium Chl 40 Meq In D5-1/2ns) 1,000 mls @ 110 mls/hr IV .Q9H6M [facility]AL[facility] Last Admin: 03/13/18 09:35 Dose: Not Given Lisinopril (Zestril) 20 mg PO DAILY [facility] Last Admin: 03/13/18 10:09 Dose: 20 mg Metoprolol Tartrate (Lopressor) 5 mg IVP Q6H [facility] Last Admin: 03/11/18 11:13 Dose: 5 mg Metoprolol Tartrate (Lopressor) 50 mg PO Q12 [facility] Last Admin: 03/13/18 10:08 Dose: 50 mg Nicotine (Nicoderm Cq) 1 patch TD DAILY [facility] Last Admin: 03/13/18 10:08 Dose: 1 patch Nitroglycerin (Nitro-Bid 2% Oint) 1 ea TOP Q8 PRN PRN Reason: Other Last Admin: 03/11/18 05:14 Dose: 1 ea Olanzapine (Zyprexa Zydis) 5 mg PO HS PRN; Protocol PRN Reason: Agitation Last Admin: 03/12/18 22:20 Dose: 5 mg Ondansetron HCl (Zofran Inj) 4 mg IVP Q6 PRN PRN Reason: Nausea/Vomiting Last Admin: 03/11/18 22:00 Dose: 4 mg Pantoprazole Sodium (Protonix Inj) 40 mg IVP DAILY [facility] Last Admin: 03/13/18 10:09 Dose: 40 mg Primidone (Mysoline) 250 mg PO TID [facility] Last Admin: 03/13/18 17:25 Dose: 250 mg - Labs Labs: 03/13/18 07:40 03/13/18 07:40 PT 14.4 SECONDS (9.4-12.5) H 03/06/18 21:51 INR 1.26 03/06/18 21:51 APTT 29.2 Seconds (25.1-36.5) 03/06/18 21:51 Attending/Attestation - Attestation I have personally seen and examined this patient.: Yes I have fully participated in the care of the patient.: Yes I have reviewed all pertinent clinical information, including history, physical exam and plan: Yes Notes (Text): 03/13/18 17:48 Agree with the assessment and plan. The patient was significantly improved today. His sensorium and encephalopathy are improving. Continue current management.
--- NOTE | 2018-03-13 16:27 | CP.PCM.PN ---
<Tulio Cordova - Last Filed: 03/13/18 16:23> Subjective - Date & Time of Evaluation Date of Evaluation: 03/13/18 Time of Evaluation: 07:00 - Subjective Subjective: Tulio Cordova DO PGY1 Internal Medicine [employer] - Hospital Progress Note Patient was examined this morning at bedside in ICU. No acute events overnight, patient reportedly much more active and alert today than past. Changes began yesterday afternoon. Patient voicing no complaints at bedside at this time. 12 system ROS is negative upon exam today. Objective - Vital Signs/Intake and Output Vital Signs (last 24 hours): Temp Pulse Resp BP Pulse Ox 98.7 F 58 L 16 143/80 95 03/13/18 04:00 03/13/18 14:00 03/13/18 12:00 03/13/18 12:00 03/13/18 12:00 Intake and Output: 03/13/18 03/13/18 06:59 18:59 Intake Total 1560 Output Total 100 Balance 1460 - Medications Medications: Current Medications Albuterol/Ipratropium (Duoneb 3 Mg/0.5 Mg (3 Ml) Ud) 3 ml IH [id number] PRN PRN Reason: Wheezing Clonidine HCl (Catapres) 0.1 mg PO TID KALEN Hydromorphone HCl (Dilaudid) 1 mg IVP Q3 PRN PRN Reason: Pain, severe (8-10) Last Admin: 03/13/18 14:23 Dose: 1 mg Piperacillin Sod/Tazobactam Sod (Zosyn 3.375 In Ns 100ml) 100 mls @ 200 mls/hr IVPB Q6 [facility]ALEN; Protocol Stop: 03/16/18 14:31 Last Admin: 03/13/18 12:55 Dose: 200 mls/hr Potassium Chloride/Dextrose/Sod Cl (Potassium Chl 40 Meq In D5-1/2ns) 1,000 mls @ 110 mls/hr IV .Q9H6M [facility] Last Admin: 03/13/18 09:35 Dose: Not Given Lisinopril (Zestril) 20 mg PO DAILY [facility] Last Admin: 03/13/18 10:09 Dose: 20 mg Metoprolol Tartrate (Lopressor) 5 mg IVP Q6H [facility] Last Admin: 03/11/18 11:13 Dose: 5 mg Metoprolol Tartrate (Lopressor) 50 mg PO Q12 [facility] Last Admin: 03/13/18 10:08 Dose: 50 mg Nicotine (Nicoderm Cq) 1 patch TD DAILY [facility] Last Admin: 03/13/18 10:08 Dose: 1 patch Nitroglycerin (Nitro-Bid 2% Oint) 1 ea TOP Q8 PRN PRN Reason: Other Last Admin: 03/11/18 05:14 Dose: 1 ea Olanzapine (Zyprexa Zydis) 5 mg PO HS PRN; Protocol PRN Reason: Agitation Last Admin: 03/12/18 22:20 Dose: 5 mg Ondansetron HCl (Zofran Inj) 4 mg IVP Q6 PRN PRN Reason: Nausea/Vomiting Last Admin: 03/11/18 22:00 Dose: 4 mg Pantoprazole Sodium (Protonix Inj) 40 mg IVP DAILY [facility] Last Admin: 03/13/18 10:09 Dose: 40 mg Primidone (Mysoline) 250 mg PO TID [facility] Last Admin: 03/13/18 14:24 Dose: 250 mg - Labs Labs: 03/13/18 07:40 03/13/18 07:40 PT 14.4 SECONDS (9.4-12.5) H 03/06/18 21:51 INR 1.26 03/06/18 21:51 APTT 29.2 Seconds (25.1-36.5) 03/06/18 21:51 - Constitutional Appears: Awake, Alert, Sitting up in chair conversing, - Head Exam Head Exam: ATRAUMATIC, NORMOCEPHALIC - ENT Exam ENT Exam: Mucous Membranes Moist - Respiratory Exam Respiratory Exam: Clear to Ausculation Bilateral, NORMAL BREATHING PATTERN - Cardiovascular Exam Cardiovascular Exam: REGULAR RHYTHM, RRR, +S1, +S2. absent: Murmur - GI/Abdominal Exam GI & Abdominal Exam: Soft, Normal Bowel Sounds. absent: Tenderness -Extremity Exam Lower Extremity Exam: Distal pulses 2+ BL, no edema - Neurological Exam Additional comments: Patient is AAO2 at this time, very drowsy keeps falling asleep during interview, however he is much more alert today than he has been previously. He is following commands, conversing, not showing any signs of distress. Assessment and Plan - Assessment and Plan (Free Text) Assessment: Assessment: 68 y/o M with PMHx HTN, HLD, CVA with left residual weakness, COPD, cardiac arrest s/p spinal surgery, chronic back pain presented to [facility] [place] 03/06 complaining of abdominal pain. Subsequently found to have perforated duodenal ulcer. POD#7 s/p Issa Patch repair of ulcer. Patient is awake and alert. Patient was verbal today but lethargic during exam. He has been OOB and taking PO intake. Blood pressure improving. Denies chest pain, abd pain, shortness of breath. Plan: AMS: ICU / Post op Delerium vs. Opiate Withdrawal vs. Toxic metabolic encephalopathy Pt takes percocet, hydrocodone, and primidone at home. We will resume home primidone at this time CT Head was normal Neurology consulted Pt refused MRI due to back pain EEG demonstrated presence of mild to moderate non-specific diffuse khalil matter dysfunction. These findings do no support a specific etiology. Findings are also in keeping with a focal cortical abnormality involving the right hemisphere. No seizure activity Dilaudid 1mg IV Q3H PRN. Improving mental state. Patient started on methadone and zyprexa as per psych reccs. Accelerated Hypertension: Normotensive, RRR. Echo ordered, pending results. Nephro consulted for uncontrolled HTN Cardiology following, appreciate reccs Patient receiving lisinopril 20mg daily, clonidine patch, lopressor 50mg BID Blood pressure improving Perforated Duodenal Ulcer - POD#6 s/p Issa patch repair of ulcer Serial abdominal exams Pain management as above Surgery on board following Patient advanced to CLD at this time although refusing PO intake Diet: Regular Diet GI ppx: Protonix 40mg IV daily VTE ppx: SCDs Code status: full code Patient seen, examined, and discussed w/ attending physician Dr. Shanta Cordova DO PGY1 Internal Medicine [employer] - Pager [phone] <Shanta Cordova R - Last Filed: 03/17/18 16:50> Objective - Vital Signs/Intake and Output Vital Signs (last 24 hours): Temp Pulse Resp BP Pulse Ox 97.8 F 58 L 20 127/85 98 03/17/18 14:00 03/17/18 14:00 03/17/18 14:00 03/17/18 14:00 03/17/18 14:00 Intake and Output: 03/17/18 03/17/18 06:59 18:59 Intake Total 180 720 Output Total 1 200 Balance 179 520 - Medications Medications: Current Medications Albuterol/Ipratropium (Duoneb 3 Mg/0.5 Mg (3 Ml) Ud) 3 ml IH [id number] PRN PRN Reason: Wheezing Carvedilol (Coreg) 12.5 mg PO BID [facility] Last Admin: 03/17/18 10:27 Dose: 12.5 mg Clonidine HCl (Catapres-Tts3 0.3 Mg/24 Hr) 1 patch TD Q7D@1000 [facility] Last Admin: 03/17/18 10:28 Dose: 1 patch Enoxaparin Sodium (Lovenox) 40 mg SC DAILY [facility]; Protocol Last Admin: 03/17/18 10:25 Dose: 40 mg Hydrochlorothiazide (Hydrodiuril) 25 mg PO DAILY [facility] Last Admin: 03/17/18 10:25 Dose: 25 mg Lisinopril (Zestril) 40 mg PO DAILY [facility] Last Admin: 03/17/18 10:28 Dose: 40 mg Metoprolol Tartrate (Lopressor) 5 mg IVP Q6H [facility] Last Admin: 03/11/18 11:13 Dose: 5 mg Nicotine (Nicoderm Cq) 1 patch TD DAILY [facility] Last Admin: 03/17/18 10:26 Dose: 1 patch Nitroglycerin (Nitro-Bid 2% Oint) 1 ea TOP Q8 PRN PRN Reason: Other Last Admin: 03/14/18 14:50 Dose: 1 ea Olanzapine (Zyprexa Zydis) 5 mg PO HS PRN; Protocol PRN Reason: Agitation Last Admin: 03/16/18 21:56 Dose: 5 mg Ondansetron HCl (Zofran Inj) 4 mg IVP Q6 PRN PRN Reason: Nausea/Vomiting Last Admin: 03/11/18 22:00 Dose: 4 mg Oxycodone/Acetaminophen (Percocet 5/325 Mg Tab) 1 tab PO Q4H PRN PRN Reason: Pain, severe (8-10) Stop: 03/19/18 16:33 Last Admin: 03/17/18 06:45 Dose: 1 tab Pantoprazole Sodium (Protonix Ec Tab) 40 mg PO ACB [facility] Last Admin: 03/17/18 08:14 Dose: 40 mg Primidone (Mysoline) 250 mg PO TID [facility] Last Admin: 03/17/18 16:41 Dose: 250 mg - Labs Labs: 03/17/18 09:00 03/17/18 09:00 PT 14.4 SECONDS (9.4-12.5) H 03/06/18 21:51 INR 1.26 03/06/18 21:51 APTT 29.2 Seconds (25.1-36.5) 03/06/18 21:51 Attending/Attestation - Attestation I have personally seen and examined this patient.: Yes I have fully participated in the care of the patient.: Yes I have reviewed all pertinent clinical information, including history, physical exam and plan: Yes Notes (Text): Patient seen and examined by me in dialysis at 9:40AM with resident 03/13/18. Case including HPI, physical exam, and assessment and plan discussed with resident. Agree with above with following additions/corrections. Patient is a 68-year-old male with past medical history significant for hypertension, hyperlipidemia, COPD, cardiac arrest, CVA, and chronic back pain that presented to the emergency room with epigastric abdominal pain. Patient is awake and alert today. Patient is answering questions and verbalizing today. States that he is feeling much better. States he has chronic tremors and takes primidone at home. Patient denies any chest pain and shortness of breath. No abdominal pain. No nausea or vomiting. No headaches or dizziness. No fevers or chills. No dysuria. Patient is having bowel movements. Physical exam: General: Awake and alert sitting up in chair in no acute distress HEENT: Normocephalic, atraumatic. Extraocularmuscles intact. Pupils are equal and reactive. No scleral icterus. Oropharynx is pink and moist. No pharyngeal erythema or exudate appreciated. Neck is supple. Cardiovascular: Normal S1, S2. No murmurs, rubs, or gallops appreciated Pulmonary: Normal respiratory effort. No rhonchi, rales, or wheezing appreciated. Gastrointestinal: Soft, nondistended. Nontender. Dressing clean, dry, and intact. Positive bowel sounds all 4 quadrants, no guarding. Musculoskeletal: Moves all extremities. No calf tenderness. Trace lower extremity edema. Central nervous system: Awake and alert. Oriented to self and place. Dermatologic: Skin warm and dry. Assessment and plan: Patient is a 68-year-old male with past medical history significant for hypertension, hyperlipidemia, COPD, cardiac arrest, CVA, and chronic back pain that presented to the emergency room with epigastric abdominal pain. 1. Altered mental status. Improving. Neurology following, recommendations appreciated. Pending MRI brain and EEG. Head CT per radiologist showed no acute intracranial findings. ?Secondary to opiate withdrawal. On dilaudid here. Patient on hydrocodone and Percocet at home chronically for pain. Psychiatry recommendations appreciated. 2. Accelerated hypertension. Improving. Continue Lisinopril, metoprolol, and clonidine. Cardiology following, recommendations appreciated. Nephrology following, recommendations appreciated. 2D echo pending 3. Hypokalemia. Resolved. Continue to monitor. 4. Hypophosphatemia. Resolved. Continue to monitor. 5. Perforated duodenal ulcer. S/P exploratory laparotomy with repair with issa patch 03/06/18. Continue with pain management and local wound care. Blood culture with not growth. ID following, recommendations appreciated. Continue with Zosyn. CTA chest 03/06/18 per radiologist showed a small amount of free air beneath the liver and right hemidiphragm, source of free air appears to be in the stomach, stomach abnormally thickened and edematous and there is inflammation of the surrounding fat planes. Surgery following, recommendations appreciated. 6. Leukocytosis. Resolved. Continue to monitor. Continue Zosyn 7. Chronic back pain. Patient on dilaudid here. On chronic hydrocodone and Percocet at home. 8. History of COPD. Not in acute exacerbation. Continue nebulizer treatments as needed. 9. DVT prophylaxis. Lovenox Case discussed in detail with the patient regarding current diagnosis and treatment plan. All questions answered.
--- NOTE | 2018-03-13 21:35 | OP ---
PROCEDURE DATE: 03/06/2018 PREOPERATIVE DIAGNOSIS: Perforated duodenal ulcer. POSTOPERATIVE DIAGNOSIS: Perforated duodenal ulcer. PROCEDURE: Issa plication. SURGEON: Stuart Torres MD. TYPE OF ANESTHESIA: General endotracheal. DESCRIPTION OF PROCEDURE: Patient was brought into the operating room and placed on the operating table in the supine position. After smooth induction of general endotracheal anesthesia and Venodyne boots were placed on both legs and prophylactic IV antibiotics were given. Entire abdomen was prepped and draped in the usual sterile fashion. Using a 15 blade, a supraumbilical midline incision was performed, which was then brought down to subcutaneous tissue using Bovie electrocautery. The linea alba was identified and incised and the peritoneal cavity was accessed. The Daniela retractor placed for better exposure. A small pin hole opening was found in the antimesenteric side of the first portion of the duodenum. There was also slightly bile-tinged fluid in the peritoneal cavity, mostly in the upper abdomen. The abdomen was irrigated with copious amounts of warm normal saline. A Issa plication was performed by securing a flexible viable piece of omentum to the area of the perforation using intraoperative 0 silk stitches to plicate essentially piece of omentum over the duodenal perforation. A #15 J Shad drain was placed through a separate stab wound incision in the right upper quadrant and brought next to the area of the plication and the duodenal sweep and along the hepatogastric ligament. This was secured to the skin using a 2-0 silk stitch. The abdomen was irrigated again with warm normal saline. The air was inflated through the NG tube and there was no evidence of leak or any bleeding. The abdomen was closed in 2 layers using intraoperative #1 PDS for the fascia and christine for the skin approximately 1/2 to 3/4 inch apart and the opening between the christine was packed with a 2-inch iodoform gauze. Sterile dressings were applied. At the end of the surgery, the instruments, gauze,needles were correct x2. The patient tolerated the surgery well and was transferred in stable condition to the recovery room. Stuart Torres MD [facility] # [id number]
[2018-03-14] MEDS: HYDROmorphone 1 mg/ml ISec IVP PRN ×5 (01:02→21:18)
[2018-03-14] MEDS: Piperacillin/Tazobact 3.375 gm 100 ML IVPB SCH ×3 (05:37→18:43)
--- NOTE | 2018-03-14 05:43 | CP.PCM.PN ---
<Tulio Cordova - Last Filed: 03/14/18 17:43> Subjective - Date & Time of Evaluation Date of Evaluation: 03/14/18 Time of Evaluation: 05:43 - Subjective Subjective: Tulio Cordova DO PGY1 - Internal Medicine Poultry Husbandry Teacher - Hospital Progress Note Patient seen and examined at bedside this morning No acute events overnight Patient refused MRI 2/2 back pain. On presentation earlier in the morning patient appeared to be confused and abram nolent; however late morning presentation patient was more alert and oriented. On both examinations patient is only complaining of back pain. Denies Dizziness, SOB, Cough, CP, Palpitations, Abd Pain, N/V/D/C, Remainder of 12 system ROS is otherwise negative. Objective - Vital Signs/Intake and Output Vital Signs (last 24 hours): Temp Pulse Resp BP Pulse Ox 97.9 F 64 18 175/114 H 98 03/13/18 22:00 03/14/18 05:29 03/13/18 22:00 03/14/18 05:29 03/13/18 22:00 - Medications Medications: Current Medications Albuterol/Ipratropium (Duoneb 3 Mg/0.5 Mg (3 Ml) Ud) 3 ml IH [id number] PRN PRN Reason: Wheezing Clonidine HCl (Catapres) 0.1 mg PO TID [facility] Enoxaparin Sodium (Lovenox) 40 mg SC DAILY [facility]; Protocol Hydromorphone HCl (Dilaudid) 1 mg IVP Q3 PRN PRN Reason: Pain, severe (8-10) Last Admin: 03/14/18 05:28 Dose: 1 mg Piperacillin Sod/Tazobactam Sod (Zosyn 3.375 In Ns 100ml) 100 mls @ 200 mls/hr IVPB Q6 [facility]; Protocol Stop: 03/16/18 14:31 Last Admin: 03/14/18 05:37 Dose: 200 mls/hr Lisinopril (Zestril) 20 mg PO DAILY [facility] Last Admin: 03/14/18 05:29 Dose: 20 mg Metoprolol Tartrate (Lopressor) 5 mg IVP Q6H [facility] Last Admin: 03/11/18 11:13 Dose: 5 mg Metoprolol Tartrate (Lopressor) 50 mg PO Q12 [facility] Last Admin: 03/14/18 05:28 Dose: 50 mg Nicotine (Nicoderm Cq) 1 patch TD DAILY [facility] Last Admin: 03/13/18 10:08 Dose: 1 patch Nitroglycerin (Nitro-Bid 2% Oint) 1 ea TOP Q8 PRN PRN Reason: Other Last Admin: 03/11/18 05:14 Dose: 1 ea Olanzapine (Zyprexa Zydis) 5 mg PO HS PRN; Protocol PRN Reason: Agitation Last Admin: 03/12/18 22:20 Dose: 5 mg Ondansetron HCl (Zofran Inj) 4 mg IVP Q6 PRN PRN Reason: Nausea/Vomiting Last Admin: 03/11/18 22:00 Dose: 4 mg Pantoprazole Sodium (Protonix Inj) 40 mg IVP DAILY [facility] Last Admin: 03/13/18 10:09 Dose: 40 mg Primidone (Mysoline) 250 mg PO TID [facility] Last Admin: 03/13/18 17:25 Dose: 250 mg - Labs Labs: 03/13/18 07:40 03/13/18 07:40 PT 14.4 SECONDS (9.4-12.5) H 03/06/18 21:51 INR 1.26 03/06/18 21:51 APTT 29.2 Seconds (25.1-36.5) 03/06/18 21:51 - Constitutional Appears: Awake, Alert, In Chair eating - Head Exam Head Exam: ATRAUMATIC, NORMOCEPHALIC - ENT Exam ENT Exam: Mucous Membranes Moist - Respiratory Exam Respiratory Exam: Clear to Ausculation Bilateral, NORMAL BREATHING PATTERN - Cardiovascular Exam Cardiovascular Exam: REGULAR RHYTHM, RRR, +S1, +S2. absent: Murmur - GI/Abdominal Exam GI & Abdominal Exam: Soft, Normal Bowel Sounds, Midline incision intact, Stapled; W/ no discharge or drainage. No dressing -Extremity Exam Lower Extremity Exam: Distal pulses 2+ BL, no edema - Neurological Exam Additional comments: Patient is AAO3, answering questions however takes significant redirection to answer. Assessment and Plan - Assessment and Plan (Free Text) Assessment: 68 y/o M with PMHx HTN, HLD, CVA with left residual weakness, COPD, cardiac ar rest s/p spinal surgery, chronic back pain [place] [facility] [place] complaining of abdominal pain. Subsequently found to have perforated duodenal ulcer. Currently s/p Issa Patch repair of ulcer on 03/06. Patient is transferred to med/surg with waxing/ waning confusion and lethargy; Still having asymptomatic hypertension. Plan: AMS - Improving Patient appears to have waxing/waning confusion and lethargy. Etiology include - Delirium vs Opiate Withdrawal Pt takes percocet, hydrocodone, and primidone at home. We will resume home primidone at this time Patient pain has been managed w/ dilaudid 1 Q3 Will decrease Dilaudid to 1Q6 CT Head was normal Neurology consulted Pt still refusing MRI due to back pain EEG demonstrated presence of mild to moderate non-specific diffuse khalil matter dysfunction. These findings do no support a specific etiology. Findings are also in keeping with a focal cortical abnormality involving the right hemisphere. No seizure activity c/w Zyprexa as per psych Accelerated Hypertension: Blood presure worse today Start HCTZ 25 tomorrow C/w Clonidine patch 0.3 QW, Lisinopril 40 QD, Lopressor 50 Q12, Echo completed EF 59% Nephro following Cardiology following, appreciate reccs Perforated Duodenal Ulcer - s/p Issa patch repair of ulcer 03/06 Diet advanced to regular, tolerating well, no complaints Surgery following Incision healing well Diet: Regular Diet GI ppx: Protonix 40mg IV daily VTE ppx: Lovenox 40 QD Code status: full code Patient seen, examined, and discussed w/ attending physician Dr. Shanta Cordova DO PGY1 Internal Medicine Poultry Husbandry Teacher - Pager [phone] <Shanta Cordova R - Last Filed: 03/17/18 17:03> Objective - Vital Signs/Intake and Output Vital Signs (last 24 hours): Temp Pulse Resp BP Pulse Ox 97.8 F 58 L 20 127/85 98 03/17/18 14:00 03/17/18 14:00 03/17/18 14:00 03/17/18 14:00 03/17/18 14:00 Intake and Output: 03/17/18 03/17/18 06:59 18:59 Intake Total 180 720 Output Total 1 200 Balance 179 520 - Medications Medications: Current Medications Albuterol/Ipratropium (Duoneb 3 Mg/0.5 Mg (3 Ml) Ud) 3 ml IH [id number] PRN PRN Reason: Wheezing Carvedilol (Coreg) 12.5 mg PO BID [facility] Last Admin: 03/17/18 10:27 Dose: 12.5 mg Clonidine HCl (Catapres-Tts3 0.3 Mg/24 Hr) 1 patch TD Q7D@1000 [facility] Last Admin: 03/17/18 10:28 Dose: 1 patch Enoxaparin Sodium (Lovenox) 40 mg SC DAILY [facility]; Protocol Last Admin: 03/17/18 10:25 Dose: 40 mg Hydrochlorothiazide (Hydrodiuril) 25 mg PO DAILY [facility] Last Admin: 03/17/18 10:25 Dose: 25 mg Potassium Chloride (Potassium Chloride 10 Meq/100 Ml) 10 meq in 100 mls @ 50 mls/hr IVPB ONCE ONE Stop: 03/17/18 18:57 Lisinopril (Zestril) 40 mg PO DAILY [facility] Last Admin: 03/17/18 10:28 Dose: 40 mg Metoprolol Tartrate (Lopressor) 5 mg IVP Q6H [facility] Last Admin: 03/11/18 11:13 Dose: 5 mg Nicotine (Nicoderm Cq) 1 patch TD DAILY [facility] Last Admin: 03/17/18 10:26 Dose: 1 patch Nitroglycerin (Nitro-Bid 2% Oint) 1 ea TOP Q8 PRN PRN Reason: Other Last Admin: 03/14/18 14:50 Dose: 1 ea Olanzapine (Zyprexa Zydis) 5 mg PO HS PRN; Protocol PRN Reason: Agitation Last Admin: 03/16/18 21:56 Dose: 5 mg Ondansetron HCl (Zofran Inj) 4 mg IVP Q6 PRN PRN Reason: Nausea/Vomiting Last Admin: 03/11/18 22:00 Dose: 4 mg Oxycodone/Acetaminophen (Percocet 5/325 Mg Tab) 1 tab PO Q4H PRN PRN Reason: Pain, severe (8-10) Stop: 03/19/18 16:33 Last Admin: 03/17/18 06:45 Dose: 1 tab Pantoprazole Sodium (Protonix Ec Tab) 40 mg PO ACB [facility] Last Admin: 03/17/18 08:14 Dose: 40 mg Primidone (Mysoline) 250 mg PO TID [facility] Last Admin: 03/17/18 16:41 Dose: 250 mg - Labs Labs: 03/17/18 09:00 03/17/18 09:00 PT 14.4 SECONDS (9.4-12.5) H 03/06/18 21:51 INR 1.26 03/06/18 21:51 APTT 29.2 Seconds (25.1-36.5) 03/06/18 21:51 Attending/Attestation - Attestation I have personally seen and examined this patient.: Yes I have fully participated in the care of the patient.: Yes I have reviewed all pertinent clinical information, including history, physical exam and plan: Yes Notes (Text): Patient seen and examined by me in dialysis at 10:45AM with resident 03/14/18. Case including HPI, physical exam, and assessment and plan discussed with resident. Agree with above with following additions/corrections. Patient is a 68-year-old male with past medical history significant for hypertension, hyperlipidemia, COPD, cardiac arrest, CVA, and chronic back pain that presented to the emergency room with epigastric abdominal pain. Patient awake and alert. Oriented x 3 with intermittent confusion. States he is feeling ok. States he has chronic back pain. Denies any chest pain or shortness of breath. No abdominal pain. No nausea or vomiting. Patient is tolerating diet. No headaches or dizziness. No fevers or chills. No dysuria. Patient is having bowel movements. Physical exam: General: Awake and alert sitting up in bed in no acute distress HEENT: Normocephalic, atraumatic. Extraocularmuscles intact. Pupils are equal and reactive. No scleral icterus. Oropharynx is pink and moist. No pharyngeal erythema or exudate appreciated. Neck is supple. Cardiovascular: Normal rhythm. Normal S1, S2. No murmurs, rubs, or gallops appreciated Pulmonary: Normal respiratory effort. No rhonchi, rales, or wheezing appreciated. Gastrointestinal: Soft, nondistended. Nontender. Incision site clean, dry, and intact. [place] in place. Positive bowel sounds all 4 quadrants, no guarding. Musculoskeletal: Moves all extremities. No calf tenderness. Trace lower extremity edema. Central nervous system: Awake and alert. Oriented x 3 with intermittent confusion. Dermatologic: Skin warm and dry. Assessment and plan: Patient is a 68-year-old male with past medical history significant for hypertension, hyperlipidemia, COPD, cardiac arrest, CVA, and chronic back pain that presented to the emergency room with epigastric abdominal pain. 1. Altered mental status. Resolving. Neurology following, recommendations william reciated. EEG results pending. Patient cannot have MRI brain secondary to patient not being able to lie flat secondary to chronic back pain. Head CT per radiologist showed no acute intracranial findings. ?Secondary to opiate withdrawal. Taper off dilaudid. Patient on hydrocodone and Percocet at home chronically for pain. Psychiatry recommendations appreciated. 2. Accelerated hypertension. Improving. Continue Lisinopril, metoprolol, and clonidine. HCTZ added. Cardiology following, recommendations appreciated. Nephrology following, recommendations appreciated. 2D echo per doctor of dental medicine showed left ventricle is normal size, mild concentric left ventricular hypertrophy, left ventricular function is normal, EF 55-60%, no pericardial effusion. 3. Hypokalemia. Replace potassium. Continue to monitor. 4. Hypophosphatemia. Resolved. Continue to monitor. 5. Perforated duodenal ulcer. S/P exploratory laparotomy with repair with issa patch 03/06/18. Continue with pain management and local wound care. Blood culture with no growth. ID following, recommendations appreciated. Continue with Zosyn. CTA chest 03/06/18 per radiologist showed a small amount of free air beneath the liver and right hemidiphragm, source of free air appears to be in the stomach, stomach abnormally thickened and edematous and there is inflammation of the surrounding fat planes. Surgery following, recommendations appreciated. 6. Leukocytosis. Resolved. Continue to monitor. Continue Zosyn 7. Chronic back pain. Taper off dilaudid. PT eval and treat. On chronic hydrocodone and Percocet at home. 8. History of COPD. Not in acute exacerbation. Continue nebulizer treatments as needed. 9. DVT prophylaxis. Lovenox Case discussed in detail with the patient regarding current diagnosis and treatment plan. All questions answered.
--- NOTE | 2018-03-14 06:54 | CP.PCM.PN ---
Subjective - Date & Time of Evaluation Date of Evaluation: 03/14/18 Time of Evaluation: 06:53 - Subjective Subjective: Sandeep Ramsey DO, PGY-2: Nephrology Progress Note for Dr. Hinson Patient seen and examined at bedside. Patient reports Objective - Vital Signs/Intake and Output Vital Signs (last 24 hours): Temp Pulse Resp BP Pulse Ox 97.9 F 64 18 175/114 H 98 03/13/18 22:00 03/14/18 05:29 03/13/18 22:00 03/14/18 05:29 03/13/18 22:00 Intake and Output: 03/13/18 03/14/18 18:59 06:59 Output Total 400 Balance -400 - Medications Medications: Current Medications Albuterol/Ipratropium (Duoneb 3 Mg/0.5 Mg (3 Ml) Ud) 3 ml IH [id number] PRN PRN Reason: Wheezing Enoxaparin Sodium (Lovenox) 40 mg SC DAILY [facility]; Protocol Furosemide (Lasix) 20 mg PO DAILY [facility] Hydromorphone HCl (Dilaudid) 1 mg IVP Q3 PRN PRN Reason: Pain, severe (8-10) Last Admin: 03/14/18 05:28 Dose: 1 mg Piperacillin Sod/Tazobactam Sod (Zosyn 3.375 In Ns 100ml) 100 mls @ 200 mls/hr IVPB Q6 [facility]; Protocol Stop: 03/16/18 14:31 Last Admin: 03/14/18 05:37 Dose: 200 mls/hr Lisinopril (Zestril) 40 mg PO DAILY [facility] Metolazone (Zaroxolyn) 5 mg PO DAILY [facility] Metoprolol Tartrate (Lopressor) 5 mg IVP Q6H [facility] Last Admin: 03/11/18 11:13 Dose: 5 mg Metoprolol Tartrate (Lopressor) 50 mg PO Q12 [facility] Last Admin: 03/14/18 05:28 Dose: 50 mg Nicotine (Nicoderm Cq) 1 patch TD DAILY [facility] Last Admin: 03/13/18 10:08 Dose: 1 patch Nitroglycerin (Nitro-Bid 2% Oint) 1 ea TOP Q8 PRN PRN Reason: Other Last Admin: 03/11/18 05:14 Dose: 1 ea Olanzapine (Zyprexa Zydis) 5 mg PO HS PRN; Protocol PRN Reason: Agitation Last Admin: 03/12/18 22:20 Dose: 5 mg Ondansetron HCl (Zofran Inj) 4 mg IVP Q6 PRN PRN Reason: Nausea/Vomiting Last Admin: 03/11/18 22:00 Dose: 4 mg Pantoprazole Sodium (Protonix Inj) 40 mg IVP DAILY [facility] Last Admin: 03/13/18 10:09 Dose: 40 mg Primidone (Mysoline) 250 mg PO TID [facility] Last Admin: 03/13/18 17:25 Dose: 250 mg - Labs Labs: 03/13/18 07:40 03/13/18 07:40 PT 14.4 SECONDS (9.4-12.5) H 03/06/18 21:51 INR 1.26 03/06/18 21:51 APTT 29.2 Seconds (25.1-36.5) 03/06/18 21:51 Assessment and Plan - Assessment and Plan (Free Text) Assessment: 1) Uncontrolled Hypertension - Lisinopril 40 mg PO daily - HCTZ 25 mg - Metoprolol Tartarate 50 mg q12h
[2018-03-14 06:56] LABS: ALB/GLOB RATIO 0.9 (1.1-1.8); ALBUMIN 3.3 g/dL (3.0-4.8); ALT/SGPT 51 U/L (7-56); AST/SGOT 58 U/L (17-59); BLOOD UREA NITROGEN 11 mg/dL (7-21); CALCIUM 8.5 mg/dL (8.4-10.5); GFR NON-AFRICAN AMERICAN > 60
[2018-03-14 07:04] LABS: BASO # 0.01 K/mm3 (0.0-2.0); BASO % 0.1 % (0.0-3.0); EOS # 0.5 (0.0-0.7); EOS % 5.4 % (1.5-5.0); GRAN # 6.19 (1.4-6.5); GRAN % 68.6 % (50.0-68.0); HEMOGLOBIN 11.6 g/dL (14.0-18.0); LYMPH # 1.3 (1.2-3.4); LYMPH % 14.6 % (22.0-35.0); MEAN CELL VOLUME 68.6 fl (80.0-105.0); MEAN CORPUSCULAR HEMOGLOBIN 22.1 pg (25.0-35.0); MEAN CORPUSCULAR HGB CONC 32.1 g/dl (31.0-37.0); MONO % 11.3 % (1.0-6.0); PLATELET COUNT 291 10^3/uL (120.0-450.0); RBC 5.26 10^6/uL (3.5-6.1); RED CELL DISTRIBUTION WIDTH 21.1 % (11.5-14.5)
[2018-03-14] MEDS ORDERED: Furosemide 40 mg/5 mL Oral Soln UD PO SCH (10:00)
[2018-03-14] MEDS ORDERED: metOLazone 5 MG TAB PO SCH (10:00)
[2018-03-14] MEDS: Enoxaparin 40 mg Syringe SC SCH (10:34)
--- NOTE | 2018-03-14 11:10 | CP.PCM.PN ---
Subjective - Date & Time of Evaluation Date of Evaluation: 03/14/18 Time of Evaluation: 11:06 - Subjective Subjective: General Surgery Progress Note for Dr. Torres This 68M was seen and examined this AM at bedside no acute events overnight. He is tolerating diet, improving cognition. Denies pain. Moving bowels and passing gas. No new complaints at this time. Objective - Vital Signs/Intake and Output Vital Signs (last 24 hours): Temp Pulse Resp BP Pulse Ox 98.8 F 68 18 154/90 H 97 03/14/18 06:00 03/14/18 06:55 03/14/18 06:00 03/14/18 06:55 03/14/18 06:00 Intake and Output: 03/14/18 03/14/18 06:59 18:59 Output Total 400 Balance -400 - Medications Medications: Current Medications Albuterol/Ipratropium (Duoneb 3 Mg/0.5 Mg (3 Ml) Ud) 3 ml IH [id number] PRN PRN Reason: Wheezing Enoxaparin Sodium (Lovenox) 40 mg SC DAILY [facility]; Protocol Last Admin: 03/14/18 10:34 Dose: 40 mg Hydromorphone HCl (Dilaudid) 1 mg IVP Q3 PRN PRN Reason: Pain, severe (8-10) Last Admin: 03/14/18 10:44 Dose: 1 mg Piperacillin Sod/Tazobactam Sod (Zosyn 3.375 In Ns 100ml) 100 mls @ 200 mls/hr IVPB Q6 [facility]; Protocol Stop: 03/16/18 14:31 Last Admin: 03/14/18 05:37 Dose: 200 mls/hr Lisinopril (Zestril) 40 mg PO DAILY [facility] Last Admin: 03/14/18 10:35 Dose: 40 mg Metolazone (Zaroxolyn) 5 mg PO DAILY [facility] Last Admin: 03/14/18 10:32 Dose: 5 mg Metoprolol Tartrate (Lopressor) 5 mg IVP Q6H [facility] Last Admin: 03/11/18 11:13 Dose: 5 mg Metoprolol Tartrate (Lopressor) 50 mg PO Q12 [facility] Last Admin: 03/14/18 05:28 Dose: 50 mg Nicotine (Nicoderm Cq) 1 patch TD DAILY [facility] Last Admin: 03/14/18 10:35 Dose: 1 patch Nitroglycerin (Nitro-Bid 2% Oint) 1 ea TOP Q8 PRN PRN Reason: Other Last Admin: 03/11/18 05:14 Dose: 1 ea Olanzapine (Zyprexa Zydis) 5 mg PO HS PRN; Protocol PRN Reason: Agitation Last Admin: 03/12/18 22:20 Dose: 5 mg Ondansetron HCl (Zofran Inj) 4 mg IVP Q6 PRN PRN Reason: Nausea/Vomiting Last Admin: 03/11/18 22:00 Dose: 4 mg Pantoprazole Sodium (Protonix Inj) 40 mg IVP DAILY [facility] Last Admin: 03/14/18 10:32 Dose: 40 mg Primidone (Mysoline) 250 mg PO TID [facility] Last Admin: 03/14/18 10:35 Dose: 250 mg - Labs Labs: 03/14/18 06:20 03/14/18 06:20 PT 14.4 SECONDS (9.4-12.5) H 03/06/18 21:51 INR 1.26 03/06/18 21:51 APTT 29.2 Seconds (25.1-36.5) 03/06/18 21:51 - Constitutional Appears: Non-toxic, No Acute Distress - Head Exam Head Exam: ATRAUMATIC, NORMOCEPHALIC - Eye Exam Eye Exam: EOMI - ENT Exam ENT Exam: Mucous Membranes Moist - Respiratory Exam Respiratory Exam: NORMAL BREATHING PATTERN - Cardiovascular Exam Cardiovascular Exam: +S1, +S2 - GI/Abdominal Exam GI & Abdominal Exam: Soft. absent: Distended, Firm, Guarding, Rigid, Tenderness - Neurological Exam Neurological Exam: Alert, Awake - Psychiatric Exam Psychiatric exam: Normal Affect, Normal Mood - Skin Skin Exam: Dry, Intact Assessment and Plan - Assessment and Plan (Free Text) Assessment: 68M with perforated duodenal ulcer POD#7 s/p exlap with gram patch and washout Continue regular diet Pain control Monitor output Serial abdominal exams DVT prophylaxis Recommend empiric treatment for h.pylori D/W Dr. Brian Trejo PGY3
[2018-03-14] MEDS: Nitroglycerin 2% Ointment Foilpak UD TOP PRN (14:50)
--- NOTE | 2018-03-14 16:09 | CARD ---
APPROVED REPORT Date of service: 03/13/2018 EXAM: Two-dimensional and M-mode echocardiogram with Doppler and color Doppler. INDICATION Hypertension/HCVD 2D DIMENSIONS Left Atrium (2D)4.7 (1.6-4.0cm)IVSd1.3 (0.7-1.1cm) LVDd5.5 (3.9-5.9cm)PWd1.4 (0.7-1.1cm) LVDs3.7 (2.5-4.0cm)FS (%) 32.2 % LVEF (%)59.9 (>50%) M-Mode DIMENSIONS Aortic Root4.00 (2.2-3.7cm)Aortic Cusp Exc.2.30 (1.5-2.0cm) Aortic Valve AoV Peak Clswubex748.0cm/Adrián Peak GR.13mmHg Mitral Valve MV E Vkeivhrc38.0cm/sMV A Ulydhgrv75.9cm/sE/A ratio0.6 TDI E/Lateral E'0.0E/Medial E'0.0 Pulmonary Valve PV Peak Lsgpwagq83.3cm/sPV Peak Grad.1mmHg Tricuspid Valve TR Peak Qeijwdac307sl/sRAP OMXQQQKV45wrRcBJ Peak Gr.16mmHg [id number] LEFT VENTRICLE The left ventricle is normal size. There is mild concentric left ventricular hypertrophy. The left ventricular function is normal .EF-55-60% There is normal LV segmental wall motion. Transmitral Doppler flow pattern is Grade III-reversible restrictive diastolic dysfunction. No left ventricle thrombus noted on this study. There is no ventricular septal defect visualized. There is no left ventricular aneurysm. There is no mass noted in the left ventricle. RIGHT VENTRICLE The right ventricle is normal size. There is normal right ventricular wall thickness. The right ventricular systolic function is normal. ATRIA The left atrium is mildly dilated. The right atrium size is normal. The interatrial septum is intact with no evidence for an atrial septal defect. AORTIC VALVE The aortic valve is thickened but opens well. There is mild aortic regurgitation. There is no aortic valvular stenosis. There is no aortic valvular vegetation. MITRAL VALVE The mitral valve is thickened but opens well. Mitral regurgitation is mild. There is no mitral valve stenosis. There is no evidence of mitral valve prolapse. TRICUSPID VALVE The tricuspid valve leaflets are thickened , but open well. There is trace to mild tricuspid regurgitation.RVSP-26 mmof Hg. There is no tricuspid valve stenosis. There is no tricuspid valve prolapse or vegetation. PULMONIC VALVE The pulmonary valve is normal in structure. There is trace pulmonic valvular regurgitation. There is no pulmonic valvular stenosis. GREAT VESSELS The aortic root is normal in size. The ascending aorta is normal in size. The pulmonary artery is normal. The IVC is normal in size and collapses >50% with inspiration. PERICARDIAL EFFUSION There is no pleural effusion. There is no pericardial effusion. <Conclusion> The left ventricle is normal size. There is mild concentric left ventricular hypertrophy. The left ventricular function is normal .EF-55-60% There is mild aortic regurgitation. Mitral regurgitation is mild. There is trace to mild tricuspid regurgitation.RVSP-26 mmof Hg. The IVC is normal in size and collapses >50% with inspiration. There is no pericardial effusion. No vegetation or thrombus noted.
--- NOTE | 2018-03-14 17:20 | PN ---
DATE: 03/14/2018 CARDIOLOGY FOLLOWUP SUBJECTIVE: The patient is status post abdominal surgery without complaints. PHYSICAL EXAMINATION: VITAL SIGNS: Blood pressure is 154/90, heart rate is in the 60s. Physical exam is unchanged. LABORATORY DATA: Hemoglobin is 11.6. Chemistries: BUN and creatinine are unremarkable. The glucose is 114. IMPRESSION: 1. Status post exploratory laparoscopy. 2. History of hypertension. 3. History of altered mental status post surgery. PLAN: Currently, the patient is doing much better. Hemodynamically, he remained stable. Greg Fortune MD
--- NOTE | 2018-03-14 21:17 | CP.PCM.PN ---
Subjective - Date & Time of Evaluation Date of Evaluation: 03/14/18 Time of Evaluation: 12:10 - Subjective Subjective: Has just been switched to regular diet, no fevers, not in distress. Objective - Vital Signs/Intake and Output Vital Signs (last 24 hours): Temp Pulse Resp BP Pulse Ox 97.9 F 68 18 154/90 H 98 03/13/18 22:00 03/14/18 06:55 03/13/18 22:00 03/14/18 06:55 03/13/18 22:00 Intake and Output: 03/14/18 03/14/18 06:59 18:59 Output Total 400 Balance -400 - Medications Medications: Current Medications Albuterol/Ipratropium (Duoneb 3 Mg/0.5 Mg (3 Ml) Ud) 3 ml IH [id number] PRN PRN Reason: Wheezing Enoxaparin Sodium (Lovenox) 40 mg SC DAILY [facility]; Protocol Hydromorphone HCl (Dilaudid) 1 mg IVP Q3 PRN PRN Reason: Pain, severe (8-10) Last Admin: 03/14/18 05:28 Dose: 1 mg Piperacillin Sod/Tazobactam Sod (Zosyn 3.375 In Ns 100ml) 100 mls @ 200 mls/hr IVPB Q6 [facility]; Protocol Stop: 03/16/18 14:31 Last Admin: 03/14/18 05:37 Dose: 200 mls/hr Lisinopril (Zestril) 40 mg PO DAILY [facility] Metolazone (Zaroxolyn) 5 mg PO DAILY [facility] Metoprolol Tartrate (Lopressor) 5 mg IVP Q6H [facility] Last Admin: 03/11/18 11:13 Dose: 5 mg Metoprolol Tartrate (Lopressor) 50 mg PO Q12 [facility] Last Admin: 03/14/18 05:28 Dose: 50 mg Nicotine (Nicoderm Cq) 1 patch TD DAILY [facility] Last Admin: 03/13/18 10:08 Dose: 1 patch Nitroglycerin (Nitro-Bid 2% Oint) 1 ea TOP Q8 PRN PRN Reason: Other Last Admin: 03/11/18 05:14 Dose: 1 ea Olanzapine (Zyprexa Zydis) 5 mg PO HS PRN; Protocol PRN Reason: Agitation Last Admin: 03/12/18 22:20 Dose: 5 mg Ondansetron HCl (Zofran Inj) 4 mg IVP Q6 PRN PRN Reason: Nausea/Vomiting Last Admin: 03/11/18 22:00 Dose: 4 mg Pantoprazole Sodium (Protonix Inj) 40 mg IVP DAILY [facility] Last Admin: 03/13/18 10:09 Dose: 40 mg Primidone (Mysoline) 250 mg PO TID [facility] Last Admin: 03/13/18 17:25 Dose: 250 mg - Labs Labs: 03/14/18 06:20 03/14/18 06:20 PT 14.4 SECONDS (9.4-12.5) H 03/06/18 21:51 INR 1.26 03/06/18 21:51 APTT 29.2 Seconds (25.1-36.5) 03/06/18 21:51 - Constitutional Appears: Chronically Ill - Head Exam Head Exam: NORMAL INSPECTION - Respiratory Exam Respiratory Exam: Decreased Breath Sounds - Cardiovascular Exam Cardiovascular Exam: +S1, +S2 - GI/Abdominal Exam GI & Abdominal Exam: Soft. absent: Tenderness Assessment and Plan - Assessment and Plan (Free Text) Plan: Assessment perforated duodenal ulcer S/P ex-lap and repair 03/06/2018 encephalopathy, R/O toxic-metabolic history of SIRS after cardiac arrest after aborted discectomy HTN Chronic back pain dyslipidemia COPD history of seizures history of CVA Plan abdominal tenderness is decreased but will continue Zosyn for now and will continue to see how he tolerates regular diet and how his abdominal pain is follow up further recommendations of surgery follow up recommendations of Neurology regarding confusion will continue to monitor clinically
[2018-03-15] MEDS ORDERED: HYDROmorphone 1 mg/ml ISec IVP SCH
[2018-03-15] MEDS: Piperacillin/Tazobact 3.375 gm 100 ML IVPB SCH ×3 (00:50→12:39)
[2018-03-15] MEDS: HYDROmorphone 1 mg/ml ISec IVP PRN ×4 (03:06→20:41)
--- NOTE | 2018-03-15 06:25 | CP.PCM.PN ---
Subjective - Date & Time of Evaluation Date of Evaluation: 03/14/18 Time of Evaluation: 12:00 - Subjective Subjective: Patient reports feeling well; no sob; tolerating diet; Objective - Vital Signs/Intake and Output Vital Signs (last 24 hours): Temp Pulse Resp BP Pulse Ox 98.5 F 95 H 20 158/106 H 69 L 03/14/18 14:00 03/14/18 21:18 03/14/18 14:00 03/14/18 21:18 03/14/18 14:00 Intake and Output: 03/14/18 03/15/18 18:59 06:59 Intake Total 480 480 Output Total 250 Balance 230 480 - Medications Medications: Current Medications Albuterol/Ipratropium (Duoneb 3 Mg/0.5 Mg (3 Ml) Ud) 3 ml IH [id number] PRN PRN Reason: Wheezing Clonidine HCl (Catapres-Tts3 0.3 Mg/24 Hr) 1 patch TD Q7D@1000 [facility] Enoxaparin Sodium (Lovenox) 40 mg SC DAILY [facility]; Protocol Last Admin: 03/14/18 10:34 Dose: 40 mg Hydrochlorothiazide (Hydrodiuril) 25 mg PO DAILY [facility] Hydromorphone HCl (Dilaudid) 1 mg IVP Q6 PRN PRN Reason: Pain, severe (8-10) Last Admin: 03/15/18 03:06 Dose: 1 mg Piperacillin Sod/Tazobactam Sod (Zosyn 3.375 In Ns 100ml) 100 mls @ 200 mls/hr IVPB Q6 [facility]; Protocol Stop: 03/16/18 14:31 Last Admin: 03/15/18 00:50 Dose: 200 mls/hr Lisinopril (Zestril) 40 mg PO DAILY [facility] Last Admin: 03/14/18 10:35 Dose: 40 mg Metoprolol Tartrate (Lopressor) 5 mg IVP Q6H [facility] Last Admin: 03/11/18 11:13 Dose: 5 mg Metoprolol Tartrate (Lopressor) 50 mg PO Q12 [facility] Last Admin: 03/14/18 21:18 Dose: 50 mg Nicotine (Nicoderm Cq) 1 patch TD DAILY [facility] Last Admin: 03/14/18 10:35 Dose: 1 patch Nitroglycerin (Nitro-Bid 2% Oint) 1 ea TOP Q8 PRN PRN Reason: Other Last Admin: 03/14/18 14:50 Dose: 1 ea Olanzapine (Zyprexa Zydis) 5 mg PO HS PRN; Protocol PRN Reason: Agitation Last Admin: 03/12/18 22:20 Dose: 5 mg Ondansetron HCl (Zofran Inj) 4 mg IVP Q6 PRN PRN Reason: Nausea/Vomiting Last Admin: 03/11/18 22:00 Dose: 4 mg Pantoprazole Sodium (Protonix Ec Tab) 40 mg PO ACB [facility] Primidone (Mysoline) 250 mg PO TID [facility] Last Admin: 03/14/18 18:41 Dose: 250 mg - Labs Labs: 03/14/18 06:20 03/14/18 06:20 PT 14.4 SECONDS (9.4-12.5) H 03/06/18 21:51 INR 1.26 03/06/18 21:51 APTT 29.2 Seconds (25.1-36.5) 03/06/18 21:51 - Constitutional Appears: Non-toxic, No Acute Distress - Eye Exam Eye Exam: Normal appearance - Respiratory Exam Respiratory Exam: Clear to Ausculation Bilateral. absent: Respiratory Distress - Cardiovascular Exam Cardiovascular Exam: RRR, +S1, +S2. absent: Gallop, Murmur - GI/Abdominal Exam GI & Abdominal Exam: Soft. absent: Distended, Tenderness - Exam Exam: absent: Bladder Distension - Extremities Exam Additional comments: no leg edema; - Neurological Exam Neurological Exam: Alert, Awake - Psychiatric Exam Psychiatric exam: Normal Mood. absent: Agitated - Skin Skin Exam: Warm. absent: Cyanosis Assessment and Plan (1) Hypertensive urgency Assessment & Plan: BP again elevated since yesterday evening; lisinopril dose increased to 40 mg, started on diuretic with hctz 25 mg daily; continuing clonidine patch 0.3 mg; on metoprolol, can switch to coreg for better anti-htn effect if needed; low Na diet; consider prn ativan for patient on benzos at home; we will continue to monitor; Status: Acute
[2018-03-15] MEDS: OLANZapine 5 mg Disintegrating Tab PO PRN (06:31)
[2018-03-15 07:17] LABS: BASO # 0.01 K/mm3 (0.0-2.0); BASO % 0.1 % (0.0-3.0); EOS # 0.5 (0.0-0.7); GRAN # 6.92 (1.4-6.5); GRAN % 67.4 % (50.0-68.0); HEMOGLOBIN 11.9 g/dL (14.0-18.0); LYMPH # 1.9 (1.2-3.4); MEAN CELL VOLUME 68.1 fl (80.0-105.0); MEAN CORPUSCULAR HEMOGLOBIN 22.1 pg (25.0-35.0); MEAN CORPUSCULAR HGB CONC 32.4 g/dl (31.0-37.0); MONO % 9.5 % (1.0-6.0); PLATELET COUNT 324 10^3/uL (120.0-450.0); RBC 5.39 10^6/uL (3.5-6.1); RED CELL DISTRIBUTION WIDTH 20.9 % (11.5-14.5); WHITE BLOOD COUNT 10.3 10^3/ul (4.5-11.0)
[2018-03-15] MEDS: Pantoprazole 40 mg EC Tab PO SCH (09:02)
[2018-03-15] MEDS: Enoxaparin 40 mg Syringe SC SCH (09:02)
[2018-03-15 10:13] LABS: ALB/GLOB RATIO 0.9 (1.1-1.8); ALBUMIN 3.5 g/dL (3.0-4.8); ALT/SGPT 50 U/L (7-56); AST/SGOT 44 U/L (17-59); BLOOD UREA NITROGEN 9 mg/dL (7-21); CALCIUM 8.8 mg/dL (8.4-10.5); GFR NON-AFRICAN AMERICAN > 60
[2018-03-15] MEDS ORDERED: Potassium Chloride 20 mEq ER Tab PO STA (11:44)
--- NOTE | 2018-03-15 19:48 | CP.PCM.PN ---
<Tulio Cordova - Last Filed: 03/15/18 19:44> Subjective - Date & Time of Evaluation Date of Evaluation: 03/15/18 Time of Evaluation: 19:44 - Subjective Subjective: Tulio Cordova DO - PGY1 - Internal Medicine [employer] Work[employer] - Hospital Progress Note Patient was seen and examined at bedside this morning. No acute events reported over night. Patient was alert and oriented to person, place and time. Patient however still appears to be confused and struggles to find words. Patient has difficulty completing thoughts. Patient was hypertensive overnight requiring AM Rx early; Patient did not sleep overnight 2/2 pain. He denies abdominal pain, nausea, and vomiting. He states his last BM was yesterday. It was soft and nonbloody. Patient complains of back pain that is radiating down his right lower extremity. Remainder of 12 system ROS is otherwise negative. Objective - Vital Signs/Intake and Output Vital Signs (last 24 hours): Temp Pulse Resp BP Pulse Ox 98.7 F 70 20 133/97 H 98 03/15/18 14:00 03/15/18 14:00 03/15/18 14:00 03/15/18 14:00 03/15/18 14:00 Intake and Output: 03/15/18 03/16/18 18:59 06:59 Intake Total 600 600 Output Total 300 300 Balance 300 300 - Medications Medications: Current Medications Albuterol/Ipratropium (Duoneb 3 Mg/0.5 Mg (3 Ml) Ud) 3 ml IH [id number] PRN PRN Reason: Wheezing Clonidine HCl (Catapres-Tts3 0.3 Mg/24 Hr) 1 patch TD Q7D@1000 KALEN Enoxaparin Sodium (Lovenox) 40 mg SC DAILY [facility]; Protocol Last Admin: 03/15/18 09:02 Dose: 40 mg Hydrochlorothiazide (Hydrodiuril) 25 mg PO DAILY [facility] Last Admin: 03/15/18 09:02 Dose: 25 mg Hydromorphone HCl (Dilaudid) 1 mg IVP Q6 PRN PRN Reason: Pain, severe (8-10) Last Admin: 03/15/18 14:39 Dose: 1 mg Piperacillin Sod/Tazobactam Sod (Zosyn 3.375 In Ns 100ml) 100 mls @ 200 mls/hr IVPB Q6 [facility]; Protocol Stop: 03/16/18 14:31 Last Admin: 03/15/18 12:39 Dose: 200 mls/hr Lisinopril (Zestril) 40 mg PO DAILY [facility] Last Admin: 03/15/18 11:09 Dose: Not Given Metoprolol Tartrate (Lopressor) 5 mg IVP Q6H [facility] Last Admin: 03/11/18 11:13 Dose: 5 mg Metoprolol Tartrate (Lopressor) 50 mg PO Q12 [facility] Last Admin: 03/15/18 11:07 Dose: Not Given Nicotine (Nicoderm Cq) 1 patch TD DAILY [facility] Last Admin: 03/15/18 09:03 Dose: 1 patch Nitroglycerin (Nitro-Bid 2% Oint) 1 ea TOP Q8 PRN PRN Reason: Other Last Admin: 03/14/18 14:50 Dose: 1 ea Olanzapine (Zyprexa Zydis) 5 mg PO HS PRN; Protocol PRN Reason: Agitation Last Admin: 03/15/18 06:31 Dose: 5 mg Ondansetron HCl (Zofran Inj) 4 mg IVP Q6 PRN PRN Reason: Nausea/Vomiting Last Admin: 03/11/18 22:00 Dose: 4 mg Pantoprazole Sodium (Protonix Ec Tab) 40 mg PO ACB [facility] Last Admin: 03/15/18 09:02 Dose: 40 mg Primidone (Mysoline) 250 mg PO TID [facility] Last Admin: 03/15/18 14:40 Dose: 250 mg - Labs Labs: 03/15/18 06:40 03/15/18 09:00 PT 14.4 SECONDS (9.4-12.5) H 03/06/18 21:51 INR 1.26 03/06/18 21:51 APTT 29.2 Seconds (25.1-36.5) 03/06/18 21:51 - Constitutional Appears: Awake, Alert, Sitting up in bed - Head Exam Head Exam: ATRAUMATIC, NORMOCEPHALIC - ENT Exam ENT Exam: Mucous Membranes Moist - Respiratory Exam Respiratory Exam: Clear to Ausculation Bilateral, NORMAL BREATHING PATTERN - Cardiovascular Exam Cardiovascular Exam: REGULAR RHYTHM, RRR, +S1, +S2. absent: Murmur - GI/Abdominal Exam GI & Abdominal Exam: Soft, Normal Bowel Sounds, Midline incision intact, Stapled; W/ no discharge or drainage. No dressing -Extremity Exam Lower Extremity Exam: Distal pulses 2+ BL, no edema - Neurological Exam Additional comments: Patient is AAO3, answering questions however struggles to complete his thoughts and requires significant redirection Assessment and Plan - Assessment and Plan (Free Text) Assessment: 68 y/o M with PMHx HTN, HLD, CVA with left residual weakness, COPD, cardiac arrest s/p spinal surgery, chronic back pain [place] [facility] [place] complaining of abdominal pain. Subsequently found to have perforated duodenal ulcer. Currently s/p Issa Patch repair of ulcer on 03/06. Patient is transferred to med/surg with waxing/ waning confusion and lethargy; Still having asymptomatic hypertension. Plan: AMS - Improving relative to ICU however still exhibits some confusion Patient appears to have waxing/waning confusion and lethargy. Etiology include - Delirium vs Opiate Withdrawal Pt takes percocet, hydrocodone, and primidone at home. We will resume home primidone at this time Patient pain has been managed w/ dilaudid 1 Q3 Will decrease Dilaudid to 1Q6 CT Head was normal Neurology consulted EEG demonstrated presence of mild to moderate non-specific diffuse khalil matter dysfunction. These findings do no support a specific etiology. Findings are also in keeping with a focal cortical abnormality involving the right hemisphere. No seizure activity c/w Zyprexa as per psych Accelerated Hypertension: BP is elevated throughout the day today as well; of note pain medications were decreased yesterday; pressures might be reactive Started HCTZ 25 today C/w Clonidine patch 0.3 QW, Lisinopril 40 QD, Lopressor 50 Q12, Echo completed EF 59% Will start low Na diet Can consider trading lopressor for coreg as per nephro Nephro following. appreciate reccs Cardiology following, [facility] Perforated Duodenal Ulcer - s/p Issa patch repair of ulcer 03/06 Diet advanced to regular, tolerating well, no complaints Surgery following Incision healing well Diet: Low Sodium Diet GI ppx: Protonix 40mg IV daily VTE ppx: Lovenox 40 QD Code status: full code Patient seen, examined, and discussed w/ attending physician Dr. Shanta Cordova DO PGY1 Internal Medicine [employer] Work[employer] - Pager [phone] <Shanta Cordova R - Last Filed: 03/17/18 17:11> Objective - Vital Signs/Intake and Output Vital Signs (last 24 hours): Temp Pulse Resp BP Pulse Ox 97.8 F 58 L 20 127/85 98 03/17/18 14:00 03/17/18 14:00 03/17/18 14:00 03/17/18 14:00 03/17/18 14:00 Intake and Output: 03/17/18 03/17/18 06:59 18:59 Intake Total 180 720 Output Total 1 200 Balance 179 520 - Medications Medications: Current Medications Albuterol/Ipratropium (Duoneb 3 Mg/0.5 Mg (3 Ml) Ud) 3 ml IH [id number] PRN PRN Reason: Wheezing Carvedilol (Coreg) 12.5 mg PO BID [facility] Last Admin: 03/17/18 10:27 Dose: 12.5 mg Clonidine HCl (Catapres-Tts3 0.3 Mg/24 Hr) 1 patch TD Q7D@1000 [facility] Last Admin: 03/17/18 10:28 Dose: 1 patch Enoxaparin Sodium (Lovenox) 40 mg SC DAILY [facility]; Protocol Last Admin: 03/17/18 10:25 Dose: 40 mg Hydrochlorothiazide (Hydrodiuril) 25 mg PO DAILY [facility] Last Admin: 03/17/18 10:25 Dose: 25 mg Potassium Chloride (Potassium Chloride 10 Meq/100 Ml) 10 meq in 100 mls @ 50 mls/hr IVPB ONCE ONE Stop: 03/17/18 18:57 Lisinopril (Zestril) 40 mg PO DAILY [facility] Last Admin: 03/17/18 10:28 Dose: 40 mg Metoprolol Tartrate (Lopressor) 5 mg IVP Q6H [facility] Last Admin: 03/11/18 11:13 Dose: 5 mg Nicotine (Nicoderm Cq) 1 patch TD DAILY [facility] Last Admin: 03/17/18 10:26 Dose: 1 patch Nitroglycerin (Nitro-Bid 2% Oint) 1 ea TOP Q8 PRN PRN Reason: Other Last Admin: 03/14/18 14:50 Dose: 1 ea Olanzapine (Zyprexa Zydis) 5 mg PO HS PRN; Protocol PRN Reason: Agitation Last Admin: 03/16/18 21:56 Dose: 5 mg Ondansetron HCl (Zofran Inj) 4 mg IVP Q6 PRN PRN Reason: Nausea/Vomiting Last Admin: 03/11/18 22:00 Dose: 4 mg Oxycodone/Acetaminophen (Percocet 5/325 Mg Tab) 1 tab PO Q4H PRN PRN Reason: Pain, severe (8-10) Stop: 03/19/18 16:33 Last Admin: 03/17/18 06:45 Dose: 1 tab Pantoprazole Sodium (Protonix Ec Tab) 40 mg PO ACB [facility] Last Admin: 03/17/18 08:14 Dose: 40 mg Primidone (Mysoline) 250 mg PO TID [facility] Last Admin: 03/17/18 16:41 Dose: 250 mg - Labs Labs: 03/17/18 09:00 03/17/18 09:00 PT 14.4 SECONDS (9.4-12.5) H 03/06/18 21:51 INR 1.26 03/06/18 21:51 APTT 29.2 Seconds (25.1-36.5) 03/06/18 21:51 Attending/Attestation - Attestation I have personally seen and examined this patient.: Yes I have fully participated in the care of the patient.: Yes I have reviewed all pertinent clinical information, including history, physical exam and plan: Yes Notes (Text): \Patient seen and examined by me in dialysis at 11:40AM with resident 03/15/18. Case including HPI, physical exam, and assessment and plan discussed with resident. Agree with above with following additions/corrections. Patient is a 68-year-old male with past medical history significant for hypertension, hyperlipidemia, COPD, cardiac arrest, CVA, and chronic back pain that presented to the emergency room with epigastric abdominal pain. Patient states he is feeling pretty good. Does not complain of back pain today. No chest pain or shortness of breath. No nausea or vomiting. Patient is tolerating diet. No headaches or dizziness. No fevers or chills. No dysuria. Patient is having bowel movements. Physical exam: General: Awake and alert sitting up in bed in no acute distress HEENT: Normocephalic, atraumatic. Extraocular muscles intact. Pupils are equal and reactive. No scleral icterus. Oropharynx is pink and moist. No pharyngeal erythema or exudate appreciated. Neck is supple. Cardiovascular: Normal rhythm. Normal S1, S2. No murmurs, rubs, or gallops appreciated Pulmonary: Normal respiratory effort. No rhonchi, rales, or wheezing appreciated. Gastrointestinal: Soft, nondistended. Nontender. Incision site clean, dry, and intact. Daryl in place. Positive bowel sounds all 4 quadrants, no guarding. Musculoskeletal: Moves all extremities. No calf tenderness. Trace lower extremity edema. Central nervous system: Awake and alert. Oriented x 3 with intermittent confusi on. Dermatologic: Skin warm and dry. Assessment and plan: Patient is a 68-year-old male with past medical history significant for hypertension, hyperlipidemia, COPD, cardiac arrest, CVA, and chronic back pain that presented to the emergency room with epigastric abdominal pain. 1. Altered mental status. Continues to improve. Neurology following, recommendations appreciated. EEG per neurologist shows abnormal EEG record that demonstrates the presence of mild to moderated nonspecific diffuse disturbance of cortical activity, this is in keeping with a diffuse khalil matter dysfunction; focal cortical abnormality involving right hemisphere; no seizures seen. Patient cannot have MRI brain secondary to patient not being able to lie flat secondary to chronic back pain. Head CT per radiologist showed no acute intracranial findings. ?Secondary to opiate withdrawal. Continue to taper off dilaudid. Patient on hydrocodone and Percocet at home chronically for pain. Psychiatry recommendations appreciated. 2. Accelerated hypertension. Improving. Continue Lisinopril, metoprolol, and clonidine. Continue HCTZ. Cardiology following, recommendations appreciated. Nephrology following, recommendations appreciated. 2D echo per reading recovery teacher showed left ventricle is normal size, mild concentric left ventricular hypertrophy, left ventricular function is normal, EF 55-60%, no pericardial effusion. 3. Hypokalemia. Continue to replace potassium. Continue to monitor. 4. Hypophosphatemia. Resolved. Continue to monitor. 5. Perforated duodenal ulcer. S/P exploratory laparotomy with repair with issa patch 03/06/18. Continue with pain management and local wound care. Blood culture with no growth. ID following, recommendations appreciated. Continue with Zosyn. CTA chest 03/06/18 per radiologist showed a small amount of free air beneath the liver and right hemidiphragm, source of free air appears to be in the stomach, stomach abnormally thickened and edematous and there is inflammation of the surrounding fat planes. Surgery following, recommendations appreciated. 6. Leukocytosis. Resolved. Continue to monitor. Continue Zosyn 7. Chronic back pain. Continue to taper off dilaudid. PT eval and treat. On chronic hydrocodone and Percocet at home, LOGGING ENGINEER reviewed 8. History of Essential tremor. Continue home primidone. 9. History of COPD. Not in acute exacerbation. Continue nebulizer treatments as needed. 10. DVT prophylaxis. Lovenox 11. Pending JASON placement. Case discussed in detail with the patient regarding current diagnosis and treatment plan. All questions answered.
--- NOTE | 2018-03-15 23:49 | CP.PCM.PN ---
Subjective - Date & Time of Evaluation Date of Evaluation: 03/15/18 Time of Evaluation: 13:50 - Subjective Subjective: No fevers, not in distress, trying to eat solid foods, not confused. Has BM's. Objective - Vital Signs/Intake and Output Vital Signs (last 24 hours): Temp Pulse Resp BP Pulse Ox 98.5 F 69 20 157/101 H 69 L 03/14/18 14:00 03/14/18 14:00 03/14/18 14:00 03/14/18 14:00 03/14/18 14:00 Intake and Output: 03/14/18 03/15/18 18:59 06:59 Intake Total 480 480 Output Total 250 Balance 230 480 - Medications Medications: Current Medications Albuterol/Ipratropium (Duoneb 3 Mg/0.5 Mg (3 Ml) Ud) 3 ml IH [id number] PRN PRN Reason: Wheezing Clonidine HCl (Catapres-Tts3 0.3 Mg/24 Hr) 1 patch TD Q7D@1000 KALEN Enoxaparin Sodium (Lovenox) 40 mg SC DAILY [facility]; Protocol Last Admin: 03/14/18 10:34 Dose: 40 mg Hydrochlorothiazide (Hydrodiuril) 25 mg PO DAILY [facility] Hydromorphone HCl (Dilaudid) 1 mg IVP Q6 PRN PRN Reason: Pain, severe (8-10) Piperacillin Sod/Tazobactam Sod (Zosyn 3.375 In Ns 100ml) 100 mls @ 200 mls/hr IVPB Q6 [facility]; Protocol Stop: 03/16/18 14:31 Last Admin: 03/14/18 18:43 Dose: 200 mls/hr Lisinopril (Zestril) 40 mg PO DAILY [facility] Last Admin: 03/14/18 10:35 Dose: 40 mg Metoprolol Tartrate (Lopressor) 5 mg IVP Q6H [facility] Last Admin: 03/11/18 11:13 Dose: 5 mg Metoprolol Tartrate (Lopressor) 50 mg PO Q12 [facility] Last Admin: 03/14/18 05:28 Dose: 50 mg Nicotine (Nicoderm Cq) 1 patch TD DAILY [facility] Last Admin: 03/14/18 10:35 Dose: 1 patch Nitroglycerin (Nitro-Bid 2% Oint) 1 ea TOP Q8 PRN PRN Reason: Other Last Admin: 03/14/18 14:50 Dose: 1 ea Olanzapine (Zyprexa Zydis) 5 mg PO HS PRN; Protocol PRN Reason: Agitation Last Admin: 03/12/18 22:20 Dose: 5 mg Ondansetron HCl (Zofran Inj) 4 mg IVP Q6 PRN PRN Reason: Nausea/Vomiting Last Admin: 03/11/18 22:00 Dose: 4 mg Pantoprazole Sodium (Protonix Ec Tab) 40 mg PO ACB [facility] Primidone (Mysoline) 250 mg PO TID [facility] Last Admin: 03/14/18 18:41 Dose: 250 mg - Labs Labs: 03/14/18 06:20 03/14/18 06:20 PT 14.4 SECONDS (9.4-12.5) H 03/06/18 21:51 INR 1.26 03/06/18 21:51 APTT 29.2 Seconds (25.1-36.5) 03/06/18 21:51 - Constitutional Appears: Chronically Ill - Head Exam Head Exam: NORMAL INSPECTION - Respiratory Exam Respiratory Exam: Decreased Breath Sounds - Cardiovascular Exam Cardiovascular Exam: +S1, +S2 - GI/Abdominal Exam GI & Abdominal Exam: Soft Assessment and Plan - Assessment and Plan (Free Text) Plan: Assessment perforated duodenal ulcer S/P ex-lap and repair 03/06/2018 encephalopathy, R/O toxic-metabolic history of SIRS after cardiac arrest after aborted discectomy HTN Chronic back pain dyslipidemia COPD history of seizures history of CVA Plan abdominal tenderness is much improved; will continue Zosyn for now and will continue to see how he tolerates regular diet - if he does, may d/c antibiotics will continue to monitor clinically
[2018-03-16] MEDS: Piperacillin/Tazobact 3.375 gm 100 ML IVPB SCH ×3 (00:18→14:49)
[2018-03-16 01:25] LABS: ALDO/PRA RATIO 2.6 Ratio (0.9-28.9)
[2018-03-16] MEDS: HYDROmorphone 1 mg/ml ISec IVP PRN ×3 (02:44→14:48)
[2018-03-16 07:43] LABS: BASO # 0.01 K/mm3 (0.0-2.0); BASO % 0.1 % (0.0-3.0); EOS # 0.5 (0.0-0.7); EOS % 5.2 % (1.5-5.0); GRAN # 5.88 (1.4-6.5); GRAN % 61.5 % (50.0-68.0); HEMOGLOBIN 11.5 g/dL (14.0-18.0); LYMPH # 2.1 (1.2-3.4); LYMPH % 22.3 % (22.0-35.0); MEAN CELL VOLUME 68.1 fl (80.0-105.0); MEAN CORPUSCULAR HEMOGLOBIN 21.9 pg (25.0-35.0); MEAN CORPUSCULAR HGB CONC 32.2 g/dl (31.0-37.0); MONO % 10.9 % (1.0-6.0); PLATELET COUNT 331 10^3/uL (120.0-450.0); RBC 5.24 10^6/uL (3.5-6.1); WHITE BLOOD COUNT 9.6 10^3/ul (4.5-11.0)
[2018-03-16 08:15] LABS: ALB/GLOB RATIO 0.9 (1.1-1.8); ALBUMIN 3.3 g/dL (3.0-4.8); ALT/SGPT 43 U/L (7-56); AST/SGOT 31 U/L (17-59); BLOOD UREA NITROGEN 11 mg/dL (7-21); CALCIUM 8.5 mg/dL (8.4-10.5); GFR NON-AFRICAN AMERICAN > 60
[2018-03-16] MEDS: Pantoprazole 40 mg EC Tab PO SCH (08:55)
[2018-03-16] MEDS: Enoxaparin 40 mg Syringe SC SCH (09:01)
[2018-03-16] MEDS ORDERED: Potassium Chloride 20 mEq ER Tab PO STA (09:19)
[2018-03-16 19:50] LABS: BLOOD UREA NITROGEN 11 mg/dL (7-21); CALCIUM 8.3 mg/dL (8.4-10.5); GFR NON-AFRICAN AMERICAN > 60
[2018-03-16] MEDS: OLANZapine 5 mg Disintegrating Tab PO PRN (21:56)
--- NOTE | 2018-03-16 22:41 | CP.PCM.PN ---
Addendum entered and electronically signed by Tulio Cordova DO 03/17/18 00:01: Of note: Patient has been chronically hypokalemic since admission; Original Note: Subjective - Date & Time of Evaluation Date of Evaluation: 03/16/18 Time of Evaluation: 22:41 - Subjective Subjective: Tulio Cordova DO PGY1 - Internal Medicine Instrumentation And Controls Designer - Hospital Progress Note Patient seen and examined at bedside this morning No acute events reported overnight; No acute issues voiced by patient at this time. Patient conversant; asking for dilaudid for his chronic back pain. Patient redirected; Remainder of 12system ROS is negative at this time. Objective - Vital Signs/Intake and Output Vital Signs (last 24 hours): Temp Pulse Resp BP Pulse Ox 98.3 F 66 18 112/79 96 03/16/18 22:00 03/16/18 22:00 03/16/18 22:00 03/16/18 22:00 03/16/18 22:00 Intake and Output: 03/16/18 03/17/18 18:59 06:59 Intake Total 600 Output Total 100 Balance 500 - Medications Medications: Current Medications Albuterol/Ipratropium (Duoneb 3 Mg/0.5 Mg (3 Ml) Ud) 3 ml IH [id number] PRN PRN Reason: Wheezing Carvedilol (Coreg) 12.5 mg PO BID [facility] Last Admin: 03/16/18 18:13 Dose: 12.5 mg Clonidine HCl (Catapres-Tts3 0.3 Mg/24 Hr) 1 patch TD Q7D@1000 [facility] Enoxaparin Sodium (Lovenox) 40 mg SC DAILY [facility]; Protocol Last Admin: 03/16/18 09:01 Dose: 40 mg Hydrochlorothiazide (Hydrodiuril) 25 mg PO DAILY [facility] Last Admin: 03/16/18 09:08 Dose: 25 mg Lisinopril (Zestril) 40 mg PO DAILY [facility] Last Admin: 03/16/18 09:08 Dose: 40 mg Metoprolol Tartrate (Lopressor) 5 mg IVP Q6H [facility] Last Admin: 03/11/18 11:13 Dose: 5 mg Nicotine (Nicoderm Cq) 1 patch TD DAILY [facility] Last Admin: 03/16/18 11:31 Dose: 1 patch Nitroglycerin (Nitro-Bid 2% Oint) 1 ea TOP Q8 PRN PRN Reason: Other Last Admin: 03/14/18 14:50 Dose: 1 ea Olanzapine (Zyprexa Zydis) 5 mg PO HS PRN; Protocol PRN Reason: Agitation Last Admin: 03/16/18 21:56 Dose: 5 mg Ondansetron HCl (Zofran Inj) 4 mg IVP Q6 PRN PRN Reason: Nausea/Vomiting Last Admin: 03/11/18 22:00 Dose: 4 mg Oxycodone/Acetaminophen (Percocet 5/325 Mg Tab) 1 tab PO Q4H PRN PRN Reason: Pain, severe (8-10) Stop: 03/19/18 16:33 Pantoprazole Sodium (Protonix Ec Tab) 40 mg PO ACB [facility] Last Admin: 03/16/18 08:55 Dose: 40 mg Primidone (Mysoline) 250 mg PO TID [facility] Last Admin: 03/16/18 18:13 Dose: 250 mg - Labs Labs: 03/16/18 06:30 03/16/18 19:10 PT 14.4 SECONDS (9.4-12.5) H 03/06/18 21:51 INR 1.26 03/06/18 21:51 APTT 29.2 Seconds (25.1-36.5) 03/06/18 21:51 - Constitutional Appears: Awake, Alert, Sitting on edge of bed - Head Exam Head Exam: ATRAUMATIC, NORMOCEPHALIC - ENT Exam ENT Exam: Mucous Membranes Moist - Respiratory Exam Respiratory Exam: Clear to Ausculation Bilateral, NORMAL BREATHING PATTERN - Cardiovascular Exam Cardiovascular Exam: REGULAR RHYTHM, RRR, +S1, +S2. absent: Murmur - GI/Abdominal Exam GI & Abdominal Exam: Soft, Normal Bowel Sounds, Midline incision intact, Stapled; W/ no discharge or drainage. No dressing -Extremity Exam Lower Extremity Exam: Distal pulses 2+ BL, no edema - Neurological Exam Additional comments: AAO3 Assessment and Plan - Assessment and Plan (Free Text) Assessment: 68 y/o M with PMHx HTN, HLD, CVA with left residual weakness, COPD, cardiac a rrest s/p spinal surgery, chronic back pain presented to [facility] 03/06 complaining of abdominal pain. Subsequently found to have perforated duodenal ulcer. Currently s/p Issa Patch repair of ulcer on 03/06. Patient is transferred to med/surg with waxing/ waning confusion and lethargy; Still having asymptomatic hypertension however it is improving at this time. Plan: AMS - Improving relative to ICU however still exhibits some confusion Patient appears to have waxing/waning confusion and lethargy. Etiology include - Delirium vs Opiate Withdrawal Pt takes percocet, hydrocodone, and primidone at home. We will resume home primidone at this time Dilaudid DC'd today Start Percocet 5-[address] Head was normal Neurology consulted EEG demonstrated presence of mild to moderate non-specific diffuse khalil matter dysfunction. These findings do no support a specific etiology. Findings are also in keeping with a focal cortical abnormality involving the right hemisphere. No seizure activity c/w Zyprexa as per psych Accelerated Hypertension: Blood pressure much improved today relative to other days; Coreg started today at 1000 Started Coreg 12.5 BID CW HCTZ 25 C/w Clonidine patch 0.3 QW, Lisinopril 40 QD, DC Lopressor 50 Q12 Echo completed EF 59% Low Na diet Nephro following. appreciate reccs Cardiology following, appreciate reccs Perforated Duodenal Ulcer - s/p Issa patch repair of ulcer 03/06 Diet advanced to regular, tolerating well, no complaints Surgery following Incision healing well Diet: Low Sodium Diet GI ppx: Protonix 40mg IV daily VTE ppx: Lovenox 40 QD Code status: full code Patient was seen, examined and discussed w/ attending physician Dr. Cuauhtemoc Cordova DO PGY1 Internal Medicine Instrumentation And Controls Designer - Pager [phone]
--- NOTE | 2018-03-17 01:23 | PN ---
DATE: 03/16/2018 SUBJECTIVE: The patient is in bed, in no acute distress, nontoxic. PHYSICAL EXAMINATION VITAL SIGNS: Temperature is 98, blood pressure is 130/90, respiratory rate of 20, heart rate of 64. HEENT: Unremarkable. NECK: Supple. LUNGS: Have decreased breath sounds. HEART: Normal S1 and S2. ABDOMEN: Soft. Nontender. LABORATORY DATA: Reveals a white count of 9.6, hemoglobin of 11, platelets of 331. Chemistries reveal a BUN of 11, creatinine of 0.7. Urinalysis is noted. Toxicology is reviewed. Microbiology is noted. ASSESSMENT AND PLAN: A 68-year-old male with perforated duodenal ulcer, status post exploratory laparotomy and repair on 03/06/2018, the patient with history of systemic inflammatory response syndrome, cardiac arrest after a in the past, hypertension, chronic back pain, dyslipidemia, and abdominal tenderness is improved on Zosyn and the patient is seen earlier today, doing well, has completed the Zosyn, currently off of antibiotics, afebrile. Harinder Arceo MD
[2018-03-17] MEDS: Oxycodone/Acetaminophen 5/325 mg Tab PO PRN (06:45)
[2018-03-17] MEDS: Pantoprazole 40 mg EC Tab PO SCH (08:14)
[2018-03-17 09:27] LABS: BASO # 0.01 K/mm3 (0.0-2.0); BASO % 0.1 % (0.0-3.0); EOS # 0.4 (0.0-0.7); EOS % 3.4 % (1.5-5.0); GRAN # 7.45 (1.4-6.5); GRAN % 69.1 % (50.0-68.0); HEMOGLOBIN 11.6 g/dL (14.0-18.0); LYMPH # 2.2 (1.2-3.4); LYMPH % 20.4 % (22.0-35.0); MEAN CELL VOLUME 67.9 fl (80.0-105.0); MEAN CORPUSCULAR HEMOGLOBIN 21.8 pg (25.0-35.0); MEAN CORPUSCULAR HGB CONC 32.1 g/dl (31.0-37.0); MONO # 0.8 (0.1-0.6); PLATELET COUNT 376 10^3/uL (120.0-450.0); RBC 5.32 10^6/uL (3.5-6.1); RED CELL DISTRIBUTION WIDTH 20.9 % (11.5-14.5); WHITE BLOOD COUNT 10.8 10^3/ul (4.5-11.0)
[2018-03-17 09:36] LABS: ALB/GLOB RATIO 0.9 (1.1-1.8); ALBUMIN 3.5 g/dL (3.0-4.8); ALT/SGPT 42 U/L (7-56); AST/SGOT 41 U/L (17-59); BLOOD UREA NITROGEN 8 mg/dL (7-21); CALCIUM 8.6 mg/dL (8.4-10.5); GFR NON-AFRICAN AMERICAN > 60
[2018-03-17] MEDS: Enoxaparin 40 mg Syringe SC SCH (10:25)
--- NOTE | 2018-03-17 11:14 | CP.PCM.PN ---
Subjective - Date & Time of Evaluation Date of Evaluation: 03/17/18 Time of Evaluation: 11:08 - Subjective Subjective: Tulio Laceyel PGY1 - Internal Medicine Machine Lay Out Worker - Hospital Progress Note Patient seen and examined at bedside this morning He is upset about pain rx; c/o pain lower back and knee pain. Continues to ask for dilaudid; has been offered multiple alternatives; refuses to try alternatives to dilaudid. Explained to patient the need to titrate pain medications down; Pain is not related to surgical intervention performed approx two weeks ago. Multiple calls regarding this issue have been received throughout the day today as well as last night. Objective - Vital Signs/Intake and Output Vital Signs (last 24 hours): Temp Pulse Resp BP Pulse Ox 98.5 F 69 18 127/84 98 03/17/18 06:00 03/17/18 10:27 03/17/18 06:00 03/17/18 10:28 03/17/18 06:00 Intake and Output: 03/17/18 03/17/18 06:59 18:59 Intake Total 180 Output Total 1 Balance 179 - Medications Medications: Current Medications Albuterol/Ipratropium (Duoneb 3 Mg/0.5 Mg (3 Ml) Ud) 3 ml IH [id number] PRN PRN Reason: Wheezing Carvedilol (Coreg) 12.5 mg PO BID [facility] Last Admin: 03/17/18 10:27 Dose: 12.5 mg Clonidine HCl (Catapres-Tts3 0.3 Mg/24 Hr) 1 patch TD Q7D@1000 [facility] Last Admin: 03/17/18 10:28 Dose: 1 patch Enoxaparin Sodium (Lovenox) 40 mg SC DAILY [facility]; Protocol Last Admin: 03/17/18 10:25 Dose: 40 mg Hydrochlorothiazide (Hydrodiuril) 25 mg PO DAILY [facility] Last Admin: 03/17/18 10:25 Dose: 25 mg Lisinopril (Zestril) 40 mg PO DAILY [facility] Last Admin: 03/17/18 10:28 Dose: 40 mg Metoprolol Tartrate (Lopressor) 5 mg IVP Q6H [facility] Last Admin: 03/11/18 11:13 Dose: 5 mg Nicotine (Nicoderm Cq) 1 patch TD DAILY [facility] Last Admin: 03/17/18 10:26 Dose: 1 patch Nitroglycerin (Nitro-Bid 2% Oint) 1 ea TOP Q8 PRN PRN Reason: Other Last Admin: 03/14/18 14:50 Dose: 1 ea Olanzapine (Zyprexa Zydis) 5 mg PO HS PRN; Protocol PRN Reason: Agitation Last Admin: 03/16/18 21:56 Dose: 5 mg Ondansetron HCl (Zofran Inj) 4 mg IVP Q6 PRN PRN Reason: Nausea/Vomiting Last Admin: 03/11/18 22:00 Dose: 4 mg Oxycodone/Acetaminophen (Percocet 5/325 Mg Tab) 1 tab PO Q4H PRN PRN Reason: Pain, severe (8-10) Stop: 03/19/18 16:33 Last Admin: 03/17/18 06:45 Dose: 1 tab Pantoprazole Sodium (Protonix Ec Tab) 40 mg PO ACB [facility] Last Admin: 03/17/18 08:14 Dose: 40 mg Primidone (Mysoline) 250 mg PO TID [facility] Last Admin: 03/17/18 10:25 Dose: 250 mg - Labs Labs: 03/17/18 09:00 03/17/18 09:00 PT 14.4 SECONDS (9.4-12.5) H 03/06/18 21:51 INR 1.26 03/06/18 21:51 APTT 29.2 Seconds (25.1-36.5) 03/06/18 21:51 - Constitutional Appears: Awake, Alert, Sitting on edge of bed - Head Exam Head Exam: ATRAUMATIC, NORMOCEPHALIC - ENT Exam ENT Exam: Mucous Membranes Moist - Respiratory Exam Respiratory Exam: Clear to Ausculation Bilateral, NORMAL BREATHING PATTERN - Cardiovascular Exam Cardiovascular Exam: REGULAR RHYTHM, RRR, +S1, +S2. absent: Murmur - GI/Abdominal Exam GI & Abdominal Exam: Surgical incision in tact w/ christine; no drainage or erythema appreciated; no abdominal tenderness; -Extremity Exam Lower Extremity Exam: Distal pulses 2+ BL, no edema - Neurological Exam Additional comments: AAO3 Assessment and Plan - Assessment and Plan (Free Text) Assessment: 68 y/o M with PMHx HTN, HLD, CVA with left residual weakness, COPD, cardiac arrest s/p spinal surgery, chronic back pain presented to [facility] 10/3 complaining of abdominal pain. Subsequently found to have perforated duodenal ulcer. Currently s/p Issa Patch repair of ulcer on 03/06. Patient is transferred to med/surg with waxing/ waning confusion and lethargy; Hypertension is well controlled w/ current regimen at this time. Patient is currently pending placement to [facility] at this time. Plan: AMS - Improving relative to ICU however still exhibits some confusion Patient appears to have waxing/waning confusion and lethargy. Etiology include - Delirium vs Opiate Withdrawal Pt takes percocet, hydrocodone, and primidone at home. Can c/w home primidone No longer on dilaudid [facility]; 1mg admin this AM C/w Percocet 5-[address] Head was normal Neurology consulted EEG demonstrated presence of mild to moderate non-specific diffuse khalil matter dysfunction. These findings do no support a specific etiology. Findings are also in keeping with a focal cortical abnormality involving the right hemisphere. No seizure activity c/w Zyprexa as per psych Accelerated Hypertension: Blood pressure much improved today relative to other days; Coreg started today at 1000 C/w Coreg 12.5 BID CW HCTZ 25 C/w Clonidine patch 0.3 QW, Lisinopril 40 QD, DC Lopressor 50 Q12 Echo completed EF 59% Low Na diet Nephro following. appreciate reccs Cardiology following, appreciate reccs Perforated Duodenal Ulcer - s/p Issa patch repair of ulcer 03/06 Diet advanced to regular, tolerating well, no complaints Surgery following Incision healing well Diet: Low Sodium Diet GI ppx: Protonix 40mg IV daily VTE ppx: Lovenox 40 QD Code status: full code Patient was seen, examined and discussed w/ attending physician Dr. Cuauhtemoc Cordova DO PGY1 Internal Medicine Machine Lay Out Worker - Pager [phone]
[2018-03-17] MEDS ORDERED: HYDROmorphone 1 mg/ml ISec IVP STA (11:16)
--- NOTE | 2018-03-17 22:04 | CP.PCM.PN ---
Subjective - Date & Time of Evaluation Date of Evaluation: 03/17/18 Time of Evaluation: 22:04 - Subjective Subjective: Mack Leyva, PGY-1 Progress Note I was notified of patient in pain to his legs and back and came to evaluate patient. Patient was hemodynamically stable, lying comfortably in bed talking on the telephone laughing upon my entry. Patient was demanding Dilaudid for pain control. Patient noted that although he understands the need to wean himself off of IV pain medications in preparation for his upcoming discharge, he has been on Dilaudid before and has received support from his pain specialist to receive such mediations as needed due to his chronic pain. Patient states that his pain specialist reports that he has "freak anatomy" that allows him to handle such pain medication without issue. At this time, patient was not exhibiting signs of pain that would require such high potency medication. Patient afebrile, no leukocytosis, HR 58 and BP 127/85. Alternative of Percocet was discussed at length with patient, and reasons for r ecommendation were conveyed at length. Patient's hospital course and questions were answered. Objective - Vital Signs/Intake and Output Vital Signs (last 24 hours): Temp Pulse Resp BP Pulse Ox 97.8 F 58 L 20 127/85 98 03/17/18 14:00 03/17/18 14:00 03/17/18 14:00 03/17/18 14:00 03/17/18 14:00 Intake and Output: 03/17/18 03/18/18 18:59 06:59 Intake Total 720 Output Total 200 Balance 520 - Medications Medications: Current Medications Albuterol/Ipratropium (Duoneb 3 Mg/0.5 Mg (3 Ml) Ud) 3 ml IH [id number] PRN PRN Reason: Wheezing Carvedilol (Coreg) 12.5 mg PO BID [facility] Last Admin: 03/17/18 17:21 Dose: 12.5 mg Clonidine HCl (Catapres-Tts3 0.3 Mg/24 Hr) 1 patch TD Q7D@1000 [facility] Last Admin: 03/17/18 10:28 Dose: 1 patch Enoxaparin Sodium (Lovenox) 40 mg SC DAILY [facility]; Protocol Last Admin: 03/17/18 10:25 Dose: 40 mg Hydrochlorothiazide (Hydrodiuril) 25 mg PO DAILY [facility] Last Admin: 03/17/18 10:25 Dose: 25 mg Lisinopril (Zestril) 40 mg PO DAILY [facility] Last Admin: 03/17/18 10:28 Dose: 40 mg Metoprolol Tartrate (Lopressor) 5 mg IVP Q6H [facility] Last Admin: 03/11/18 11:13 Dose: 5 mg Nicotine (Nicoderm Cq) 1 patch TD DAILY [facility] Last Admin: 03/17/18 10:26 Dose: 1 patch Nitroglycerin (Nitro-Bid 2% Oint) 1 ea TOP Q8 PRN PRN Reason: Other Last Admin: 03/14/18 14:50 Dose: 1 ea Olanzapine (Zyprexa Zydis) 5 mg PO HS PRN; Protocol PRN Reason: Agitation Last Admin: 03/16/18 21:56 Dose: 5 mg Ondansetron HCl (Zofran Inj) 4 mg IVP Q6 PRN PRN Reason: Nausea/Vomiting Last Admin: 03/11/18 22:00 Dose: 4 mg Oxycodone/Acetaminophen (Percocet 5/325 Mg Tab) 1 tab PO Q4H PRN PRN Reason: Pain, severe (8-10) Stop: 03/19/18 16:33 Last Admin: 03/17/18 06:45 Dose: 1 tab Pantoprazole Sodium (Protonix Ec Tab) 40 mg PO ACB [facility] Last Admin: 03/17/18 08:14 Dose: 40 mg Primidone (Mysoline) 250 mg PO TID [facility] Last Admin: 03/17/18 18:52 Dose: 250 mg - Labs Labs: 03/17/18 09:00 03/17/18 09:00 PT 14.4 SECONDS (9.4-12.5) H 03/06/18 21:51 INR 1.26 03/06/18 21:51 APTT 29.2 Seconds (25.1-36.5) 03/06/18 21:51
[2018-03-17] MEDS: OLANZapine 5 mg Disintegrating Tab PO PRN (22:20)
[2018-03-17 23:01] VITALS: RESP 18
--- NOTE | 2018-03-18 00:29 | PN ---
DATE: 03/17/2018 SUBJECTIVE: The patient seen earlier today in no acute distress, nontoxic. PHYSICAL EXAMINATION: VITAL SIGNS: Temperature is 98, blood pressure is 120/70, respiratory rate of . HEENT: Unremarkable. NECK: Supple. LUNGS: Have decreased breath sounds. HEART: Normal S1, S2. ABDOMEN: Soft, nontender. LABORATORY EXAMINATION: Reveals a white count of 10,000, hemoglobin of 11. Chemistries reveals a BUN of 8, creatinine of 0.7, procalcitonin is 3.79. Urinalysis is noted. Toxicology is reviewed. Microbiology is reviewed. ASSESSMENT AND PLAN: A 68-year-old male who was seen earlier today in 563, bed 2 with perforated duodenal ulcer status post exploratory lap repair on 03/06/2018 with history of systemic inflammatory response syndrome, cardiac arrest in the past, hypertension, chronic back pain, dyslipidemia and currently now off of antibiotics, afebrile with a temperature of 98. White count of 10,000. We will follow with you. Harinder Arceo MD
[2018-03-18] MEDS: Oxycodone/Acetaminophen 5/325 mg Tab PO PRN ×3 (00:37→13:43)
[2018-03-18 07:08] LABS: ALB/GLOB RATIO 0.9 (1.1-1.8); ALT/SGPT 38 U/L (7-56); AST/SGOT 27 U/L (17-59); BLOOD UREA NITROGEN 10 mg/dL (7-21); CALCIUM 8.4 mg/dL (8.4-10.5); GFR NON-AFRICAN AMERICAN > 60
[2018-03-18 07:15] LABS: BASO # 0.01 K/mm3 (0.0-2.0); BASO % 0.1 % (0.0-3.0); EOS # 0.4 (0.0-0.7); EOS % 5.6 % (1.5-5.0); GRAN # 4.37 (1.4-6.5); GRAN % 56.1 % (50.0-68.0); HEMOGLOBIN 10.7 g/dL (14.0-18.0); LYMPH % 26.1 % (22.0-35.0); MEAN CELL VOLUME 67.4 fl (80.0-105.0); MEAN CORPUSCULAR HEMOGLOBIN 21.7 pg (25.0-35.0); MEAN CORPUSCULAR HGB CONC 32.1 g/dl (31.0-37.0); MONO # 0.9 (0.1-0.6); MONO % 12.1 % (1.0-6.0); PLATELET COUNT 387 10^3/uL (120.0-450.0); RBC 4.94 10^6/uL (3.5-6.1); RED CELL DISTRIBUTION WIDTH 20.8 % (11.5-14.5); WHITE BLOOD COUNT 7.8 10^3/ul (4.5-11.0)
[2018-03-18] MEDS ORDERED: Potassium Chloride 20 mEq ER Tab PO STA (08:41)
[2018-03-18] MEDS: Enoxaparin 40 mg Syringe SC SCH (09:06)
[2018-03-18] MEDS: Pantoprazole 40 mg EC Tab PO SCH (09:07)
--- NOTE | 2018-03-18 16:20 | CP.PCM.DIS ---
<Kevin Cordovaant - Last Filed: 03/19/18 00:11> Provider - Provider Date of Admission: 03/06/18 16:01 Attending physician: Joselito Hayes MD Primary care physician: Balbina Rivas MD Consults: Neuro - Korya Nephro - Mughni Cardio - [facility] - [facility] Time Spent in preparation of Discharge (in minutes): 45 Diagnosis - Discharge Diagnosis (1) Duodenal ulcer perforation Status: Acute (2) Encephalopathy Status: Acute (3) Hypertension Status: Acute Hospital Course - Lab Results Lab Results: Micro Results 03/07/18 12:50 Blood Blood Culture - Final NO GROWTH AFTER 5 DAYS 03/07/18 12:50 Blood Gram Stain - Final TEST NOT PERFORMED 03/06/18 21:40 Nose MRSA Culture (Admit) - Final MRSA NOT DETECTED Most Recent Lab Values WBC 7.8 10^3/ul (4.5-11.0) D 03/18/18 06:10 RBC 4.94 10^6/uL (3.5-6.1) 03/18/18 06:10 Hgb 10.7 g/dL (14.0-18.0) L 03/18/18 06:10 Hct 33.3 % (42.0-52.0) L 03/18/18 06:10 MCV 67.4 fl (80.0-105.0) L 03/18/18 06:10 MCH 21.7 pg (25.0-35.0) L 03/18/18 06:10 MCHC 32.1 g/dl (31.0-37.0) 03/18/18 06:10 RDW 20.8 % (11.5-14.5) H 03/18/18 06:10 Plt Count 387 10^3/uL (120.0-450.0) 03/18/18 06:10 MPV fl (7.0-11.0) 03/11/18 07:15 Gran % 56.1 % (50.0-68.0) 03/18/18 06:10 Lymph % (Auto) 26.1 % (22.0-35.0) 03/18/18 06:10 [place] % (Auto) 12.1 % (1.0-6.0) H 03/18/18 06:10 Eos % (Auto) 5.6 % (1.5-5.0) H 03/18/18 06:10 Baso % (Auto) 0.1 % (0.0-3.0) 03/18/18 06:10 Gran # 4.37 (1.4-6.5) 03/18/18 06:10 Lymph # (Auto) 2.0 (1.2-3.4) 03/18/18 06:10 [place] # (Auto) 0.9 (0.1-0.6) H 03/18/18 06:10 Eos # (Auto) 0.4 (0.0-0.7) 03/18/18 06:10 Baso # (Auto) 0.01 K/mm3 (0.0-2.0) 03/18/18 06:10 PT 14.4 SECONDS (9.4-12.5) H 03/06/18 21:51 INR 1.26 03/06/18 21:51 APTT 29.2 Seconds (25.1-36.5) 03/06/18 21:51 Sodium 139 mmol/L (132-148) 03/18/18 06:10 Potassium 3.2 mmol/L (3.6-5.0) L 03/18/18 06:10 Chloride 106 mmol/L (98-107) 03/18/18 06:10 Carbon Dioxide 26 mmol/L (21-33) 03/18/18 06:10 Anion Gap 11 (10-20) 03/18/18 06:10 BUN 10 mg/dL (7-21) 03/18/18 06:10 Creatinine 0.6 mg/dl (0.8-1.5) L 03/18/18 06:10 Est GFR ( Amer) > 60 03/18/18 06:10 Est GFR (Non-Af Amer) > 60 03/18/18 06:10 POC Glucose (mg/dL) 89 mg/dL (65-110) 03/18/18 15:42 Random Glucose 100 mg/dL (70-110) 03/18/18 06:10 Lactic Acid 1.8 mmol/L (0.7-2.1) 03/11/18 19:27 Calcium 8.4 mg/dL (8.4-10.5) 03/18/18 06:10 Phosphorus 2.9 mg/dL (2.5-4.5) 03/14/18 06:20 Magnesium 1.8 mg/dL (1.7-2.2) 03/18/18 07:00 Total Bilirubin 0.3 mg/dL (0.2-1.3) 03/18/18 06:10 AST 27 U/L (17-59) 03/18/18 06:10 ALT 38 U/L (7-56) 03/18/18 06:10 Alkaline Phosphatase 72 U/L (38-126) 03/18/18 06:10 Total Creatine Kinase 587 U/L (35-230) H 03/11/18 19:27 CK-MB (CK-2) 2.9 ng/mL (0.0-3.6) 03/11/18 19:27 CK-MB (CK-2) % Cancelled 03/11/18 19:27 Troponin I 0.01 ng/mL D 03/06/18 11:55 NT-Pro-B Natriuret Pep 603 pg/mL (0-450) H 03/06/18 11:55 Total Protein 6.6 g/dL (5.8-8.3) 03/18/18 06:10 Albumin 3.0 g/dL (3.0-4.8) 03/18/18 06:10 Globulin 3.6 gm/dL 03/18/18 06:10 Albumin/Globulin Ratio 0.9 (1.1-1.8) L 03/18/18 06:10 Lipase 145 U/L (23-300) 03/06/18 11:55 Renin 0.39 ng/mL/h (0.25-5.82) 03/12/18 06:50 Aldosterone 1 ng/dL 03/12/18 06:50 Aldosterone/Renin Ratio 2.6 Ratio (0.9-28.9) 03/12/18 06:50 Procalcitonin 3.79 NG/ML (0.19-0.49) H 03/07/18 12:50 Free T4 0.98 ng/dL (0.78-2.19) 03/10/18 07:40 TSH 3rd Generation 1.95 mIU/mL (0.46-4.68) 03/10/18 07:40 Plasma Metanephrine 80 pg/mL (<=57) H 03/12/18 06:50 Plasma Normetanephrine 422 pg/mL (<=148) H 03/12/18 06:50 Plas Total Metaneph 502 pg/mL (<=205) H 03/12/18 06:50 Urine Color Yellow (YELLOW) 03/06/18 12:30 Urine Appearance Clear (CLEAR) 03/06/18 12:30 Urine pH 7.5 (4.7-8.0) 03/06/18 12:30 Ur Specific [place] 1.020 (1.005-1.035) 03/06/18 12:30 Urine Protein Negative mg/dL (<30 mg/dL) 03/06/18 12:30 Urine Glucose (UA) Negative mg/dL (NEGATIVE) 03/06/18 12:30 Urine Ketones Negative mg/dL (NEGATIVE) 03/06/18 12:30 Urine Blood Negative (NEGATIVE) 03/06/18 12:30 Urine Nitrate Negative (NEGATIVE) 03/06/18 12:30 Urine Bilirubin Negative (NEGATIVE) 03/06/18 12:30 Urine Urobilinogen 0.2 E.U./dL (<1 E.U./dL) 03/06/18 12:30 Ur Leukocyte Esterase Negative Gertrude/uL (NEGATIVE) 03/06/18 12:30 Urine Opiates Screen Positive (NEGATIVE) H 03/07/18 11:00 Urine Methadone Screen Negative (NEGATIVE) 03/07/18 11:00 Ur Barbiturates Screen Positive (NEGATIVE) H 03/07/18 11:00 Ur Phencyclidine Scrn Negative (NEGATIVE) 03/07/18 11:00 Ur Amphetamines Screen Negative (NEGATIVE) 03/07/18 11:00 U Benzodiazepines Scrn Negative (NEGATIVE) 03/07/18 11:00 U Oth Cocaine Metabols Negative (NEGATIVE) 03/07/18 11:00 U Cannabinoids Screen Positive (NEGATIVE) H 03/07/18 11:00 - Hospital Course Hospital Course: Tulio Cordova DO PGY1 -Internal Medicine Lead [place]inner - Hospital DC Summary: 68 y/o M with PMHx HTN, HLD, CVA with left residual weakness, COPD, cardiac arrest s/p spinal surgery, chronic back pain presented to [facility] [place] 03/06 complaining of abdominal pain. Patient was subsequently found to have perforated duodenal ulcer. Issa patch repair of the perforated ulcer was completed 03/06. Status post surgery, patient was admitted to ICU. He became very agitated and confused. Neuro status was monitored throughout hospital course. Patient has history of chronic opiate use for his back pain. Geodon and ativan were given PRN. Neurology and Psych were consulted. CT head was done which was negative. EEG showed no signs of seizures. Patient was started on IV ABX - Zosyn for post- op intra-abdominal infection coverage, and serial abdominal exams were completed. Incision site healed well with no complications or signs of infection. Patient was given duoneb ad supplemental O2 prn for history of COPD. Patient had elevated BP systolic 170-180s. Nephrology consulted for assistance with management of hypertension. Patient was receiving lisinopril, clonidine patch, and lopressor. Regimen was adjusted as needed until BP was stabilized. ECHO was completed and showed EF 59%. Patient was transferred to [facility] on POD#4. On POD#6, dilaudid was discontinued and patient was reassess completely off of opiates. Mental status began to improve since. Patient complained of low back pain and continued to ask for dilaudid. It was explained to patient the need to titrate pain medications down. Physical therapy had recommended placing patient in subacute rehab. However, patient refused this and wanted to be discharge at home. On day of discharge, patient was awake, alert, and oriented x 3. He denied abdominal pain, nausea, vomiting, shortness of breath. His blood pressure was well controlled with lisinopril and clonidine patch. Patient refused subacute rehab and will be discharged home. Upon discharge, medications were reconciled and new medications were delivered to patient at bedside. The following instructions were provided to the patient: -You were admitted for a perforated ulcer; While you were here your blood pressures were noted to be high; -You are going to be discharged home w/ VNA services for residential for disease management and home PT -Please follow up with your primary care doctor, Dr. Rivas within 3-5 days of discharge -Please ask your doctor for a referral to follow up with an outpatient edge trimming machine operator -Please call [phone] for follow up appointment with your surgeon with Dr. Torres -Please start taking the following medications Hydrochlorothiazide 25mg daily Clonidine patch 0.3mg/24H apply patch weekly Amoxicillin 1000mg twice a day for 14 days Clarithromycin 500mg twice a day for 14 days Lisinopril 50mg daily -Please stop taking the following medications Lisinopril 4mg daily (NOTE DOSAGE CHANGE TO 50MG DAILY ABOVE) Metoprolol 50mg Nightly -Please continue taking all of your other home medications as prescribed. If your symptoms worsen or new worsening symptoms arise please go to the nearest emergency department immediately. ------- Patient is medically optimized for discharge at this time - Date & Time of H&P Date of H&P: 03/06/18 Time of H&P: 17:40 Discharge Exam - Head Exam Head Exam: ATRAUMATIC, NORMAL INSPECTION, NORMOCEPHALIC - Eye Exam Eye Exam: EOMI, Normal appearance, PERRL. absent: Scleral icterus - ENT Exam ENT Exam: Mucous Membranes Moist - Respiratory Exam Respiratory Exam: Clear to PA & Lateral, NORMAL BREATHING PATTERN, UNREMARKABLE. absent: Respiratory Distress - Cardiovascular Exam Cardiovascular Exam: REGULAR RHYTHM, RRR, +S1, +S2. absent: Systolic Murmur - GI/Abdominal Exam GI & Abdominal Exam: Normal Bowel Sounds, Soft, Unremarkable. absent: Tenderness Additional comments: Midline incision is healing well; no drainage, erythema, or discharge appreciated. - Extremities Exam Extremities exam: normal inspection, pedal pulses present - Neurological Exam Neurological exam: Alert, CN II-XII Intact, Oriented x3 - Psychiatric Exam Psychiatric exam: Agitated (mildly; asking for pain rx), Normal Affect, Normal Mood - Skin Skin Exam: Dry, Intact, Normal Color, Warm Discharge Plan - Discharge Medications Prescriptions: Amoxicillin 1,000 mg PO BID 14 Days #28 tablet Carvedilol [Coreg] 12.5 mg PO BID 15 Days #30 tab Clarithromycin [Biaxin Filmtab] 500 mg PO BID 14 Days #28 tab cloNIDine 0.3 mg/24 hr [catapres-TTS3 0.3 mg/24 hr] 1 patch TD Q7D@1000 14 Days #2 patch hydroCHLOROthiazide [Hydrodiuril] 25 mg PO DAILY 15 Days #15 tab Lisinopril [Zestril] 40 mg PO DAILY #15 tab Pantoprazole [Protonix EC Tab] 40 mg PO ACB 15 Days #15 ect - Follow Up Plan Condition: GOOD Disposition: HOME/ ROUTINE Instructions: Quitting Smoking for Older Adults, High Blood Pressure (DC), Gastritis (DC), Low Salt Diet Additional Instructions: -You were admitted for a perforated ulcer; While you were here your blood pressures were noted to be high; -You are going to be discharged home w/ VNA services for residential for disease management and home PT -Please follow up with your primary care doctor, Dr. Rivas within 3-5 days of discharge -Please ask your doctor for a referral to follow up with an outpatient edge trimming machine operator -Please call [phone] for follow up appointment with your surgeon with Dr. Torres -Please start taking the following medications Hydrochlorothiazide 25mg daily Clonidine patch 0.3mg/24H apply patch weekly Amoxicillin 1000mg twice a day for 14 days Clarithromycin 500mg twice a day for 14 days Lisinopril 50mg daily -Please stop taking the following medications Lisinopril 4mg daily (NOTE DOSAGE CHANGE TO 50MG DAILY ABOVE) Metoprolol 50mg Nightly -Please continue taking all of your other home medications as prescribed. If your symptoms worsen or new worsening symptoms arise please go to the nearest emergency department immediately. Referrals: Yoni Calderon MD [Staff Provider] - Pedro Hinson MD [Staff Provider] - Misti Rodriguez MD [Staff Provider] - Balbina Rivas MD [Primary Care Provider] - Stuart Torres MD [Staff Provider] - Greg Fortune MD [Staff Provider] - <Joselito Hayes - Last Filed: 03/20/18 09:13> Provider - Provider Date of Admission: 03/06/18 16:01 Attending physician: Joselito Hayes MD Primary care physician: Balbina Rivas MD Hospital Course - Lab Results Lab Results: Micro Results 03/07/18 12:50 Blood Blood Culture - Final NO GROWTH AFTER 5 DAYS 03/07/18 12:50 Blood Gram Stain - Final TEST NOT PERFORMED 03/06/18 21:40 Nose MRSA Culture (Admit) - Final MRSA NOT DETECTED Most Recent Lab Values WBC 7.8 10^3/ul (4.5-11.0) D 03/18/18 06:10 RBC 4.94 10^6/uL (3.5-6.1) 03/18/18 06:10 Hgb 10.7 g/dL (14.0-18.0) L 03/18/18 06:10 Hct 33.3 % (42.0-52.0) L 03/18/18 06:10 MCV 67.4 fl (80.0-105.0) L 03/18/18 06:10 MCH 21.7 pg (25.0-35.0) L 03/18/18 06:10 MCHC 32.1 g/dl (31.0-37.0) 03/18/18 06:10 RDW 20.8 % (11.5-14.5) H 03/18/18 06:10 Plt Count 387 10^3/uL (120.0-450.0) 03/18/18 06:10 MPV fl (7.0-11.0) 03/11/18 07:15 Gran % 56.1 % (50.0-68.0) 03/18/18 06:10 Lymph % (Auto) 26.1 % (22.0-35.0) 03/18/18 06:10 [place] % (Auto) 12.1 % (1.0-6.0) H 03/18/18 06:10 Eos % (Auto) 5.6 % (1.5-5.0) H 03/18/18 06:10 Baso % (Auto) 0.1 % (0.0-3.0) 03/18/18 06:10 Gran # 4.37 (1.4-6.5) 03/18/18 06:10 Lymph # (Auto) 2.0 (1.2-3.4) 03/18/18 06:10 [place] # (Auto) 0.9 (0.1-0.6) H 03/18/18 06:10 Eos # (Auto) 0.4 (0.0-0.7) 03/18/18 06:10 Baso # (Auto) 0.01 K/mm3 (0.0-2.0) 03/18/18 06:10 PT 14.4 SECONDS (9.4-12.5) H 03/06/18 21:51 INR 1.26 03/06/18 21:51 APTT 29.2 Seconds (25.1-36.5) 03/06/18 21:51 Sodium 139 mmol/L (132-148) 03/18/18 06:10 Potassium 3.2 mmol/L (3.6-5.0) L 03/18/18 06:10 Chloride 106 mmol/L (98-107) 03/18/18 06:10 Carbon Dioxide 26 mmol/L (21-33) 03/18/18 06:10 Anion Gap 11 (10-20) 03/18/18 06:10 BUN 10 mg/dL (7-21) 03/18/18 06:10 Creatinine 0.6 mg/dl (0.8-1.5) L 03/18/18 06:10 Est GFR ( Amer) > 60 03/18/18 06:10 Est GFR (Non-Af Amer) > 60 03/18/18 06:10 POC Glucose (mg/dL) 89 mg/dL (65-110) 03/18/18 15:42 Random Glucose 100 mg/dL (70-110) 03/18/18 06:10 Lactic Acid 1.8 mmol/L (0.7-2.1) 03/11/18 19:27 Calcium 8.4 mg/dL (8.4-10.5) 03/18/18 06:10 Phosphorus 2.9 mg/dL (2.5-4.5) 03/14/18 06:20 Magnesium 1.8 mg/dL (1.7-2.2) 03/18/18 07:00 Total Bilirubin 0.3 mg/dL (0.2-1.3) 03/18/18 06:10 AST 27 U/L (17-59) 03/18/18 06:10 ALT 38 U/L (7-56) 03/18/18 06:10 Alkaline Phosphatase 72 U/L (38-126) 03/18/18 06:10 Total Creatine Kinase 587 U/L (35-230) H 03/11/18 19:27 CK-MB (CK-2) 2.9 ng/mL (0.0-3.6) 03/11/18 19:27 CK-MB (CK-2) % Cancelled 03/11/18 19:27 Troponin I 0.01 ng/mL D 03/06/18 11:55 NT-Pro-B Natriuret Pep 603 pg/mL (0-450) H 03/06/18 11:55 Total Protein 6.6 g/dL (5.8-8.3) 03/18/18 06:10 Albumin 3.0 g/dL (3.0-4.8) 03/18/18 06:10 Globulin 3.6 gm/dL 03/18/18 06:10 Albumin/Globulin Ratio 0.9 (1.1-1.8) L 03/18/18 06:10 Lipase 145 U/L (23-300) 03/06/18 11:55 Renin 0.39 ng/mL/h (0.25-5.82) 03/12/18 06:50 Aldosterone 1 ng/dL 03/12/18 06:50 Aldosterone/Renin Ratio 2.6 Ratio (0.9-28.9) 03/12/18 06:50 Procalcitonin 3.79 NG/ML (0.19-0.49) H 03/07/18 12:50 Free T4 0.98 ng/dL (0.78-2.19) 03/10/18 07:40 TSH 3rd Generation 1.95 mIU/mL (0.46-4.68) 03/10/18 07:40 Plasma Metanephrine 80 pg/mL (<=57) H 03/12/18 06:50 Plasma Normetanephrine 422 pg/mL (<=148) H 03/12/18 06:50 Plas Total Metaneph 502 pg/mL (<=205) H 03/12/18 06:50 Urine Color Yellow (YELLOW) 03/06/18 12:30 Urine Appearance Clear (CLEAR) 03/06/18 12:30 Urine pH 7.5 (4.7-8.0) 03/06/18 12:30 Ur Specific [place] 1.020 (1.005-1.035) 03/06/18 12:30 Urine Protein Negative mg/dL (<30 mg/dL) 03/06/18 12:30 Urine Glucose (UA) Negative mg/dL (NEGATIVE) 03/06/18 12:30 Urine Ketones Negative mg/dL (NEGATIVE) 03/06/18 12:30 Urine Blood Negative (NEGATIVE) 03/06/18 12:30 Urine Nitrate Negative (NEGATIVE) 03/06/18 12:30 Urine Bilirubin Negative (NEGATIVE) 03/06/18 12:30 Urine Urobilinogen 0.2 E.U./dL (<1 E.U./dL) 03/06/18 12:30 Ur Leukocyte Esterase Negative [place]/uL (NEGATIVE) 03/06/18 12:30 Urine Opiates Screen Positive (NEGATIVE) H 03/07/18 11:00 Urine Methadone Screen Negative (NEGATIVE) 03/07/18 11:00 Ur Barbiturates Screen Positive (NEGATIVE) H 03/07/18 11:00 Ur Phencyclidine Scrn Negative (NEGATIVE) 03/07/18 11:00 Ur Amphetamines Screen Negative (NEGATIVE) 03/07/18 11:00 U Benzodiazepines Scrn Negative (NEGATIVE) 03/07/18 11:00 U Oth Cocaine Metabols Negative (NEGATIVE) 03/07/18 11:00 U Cannabinoids Screen Positive (NEGATIVE) H 03/07/18 11:00 Attending/Attestation - Attestation I have personally seen and examined this patient.: Yes I have fully participated in the care of the patient.: Yes I have reviewed all pertinent clinical information, including history, physical exam and plan: Yes Notes (Text): 03/20/18 09:05 Attending note; Patient seen and examined with the resident. Patient is alert and awake. Sitting in bed. Not in any acute distress. Tolerating diet. Patient is a 68-year-old male with past medical history significant for hypertension, hyperlipidemia, COPD, cardiac arrest, CVA, and chronic back pain that presented to the emergency room with epigastric abdominal pain/perforated viscus. 1.. Perforated duodenal ulcer. S/P exploratory laparotomy with repair with issa patch 03/06/18. Patient is tolerating diet. Patient was seen by surgery today. Daryl removed. Wound care instructions given by surgery. Patient will follow-up with surgery in 1 week. 2. Altered mental status. Resolved. Currently patient is alert and awake. Neurology evaluation appreciated. Head CT showed no acute intracranial findings. Secondary to opiate withdrawal. Patient on hydrocodone and Percocet at home chronically for pain. Psychiatry evaluation appreciated. 3. Accelerated hypertension. Improving. Continue Lisinopril, metoprolol, and clonidine. Continue HCTZ. Cardiology evaluation appreciated.echo per drum maker showed left ventricle is normal size, mild concentric left ventricular hypertrophy, left ventricular function is normal, EF 55-60%, no pericardial effusion. 4. Leukocytosis. Resolved. Continue to monitor. completed IV Zosyn. 5. Chronic back pain. On chronic hydrocodone and Percocet at home. Advised to follow-up with pain management as outpatient. Patient has chronic opiate dependency. 5. History of Essential tremor. Continue home primidone. 6. History of COPD. Not in acute exacerbation. Continue nebulizer treatments as needed. Complete smoking cessation is strongly recommended. Physical therapy evaluation appreciated .patient refused subacute rehabilitation . Patient's aware . case discussed with pillowcase turner in detail. Patient will be discharged home per patient and patient's request. Home services arranged by pillowcase turner. PT evaluation and nursing services arranged. Upon discharge the patient will follow up with PMD Dr. Rivas. 03/20/18 09:13
[2018-03-18 16:28] VITALS: BP 134/97; PULSE 62; TEMP 98.4; O2SAT 98
--- NOTE | 2018-03-19 05:20 | PN ---
DATE: 03/18/2018 SUBJECTIVE: The patient is in bed in no acute distress, nontoxic. PHYSICAL EXAMINATION: VITAL SIGNS: Temperature is 98, blood pressure is 130/90, respiratory rate of 18. HEENT: Unremarkable. NECK: Supple. LUNGS: Have decreased breath sounds. HEART: Normal S1, S2. ABDOMEN: Soft. LABORATORY EXAMINATION: Noted. White count is reported to be at 7.8. Chemistries are noted and urinalysis is reviewed and toxicology is also reviewed. Microbiology is reviewed. Blood cultures are negative. ASSESSMENT AND PLAN: A 68-year-old male who was seen earlier today. He had a perforated duodenal ulcer, exploratory lap, systemic inflammatory response syndrome, cardiac arrest in the past, chronic pain, afebrile, normal white count. Off of antibiotics. The patient is at risk for developing nosocomial infections. Harinder Arceo MD
== END 2018-03-18 17:52 | disposition home health service (06) | DRG 329 ==
LOC: ED 10:03 → ERH 16:01 → CCU 20:29 → ICU 20:30 → 5RNO 03-13 18:39
PROVIDERS: ADMIT Internal Medicine; ATTEND Internal Medicine
PROC: 0DU907Z Supplement Duodenum with Autologous Tissue Substitute, Open Approach (ICD-10-PCS; principal; 2018-03-06 17:00)
DX: K26.1 Acute duodenal ulcer with perforation (principal); G92 Toxic encephalopathy; F05 Delirium due to known physiological condition; F11.23 Opioid dependence with withdrawal; I69.354 Hemiplegia and hemiparesis following cerebral infarction affecting left non-dominant side; I16.0 Hypertensive urgency; E78.5 Hyperlipidemia, unspecified; E83.39 Other disorders of phosphorus metabolism; E87.6 Hypokalemia; F17.290 Nicotine dependence, other tobacco product, uncomplicated; M51.27 Other intervertebral disc displacement, lumbosacral region; G25.0 Essential tremor; J44.9 Chronic obstructive pulmonary disease, unspecified; Z78.1 Physical restraint status; Z86.74 Personal history of sudden cardiac arrest